=== PATIENT | female | born 1965 | race African-American/Black ===

== ENCOUNTER 2017-01-30 09:56 | Emergency (ER) | payer OTHER ==
[2017-01-30 10:12] VITALS: BP 148/93; PULSE 87; TEMP 97.9; BMI 35.2
[2017-01-30] MEDS ORDERED: DIPHTH,PERTUSS(ACELL),TET 0.5 ML DISP.SYRIN IM ONE (11:35)
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
== END 2017-01-30 12:42 | disposition home or self-care (01) ==
LOC: JERFT 09:56 → JER 09:56
PROC: 3E0234Z Introduction of Serum, Toxoid and Vaccine into Muscle, Percutaneous Approach (ICD-10-PCS; principal; 2017-01-30)
DX: S71.111A Laceration without foreign body, right thigh, initial encounter (principal); S09.8XXA Other specified injuries of head, initial encounter; S40.011A Contusion of right shoulder, initial encounter; S80.01XA Contusion of right knee, initial encounter; W05.2XXA Fall from non-moving motorized mobility scooter, initial encounter; Y93.89 Activity, other specified; Y92.89 Other specified places as the place of occurrence of the external cause; I25.10 Atherosclerotic heart disease of native coronary artery without angina pectoris; I10 Essential (primary) hypertension; Z95.5 Presence of coronary angioplasty implant and graft; E11.9 Type 2 diabetes mellitus without complications; Z79.4 Long term (current) use of insulin; E78.00 Pure hypercholesterolemia, unspecified; I69.851 Hemiplegia and hemiparesis following other cerebrovascular disease affecting right dominant side; Z79.01 Long term (current) use of anticoagulants
CPT/HCPCS: 70450-TC; 73030-TC-RT; 73560-TC-RT; 90471; 90715; 99282-25

== ENCOUNTER 2017-04-05 13:21 | Emergency (ER) | payer OTHER ==
[2017-04-05 13:49] VITALS: BMI 34.0
[2017-04-05] MEDS ORDERED: ONDANSETRON 4 MG/2 ML VIAL IVPUSH ONE (14:50)
--- NOTE | 2017-04-05 14:50 | PDOC ---
History of Present Illness - General Chief Complaint: Pain, Acute Stated Complaint: LOWER PELVIC PAIN (PANCREAS) Time Seen by Provider: 04/05/17 14:21 History Source: Patient Exam Limitations: No Limitations - History of Present Illness Initial Comments: CHIEF COMPLAINT: Back pain HISTORY OF PRESENT ILLNESS: This is a 50 year old female with history of CAD (s/ p stents x 5), HTN, HLD, IDDM, asthma., chronic pancreatitis, and sciatica. She presents to the ED complaining of back pain. She states that she was previously following with a pain management physician and was being prescribed Tramadol, Percocet, and Fentanyl, but that she is now out of them and the clinic no longer accepts her insurance. She also complains of epigastric pain and thinks that her pancreas may be "inflamed." Vital signs on arrival are unremarkable. REVIEW OF SYSTEMS: GENERAL/CONSTITUTIONAL: No fever or chills. No weakness. No weight change. HEAD, EYES, EARS, NOSE AND THROAT: No change in vision. No ear pain or discharge. No sore throat. CARDIOVASCULAR: No chest pain or palpitations. RESPIRATORY: No cough, wheezing, or shortness of breath. GASTROINTESTINAL: Epigastric pain. No nausea, vomiting, diarrhea, or constipation. GENITOURINARY: No dysuria, frequency, or change in urination. MUSCULOSKELETAL: Chronic low back pain. SKIN: No rash or easy bruising. NEUROLOGIC: No headache, vertigo, loss of consciousness, or loss of sensation. PSYCHIATRIC: No depression or anxiety. ENDOCRINE: No increased thirst. No abnormal weight change. HEMATOLOGIC/LYMPHATIC: No anemia, easy bleeding, or history of blood clots. ALLERGIC/IMMUNOLOGIC: No hives or skin allergy. No latex allergy. PHYSICAL EXAM: GENERAL: The patient is awake, alert, and fully oriented, in no acute distress. HEAD: Normal with no signs of trauma. ENT: Pupils equal, round and reactive to light, extraocular movements intact, sclera anicteric, conjunctiva clear. Neck supple. LUNGS: Clear to auscultation bilaterally. Normal excursion. No respiratory distress or use of accessory muscles. CV: RRR, S1/S2, no MRG. Cap refill < 2 sec. ABDOMEN: Soft, non-distended, tender to palpation in RUQ/epigastrium. EXTREMITIES: Normal range of motion, no edema. NEUROLOGICAL: Normal speech, normal gait. CN II-XII grossly intact. No saddle anesthesia. PSYCH: Normal mood, normal affect. SKIN: Warm, dry, normal turgor, no rashes or lesions noted. The Drug Utilization Report below displays all of the controlled substance prescriptions, if any, that your patient has filled in the last twelve months. The information displayed on this report is compiled from pharmacy submissions to the Department, and accurately reflects the information as submitted by the pharmacies. This report was requested by: Ashley Burgos | Reference #: [id number] 04/05/17 14:42 Rx Written Rx Dispensed Drug Quantity Days Supply Prescriber Name 03/15/2017 03/15/2017 zolpidem tartrate 10 mg tablet 30 30 OrtizSammy juarez MD 02/12/2017 03/12/2017 tramadol hcl 50 mg tablet 90 30 Elzholz, Stephan 02/12/2017 02/25/2017 fentanyl 100 mcg/hr patch 10 30 Elzholz, Stephan 02/12/2017 02/23/2017 oxycodone-acetaminophen 10-325 mg tab 120 30 Elzholz, Stephan 11/13/2016 02/11/2017 zolpidem tartrate 10 mg tablet 30 30 Ortiz Sammy MD 01/15/2017 02/11/2017 tramadol hcl 50 mg tablet 90 30 Elzholz, Stephan 01/15/2017 01/27/2017 fentanyl 100 mcg/hr patch 10 30 Elzholz, Stephan 01/15/2017 01/25/2017 oxycodone-acetaminophen 10-325 mg tab 120 30 Elzholz, Stephan 11/13/2016 01/08/2017 zolpidem tartrate 10 mg tablet 30 30 Ortiz Sammy MD 12/18/2016 01/08/2017 tramadol hcl 50 mg tablet 90 30 Elzholz, Stephan 12/18/2016 12/28/2016 fentanyl 100 mcg/hr patch 10 30 Elzholz, Stephan 12/18/2016 12/28/2016 oxycodone-acetaminophen 10-325 mg tab 120 30 Elzholz, Stephan 11/13/2016 12/10/2016 zolpidem tartrate 10 mg tablet 30 30 OrtizSammy juarez MD 11/27/2016 12/10/2016 fentanyl 100 mcg/hr patch 10 30 Elzholz, Stephan 11/27/2016 12/10/2016 tramadol hcl 50 mg tablet 90 30 Elzholz, Stephan 11/27/2016 11/27/2016 oxycodone-acetaminophen 10-325 mg tab 120 30 Elzholz, Stephan 11/13/2016 11/13/2016 zolpidem tartrate 10 mg tablet 30 30 Ortiz Sammy MD 10/30/2016 10/30/2016 fentanyl 100 mcg/hr patch 10 30 Elzholz, Stephan 10/30/2016 10/30/2016 oxycodone-acetaminophen 10-325 mg tab 120 30 Elzholz, Stephan 10/30/2016 10/30/2016 tramadol hcl 50 mg tablet 90 30 Elzholz, Stephan 07/10/2016 10/14/2016 zolpidem tartrate 10 mg tablet 30 30 Ortiz Sammy MD 09/24/2016 09/24/2016 oxycodone-acetaminophen 10-325 mg tab 120 30 Elzholz, Stephan 09/24/2016 09/24/2016 fentanyl 100 mcg/hr patch 10 30 Elzholz, Stephan 09/24/2016 09/24/2016 tramadol hcl 50 mg tablet 90 30 Elzholz, Stephan 07/10/2016 09/09/2016 zolpidem tartrate 10 mg tablet 30 30 Ortiz Sammy MD 08/21/2016 08/21/2016 tramadol hcl 50 mg tablet 90 30 Elzholz, Stephan 08/21/2016 08/21/2016 oxycodone-acetaminophen 10-325 mg tab 120 30 Elzholz, Stephan 07/10/2016 08/10/2016 zolpidem tartrate 10 mg tablet 30 30 Ortiz Sammy MD 07/17/2016 07/17/2016 oxycodone-acetaminophen 10-325 mg tab 120 30 Elzholz, Stephan 07/17/2016 07/17/2016 fentanyl 100 mcg/hr patch 10 30 Elzholz, Stephan 06/19/2016 07/10/2016 fentanyl 50 mcg/hr patch 20 30 Elzholz, Stephan 07/10/2016 07/10/2016 zolpidem tartrate 10 mg tablet 30 30 Ortiz Sammy MD 06/19/2016 06/19/2016 oxycodone-acetaminophen 10-325 mg tab 120 30 Elzholz, Stephan 02/14/2016 06/12/2016 zolpidem tartrate 10 mg tablet 30 30 Ortiz , Sammy VERDUZCO 05/21/2016 05/21/2016 oxycodone-acetaminophen 10-325 mg tab 120 30 Elzholz, Stephan 05/21/2016 05/21/2016 fentanyl 50 mcg/hr patch 20 30 Elzholz, Stephan 02/14/2016 05/12/2016 zolpidem tartrate 10 mg tablet 30 30 Ortiz , Sammy VERDUZCO 04/24/2016 04/24/2016 fentanyl 50 mcg/hr patch 20 30 Elzholz, Stephan 04/24/2016 04/24/2016 oxycodone-acetaminophen 10-325 mg tab 120 30 Elzholz, Stephan 02/14/2016 04/13/2016 zolpidem tartrate 10 mg tablet 30 30 Ortiz , Sammy VERDUZCO Past History - Past Medical History Allergies/Adverse Reactions: Allergies Allergy/AdvReac Type Severity Reaction Status Date / Time morphine Allergy Difficulty Verified 04/05/17 14:50 Breathing STRAWBERRIES Allergy Difficulty Uncoded 04/05/17 14:50 Breathing Home Medications: Ambulatory Orders Albuterol 0.083% Nebulizer Gertrude [Ventolin 0.083% Nebulizer Soln -] 1 neb NEB Q6H PRN 05/24/13 Albuterol Sulfate [Proair Hfa -] 1 - 2 inh PO TID 05/24/13 Insulin Glargine,Hum.rec.anlog [Lantus Solostar PEN -] 50 units SQ BID 05/24/13 Loratadine [Claritin -] 10 mg PO DAILY 05/24/13 Zolpidem Tartrate [Ambien] 10 mg PO HS 05/24/13 Budesonide/Formeterol Fumarate [SYMBICORT 160/4.5mcg -] 2 inh IN Q12H 12/13/14 Insulin Aspart [Novolog] 25 units SQ AC 12/13/14 Naproxen/Esomeprazole Mag [Vimovo Dr 500-20 mg Tablet] 1 tab PO BID 12/13/14 Ranolazine [Ranexa] 500 mg PO BID 12/13/14 Tiotropium [place] [Spiriva] 1 inh IN DAILY 12/13/14 Lisinopril [Prinivil] 20 mg PO DAILY #30 tablet 12/16/14 Nicotine Patch [Nicoderm Patch -] 21 mg TD DAILY #30 patch 12/16/14 Lidocaine 5% Patch [Lidoderm -] 1 patch TP DAILY #7 patch 04/22/15 Oxycodone HCl/Acetaminophen [Percocet 5-325 mg Tablet] 1 - 2 tab PO Q4H #32 tablet 04/22/15 Aspirin [ASA -] 81 mg PO DAILY #30 tab.chew 05/22/15 Atorvastatin Ca [Lipitor] 80 mg PO HS #30 tablet 05/22/15 Clopidogrel Bisulfate [Plavix -] 75 mg PO DAILY #30 tablet 05/22/15 Polyethylene Glycol 3350 [Miralax 119 gm Btl -] 17 gm PO ONCE PRN #1 bottle 04/27 Oxycodone HCl/Acetaminophen [Percocet 5-325 mg Tablet] 1 tab PO Q6H PRN #12 tablet MDD 4 tabs 04/05/17 Ranitidine HCl [Zantac] 150 mg PO DAILY #30 tablet 04/05/17 Asthma: Yes Cardiac Disorders: Yes ([place]) CVA: Yes (LT SIDE RESIDUAL WEAKNESS) Diabetes: Yes GI Disorders: Yes HTN: Yes Hypercholesterolemia: Yes Suicide Attempt (Hx): No - Surgical History Abdominal Surgery: Yes (Ruptured vessel) Cardiac Surgery: Yes (STENTS X2) - Immunization History Immunization Up to Date: Yes - Psycho/Social/Smoking Cessation Hx Anxiety: No Suicidal Ideation: No Smoking Status: Yes Smoking History: Current every day smoker Have you smoked in the past 12 months: Yes Number of Cigarettes Smoked Daily: 4 Cigars Per Day: 0 Information on smoking cessation initiated: No 'Breaking Loose' booklet given: 05/21/15 Hx Alcohol Use: No Drug/Substance Use Hx: No Substance Use Type: None Hx Substance Use Treatment: No *Physical Exam - Vital Signs Last Vital Signs Temp Pulse Resp BP Pulse Ox 97.6 F 68 19 150/74 97 04/05/17 13:46 04/05/17 13:46 04/05/17 13:46 04/05/17 13:46 04/05/17 13:46 Heart Score/ECG Review - ECG Intrepretation Comment:: 07/24/17 18:53 Sinus bradycardia at 57bpm, Q waves in anterior and septal leads previously cited ED Treatment Course - LABORATORY CBC & Chemistry Diagram: 04/05/17 14:55 04/05/17 16:43 Medical Decision Making - Medical Decision Making 04/05/17 17:25 A/P: 52 year old female with chronic back pain, also with epigastric pain mimicking prior episodes of acute pancreatitis. 1. EKG 2. Labs including CBC, comp, lipase, cardiac profile 3. Patient reports recent imaging of low back (outpatient CT scan in January) 4. Percocet x 2 po for pain 5. PO trial/re-evaluate 04/05/17 17:34 Lipase within normal limits at 188. Tolerating PO. Will discharge- patient has appointment with new pain management physician and has also been in touch with her PCP regarding need for pain management. *DC/Admit/Observation/Transfer Diagnosis at time of Disposition: Epigastric abdominal pain Chronic low back pain Qualifiers: Back pain laterality: bilateral Sciatica presence: with sciatica Sciatica laterality: bilateral sciatica Qualified Code(s): M54.42 - Lumbago with sciatica , left side - Discharge Dispostion Disposition: HOME Admit: No - Prescriptions Prescriptions: Oxycodone HCl/Acetaminophen [Percocet 5-325 mg Tablet] 1 tab PO Q6H PRN #12 tablet MDD 4 tabs PRN Reason: Pain Ranitidine HCl [Zantac] 150 mg PO DAILY #30 tablet - Referrals Referrals: Sammy Ortiz [Primary Care Provider] - Call tomorrow - Patient Instructions Printed Discharge Instructions: DI for Low Back Pain, [place] Diet Additional Instructions: -Take ranitidine as prescribed for stomach pain -Follow a bland diet (instructions enclosed) until you are feeling better -You are being given a 3 day supply of Perocet for your low back pain, but you must follow up with pain management for Fentanyl patches and for any longer term prescriptions -Return here for leg weakness or numbness or incontinence of urine or stool as these could be signs of a serious condition
[2017-04-05] MEDS ORDERED: OXYCODONE/APAP 5/325MG COMBO TABLET PO ONE (14:52)
[2017-04-05] MEDS ORDERED: OXYCODONE/APAP 5/325MG COMBO TABLET ONE (15:15)
[2017-04-05] MEDS ORDERED: ONDANSETRON 4 MG/2 ML VIAL ONE (15:16)
[2017-04-05 15:26] LABS: BASOPHIL 1.3 % (0-2.0); EOSINOPHIL 2.4 % (0-4.5); MCH 25.8 pg (25.7-33.7); MCHC 32.8 g/dl (32.0-36.0); MEAN CELL VOLUME 78.7 fl (80-96); MEAN PLT VOLUME 9.4 fl (7.5-11.1); NEUTROPHILS 43.4 % (42.8-82.8); PLATELET COUNT 203 K/MM3 (134-434); RDW 15.6 % (11.6-15.6); WHITE BLOOD COUNT 7.7 K/mm3 (4.0-10.0)
[2017-04-05 17:19] LABS: ANION GAP 7 (8-16); BILIRUBIN,TOTAL 0.4 mg/dL (0.2-1.0); CALCIUM 8.8 mg/dL (8.5-10.1); CO2 27 mmol/L (21-32); CREATININE 0.9 mg/dL (0.55-1.02); GLUCOSE,RANDOM 159 mg/dL (74-106); SGOT/AST 14 U/L (15-37); SGPT/ALT 18 U/L (12-78); TOT PROT 6.6 g/dl (6.4-8.2)
[2017-04-05 17:22] LABS: ALK PHOS 102 U/L (45-117); TROPONIN I < 0.02 ng/ml (0.00-0.05)
[2017-04-05] MEDS ORDERED: RANITIDINE HCL 150 MG TABLET (FP) PO ONE (17:36)
[2017-04-05 17:52] VITALS: BP 128/81; PULSE 81; TEMP 97.9
--- NOTE | 2017-04-06 20:47 | EKG ---
Test Reason : Blood Pressure : / mmHG Vent. Rate : 057 BPM Atrial Rate : 057 BPM P-R Int : 142 ms QRS Dur : 072 ms QT Int : 468 ms P-R-T Axes : 073 -37 -45 degrees QTc Int : 455 ms SINUS BRADYCARDIA LEFT AXIS DEVIATION ATRIAL ABNORMALITY ANTEROSEPTAL INFARCT (CITED ON OR BEFORE 02-DEC-2004) ABNORMAL ECG WHEN COMPARED WITH ECG OF 22-MAY-2015 09:41, NONSPECIFIC T WAVE ABNORMALITY HAS REPLACED INVERTED T WAVES IN INFERIOR LEADS REPEAT EKG IF CLINICALLY INDICATED Confirmed by CLINT GONZALES MD ([id number]) on 04/06/2017 8:47:30 PM Referred By: Confirmed By:CLINT GONZALES MD
== END 2017-04-05 17:52 | disposition home or self-care (01) ==
LOC: JER 13:21
PROC: 3E033GC Introduction of Other Therapeutic Substance into Peripheral Vein, Percutaneous Approach (ICD-10-PCS; principal; 2017-04-05)
DX: R10.13 Epigastric pain (principal); M54.42 Lumbago with sciatica, left side; I25.10 Atherosclerotic heart disease of native coronary artery without angina pectoris; I10 Essential (primary) hypertension; Z95.5 Presence of coronary angioplasty implant and graft; E11.9 Type 2 diabetes mellitus without complications; Z79.4 Long term (current) use of insulin; J45.909 Unspecified asthma, uncomplicated; K86.1 Other chronic pancreatitis
CPT/HCPCS: 36415; 80053; 82550; 83690; 84484; 85025; 93005; 93010; 96374; 99284-25

== ENCOUNTER 2017-10-31 14:33 | Inpatient (IN) | payer OTHER ==
[2017-10-31 15:02] VITALS: BMI 33.2
--- NOTE | 2017-10-31 15:21 | PDOC ---
History of Present Illness - General History Source: Patient Exam Limitations: No Limitations - History of Present Illness Initial Comments: 10/31/17 16:10 The patient is a year old female, with a significant past medical history of CAD (s/p 6 stents), HTN, HLD, IDDM, asthma., chronic pancreatitis, and sciatica , who presents to the emergency department with, two weeks of intermittent worsening epigastric pain. She reports taking Percocet she usually takes for her sciatica, without relief. As per patient, the Percocet occasionally works for her epigastric pain. She reports to have had similar symptoms associated with her prior episodes of pancreatitis. Secondary to her symptoms she reports nausea without emesis. She reports her last bowel movement to have been two weeks ago, which is normal for her. The patient reports chest pain radiating to her left arm, which has since resolved. She denies any diaphoresis. She denies recent fevers, chills, headache or dizziness. She denies recent vomit, diarrhea or constipation. She denies recent dysuria, frequency, urgency or hematuria. She denies recent shortness of breath. Allergies: NKA Past surgical history: None reported. Social history: Nonsmoker. Denies EtOH use and recreational drug use. Primary Care Physician: Morphine, Strawberries <Slick Marx - Last Filed: 10/31/17 17:25> <Sherley Robertson - Last Filed: 10/31/17 17:56> - General Chief Complaint: Pain Stated Complaint: chest pain Time Seen by Provider: 10/31/17 14:49 Past History <Slick Marx - Last Filed: 10/31/17 17:25> - Past Medical History Asthma: Yes Cardiac Disorders: Yes (NM) CVA: Yes (LT SIDE RESIDUAL WEAKNESS) COPD: No Diabetes: Yes GI Disorders: Yes HTN: Yes Hypercholesterolemia: Yes - Surgical History Abdominal Surgery: Yes (Ruptured vessel) Cardiac Surgery: Yes (STENTS X2) - Immunization History Immunization Up to Date: Yes - Suicide/Smoking/Psychosocial Hx Smoking Status: Yes Smoking History: Current every day smoker Have you smoked in the past 12 months: Yes Number of Cigarettes Smoked Daily: 4 Cigars Per Day: 0 Information on smoking cessation initiated: No 'Breaking Loose' booklet given: 05/21/15 Hx Alcohol Use: No Drug/Substance Use Hx: No Substance Use Type: None Hx Substance Use Treatment: No <Sherley Robertson - Last Filed: 10/31/17 17:56> - Past Medical History Allergies/Adverse Reactions: Allergies Allergy/AdvReac Type Severity Reaction Status Date / Time morphine Allergy Difficulty Verified 10/31/17 14:51 Breathing STRAWBERRIES Allergy Difficulty Uncoded 10/31/17 14:51 Breathing Home Medications: Ambulatory Orders Albuterol 0.083% Nebulizer Gertrude [Ventolin 0.083% Nebulizer Soln -] 1 neb NEB Q6H PRN 05/24/13 Albuterol Sulfate [Proair Hfa -] 1 - 2 inh PO TID 05/24/13 Insulin Glargine,Hum.rec.anlog [Lantus Solostar PEN -] 50 units SQ BID 05/24/13 Loratadine [Claritin -] 10 mg PO DAILY 05/24/13 Zolpidem Tartrate [Ambien] 10 mg PO HS 05/24/13 Budesonide/Formeterol Fumarate [SYMBICORT 160/4.5mcg -] 2 inh IN Q12H 12/13/14 Insulin Aspart [Novolog] 25 units SQ AC 12/13/14 Naproxen/Esomeprazole Mag [Vimovo Dr 500-20 mg Tablet] 1 tab PO BID 12/13/14 Ranolazine [Ranexa] 500 mg PO BID 12/13/14 Tiotropium [place] [Spiriva] 1 inh IN DAILY 12/13/14 Lisinopril [Prinivil] 20 mg PO DAILY #30 tablet 12/16/14 Nicotine Patch [Nicoderm Patch -] 21 mg TD DAILY #30 patch 12/16/14 Lidocaine 5% Patch [Lidoderm -] 1 patch TP DAILY #7 patch 04/22/15 Oxycodone HCl/Acetaminophen [Percocet 5-325 mg Tablet] 1 - 2 tab PO Q4H #32 tablet 04/22/15 Aspirin [ASA -] 81 mg PO DAILY #30 tab.chew 05/22/15 Atorvastatin Ca [Lipitor] 80 mg PO HS #30 tablet 05/22/15 Clopidogrel Bisulfate [Plavix -] 75 mg PO DAILY #30 tablet 05/22/15 Polyethylene Glycol 3350 [Miralax 119 gm Btl -] 17 gm PO ONCE PRN #1 bottle 04/27 Oxycodone HCl/Acetaminophen [Percocet 5-325 mg Tablet] 1 tab PO Q6H PRN #12 tablet MDD 4 tabs 04/05/17 Ranitidine HCl [Zantac] 150 mg PO DAILY #30 tablet 04/05/17 Review of Systems - Review of Systems Able to Perform ROS?: Yes Comments:: 10/31/17 16:10 GENERAL/CONSTITUTIONAL: No fever or chills. No weakness. HEAD, EYES, EARS, NOSE AND THROAT: No change in vision. No ear pain or discharge. No sore throat. GASTROINTESTINAL: +Diffuse epigastric pain. +Nausea. No, vomiting, diarrhea or constipation. GENITOURINARY: No dysuria, frequency, or change in urination. CARDIOVASCULAR: No chest pain or shortness of breath. RESPIRATORY: No cough, wheezing, or hemoptysis. MUSCULOSKELETAL: No joint or muscle swelling or pain. No neck or back pain. SKIN: No rash NEUROLOGIC: No headache, vertigo, loss of consciousness, or change in strength/ sensation. ENDOCRINE: No increased thirst. No abnormal weight change. HEMATOLOGIC/LYMPHATIC: No anemia, easy bleeding, or history of blood clots. ALLERGIC/IMMUNOLOGIC: No hives or skin allergy. All Other Systems: Reviewed and Negative <Slick Marx - Last Filed: 10/31/17 17:25> *Physical Exam - Vital Signs Last Vital Signs Temp Pulse Resp BP Pulse Ox 98.4 F 71 22 150/100 100 10/31/17 14:46 10/31/17 15:00 10/31/17 15:00 10/31/17 15:00 10/31/17 15:00 - Physical Exam Comments: 10/31/17 16:10 Constitutional: Awake, alert, oriented. No acute distress. Head: Normocephalic. Atraumatic Eyes: PERRL. EOMI. Conjunctivae are not pale. ENT: Mucous membranes are moist and intact. Posterior pharynx without exudates or erythema. Uvula midline. Neck: Supple. Full ROM. No lymphadenopathy. Cardiovascular: Regular rate. Regular rhythm. S1, S2 regular. Distal pulses are 2+ and symmetric. Pulmonary/Chest: No evidence of respiratory distress. Clear to auscultation bilaterally No wheezing, rales or rhonchi. Abdominal: +Diffuse tenderness to the upper abdomen mildly worse in the left upper quadrant. Soft and non-distended. No rebound, guarding or rigidity. No organomegaly. No palpable masses. Good bowel sounds. Back: No CVA tenderness. Musculoskeletal: No edema. No cyanosis. No clubbing. Full range of motion in all extremities. Nocalf tenderness. Radial/pedal pulses are intact and 2+ bilaterally Skin: Skin is warm and dry. No petechiae. No purpura. Neurological: Alert and oriented to person, place, and time. Cranial nerves II -XII are grossly intact. Normal speech. Strength is grossly symmetric. No sensory deficits. Psychiatric: Good eye contact. Normal interaction, affect and behavior. <Slick Marx - Last Filed: 10/31/17 17:25> - Vital Signs Last Vital Signs Temp Pulse Resp BP Pulse Ox 98.4 F 71 22 150/100 100 10/31/17 14:46 10/31/17 15:00 10/31/17 15:00 10/31/17 15:00 10/31/17 15:00 <Sherley Robertson - Last Filed: 10/31/17 17:56> Heart Score/ECG Review - ECG Intrepretation Comment:: 10/31/17 16:07 sinus at 71, Nl axis, nl interval, t wave inversions lateral and inferior that are unchanged from prior ekg, q waves anteriorly that are unchanged from prior <Sherley Robertson - Last Filed: 10/31/17 17:56> ED Treatment Course - LABORATORY CBC & Chemistry Diagram: 10/31/17 15:40 10/31/17 15:40 - ADDITIONAL ORDERS Additional order review: 10/31/17 15:40 RBC 5.77 H MCV 80.4 MCHC 32.8 RDW 15.2 MPV 10.0 Neutrophils % 43.3 Lymphocytes % 43.8 H Monocytes % 9.6 Eosinophils % 2.6 Basophils % 0.7 - Medications Given in the ED: ED Medications Discontinued Medications Generic Name Dose Route Start Last Admin Trade Name Freq PRN Reason Stop Dose Admin Al Hydroxide/Mg Hydroxide 30 ml 10/31/17 15:24 10/31/17 16:09 Mylanta Oral Suspension - PO 10/31/17 15:25 30 ml ONCE ONE Administration Hydromorphone HCl 0.5 mg 10/31/17 15:25 10/31/17 16:09 Dilaudid Injection - IVPB 10/31/17 15:26 0.5 mg ONCE ONE Administration Ondansetron HCl 4 mg 10/31/17 15:22 10/31/17 16:09 Zofran Injection IVPUSH 10/31/17 15:23 4 mg ONCE ONE Administration Sodium Chloride 1,000 ml 10/31/17 15:22 10/31/17 16:09 Normal Saline - IV 10/31/17 15:23 1,000 ml ONCE ONE Administration <Slick Marx - Last Filed: 10/31/17 17:25> - LABORATORY CBC & Chemistry Diagram: 10/31/17 15:40 10/31/17 15:40 <hSerley Robertson - Last Filed: 10/31/17 17:56> Medical Decision Making - Medical Decision Making 5:17pm Microblog placed to hospitalist for inpatient admission for acute pancreatitis, awaiting response. <Slick Marx - Last Filed: 10/31/17 17:25> - Medical Decision Making 10/31/17 15:58 a/p: 52yo female with cp and abd pain -suspect acs vs pancreatitis vs constipation -will check labs, cxr, ct abd/pelvis, pain control, nausea control -pt nontoxic in appearance -cp resolved at this time -no sob -will give ivf hydration -poss L sided cp from pancreatitis -will monitor and reassess 10/31/17 16:42 lipase 833 - acute pancreatitis heading to CT now ivf hdyration running pain control with dilaudid benadryl for itching 10/31/17 17:15 pt with elevated lactate acute pancreatitis and lactic acidosis will need inpt admission admits to Dr. Benitez - who is covered at night by [employer] 10/31/17 17:44 case discussed with Kirsten Penny from [facility] - accepts pt to tele for [facility] family at the bedside updated will keep pt for pancreatitis management, further eval of chest pain 10/31/17 17:55 pt updated on labs, willing to stay for further eval <Sherley Robertson - Last Filed: 10/31/17 17:56> *DC/Admit/Observation/Transfer - Attestations Scribe Attestion: 10/31/17 16:11 Documentation prepared by Slick Marx, acting as faculty i on call medical assistant for Sherley Robertson DO. <Slick Marx - Last Filed: 10/31/17 17:25> - Discharge Dispostion Admit: Yes - Attestations Physician Attestion: 10/31/17 17:16 I, Dr. Sherley Robertson DO, attest that this document has been prepared under my direction and personally reviewed by me in its entirety. I further attest, that it accurately reflects all work, treatment, procedures and medical decision -making performed by me. <Sherley Robertson - Last Filed: 10/31/17 17:56> Diagnosis at time of Disposition: Chest pain, Pancreatitis, Lactic acidosis - Discharge Dispostion Condition at time of disposition: Fair - Referrals Referrals: Sammy Ortiz [Primary Care Provider] -
[2017-10-31] MEDS ORDERED: FAMOTIDINE 20 MG/50 ML IVPB 20 MG/50 ML MG IVPB ONE (15:22)
[2017-10-31] MEDS ORDERED: ONDANSETRON 4 MG/2 ML VIAL IVPUSH ONE (15:22)
[2017-10-31] MEDS ORDERED: SODIUM CHLORIDE 0.9% 1000 ML INFUS.BAG IV ONE ×2 (15:22→16:42)
[2017-10-31] MEDS ORDERED: MAG HYDROX/AL HYDROX/SIMETH 30 ML UNIT-DOSE CUP PO ONE (15:24)
[2017-10-31] MEDS ORDERED: HYDROmorphone HCL CARPU-JECT 1 MG/1 ML DISP.SYRIN IVPB ONE (15:25)
[2017-10-31 15:49] LABS: BASO % 0.7 % (0-2.0); EOS % 2.6 % (0-4.5); HEMATOCRIT 46.4 % (32.4-45.2); HEMOGLOBIN 15.2 GM/dL (10.7-15.3); LYMPH % 43.8 % (8-40); MCH 26.3 pg (25.7-33.7); MCHC 32.8 g/dl (32.0-36.0); MEAN CELL VOLUME 80.4 fl (80-96); MONO % 9.6 % (3.8-10.2); NEUT % 43.3 % (42.8-82.8); PLATELET COUNT 200 K/MM3 (134-434); RBC 5.77 M/mm3 (3.60-5.2); RDW 15.2 % (11.6-15.6); WHITE BLOOD COUNT 7.5 K/mm3 (4.0-10.0)
[2017-10-31] MEDS ORDERED: ONDANSETRON 4 MG/2 ML VIAL ONE (15:50)
[2017-10-31] MEDS ORDERED: HYDROmorphone HCl/Pf 2 MG/ML VIAL - FOR OR PYXIS USE ONE (15:50)
[2017-10-31] MEDS ORDERED: MAG HYDROX/AL HYDROX/SIMETH 30 ML UNIT-DOSE CUP ONE (15:50)
[2017-10-31 16:18] LABS: ANION GAP 10 (8-16); BILIRUBIN,TOTAL 0.4 mg/dL (0.2-1.0); BLOOD UREA NITROGEN 13 mg/dL (7-18); CHLORIDE 102 mmol/L (98-107); CO2 26 mmol/L (21-32); CREATININE 1.2 mg/dL (0.55-1.02); GLUCOSE,RANDOM 248 mg/dL (74-106); MAGNESIUM 2.2 mg/dL (1.8-2.4); SGOT/AST 14 U/L (15-37); SGPT/ALT 21 U/L (12-78); SODIUM 138 mmol/L (136-145); TOT PROT 6.6 g/dl (6.4-8.2)
[2017-10-31 16:21] LABS: ALK PHOS 162 U/L (45-117)
[2017-10-31 16:24] LABS: LIPASE 833 U/L (73-393)
[2017-10-31 16:35] LABS: INR 0.96 (0.82-1.09); PROTHROMBIN TIME (PATIENT) 10.9 SEC (9.98-11.88)
[2017-10-31] MEDS ORDERED: diphenhydrAMINE HCL 25 MG CAPSULE (FP) PO ONE ×2 (16:42)
--- NOTE | 2017-10-31 19:24 | PN ---
Teaching Attending Note Name of Resident: Deshawn Morales ATTENDING PHYSICIAN STATEMENT I saw and evaluated the patient. I reviewed the resident's note and discussed the case with the resident. I agree with the resident's findings and plan as documented. SUBJECTIVE: 52 F with pmhx. of CAD (S/p 6 Stents), HTN, HLD, IDDM, chronic Pancreatitis , Sciatica who presents with 2 weeks of worsening epigastric pain, States Percocet has stopped working. Also with associated nausea. Notes pain is diffuse in nature. No vomiting or diarrhea. No fevers or chills. No chest pain or pressure. OBJECTIVE: Physical: VS: Vital Signs Period Temp Pulse Resp BP Sys/Li Pulse Ox Last 24 Hr 98.4 F 71-72 18-22 150-160/100-110 100-100 GEN:NAD, Resting in bed, AA0X3 HEENT: NCAT,PERRL, Throat without erythema or exudates CARD: RRR S1, S2 RESP: CTAB ABD: BSx4, NTD to palpation EXT: - C/C/E CBCD WBC 7.5 K/mm3 (4.0-10.0) 10/31/17 15:40 RBC 5.77 M/mm3 (3.60-5.2) H 10/31/17 15:40 Hgb 15.2 GM/dL (10.7-15.3) 10/31/17 15:40 Hct 46.4 % (32.4-45.2) H 10/31/17 15:40 MCV 80.4 fl (80-96) 10/31/17 15:40 MCHC 32.8 g/dl (32.0-36.0) 10/31/17 15:40 RDW 15.2 % (11.6-15.6) 10/31/17 15:40 Plt Count 200 K/MM3 (134-434) 10/31/17 15:40 MPV 10.0 fl (7.5-11.1) 10/31/17 15:40 CMP Sodium 138 mmol/L (136-145) 10/31/17 15:40 Potassium 4.0 mmol/L (3.5-5.1) 10/31/17 15:40 Chloride 102 mmol/L (98-107) 10/31/17 15:40 Carbon Dioxide 26 mmol/L (21-32) 10/31/17 15:40 Anion Gap 10 (8-16) 10/31/17 15:40 BUN 13 mg/dL (7-18) 10/31/17 15:40 Creatinine 1.2 mg/dL (0.55-1.02) H 10/31/17 15:40 Creat Clearance w eGFR 46.99 (>60) 10/31/17 15:40 Random Glucose 248 mg/dL (74-106) H 10/31/17 15:40 Calcium 9.0 mg/dL (8.5-10.1) 10/31/17 15:40 Total Bilirubin 0.4 mg/dL (0.2-1.0) 10/31/17 15:40 AST 14 U/L (15-37) L 10/31/17 15:40 ALT 21 U/L (12-78) 10/31/17 15:40 Alkaline Phosphatase 162 U/L (45-117) H 10/31/17 15:40 Total Protein 6.6 g/dl (6.4-8.2) 10/31/17 15:40 Albumin 3.0 g/dl (3.4-5.0) L 10/31/17 15:40 CARDIAC ENZYMES Creatine Kinase 113 IU/L (26-192) 10/31/17 15:40 Troponin I 0.02 ng/ml (0.00-0.05) 10/31/17 15:40 Ambulatory Orders Albuterol 0.083% Nebulizer Gertrude [Ventolin 0.083% Nebulizer Soln -] 1 neb NEB Q6H PRN 05/24/13 Albuterol Sulfate [Proair Hfa -] 1 - 2 inh PO TID 05/24/13 Insulin Glargine,Hum.rec.anlog [Lantus Solostar PEN -] 50 units SQ BID 05/24/13 Loratadine [Claritin -] 10 mg PO DAILY 05/24/13 Zolpidem Tartrate [Ambien] 10 mg PO HS 05/24/13 Budesonide/Formeterol Fumarate [SYMBICORT 160/4.5mcg -] 2 inh IN Q12H 12/13/14 Insulin Aspart [Novolog] 25 units SQ AC 12/13/14 Naproxen/Esomeprazole Mag [Vimovo Dr 500-20 mg Tablet] 1 tab PO BID 12/13/14 Ranolazine [Ranexa] 500 mg PO BID 12/13/14 Tiotropium [place] [Spiriva] 1 inh IN DAILY 12/13/14 Lisinopril [Prinivil] 20 mg PO DAILY #30 tablet 12/16/14 Nicotine Patch [Nicoderm Patch -] 21 mg TD DAILY #30 patch 12/16/14 Lidocaine 5% Patch [Lidoderm -] 1 patch TP DAILY #7 patch 04/22/15 Oxycodone HCl/Acetaminophen [Percocet 5-325 mg Tablet] 1 - 2 tab PO Q4H #32 tablet 04/22/15 Aspirin [ASA -] 81 mg PO DAILY #30 tab.chew 05/22/15 Atorvastatin Ca [Lipitor] 80 mg PO HS #30 tablet 05/22/15 Clopidogrel Bisulfate [Plavix -] 75 mg PO DAILY #30 tablet 05/22/15 Polyethylene Glycol 3350 [Miralax 119 gm Btl -] 17 gm PO ONCE PRN #1 bottle 04/27 Oxycodone HCl/Acetaminophen [Percocet 5-325 mg Tablet] 1 tab PO Q6H PRN #12 tablet MDD 4 tabs 04/05/17 Ranitidine HCl [Zantac] 150 mg PO DAILY #30 tablet 04/05/17 ASSESSMENT AND PLAN: 52 F with pmhx. of CAD (S/p 6 Stents), HTN, HLD, IDDM, Asthma, chronic Pancreatitis , Sciatica who presents with 2 weeks of worsening epigastric rubio, found to have pancreatitis 1.) Acute Pancreatitis - NPO - IVF - Pain Control - Lipid Panel 2.) CAD s/p Stents - C/W ASA, STatin, Terry-I - Plavix - Confirm meds in AM - Unsure why pt. is not on BB 3.) HTN - C/E Terry-I 4.) DM - FS - RAISS 5.) Sciatica - Pain Control 6.) Asthma - C/W nebs prn and home meds 7.) Tobacco Abuse - Advise smoking Cessation 8.) Dvt Ppx - Heparin [address] in Med-Sx
[2017-10-31] MEDS ORDERED: LACTATED RINGERS SOLUTION 1,000 ML IV SCH (20:15)
[2017-10-31] MEDS: ACETAMINOPHEN 1000 MG/100 ML VIAL (NON FORMULARY) IVPB PRN (20:30)
[2017-10-31] MEDS ORDERED: ACETAMINOPHEN INJECTION 100 ML IVPB ONE (20:34)
[2017-10-31] MEDS ORDERED: POLYETHYLENE GLYCOL 3350 119 GM BTL PO PRN (20:35)
[2017-10-31] MEDS ORDERED: ALBUTEROL SO4 0.083% IH SOL 2.5 MG/3 ML VIAL.NEB. NEB PRN (20:35)
[2017-10-31] MEDS ORDERED: BUDESONIDE/FORMETEROL FUMARATE 160/4.5 mcg INHALER IH SCH (20:45)
--- NOTE | 2017-10-31 20:46 | HP ---
CHIEF COMPLAINT: abdominal pain PCP: HISTORY OF PRESENT ILLNESS: The patient is a 52 yo f w/ PMH chronic pancreatitis, IDDM, HTN, CAD s/p 6 stents who comes into the ED c/o epigastric pain for the past 2 weeks. Patient states that the pain began intermittently, but has been getting progressively worse and is now associated with nausea. Patient states she took a double dose of her home percocet which did not help. Patient also complained of chest tightness as well as tingling and numbness in both hands which she she states is new. The chest tightness has since resolved. Patient states her last bowel movement was 2 days ago, which is normal for her. Patient denies fevers, chills , SOB, palpitations headache or dizziness. ER course was notable for: (1) 2L NS bolus, dilaudid x1 (2) CT abdomen and pelvis showing retained stool and "unremarkable upper abdominal organs" by imaging motion picture scene builder read (3) CXR WNL (4) Lipase of 833, Lactic acid 2.9, creatinine 1.2 (slightly above baseline) Recent Travel: none PAST MEDICAL HISTORY: CAD w/ AMIx2 s/p stenting x6 HTN IDDM Siatica Asthma HLD Stroke w/ residual left sided weakness PAST SURGICAL HISTORY: Abdominal surgery for "ruptured vessel" Stenting x6 Social History: Smokin cigs per day Alcohol: denies Drugs: denies Family History: non-contributory Allergies morphine Allergy (Verified 10/31/17 14:51) Difficulty Breathing STRAWBERRIES Allergy (Uncoded 10/31/17 14:51) Difficulty Breathing HOME MEDICATIONS: Home Medications Medication Instructions Recorded Albuterol 0.083% Nebulizer Gertrude 1 neb NEB Q6H PRN 05/24/13 [Ventolin 0.083% Nebulizer Soln -] Albuterol Sulfate [Proair Hfa -] 1 - 2 inh PO TID 05/24/13 Insulin Glargine,Hum.rec.anlog 50 units SQ BID 05/24/13 [Lantus Solostar PEN -] Loratadine [Claritin -] 10 mg PO DAILY 05/24/13 Zolpidem Tartrate [Ambien] 10 mg PO HS 05/24/13 Budesonide/Formeterol Fumarate 2 inh IN Q12H 12/13/14 [SYMBICORT 160/4.5mcg -] Insulin Aspart [Novolog] 25 units SQ AC 12/13/14 Naproxen/Esomeprazole Mag [Vimovo 1 tab PO BID 12/13/14 Dr 500-20 mg Tablet] Ranolazine [Ranexa] 500 mg PO BID 12/13/14 Tiotropium [place] [Spiriva] 1 inh IN DAILY 12/13/14 Lisinopril [Prinivil] 20 mg PO DAILY #30 tablet 12/16/14 Nicotine Patch [Nicoderm Patch -] 21 mg TD DAILY #30 patch 12/16/14 Lidocaine 5% Patch [Lidoderm -] 1 patch TP DAILY #7 patch 04/22/15 Oxycodone HCl/Acetaminophen 1 - 2 tab PO Q4H #32 tablet 04/22/15 [Percocet 5-325 mg Tablet] Aspirin [ASA -] 81 mg PO DAILY #30 tab.chew 05/22/15 Atorvastatin Ca [Lipitor] 80 mg PO HS #30 tablet 05/22/15 Clopidogrel Bisulfate [Plavix -] 75 mg PO DAILY #30 tablet 05/22/15 Polyethylene Glycol 3350 [Miralax 17 gm PO ONCE PRN #1 bottle 08/20/15 119 gm Btl -] Oxycodone HCl/Acetaminophen 1 tab PO Q6H PRN #12 tablet MDD 4 04/05/17 [Percocet 5-325 mg Tablet] tabs Ranitidine HCl [Zantac] 150 mg PO DAILY #30 tablet 04/05/17 REVIEW OF SYSTEMS Negative except for HPI CONSTITUTIONAL: Absent: fever, chills, diaphoresis, generalized weakness, malaise, loss of appetite, weight change HEENT: Absent: rhinorrhea, nasal congestion, throat pain, throat swelling, difficulty swallowing, mouth swelling, ear pain, eye pain, visual changes CARDIOVASCULAR: Absent: syncope, palpitations, irregular heart rate, lightheadedness, peripheral edema RESPIRATORY: Absent: cough, shortness of breath, dyspnea with exertion, orthopnea, wheezing, stridor, hemoptysis GASTROINTESTINAL: Absent: abdominal distension, vomiting, diarrhea, melena, hematochezia GENITOURINARY: Absent: dysuria, frequency, urgency, hesitancy, hematuria, flank pain, genital pain MUSCULOSKELETAL: Absent: myalgia, arthralgia, joint swelling, back pain, neck pain SKIN: Absent: rash, itching, pallor HEMATOLOGIC/IMMUNOLOGIC: Absent: easy bleeding, easy bruising, lymphadenopathy, frequent infections ENDOCRINE: Absent: unexplained weight gain, unexplained weight loss, heat intolerance, cold intolerance NEUROLOGIC: Absent: headache, focal weakness or paresthesias, dizziness, unsteady gait, seizure, mental status changes, bladder or bowel incontinence PSYCHIATRIC: Absent: anxiety, depression, suicidal or homicidal ideation, hallucinations. PHYSICAL EXAMINATION Vital Signs - 24 hr 10/31/17 10/31/17 14:46 15:00 Temperature 98.4 F Pulse Rate 72 Pulse Rate [ 71 Apical] Respiratory 18 22 Rate Blood Pressure 160/110 Blood Pressure 150/100 [Left Arm] O2 Sat by Pulse 100 100 Oximetry (%) GENERAL: Awake, alert, and fully oriented, in moderate distress 2/2 pain. Patient found in position in bed HEAD: Normal with no signs of trauma. NECK: Normal range of motion, supple without lymphadenopathy, JVD, or masses. LUNGS: Breath sounds equal, clear to auscultation bilaterally. No wheezes, and no crackles. No accessory muscle use. HEART: Regular rate and rhythm, normal S1 and S2 without murmur, rub or gallop. ABDOMEN: Soft, exquisitely tender to palpation, mildly distended, hypoactive bowel sounds, no guarding, no rebound, no masses. LOWER EXTREMITIES: 2+ pulses, warm, well-perfused. No calf tenderness. No peripheral edema. NEUROLOGICAL: Cranial nerves II-X intact. Normal speech. SKIN: Warm, dry, normal turgor, no rashes or lesions noted, normal capillary refill. Laboratory Results - last 24 hr 10/31/17 10/31/17 10/31/17 15:40 15:40 15:40 WBC RBC Hgb Hct MCV MCH MCHC RDW Plt Count MPV Neutrophils % Lymphocytes % Monocytes % Eosinophils % Basophils % PT with INR INR PTT (Actin FS) 28.7 Sodium 138 Potassium 4.0 Chloride 102 Carbon Dioxide 26 Anion Gap 10 BUN 13 Creatinine 1.2 H Creat Clearance w eGFR 46.99 Random Glucose 248 H Lactic Acid 2.9 H* Calcium 9.0 Magnesium 2.2 Total Bilirubin 0.4 AST 14 L ALT 21 Alkaline Phosphatase 162 H Creatine Kinase 113 Troponin I 0.02 B-Natriuretic Peptide 97.10 Total Protein 6.6 Albumin 3.0 L Lipase 833 H 10/31/17 10/31/17 15:40 15:40 WBC 7.5 RBC 5.77 H Hgb 15.2 Hct 46.4 H MCV 80.4 MCH 26.3 MCHC 32.8 RDW 15.2 Plt Count 200 MPV 10.0 Neutrophils % 43.3 Lymphocytes % 43.8 H Monocytes % 9.6 Eosinophils % 2.6 Basophils % 0.7 PT with INR 10.90 INR 0.96 PTT (Actin FS) Sodium Potassium Chloride Carbon Dioxide Anion Gap BUN Creatinine Creat Clearance w eGFR Random Glucose Lactic Acid Calcium Magnesium Total Bilirubin AST ALT Alkaline Phosphatase Creatine Kinase Troponin I B-Natriuretic Peptide Total Protein Albumin Lipase ASSESSMENT/PLAN: The patient is a 52 yo f w/ PMH CAD, HTN, IDDM and chronic pancreatitis who is being admitted for acute on chronic pancreatitis. #Abdominal pain 2/2 acute on chronic pancreatitis -s/p 2L NS bolus in ED -patient received .5mg dilaudid in ED, states she experienced itching -IVF w/ LR @125 -pain control with IV tylenol -NPO except meds until nausea and pain improved -repeat lactic acid WNL -lipid panel #Chest tightness likely 2/2 anxiety r/o ACS -EKG on arrival unchanged, shows no acite events -troponin negative x1 -trend tropes #HTN -hypertensive to 150/100 -likely secondary to pain -will ctrl pain and restart home antihypertensives #YUE -creatinine slightly above baseline at 1.2 -IVF as above -trend #Constipation -last BM 2 days ago -CT showing fecal retention -will resume home laxatives and monitor #Diabetes -hold home levemir while NPO -hold home standing novolog while NPO -BGM Q8H -ISS #FEN -LR @ 125 -lytes WNL, will monitor -NPO except meds #Prophylaxsis -Hep SQ TID #Dispo -admit to med surg Visit type - Emergency Visit Emergency Visit: Yes ED Registration Date: 10/31/17 Care time: The patient presented to the Emergency Department on the above date and was hospitalized for further evaluation of their emergent condition. - New Patient This patient is new to me today: Yes Date on this admission: 11/01/17 - Critical Care Critical Care patient: No
[2017-10-31] MEDS ORDERED: INSULIN DETEMIR 100 UNITS/ML MDV SQ SCH ×2 (22:00)
[2017-10-31] MEDS ORDERED: ZOLPIDEM TARTRATE 5 MG TABLET PO PRN (22:00)
[2017-10-31] MEDS ORDERED: ALBUTEROL SO4 18 GM HFA INHALER IH PRN (22:00)
[2017-10-31] MEDS: INSULIN SLIDING SCALE (NOVOLOG) 1 VIAL SQ SCH (22:21)
[2017-10-31] MEDS: BUDESONIDE/FORMETEROL FUMARATE 160/4.5 mcg INHALER IH SCH (22:27)
[2017-10-31] MEDS: ATORVASTATIN CA 80 MG TABLET (FP) PO SCH (23:51)
[2017-11-01] MEDS ORDERED: KETOROLAC TROMETHAMINE 30 MG/1 ML VIAL IVPUSH ONE (00:21)
[2017-11-01] MEDS: INSULIN SLIDING SCALE (NOVOLOG) 1 VIAL SQ SCH ×3 (05:44→21:37)
[2017-11-01] MEDS ORDERED: HEPARIN NA (PORCINE) 5,000 UNITS/ML 1ML VIAL ONE (05:46)
[2017-11-01] MEDS: HEPARIN NA (PORCINE) 5,000 UNITS/ML 1ML VIAL SQ SCH ×3 (05:53→21:37)
[2017-11-01] MEDS ORDERED: INSULIN (NOVOLOG) ASPART 100 UNITS/ML 10ML VIAL SQ SCH (07:00)
[2017-11-01] MEDS ORDERED: INSULIN SLIDING SCALE (NOVOLOG) 1 VIAL SQ SCH ×2 (07:00)
[2017-11-01 08:03] LABS: BASO % 0.5 % (0-2.0); EOS % 2.5 % (0-4.5); HEMATOCRIT 44.1 % (32.4-45.2); HEMOGLOBIN 14.3 GM/dL (10.7-15.3); LYMPH % 45.4 % (8-40); MCH 26.1 pg (25.7-33.7); MCHC 32.4 g/dl (32.0-36.0); MEAN CELL VOLUME 80.5 fl (80-96); MEAN PLT VOLUME 9.7 fl (7.5-11.1); MONO % 9.4 % (3.8-10.2); NEUT % 42.2 % (42.8-82.8); PLATELET COUNT 192 K/MM3 (134-434); RBC 5.49 M/mm3 (3.60-5.2); RDW 15.3 % (11.6-15.6); WHITE BLOOD COUNT 7.2 K/mm3 (4.0-10.0)
[2017-11-01 08:30] LABS: URINE APPEARANCE CLEAR; URINE BILIRUBIN NEGATIVE (NEGATIVE); URINE BLOOD NEGATIVE (NEGATIVE); URINE COLOR LTYELLOW; URINE GLUCOSE (UA) NEGATIVE (NEGATIVE); URINE KETONE NEGATIVE (NEGATIVE); URINE LEUK ESTERASE NEGATIVE (NEGATIVE); URINE NITRITE NEGATIVE (NEGATIVE); URINE PROTEIN NEGATIVE (NEGATIVE); URINE UROBILINOGEN NEGATIVE mg/dL (0.2-1.0)
[2017-11-01 08:35] LABS: ALBUMIN 2.6 g/dl (3.4-5.0); ANION GAP 8 (8-16); BLOOD UREA NITROGEN 7 mg/dL (7-18); CALCIUM 8.1 mg/dL (8.5-10.1); CHLORIDE 106 mmol/L (98-107); CO2 29 mmol/L (21-32); CREATININE 0.8 mg/dL (0.55-1.02); MAGNESIUM 1.9 mg/dL (1.8-2.4); PHOSPHOROUS 3.6 mg/dL (2.5-4.9); POTASSIUM 3.5 mmol/L (3.5-5.1); SGOT/AST 12 U/L (15-37); SGPT/ALT 17 U/L (12-78); SODIUM 143 mmol/L (136-145)
[2017-11-01 08:38] LABS: ALK PHOS 101 U/L (45-117); BILIRUBIN,TOTAL 0.5 mg/dL (0.2-1.0); TOT PROT 5.6 g/dl (6.4-8.2)
[2017-11-01 08:43] LABS: GLUCOSE,RANDOM 47 mg/dL (74-106)
[2017-11-01] MEDS ORDERED: DEXTROSE 50%-WATER - 25 GM/50 ML VIAL IVPUSH ONE (08:55)
[2017-11-01] MEDS ORDERED: DEXTROSE 50%-WATER 25 GM/50 ML DISP.SYRIN ONE (08:57)
[2017-11-01 09:04] LABS: CHOLESTEROL 167 mg/dL (50-200); TRIGLYCERIDES 103 mg/dL (35-160)
[2017-11-01 09:10] LABS: HDL CHOLESTEROL 47 mg/dL (40-60); LDL CHOLESTEROL (ONLY SJRH) 106 mg/dL (5-100)
[2017-11-01] MEDS: DEXTROSE 5%-LACTATED RINGERS 1,000 ML IV SCH (09:21)
[2017-11-01] MEDS: BUDESONIDE/FORMETEROL FUMARATE 160/4.5 mcg INHALER IH SCH ×4 (10:00→21:38)
[2017-11-01] MEDS: RANOLAZINE E.R. 500 MG TABLET (FP) PO SCH ×3 (10:01→21:37)
[2017-11-01] MEDS: LISINOPRIL 20 MG TABLET (FP) PO SCH (10:01)
[2017-11-01] MEDS: CLOPIDOGREL BISULFATE 75 MG TABLET (FP) PO SCH (10:01)
[2017-11-01] MEDS: ASPIRIN 81 MG CHEWABLE TABLETS PO SCH (10:01)
[2017-11-01] MEDS: TIOTROPIUM BROMIDE 18 MCG/INH (DEVICE W/ 5 CAPSULES) IH SCH ×3 (10:02→10:58)
[2017-11-01] MEDS ORDERED: ALBUTEROL SO4 0.083% IH SOL 2.5 MG/3 ML VIAL.NEB. NEB ONE (10:03)
[2017-11-01] MEDS ORDERED: ACETAMINOPHEN INJECTION 100 ML IVPB ONE (11:02)
[2017-11-01] MEDS ORDERED: ONDANSETRON 4 MG/2 ML VIAL IVPB PRN (11:23)
--- NOTE | 2017-11-01 11:25 | PN ---
Progress Note, Physician Chief Complaint: patient seen and examined abdominal pain slightly better still nauseous is hungry wants to eat no complain of chest pain - Current Medication List Current Medications: Active Medications Acetaminophen (Ofirmev Injection -) 1,000 mg IVPB Q6H PRN PRN Reason: PAIN LEVEL 6-10 Last Admin: 10/31/17 20:30 Dose: 1,000 mg Albuterol Sulfate (Ventolin 0.083% Nebulizer Soln -) 1 amp NEB Q6H PRN PRN Reason: SHORTNESS OF BREATH Last Admin: 11/01/17 10:00 Dose: 1 amp Albuterol Sulfate (Ventolin Hfa Inhaler -) 2 puff IH Q4H PRN PRN Reason: SHORTNESS OF BREATH Aspirin (Asa -) 81 mg PO DAILY [facility] Last Admin: 11/01/17 10:01 Dose: 81 mg Atorvastatin Calcium (Lipitor -) 80 mg PO HS [facility] Last Admin: 10/31/17 23:51 Dose: 80 mg Budesonide/Formoterol Fumarate (Symbicort 160/4.5mcg -) 2 puff IH BID [facility] Last Admin: 11/01/17 11:00 Dose: 2 puff Clopidogrel Bisulfate (Plavix -) 75 mg PO DAILY [facility] Last Admin: 11/01/17 10:01 Dose: 75 mg Heparin Sodium (Porcine) (Heparin -) 5,000 unit SQ TID [facility] Last Admin: 11/01/17 05:53 Dose: 5,000 unit Dextrose/Lactated Ringer's (D5-Lr -) 1,000 mls @ 125 mls/hr IV ASDIR [facility] Last Admin: 11/01/17 09:21 Dose: 125 mls/hr Insulin Aspart (Novolog Vial Sliding Scale -) 1 vial SQ TID [facility] PRN Reason: Protocol Lisinopril (Prinivil) 20 mg PO DAILY [facility] Last Admin: 11/01/17 10:01 Dose: 20 mg Polyethylene Glycol (Miralax (For Daily Use) -) 17 gm PO DAILY PRN PRN Reason: CONSTIPATION Ranolazine (Ranexa -) 500 mg PO BID [facility] Last Admin: 11/01/17 10:01 Dose: 500 mg Tiotropium [place] (Spiriva -) 1 puff IH DAILY [facility] Last Admin: 11/01/17 10:58 Dose: 1 puff Zolpidem Tartrate (Ambien -) 10 mg PO HS PRN PRN Reason: INSOMNIA - Objective Vital Signs: Vital Signs Temperature 98.5 F 11/01/17 10:10 Pulse Rate 74 11/01/17 10:10 Respiratory Rate 16 11/01/17 10:10 Blood Pressure 160/93 11/01/17 10:10 O2 Sat by Pulse Oximetry (%) 98 11/01/17 10:10 Constitutional: Yes: Calm Cardiovascular: Yes: Regular Rate and Rhythm, S1, S2 Respiratory: Yes: CTA Bilaterally Gastrointestinal: Yes: Normal Bowel Sounds, Soft Edema: No Neurological: Yes: Alert, Oriented Labs: CBC, BMP 11/01/17 06:00 11/01/17 06:00 INR, PTT INR 0.96 (0.82-1.09) 10/31/17 15:40 Problem List - Problems (1) Pancreatitis Assessment/Plan: ivf GI eval trend lipase-ordered for today famotidine zofran lactic acid now normal creatinine is improving with iv hydration dvt ppx possible trial of clear liquid diet if ok with GI Code(s): K85.9 - ACUTE PANCREATITIS, UNSPECIFIED * DO NOT USE * (2) Chest pain Assessment/Plan: tele will get cardiology to see patient on asprin ,plavix,lisinopril most likely this pain is secondary to pancreatitis Code(s): R07.9 - CHEST PAIN, UNSPECIFIED
[2017-11-01] MEDS: ACETAMINOPHEN 1000 MG/100 ML VIAL (NON FORMULARY) IVPB PRN (11:28)
--- NOTE | 2017-11-01 17:08 | CON.GI ---
Consult Consult Specialty:: GI: Dr. Rowe covering for Dr. Barnett Referred by:: Dr. Benitez Reason for Consultation:: Abdominal pain - History of Present Illness Chief Complaint: "I have been having pain like my pancreatitis before" History of Present Illness: 52F admitted through [facility] for evaluation of abdominal pain. She describes the pain as sharp, constant, upper abdominal in location, reminiscent of previous episodes of pancreatitis and worsening over the last month. She was seen once in office in 2015 after being discharged from [facility] when I was with the [facility]. I had given her a referral to have blood work for work-up for chronic liver disease however it does not appear as though she followed through with that. I also advised her that she follow-up with her template reproduction technician regarding left sided chest pain at that time as well as complete alcohol abstinence. She does not recall following up with anyone regarding her liver or history of pancreatitis with anyone of late. She does smoke cigarettes and drinks alcohol. She describes her alcohol consumption as social and that her last drink was during the superbowl. She says that they tylenol they are giving her for pain is not helping. - Past Medical History Cardio/Vascular: Yes: CAD (cardiac stenting x 6), HTN, Hyperlipdemia Pulmonary: Yes: Asthma, Other (?emphysema) Gastrointestinal: Yes: Pancreatitis ...: No Psych: Yes: Depression Musculoskeletal: Yes: Chronic low back pain, Other Endocrine: Yes: Diabetes Mellitus Additional Medical History: ingrown toennails - Past Surgical History Past Surgical History: Yes: - Alcohol/Substance Use Hx Alcohol Use: Yes (occaisional) History of Substance Use: reports: Marijuana - Smoking History Smoking history: Current every day smoker Have you smoked in the past 12 months: Yes Aproximately how many cigarettes per day: 4 - Social History Usual Living Arrangement: Alone (Single) ADL: Independent Occupation: Diabled: not working Place of : [place] History of Recent Travel: No Home Medications - Allergies Allergies/Adverse Reactions: Allergies Allergy/AdvReac Type Severity Reaction Status Date / Time morphine Allergy Difficulty Verified 10/31/17 14:51 Breathing STRAWBERRIES Allergy Difficulty Uncoded 10/31/17 14:51 Breathing - Home Medications Home Medications: Ambulatory Orders Albuterol 0.083% Nebulizer Gertrude [Ventolin 0.083% Nebulizer Soln -] 1 neb NEB Q6H PRN 05/24/13 Albuterol Sulfate [Proair Hfa -] 1 - 2 inh PO TID 05/24/13 Insulin Glargine,Hum.rec.anlog [Lantus Solostar PEN -] 50 units SQ BID 05/24/13 Loratadine [Claritin -] 10 mg PO DAILY 05/24/13 Zolpidem Tartrate [Ambien] 10 mg PO HS 05/24/13 Budesonide/Formeterol Fumarate [SYMBICORT 160/4.5mcg -] 2 inh IN Q12H 12/13/14 Insulin Aspart [Novolog] 25 units SQ AC 12/13/14 Naproxen/Esomeprazole Mag [Vimovo Dr 500-20 mg Tablet] 1 tab PO BID 12/13/14 Ranolazine [Ranexa] 500 mg PO BID 12/13/14 Tiotropium [place] [Spiriva] 1 inh IN DAILY 12/13/14 Lisinopril [Prinivil] 20 mg PO DAILY #30 tablet 12/16/14 Nicotine Patch [Nicoderm Patch -] 21 mg TD DAILY #30 patch 12/16/14 Lidocaine 5% Patch [Lidoderm -] 1 patch TP DAILY #7 patch 04/22/15 Oxycodone HCl/Acetaminophen [Percocet 5-325 mg Tablet] 1 - 2 tab PO Q4H #32 tablet 04/22/15 Aspirin [ASA -] 81 mg PO DAILY #30 tab.chew 05/22/15 Atorvastatin Ca [Lipitor] 80 mg PO HS #30 tablet 05/22/15 Clopidogrel Bisulfate [Plavix -] 75 mg PO DAILY #30 tablet 05/22/15 Polyethylene Glycol 3350 [Miralax 119 gm Btl -] 17 gm PO ONCE PRN #1 bottle 04/27 Oxycodone HCl/Acetaminophen [Percocet 5-325 mg Tablet] 1 tab PO Q6H PRN #12 tablet MDD 4 tabs 04/05/17 Ranitidine HCl [Zantac] 150 mg PO DAILY #30 tablet 04/05/17 Family Disease History - Family Disease History Family Disease History: Diabetes: Father (: 70's of cancer (unclear type)), Mother (Alive: 73: CAD), CA: Sister (: 39 metastatic breast ca), Other: Father, Mother, Brother (alive: CKD), Daughter (2, healthy) Review of Systems - Review of Systems Constitutional: denies: Fever, Loss of Appetite Cardiovascular: denies: Chest Pain, Shortness of Breath Respiratory: reports: SOB (intermittent, chronic) Gastrointestinal: reports: Abdominal Pain, Constipation. denies: Bloating, Diarrhea, Melena, Rectal Bleeding, Vomiting Musculoskeletal: reports: Joint Pain (history of arthritis) Physical Exam-GI Vital Signs: Vital Signs Temperature 98.5 F 11/01/17 10:10 Pulse Rate 74 11/01/17 10:10 Respiratory Rate 16 11/01/17 10:10 Blood Pressure 160/93 11/01/17 10:10 O2 Sat by Pulse Oximetry (%) 98 11/01/17 10:10 Constitutional: Yes: Calm Eyes: Yes: Sclera Icterus Cardiovascular: Yes: Regular Rate and Rhythm, Murmur Respiratory: Yes: CTA Bilaterally Gastrointestinal Inspection: Yes: Scars (Pelvic surgical scar). No: Distention ...Auscultate: Yes: Normoactive Bowel Sounds ...Palpate: Yes: Tenderness (TTP RUQ and epigastrium). No: Hepatomegaly, Splenomegaly ...Percussion: No: Tympanitic ...Rectal Exam: Yes: Other (refused by patient) Edema: No (No LE edema) Neurological: Yes: Alert, Oriented Labs: CBC, BMP 11/01/17 06:00 11/01/17 06:00 INR, PTT INR 0.96 (0.82-1.09) 10/31/17 15:40 Hepatic Panel Total Bilirubin 0.5 mg/dL (0.2-1.0) D 11/01/17 06:00 AST 12 U/L (15-37) L 11/01/17 06:00 ALT 17 U/L (12-78) 11/01/17 06:00 Alkaline Phosphatase 101 U/L (45-117) 11/01/17 06:00 Albumin 2.6 g/dl (3.4-5.0) L 11/01/17 06:00 Imaging - Results Cat Scan: Report Reviewed, Image Reviewed Problem List - Problems (1) Abdominal pain Assessment/Plan: Upper abdominal pain with mild elevation in lipase unclear if true pancreatitis Advised: Clear liquids Ordered MRI of abdomen with and without contrast/mrcp Advised complete alcohol cessation as this can trigger pancreatitis and given her ? history of cirrhosis Advised tobacco cessation as this can trigger pancreatitis Code(s): R10.9 - UNSPECIFIED ABDOMINAL PAIN
[2017-11-01] MEDS: PANTOPRAZOLE 40 MG TABLET (FP) PO SCH (18:08)
[2017-11-01] MEDS ORDERED: PANTOPRAZOLE 40 MG TABLET (FP) ONE (18:18)
[2017-11-01] MEDS ORDERED: KETOROLAC TROMETHAMINE 30 MG/1 ML VIAL IVPUSH PRN (21:19)
[2017-11-01] MEDS ORDERED: INSULIN (NOVOLOG) ASPART 100 UNITS/ML 10ML VIAL ONE (21:32)
[2017-11-01] MEDS: ATORVASTATIN CA 80 MG TABLET (FP) PO SCH (21:37)
--- NOTE | 2017-11-01 23:24 | EKG ---
Test Reason : Blood Pressure : / mmHG Vent. Rate : 071 BPM Atrial Rate : 071 BPM P-R Int : 142 ms QRS Dur : 072 ms QT Int : 394 ms P-R-T Axes : 059 -22 173 degrees QTc Int : 428 ms NORMAL SINUS RHYTHM POSSIBLE LEFT ATRIAL ENLARGEMENT ANTEROSEPTAL INFARCT (CITED ON OR BEFORE 02-DEC-2004) T WAVE ABNORMALITY, CONSIDER INFEROLATERAL ISCHEMIA ABNORMAL ECG WHEN COMPARED WITH ECG OF 05-APR-2017 15:37, T WAVE VARIATION Confirmed by ADELSO CURIEL MD ([id number]) on 11/01/2017 11:24:12 PM Referred By: Confirmed By:ADELSO CURIEL MD
[2017-11-02] MEDS: INSULIN SLIDING SCALE (NOVOLOG) 1 VIAL SQ SCH ×3 (05:59→22:30)
[2017-11-02] MEDS: HEPARIN NA (PORCINE) 5,000 UNITS/ML 1ML VIAL SQ SCH ×3 (05:59→21:08)
[2017-11-02 06:20] LABS: BASO % 0.7 % (0-2.0); EOS % 3.2 % (0-4.5); HEMATOCRIT 42.1 % (32.4-45.2); HEMOGLOBIN 13.9 GM/dL (10.7-15.3); LYMPH % 47.2 % (8-40); MCH 26.5 pg (25.7-33.7); MCHC 32.9 g/dl (32.0-36.0); MEAN CELL VOLUME 80.3 fl (80-96); MEAN PLT VOLUME 9.8 fl (7.5-11.1); NEUT % 38.9 % (42.8-82.8); PLATELET COUNT 199 K/MM3 (134-434); RBC 5.24 M/mm3 (3.60-5.2); RDW 14.9 % (11.6-15.6); WHITE BLOOD COUNT 7.2 K/mm3 (4.0-10.0)
[2017-11-02 06:55] LABS: ALBUMIN 2.5 g/dl (3.4-5.0); ANION GAP 8 (8-16); BLOOD UREA NITROGEN 8 mg/dL (7-18); CALCIUM 8.6 mg/dL (8.5-10.1); CHLORIDE 101 mmol/L (98-107); CO2 29 mmol/L (21-32); GLUCOSE,RANDOM 233 mg/dL (74-106); POTASSIUM 3.7 mmol/L (3.5-5.1); SGOT/AST 14 U/L (15-37); SGPT/ALT 14 U/L (12-78); SODIUM 138 mmol/L (136-145)
[2017-11-02 06:57] LABS: ALK PHOS 104 U/L (45-117); BILIRUBIN,TOTAL 0.4 mg/dL (0.2-1.0); CREATININE 0.8 mg/dL (0.55-1.02); TOT PROT 5.5 g/dl (6.4-8.2)
--- NOTE | 2017-11-02 09:16 | PN ---
Progress Note, Physician - Current Medication List Current Medications: Active Medications Albuterol Sulfate (Ventolin 0.083% Nebulizer Soln -) 1 amp NEB Q6H PRN PRN Reason: SHORTNESS OF BREATH Last Admin: 11/01/17 10:00 Dose: 1 amp Albuterol Sulfate (Ventolin Hfa Inhaler -) 2 puff IH Q4H PRN PRN Reason: SHORTNESS OF BREATH Aspirin (Asa -) 81 mg PO DAILY [facility] Last Admin: 11/01/17 10:01 Dose: 81 mg Atorvastatin Calcium (Lipitor -) 80 mg PO HS [facility] Last Admin: 11/01/17 21:37 Dose: 80 mg Budesonide/Formoterol Fumarate (Symbicort 160/4.5mcg -) 2 puff IH BID [facility] Last Admin: 11/01/17 21:38 Dose: Not Given Clopidogrel Bisulfate (Plavix -) 75 mg PO DAILY [facility] Last Admin: 11/01/17 10:01 Dose: 75 mg Heparin Sodium (Porcine) (Heparin -) 5,000 unit SQ TID [facility] Last Admin: 11/02/17 05:59 Dose: 5,000 unit Dextrose/Lactated Ringer's (D5-Lr -) 1,000 mls @ 125 mls/hr IV ASDIR [facility] Last Admin: 11/01/17 09:21 Dose: 125 mls/hr Insulin Aspart (Novolog Vial Sliding Scale -) 1 vial SQ TID [facility] PRN Reason: Protocol Last Admin: 11/02/17 05:59 Dose: 4 units Ketorolac Tromethamine (Toradol Injection -) 30 mg IVPUSH Q6H PRN PRN Reason: PAIN LEVEL 7 - 10 Stop: 11/06/17 21:18 Last Admin: 11/01/17 21:36 Dose: 30 mg Lisinopril (Prinivil) 20 mg PO DAILY [facility] Last Admin: 11/01/17 10:01 Dose: 20 mg Ondansetron HCl (Zofran Injection) 4 mg IVPB Q6H PRN PRN Reason: NAUSEA Pantoprazole Sodium (Protonix -) 40 mg PO DAILY [facility] Last Admin: 11/01/17 18:08 Dose: 40 mg Polyethylene Glycol (Miralax (For Daily Use) -) 17 gm PO DAILY PRN PRN Reason: CONSTIPATION Ranolazine (Ranexa -) 500 mg PO BID [facility] Last Admin: 11/01/17 21:37 Dose: 500 mg Tiotropium [place] (Spiriva -) 1 puff IH DAILY [facility] Last Admin: 11/01/17 10:31 Dose: Not Given Zolpidem Tartrate (Ambien -) 10 mg PO HS PRN PRN Reason: INSOMNIA Last Admin: 11/02/17 00:00 Dose: 10 mg - Objective Vital Signs: Vital Signs Temperature 98.4 F 11/02/17 08:43 Pulse Rate 67 11/02/17 08:43 Respiratory Rate 18 11/02/17 08:43 Blood Pressure 144/88 11/02/17 08:43 O2 Sat by Pulse Oximetry (%) 98 11/02/17 08:43 Cardiovascular: Yes: Regular Rate and Rhythm Respiratory: Yes: Regular, CTA Bilaterally Gastrointestinal: Yes: Normal Bowel Sounds, Soft, Tenderness, Epigastrium Labs: CBC, BMP 11/02/17 06:05 11/02/17 06:05 INR, PTT INR 0.96 (0.82-1.09) 10/31/17 15:40 Problem List - Problems (1) Chest pain Assessment/Plan: s/p stenting follow ekg ce negative cardio Code(s): R07.9 - CHEST PAIN, UNSPECIFIED (2) Abdominal pain Assessment/Plan: ivf GI eval trend lipase-ordered for today famotidine zofran lactic acid now normal creatinine is improving with iv hydration dvt ppx possible trial of clear liquid diet if ok with GI mri per gi Code(s): R10.9 - UNSPECIFIED ABDOMINAL PAIN (3) Pancreatitis Assessment/Plan: as above Code(s): K85.9 - ACUTE PANCREATITIS, UNSPECIFIED * DO NOT USE * (4) Diabetes Assessment/Plan: bgm and ss Code(s): E11.9 - TYPE 2 DIABETES MELLITUS WITHOUT COMPLICATIONS Qualifiers: Diabetes mellitus type: type 1 Diabetes mellitus complication status: with hyperglycemia Qualified Code(s): E10.65 - Type 1 diabetes mellitus with hyperglycemia (5) Chronic back pain Assessment/Plan: -on oxycodone Code(s): M54.9 - DORSALGIA, UNSPECIFIED; G89.29 - OTHER CHRONIC PAIN
[2017-11-02] MEDS: DEXTROSE 5%-LACTATED RINGERS 1,000 ML IV SCH (09:22)
[2017-11-02] MEDS: PANTOPRAZOLE 40 MG TABLET (FP) PO SCH (09:23)
[2017-11-02] MEDS: ASPIRIN 81 MG CHEWABLE TABLETS PO SCH (09:23)
[2017-11-02] MEDS: CLOPIDOGREL BISULFATE 75 MG TABLET (FP) PO SCH (09:23)
[2017-11-02] MEDS: RANOLAZINE E.R. 500 MG TABLET (FP) PO SCH ×2 (09:23→21:16)
[2017-11-02] MEDS: LISINOPRIL 20 MG TABLET (FP) PO SCH (09:23)
[2017-11-02] MEDS: BUDESONIDE/FORMETEROL FUMARATE 160/4.5 mcg INHALER IH SCH ×2 (09:24→21:16)
[2017-11-02] MEDS: TIOTROPIUM BROMIDE 18 MCG/INH (DEVICE W/ 5 CAPSULES) IH SCH (09:25)
[2017-11-02 09:38] LABS: AMYLASE 39 U/L (25-115)
[2017-11-02 09:46] LABS: LIPASE 323 U/L (73-393)
--- NOTE | 2017-11-02 11:43 | CON.CARD ---
Consult Consult Specialty:: Cardiology Referred by:: Dr Whittington Reason for Consultation:: CAD, cp - History of Present Illness Chief Complaint: abd pain History of Present Illness: She is a 52 year old woman with a history of CAD (s/p 6 stents), HTN, HLD, IDDM , asthma., chronic pancreatitis, and sciatica, who was admitted with two weeks of intermittent worsening epigastric pain, elevated lipase and recurrent pancreatitis. Also chest pain. ECG and troponin have been without change. - History Source History Provided By: Patient, Medical Record - Past Medical History Cardio/Vascular: Yes: CAD (cardiac stenting x 6), HTN, Hyperlipdemia Pulmonary: Yes: Asthma, Other (?emphysema) Gastrointestinal: Yes: Pancreatitis ...: No Psych: Yes: Depression Musculoskeletal: Yes: Chronic low back pain, Other Endocrine: Yes: Diabetes Mellitus Additional Medical History: ingrown toennails - Past Surgical History Past Surgical History: Yes: - Alcohol/Substance Use Hx Alcohol Use: Yes (occaisional) History of Substance Use: reports: Marijuana - Smoking History Smoking history: Current every day smoker Have you smoked in the past 12 months: Yes Aproximately how many cigarettes per day: 4 - Social History Usual Living Arrangement: Alone (Single) ADL: Independent Occupation: Diabled: not working History of Recent Travel: No Home Medications - Allergies Allergies/Adverse Reactions: Allergies Allergy/AdvReac Type Severity Reaction Status Date / Time morphine Allergy Difficulty Verified 10/31/17 14:51 Breathing STRAWBERRIES Allergy Difficulty Uncoded 10/31/17 14:51 Breathing - Home Medications Home Medications: Ambulatory Orders Albuterol 0.083% Nebulizer Gertrude [Ventolin 0.083% Nebulizer Soln -] 1 neb NEB Q6H PRN 05/24/13 Albuterol Sulfate [Proair Hfa -] 1 - 2 inh PO TID 05/24/13 Insulin Glargine,Hum.rec.anlog [Lantus Solostar PEN -] 50 units SQ BID 05/24/13 Loratadine [Claritin -] 10 mg PO DAILY 05/24/13 Zolpidem Tartrate [Ambien] 10 mg PO HS 05/24/13 Budesonide/Formeterol Fumarate [SYMBICORT 160/4.5mcg -] 2 inh IN Q12H 12/13/14 Insulin Aspart [Novolog] 25 units SQ AC 12/13/14 Naproxen/Esomeprazole Mag [Vimovo Dr 500-20 mg Tablet] 1 tab PO BID 12/13/14 Ranolazine [Ranexa] 500 mg PO BID 12/13/14 Tiotropium [place] [Spiriva] 1 inh IN DAILY 12/13/14 Lisinopril [Prinivil] 20 mg PO DAILY #30 tablet 12/16/14 Nicotine Patch [Nicoderm Patch -] 21 mg TD DAILY #30 patch 12/16/14 Lidocaine 5% Patch [Lidoderm -] 1 patch TP DAILY #7 patch 04/22/15 Oxycodone HCl/Acetaminophen [Percocet 5-325 mg Tablet] 1 - 2 tab PO Q4H #32 tablet 04/22/15 Aspirin [ASA -] 81 mg PO DAILY #30 tab.chew 05/22/15 Atorvastatin Ca [Lipitor] 80 mg PO HS #30 tablet 05/22/15 Clopidogrel Bisulfate [Plavix -] 75 mg PO DAILY #30 tablet 05/22/15 Polyethylene Glycol 3350 [Miralax 119 gm Btl -] 17 gm PO ONCE PRN #1 bottle 04/27 Oxycodone HCl/Acetaminophen [Percocet 5-325 mg Tablet] 1 tab PO Q6H PRN #12 tablet MDD 4 tabs 04/05/17 Ranitidine HCl [Zantac] 150 mg PO DAILY #30 tablet 04/05/17 Family Disease History - Family Disease History Family Disease History: Diabetes: Father (: 70's of cancer (unclear type)), Mother (Alive: 73: CAD), CA: Sister (: 39 metastatic breast ca), Other: Father, Mother, Brother (alive: CKD), Daughter (2, healthy) Review of Systems - Review of Systems Constitutional: reports: Loss of Appetite Eyes: reports: No Symptoms HENT: reports: No Symptoms Neck: reports: No Symptoms Cardiovascular: reports: Chest Pain Respiratory: reports: No Symptoms Vital Signs: Vital Signs Temperature 98.4 F 11/02/17 08:43 Pulse Rate 67 11/02/17 08:43 Respiratory Rate 18 11/02/17 08:43 Blood Pressure 144/88 11/02/17 08:43 O2 Sat by Pulse Oximetry (%) 98 11/02/17 08:43 Constitutional: Yes: No Distress, Calm Eyes: Yes: Conjunctiva Clear, EOM Intact HENT: Yes: Atraumatic, Normocephalic Neck: Yes: Trachea Midline Respiratory: Yes: CTA Bilaterally Gastrointestinal: Yes: Normal Bowel Sounds Cardiovascular: Yes: Regular Rate and Rhythm JVD: No Carotid Bruit: No PMI: Non-Displaced Heart Sounds: Yes: S1, S2 Edema: No Peripheral Pulses WNL: Yes - Other Data Labs, Other Data: CBC, BMP 11/02/17 06:05 11/02/17 06:05 INR, PTT INR 0.96 (0.82-1.09) 10/31/17 15:40 Troponin, BNP 11/02/17 11/02/17 06:05 09:55 Troponin I < 0.02 Cancelled Troponin, BNP 11/02/17 11/02/17 06:05 09:55 Troponin I < 0.02 Cancelled Imaging - Results EKG: Report Reviewed (nsr, old asmi nssttw changes) Problem List - Problems (1) Chest pain Assessment/Plan: The patient has known CAD but her symptoms are more c/w acute on chronic pancreatitis and she is not a candidate for inpatient ischemia workup. No cardiac contraindications to GI workup at present. I do not believe that her symptoms are CAD related at this point. Continue current cardiac medications. Out patient ischemia workup when stable. 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 Code(s): R07.9 - CHEST PAIN, UNSPECIFIED Qualifiers: Chest pain type: precordial pain Qualified Code(s): R07.2 - Precordial pain
--- NOTE | 2017-11-02 12:56 | EKG ---
Test Reason : Blood Pressure : / mmHG Vent. Rate : 066 BPM Atrial Rate : 066 BPM P-R Int : 150 ms QRS Dur : 078 ms QT Int : 460 ms P-R-T Axes : 064 -31 082 degrees QTc Int : 482 ms NORMAL SINUS RHYTHM LEFT AXIS DEVIATION ANTEROSEPTAL INFARCT (CITED ON OR BEFORE 02-DEC-2004) ABNORMAL ECG Confirmed by Yan Conley MD ([id number]) on 11/02/2017 12:56:16 PM Referred By: LUIZ MINA DR Confirmed By:Yan Conley MD
--- NOTE | 2017-11-02 20:52 | PN ---
GI Progress Note Subjective: No acute events States that she is extremely hungry and wants to try eating MRI not done as she has cardiac stents - Objective Vital Signs: Vital Signs Temperature 98.0 F 11/02/17 18:00 Pulse Rate 76 11/02/17 18:00 Respiratory Rate 19 11/02/17 20:25 Blood Pressure 136/100 11/02/17 18:00 O2 Sat by Pulse Oximetry (%) 96 11/02/17 20:25 Constitutional: Calm Eyes: No: Sclera Icterus Cardiovascular: Yes: Regular Rate and Rhythm Respiratory: Yes: CTA Bilaterally Gastrointestinal Inspection: No: Distention ...Auscultate: Yes: Normoactive Bowel Sounds ...Palpate: No: Hepatomegaly, Splenomegaly, Tenderness ...Percussion: No: Tympanitic Neurological: Yes: Alert, Oriented Labs: CBC, BMP 11/02/17 06:05 11/02/17 06:05 INR, PTT INR 0.96 (0.82-1.09) 10/31/17 15:40 Hepatic Panel Total Bilirubin 0.4 mg/dL (0.2-1.0) 11/02/17 06:05 AST 14 U/L (15-37) L 11/02/17 06:05 ALT 14 U/L (12-78) 11/02/17 06:05 Alkaline Phosphatase 104 U/L (45-117) 11/02/17 06:05 Albumin 2.5 g/dl (3.4-5.0) L 11/02/17 06:05 Problem List - Problems (1) Abdominal pain Assessment/Plan: Clinically improved Advised patient to obtain information re: paper box cutter so that info re: cardiac stent info can be obtianed for MRI Advance to low fat / low Na / diabetic diet Code(s): R10.9 - UNSPECIFIED ABDOMINAL PAIN
[2017-11-02] MEDS: oxyCODONE HCL 5 MG TABLET PO PRN ×2 (21:06→21:08)
[2017-11-02] MEDS: ATORVASTATIN CA 80 MG TABLET (FP) PO SCH (21:16)
[2017-11-03] MEDS: INSULIN SLIDING SCALE (NOVOLOG) 1 VIAL SQ SCH ×3 (06:38→21:48)
[2017-11-03] MEDS: HEPARIN NA (PORCINE) 5,000 UNITS/ML 1ML VIAL SQ SCH ×3 (06:38→21:31)
[2017-11-03 07:57] LABS: AMYLASE 38 U/L (25-115)
[2017-11-03 08:05] LABS: LIPASE 336 U/L (73-393)
--- NOTE | 2017-11-03 08:14 | PN ---
Progress Note, Physician - Current Medication List Current Medications: Active Medications Albuterol Sulfate (Ventolin 0.083% Nebulizer Soln -) 1 amp NEB Q6H PRN PRN Reason: SHORTNESS OF BREATH Last Admin: 11/01/17 10:00 Dose: 1 amp Albuterol Sulfate (Ventolin Hfa Inhaler -) 2 puff IH Q4H PRN PRN Reason: SHORTNESS OF BREATH Aspirin (Asa -) 81 mg PO DAILY [facility] Last Admin: 11/02/17 09:23 Dose: 81 mg Atorvastatin Calcium (Lipitor -) 80 mg PO HS [facility] Last Admin: 11/02/17 21:16 Dose: 80 mg Budesonide/Formoterol Fumarate (Symbicort 160/4.5mcg -) 2 puff IH BID [facility] Last Admin: 11/02/17 21:16 Dose: Not Given Clopidogrel Bisulfate (Plavix -) 75 mg PO DAILY [facility] Last Admin: 11/02/17 09:23 Dose: 75 mg Heparin Sodium (Porcine) (Heparin -) 5,000 unit SQ TID [facility] Last Admin: 11/03/17 06:38 Dose: 5,000 unit Insulin Aspart (Novolog Vial Sliding Scale -) 1 vial SQ TID [facility] PRN Reason: Protocol Last Admin: 11/03/17 06:38 Dose: 6 units Insulin Detemir (Levemir Vial) 25 units SQ BID [facility] Ketorolac Tromethamine (Toradol Injection -) 30 mg IVPUSH Q6H PRN PRN Reason: PAIN LEVEL 1-5 Stop: 11/06/17 21:18 Last Admin: 11/01/17 21:36 Dose: 30 mg Lisinopril (Prinivil) 20 mg PO DAILY [facility] Last Admin: 11/02/17 09:23 Dose: 20 mg Ondansetron HCl (Zofran Injection) 4 mg IVPB Q6H PRN PRN Reason: NAUSEA Oxycodone HCl (Roxicodone -) 5 mg PO Q6H PRN PRN Reason: PAIN LEVEL 6-10 Last Admin: 11/02/17 21:08 Dose: 5 mg Pantoprazole Sodium (Protonix -) 40 mg PO DAILY [facility] Last Admin: 11/02/17 09:23 Dose: 40 mg Polyethylene Glycol (Miralax (For Daily Use) -) 17 gm PO DAILY PRN PRN Reason: CONSTIPATION Ranolazine (Ranexa -) 500 mg PO BID [facility] Last Admin: 11/02/17 21:16 Dose: 500 mg Tiotropium [place] (Spiriva -) 1 puff IH DAILY [facility] Last Admin: 11/02/17 09:25 Dose: Not Given Zolpidem Tartrate (Ambien -) 10 mg PO HS PRN PRN Reason: INSOMNIA Last Admin: 11/02/17 00:00 Dose: 10 mg - Objective Vital Signs: Vital Signs Temperature 98 F 11/03/17 05:41 Pulse Rate 66 11/03/17 05:41 Respiratory Rate 20 11/03/17 05:41 Blood Pressure 143/78 11/03/17 05:41 O2 Sat by Pulse Oximetry (%) 96 11/02/17 20:25 Cardiovascular: Yes: Regular Rate and Rhythm Respiratory: Yes: Regular, CTA Bilaterally Gastrointestinal: Yes: Normal Bowel Sounds, Soft. No: Tenderness Labs: CBC, BMP 11/02/17 06:05 11/02/17 06:05 INR, PTT INR 0.96 (0.82-1.09) 10/31/17 15:40 Problem List - Problems (1) Chest pain Assessment/Plan: resolved--atypical s/p stenting follow ekg ce negative cardio noted Code(s): R07.9 - CHEST PAIN, UNSPECIFIED Qualifiers: Chest pain type: precordial pain Qualified Code(s): R07.2 - Precordial pain (2) Abdominal pain Assessment/Plan: resolved dc ivf GI eval trend lipase-ordered --normal famotidine zofran lactic acid now normal creatinine is improving with iv hydration dvt ppx advance diet mri per gi as outpatient once stent issue clarified Code(s): R10.9 - UNSPECIFIED ABDOMINAL PAIN (3) Pancreatitis Assessment/Plan: as above Code(s): K85.9 - ACUTE PANCREATITIS, UNSPECIFIED * DO NOT USE * (4) Diabetes Assessment/Plan: bgm and ss Code(s): E11.9 - TYPE 2 DIABETES MELLITUS WITHOUT COMPLICATIONS Qualifiers: Diabetes mellitus type: type 1 Diabetes mellitus complication status: with hyperglycemia Qualified Code(s): E10.65 - Type 1 diabetes mellitus with hyperglycemia (5) Chronic back pain Assessment/Plan: -on oxycodone Code(s): M54.9 - DORSALGIA, UNSPECIFIED; G89.29 - OTHER CHRONIC PAIN (6) Compression fracture Assessment/Plan: needs mri this was discussed with pt she will f/u with dr dickerson Code(s): [id number] -
[2017-11-03] MEDS: ASPIRIN 81 MG CHEWABLE TABLETS PO SCH (09:51)
[2017-11-03] MEDS: LISINOPRIL 20 MG TABLET (FP) PO SCH (09:51)
[2017-11-03] MEDS: PANTOPRAZOLE 40 MG TABLET (FP) PO SCH (09:51)
[2017-11-03] MEDS: RANOLAZINE E.R. 500 MG TABLET (FP) PO SCH ×2 (09:51→21:30)
[2017-11-03] MEDS: CLOPIDOGREL BISULFATE 75 MG TABLET (FP) PO SCH (09:51)
[2017-11-03] MEDS: BUDESONIDE/FORMETEROL FUMARATE 160/4.5 mcg INHALER IH SCH ×2 (09:52→21:37)
[2017-11-03] MEDS: TIOTROPIUM BROMIDE 18 MCG/INH (DEVICE W/ 5 CAPSULES) IH SCH (09:52)
[2017-11-03] MEDS: INSULIN DETEMIR 100 UNITS/ML MDV SQ SCH ×2 (09:52→21:48)
[2017-11-03] MEDS: oxyCODONE HCL 5 MG TABLET PO PRN ×2 (10:00→18:52)
[2017-11-03] MEDS ORDERED: PT OWN MED DRAWER 7, Y5N ONE (21:11)
[2017-11-03] MEDS: ATORVASTATIN CA 80 MG TABLET (FP) PO SCH (21:31)
[2017-11-04] MEDS: INSULIN SLIDING SCALE (NOVOLOG) 1 VIAL SQ SCH ×2 (06:13→15:49)
[2017-11-04] MEDS: INSULIN DETEMIR 100 UNITS/ML MDV SQ SCH (06:13)
[2017-11-04] MEDS: HEPARIN NA (PORCINE) 5,000 UNITS/ML 1ML VIAL SQ SCH ×2 (06:13→15:44)
[2017-11-04] MEDS: oxyCODONE HCL 5 MG TABLET PO PRN (06:14)
[2017-11-04] MEDS ORDERED: PT OWN MED DRAWER 7, Y5N ONE (09:48)
[2017-11-04] MEDS: ASPIRIN 81 MG CHEWABLE TABLETS PO SCH (09:49)
[2017-11-04] MEDS: LISINOPRIL 20 MG TABLET (FP) PO SCH (09:49)
[2017-11-04] MEDS: CLOPIDOGREL BISULFATE 75 MG TABLET (FP) PO SCH (09:49)
[2017-11-04] MEDS: PANTOPRAZOLE 40 MG TABLET (FP) PO SCH (09:49)
[2017-11-04] MEDS: BUDESONIDE/FORMETEROL FUMARATE 160/4.5 mcg INHALER IH SCH (09:50)
[2017-11-04] MEDS: RANOLAZINE E.R. 500 MG TABLET (FP) PO SCH (09:50)
[2017-11-04] MEDS: TIOTROPIUM BROMIDE 18 MCG/INH (DEVICE W/ 5 CAPSULES) IH SCH (09:50)
--- NOTE | 2017-11-04 10:08 | PN ---
Progress Note, Physician Chief Complaint: Abdominal pain Chronic pancreatitis History of Present Illness: NAD in bed seen by GI mild tenderness on palpation epigastric region - Current Medication List Current Medications: Active Medications Albuterol Sulfate (Ventolin 0.083% Nebulizer Soln -) 1 amp NEB Q6H PRN PRN Reason: SHORTNESS OF BREATH Last Admin: 11/01/17 10:00 Dose: 1 amp Albuterol Sulfate (Ventolin Hfa Inhaler -) 2 puff IH Q4H PRN PRN Reason: SHORTNESS OF BREATH Aspirin (Asa -) 81 mg PO DAILY [facility] Last Admin: 11/04/17 09:49 Dose: 81 mg Atorvastatin Calcium (Lipitor -) 80 mg PO HS [facility] Last Admin: 11/03/17 21:31 Dose: 80 mg Budesonide/Formoterol Fumarate (Symbicort 160/4.5mcg -) 2 puff IH BID [facility] Last Admin: 11/04/17 09:50 Dose: Not Given Clopidogrel Bisulfate (Plavix -) 75 mg PO DAILY [facility] Last Admin: 11/04/17 09:49 Dose: 75 mg Heparin Sodium (Porcine) (Heparin -) 5,000 unit SQ TID [facility] Last Admin: 11/04/17 06:13 Dose: 5,000 unit Insulin Aspart (Novolog Vial Sliding Scale -) 1 vial SQ TID [facility] PRN Reason: Protocol Last Admin: 11/04/17 06:13 Dose: Not Given Insulin Detemir (Levemir Vial) 25 units SQ BID@0700,2200 [facility] Last Admin: 11/04/17 06:13 Dose: 25 units Ketorolac Tromethamine (Toradol Injection -) 30 mg IVPUSH Q6H PRN PRN Reason: PAIN LEVEL 1-5 Stop: 11/06/17 21:18 Last Admin: 11/01/17 21:36 Dose: 30 mg Lisinopril (Prinivil) 20 mg PO DAILY [facility] Last Admin: 11/04/17 09:49 Dose: 20 mg Ondansetron HCl (Zofran Injection) 4 mg IVPB Q6H PRN PRN Reason: NAUSEA Oxycodone HCl (Roxicodone -) 5 mg PO Q6H PRN PRN Reason: PAIN LEVEL 6-10 Last Admin: 11/04/17 06:14 Dose: 5 mg Pantoprazole Sodium (Protonix -) 40 mg PO DAILY [facility] Last Admin: 11/04/17 09:49 Dose: 40 mg Polyethylene Glycol (Miralax (For Daily Use) -) 17 gm PO DAILY PRN PRN Reason: CONSTIPATION Ranolazine (Ranexa -) 500 mg PO BID [facility] Last Admin: 11/04/17 09:50 Dose: 500 mg Tiotropium [place] (Spiriva -) 1 puff IH DAILY [facility] Last Admin: 11/04/17 09:50 Dose: Not Given - Objective Vital Signs: Vital Signs Temperature 98.2 F 11/04/17 06:00 Pulse Rate 62 11/04/17 06:00 Respiratory Rate 20 11/04/17 06:00 Blood Pressure 140/80 11/03/17 22:00 O2 Sat by Pulse Oximetry (%) 98 11/03/17 21:00 Constitutional: Yes: Well Nourished, No Distress, Calm Cardiovascular: Yes: Regular Rate and Rhythm Respiratory: Yes: Regular Gastrointestinal: Yes: Normal Bowel Sounds, Soft, Tenderness, Epigastrium Musculoskeletal: Yes: WNL Extremities: Yes: WNL Edema: No Peripheral Pulses WNL: Yes Neurological: Yes: Alert, Oriented Psychiatric: Yes: Alert, Oriented Labs: CBC, BMP 11/02/17 06:05 11/02/17 06:05 INR, PTT INR 0.96 (0.82-1.09) 10/31/17 15:40 Problem List - Problems (1) Pancreatitis Assessment/Plan: -tolerating diet -seen by GI -normal pancreatic enzymes -IVF Code(s): K85.9 - ACUTE PANCREATITIS, UNSPECIFIED * DO NOT USE * (2) Abdominal pain Assessment/Plan: -improved -awaiting MRI, has MRI safe cardiac stents. 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 -referred to Dr Duque outpatient -on insulin Code(s): E11.9 - TYPE 2 DIABETES MELLITUS WITHOUT COMPLICATIONS Qualifiers: Diabetes mellitus type: type 2 Diabetes mellitus complication status: with unspecified complications Diabetes mellitus director of curriculum insulin use: with correction use Qualified Code(s): E11.8 - Type 2 diabetes mellitus with unspecified complications; Z79.4 - [facility] (current) use of insulin; Z79.4 - [employer] ( current) use of insulin; Z79.4 - [employer] (current) use of insulin; Z79.4 - [facility] (current) use of insulin Assessment/Plan see problem list
--- NOTE | 2017-11-04 11:12 | PN ---
GI Progress Note Subjective: No abdominal pain Toleraitng PO No MRI as of yet - Objective Vital Signs: Vital Signs Temperature 98.2 F 11/04/17 06:00 Pulse Rate 62 11/04/17 06:00 Respiratory Rate 20 11/04/17 06:00 Blood Pressure 140/80 11/03/17 22:00 O2 Sat by Pulse Oximetry (%) 98 11/03/17 21:00 Constitutional: Calm Eyes: No: Sclera Icterus Cardiovascular: Yes: Regular Rate and Rhythm Respiratory: Yes: CTA Bilaterally Gastrointestinal Inspection: No: Distention ...Auscultate: Yes: Normoactive Bowel Sounds ...Palpate: No: Tenderness Edema: No (No LE edema) Neurological: Yes: Alert, Oriented Labs: CBC, BMP 11/02/17 06:05 11/02/17 06:05 INR, PTT INR 0.96 (0.82-1.09) 10/31/17 15:40 Problem List - Problems (1) Abdominal pain Assessment/Plan: Resolved: ? mild pancreatitis Advised complete alcohol cessation Discussed potential diagnosis of cirrhosis again and the need for follow-up and avoidance of alcohol Awaiting MRI, possibly for today if cardiac stent information can be clarified Code(s): R10.9 - UNSPECIFIED ABDOMINAL PAIN
[2017-11-04 17:02] VITALS: BP 135/89; PULSE 79; TEMP 98
--- NOTE | 2017-11-10 18:20 | PN ---
Progress Note (short form) - Note Progress Note: Called by Dr. Naidu this evening 11/10 re: MRI findings. He describes abnormal MRI finding involving tail of pancreas and ? compression fracture of L2 (seen on CT scan during admission) that was new from previous imaging. Unclear if PMD has followed up re: vertebral finding as of yet. I called her to arrange follow-up for pancreas finding and explained that a cancer will need to be excluded with further testing. She made appointment for 11/18. Problem List - Problems (1) Abdominal pain Code(s): R10.9 - UNSPECIFIED ABDOMINAL PAIN
== END 2017-11-04 19:10 | disposition home or self-care (01) | DRG 282 ==
LOC: JER 14:33 → JERBED 17:45 → J4W 11-01 20:09 → J8W 11-03 16:55
PROVIDERS: ADMIT Family Medicine; ATTEND Family Medicine
DX: K86.1 Other chronic pancreatitis (principal); I25.10 Atherosclerotic heart disease of native coronary artery without angina pectoris; I10 Essential (primary) hypertension; E78.5 Hyperlipidemia, unspecified; J45.909 Unspecified asthma, uncomplicated; F32.9 Major depressive disorder, single episode, unspecified; M54.5 Low back pain; E11.9 Type 2 diabetes mellitus without complications; L60.0 Ingrowing nail; F17.200 Nicotine dependence, unspecified, uncomplicated; F12.10 Cannabis abuse, uncomplicated; E87.2 Acidosis; M54.30 Sciatica, unspecified side; I69.354 Hemiplegia and hemiparesis following cerebral infarction affecting left non-dominant side; F41.8 Other specified anxiety disorders; N17.9 Acute kidney failure, unspecified; K59.09 Other constipation; R07.2 Precordial pain; M48.56XD Collapsed vertebra, not elsewhere classified, lumbar region, subsequent encounter for fracture with routine healing; Z95.5 Presence of coronary angioplasty implant and graft; Z79.4 Long term (current) use of insulin
CPT/HCPCS: 36415; 71045-TC-FY; 74177-TC; 74183-TC; 80053; 80061; 81003; 82150; 82550; 82962; 83036; 83605; 83690; 83721; 83735; 83880; 84100; 84484; 84703; 85025; 85610; 85730; 93005; 93010; 99284-25; J1644

== ENCOUNTER 2018-05-13 07:28 | Day surgery (SDC) | payer OTHER ==
[2018-05-12 08:49] VITALS: BMI 33.0
[2018-05-13] MEDS ORDERED: TETRACAINE/BENZOCAINE/BUTAMBEN 20 GM SPR TP ONE ×2 (09:31→09:50)
[2018-05-13] MEDS ORDERED: LIDOCAINE VISCOUS 2% ORAL/TOP 20 ML UNIT-DOSE CUP ONE (09:31)
[2018-05-13 10:51] VITALS: TEMP 97.7
[2018-05-13 11:53] VITALS: BP 135/90; PULSE 60
--- NOTE | 2018-05-17 15:35 | PATH ---
Surgical Pathology Report Patient Name: IVON DIXON [facility]. Rec. #: [id number] /Age/Gender: 1965 (Age: 53) / F Account: [id number] Location: ASU-ENDOSCOPY Taken: 05/13/2018 Received: 05/13/2018 Reported: 05/17/2018 Physicians: Kwaku Rowe D.O. Specimen(s) Received A: BX DUODENUM B: BX DUODENAL BULB EROSION C: BX BODY D: BX RECTO SIGMOID POLYP E: RECTAL POLYP F: DISTAL RECTAL POLYP Clinical History Abdominal pain, colon screening Postoperative diagnosis: Duodenitis, gastritis, polyps Final Diagnosis A. DUODENUM, NODULE, BIOPSY: POLYPOID DUODENAL MUCOSA WITH MODERATE CHRONIC DUODENITIS. B. DUODENAL BULB, EROSION, BIOPSY: DUODENAL MUCOSA WITH MILD CHRONIC DUODENITIS AND MILD NIRU'S GLAND HYPERPLASIA C. STOMACH, BODY, BIOPSY: POLYPOID GASTRIC BODY MUCOSA WITH MODERATE CHRONIC GASTRITIS AND DILATED GLANDS SUGGESTIVE OF FUNDIC GLAND POLYP. IMMUNOHISTOCHEMICAL STAIN FOR H. PYLORI IS NEGATIVE. D. RECTOSIGMOID COLON, POLYP, BIOPSY: POLYPOID COLONIC MUCOSA WITH FOCAL SUPERFICIAL HYPERPLASTIC FEATURES. E. RECTUM, POLYP, BIOPSY: HYPERPLASTIC POLYP. F. DISTAL RECTUM, POLYP, BIOPSY: HYPERPLASTIC POLYP. Comment: Part C, [place] red stain for amyloid is pending. Findings will be reported as an addendum. Electronically Signed Neena Romero M.D. Addendum Reported: 05/23/2018 Addendum Diagnosis [place] red stain for Amyloid performed and interpreted at [place], [place] ([id number]) is negative (part C). Neena Romero M.D. Gross Description A. Received in formalin, labeled "duodenal nodule" are 2 thorne, irregular portions of soft tissue measuring 0.2 and 0.3 cm. in greatest dimension. The specimens are submitted in toto in one cassette. B. Received in formalin, labeled "duodenal bulb erosion" are 2 thorne, irregular portions of soft tissue measuring 0.2 and 0.3 cm. in greatest dimension. The specimens are submitted in toto in one cassette. C. Received in formalin, labeled "body of stomach" are 5 thorne, irregular portions of soft tissue ranging from 0.1-0.5 cm. in greatest dimension. The specimens are submitted in toto in one cassette. D. Received in formalin, labeled "polyp rectosigmoid" is a thorne, irregular portion of soft tissue measuring 0.2 cm. in greatest dimension. The specimen is submitted in toto in one cassette. E. Received in formalin, labeled "polyp rectum" is a thorne, irregular portion of soft tissue measuring 0.5 cm. in greatest dimension. The specimen is submitted in toto in one cassette. F. Received in formalin, labeled "distal rectal polyp" are 3 thorne, irregular portions of soft tissue ranging from 0.2-0.5 cm. in greatest dimension. The specimens are submitted in toto in one cassette. 05/13/2018 [facility]05/13/2018
== END 2018-05-13 11:54 | disposition home or self-care (01) ==
LOC: JASU-ENDO 07:28
PROVIDERS: ATTEND Internal Medicine Gastroenterology
PROC: 0DBN8ZX Excision of Sigmoid Colon, Via Natural or Artificial Opening Endoscopic, Diagnostic (ICD-10-PCS; 2018-05-13)
PROC: 0DB98ZX Excision of Duodenum, Via Natural or Artificial Opening Endoscopic, Diagnostic (ICD-10-PCS; 2018-05-13)
PROC: 0DB78ZX Excision of Stomach, Pylorus, Via Natural or Artificial Opening Endoscopic, Diagnostic (ICD-10-PCS; 2018-05-13)
PROC: 0DBP8ZX Excision of Rectum, Via Natural or Artificial Opening Endoscopic, Diagnostic (ICD-10-PCS; principal; 2018-05-13 09:00)
DX: Z12.11 Encounter for screening for malignant neoplasm of colon (principal); K62.1 Rectal polyp; K29.80 Duodenitis without bleeding; K31.89 Other diseases of stomach and duodenum; K29.50 Unspecified chronic gastritis without bleeding; K31.7 Polyp of stomach and duodenum; I10 Essential (primary) hypertension; E78.5 Hyperlipidemia, unspecified; M54.5 Low back pain; G89.29 Other chronic pain; E11.9 Type 2 diabetes mellitus without complications; I25.10 Atherosclerotic heart disease of native coronary artery without angina pectoris; Z95.5 Presence of coronary angioplasty implant and graft; F32.9 Major depressive disorder, single episode, unspecified
CPT/HCPCS: 82962; 88305-TC; 88342-TC

== ENCOUNTER 2018-05-16 20:25 | Emergency (ER) | payer OTHER ==
[2018-05-16 20:43] VITALS: TEMP 99.3; BMI 33.0
--- NOTE | 2018-05-16 22:39 | PDOC ---
Attending Attestation - Medical Decision Making 05/17/18 12:00am Call placed to Dr. Bryson, parts consultant for Dr. Monique Rowe, awaiting call back. 12:08am Call returned from Dr. Bryson, case discussed with resident. <Slick Marx - Last Filed: 05/17/18 00:08> - Resident Resident Name: Jung Banks - ED Attending Attestation I have performed the following: I have examined & evaluated the patient, The case was reviewed & discussed with the resident, I agree w/resident's findings & plan, Exceptions are as noted - HPI HPI: 05/16/18 22:31 53 yo female who had endoscopy and colonoscopy on Wednesday and reports 3 days of epigastric pain since her procedure, No fever,no vomiting 05/17/18 02:14 - Physicial Exam PE: 05/17/18 02:10 wnwd 53 yo female has c/o abdominal pain for 3 days ever since her endoscopy and colonoscopy head ncat neck supple lungs cta b/l cvs [id number] abd no rebond or guarding neuro axox3 - Medical Decision Making 05/17/18 02:14 labs no leukocytosis, no anemia liver function tests Normal lipase normal radiograph no free air under diaphragm on xray case discussed w Dr Bryson and the plan is fo r the pt to see [facility] Wednesday <Bonnie Wells - Last Filed: 05/17/18 02:16> Attestations - Attestations 05/17/18 00:09 Documentation prepared by Slick Marx, acting as medical clinic manager for Bonnie Wells MD. <Slick Marx - Last Filed: 05/17/18 00:08>
--- NOTE | 2018-05-16 22:51 | PDOC ---
History of Present Illness - General Chief Complaint: Pain Stated Complaint: ABDOMINAL PAIN Time Seen by Provider: 05/16/18 22:00 - History of Present Illness Initial Comments: 05/16/18 22:51 Pt is a 53 y/o lady with a significant past medical history of chronic pancreatitis, IDDM, HTN, CAD s/p 6 who presents this evening to [facility] c/o severe epigastric pain that is radiating down to her pubic symphysis. Pain is a 10,10 in severity, began this past Wednesday, sharp in nature, and is partially relieved w/ Advil and Alleve. Pt underwent an Endoscopy/Colonoscopy on Wednesday and endorses that her pain began shortly after. Denies cp, sob, bryan, fever, chills, or vomiting. Allergies: Morphine, Strawberrys SocHx-Smokes 5-6 Cig/day (20 years), Social Drinker FH- Father (DM, Gastric Cancer), Mother(HTN, HLD) Past History - Past Medical History Allergies/Adverse Reactions: Allergies Allergy/AdvReac Type Severity Reaction Status Date / Time morphine Allergy Difficulty Verified 05/16/18 20:43 Breathing STRAWBERRIES Allergy Difficulty Uncoded 05/16/18 20:43 Breathing Home Medications: Ambulatory Orders Albuterol 0.083% Nebulizer Gertrude [Ventolin 0.083% Nebulizer Soln -] 1 neb NEB Q6H PRN 05/24/13 Albuterol Sulfate [Proair Hfa -] 1 - 2 inh PO TID 05/24/13 Loratadine [Claritin -] 10 mg PO PRN PRN 05/24/13 Zolpidem Tartrate [Ambien] 10 mg PO HS 05/24/13 Budesonide/Formeterol Fumarate [SYMBICORT 160/4.5mcg -] 2 inh IN Q12H 12/13/14 Insulin Aspart [Novolog] 50 units SQ AC 12/13/14 Naproxen/Esomeprazole Mag [Vimovo Dr 500-20 mg Tablet] 1 tab PO BID PRN Ranolazine [Ranexa] 500 mg PO BID 12/13/14 Tiotropium [place] [Spiriva] 1 inh IN DAILY 12/13/14 Lisinopril [Prinivil] 20 mg PO DAILY #30 tablet 12/16/14 Aspirin [ASA -] 81 mg PO DAILY #30 tab.chew 05/22/15 Atorvastatin Ca [Lipitor] 80 mg PO HS #30 tablet 05/22/15 Clopidogrel Bisulfate [Plavix -] 75 mg PO DAILY #30 tablet 05/22/15 Insulin Glargine,Hum.rec.anlog [Justus Aguila] 100 unit SQ HS 03/11/18 Pantoprazole Sodium [Protonix -] 20 mg PO DAILY #30 tablet.ec 05/13/18 Anemia: No Asthma: Yes Cancer: No Cardiac Disorders: Yes ([place], CAD, stents x6) CVA: Yes (LT SIDE RESIDUAL WEAKNESS) COPD: No CHF: No Dementia: No Diabetes: Yes (IDDM) GI Disorders: Yes (chronic pancreatitis) Disorders: No HTN: Yes Hypercholesterolemia: Yes Liver Disease: No Seizures: No Thyroid Disease: No - Surgical History Abdominal Surgery: Yes (Ruptured vessel) Cardiac Surgery: Yes (STENTS X 6) - Immunization History Immunization Up to Date: Yes - Suicide/Smoking/Psychosocial Hx Smoking Status: Yes Smoking History: Current every day smoker Have you smoked in the past 12 months: Yes Number of Cigarettes Smoked Daily: 6 Cigars Per Day: 0 Information on smoking cessation initiated: No 'Breaking Loose' booklet given: 05/12/18 Hx Alcohol Use: No Drug/Substance Use Hx: No Substance Use Type: None Hx Substance Use Treatment: No *Physical Exam - Vital Signs Last Vital Signs Temp Pulse Resp BP Pulse Ox 99.3 F 95 H 18 150/106 100 05/16/18 20:40 05/16/18 20:40 05/16/18 20:40 05/16/18 20:40 05/16/18 20:40 - Physical Exam Comments: 05/16/18 23:01 GEN- AD, AAOx3 Neuro- No Neuro Deficits appreciated RS- Dec BS at bases CV- RRR S1 S2 ABD- Tender all quadrants, non-distended, no HSM EXT- Onychomycosis, no CCE ED Treatment Course - LABORATORY CBC & Chemistry Diagram: 05/16/18 23:00 05/16/18 23:00 - RADIOLOGY Radiology Studies Ordered: Category Date Time Status CHEST X-RAY PORTABLE* [RAD] Stat Radiology 05/16/18 22:31 Ordered Medical Decision Making - Medical Decision Making 05/17/18 00:46 Chest X-RAY --> No perforation Lipase, WBC WNL Afebrile Spoke w/ Dr Bryson, covering for Dr Rowe, does not believe admission is necessary. Advised to see Dr Rowe tomorrow morning. *DC/Admit/Observation/Transfer Diagnosis at time of Disposition: Abdominal pain Qualifiers: Abdominal location: epigastric Qualified Code(s): R10.13 - Epigastric pain - Discharge Dispostion Disposition: HOME Condition at time of disposition: Fair Decision to Admit order: No - Referrals Referrals: Miles Rowe DO [Staff Physician] - Call tomorrow (Please call Dr Rowe Tomorrow for Appointment. ) Sammy Ortiz [Primary Care Provider] - - Patient Instructions Printed Discharge Instructions: DI for Abdominal Pain-Adult - Post Discharge Activity
[2018-05-16 23:19] LABS: BASO % 0.8 % (0-2.0); EOS % 1.9 % (0-4.5); HEMATOCRIT 46.7 % (32.4-45.2); HEMOGLOBIN 15.8 GM/dL (10.7-15.3); LYMPH % 27.4 % (8-40); MCH 26.4 pg (25.7-33.7); MCHC 33.8 g/dl (32.0-36.0); MEAN CELL VOLUME 78.1 fl (80-96); MEAN PLT VOLUME 9.6 fl (7.5-11.1); MONO % 13.5 % (3.8-10.2); NEUT % 56.4 % (42.8-82.8); PLATELET COUNT 203 K/MM3 (134-434); RBC 5.98 M/mm3 (3.60-5.2); RDW 15.1 % (11.6-15.6); WHITE BLOOD COUNT 7.9 K/mm3 (4.0-10.0)
[2018-05-16 23:35] LABS: ALBUMIN 2.7 g/dl (3.4-5.0); ANION GAP 8 MMOL/L (8-16); BILIRUBIN,TOTAL 0.4 mg/dL (0.2-1.0); BLOOD UREA NITROGEN 11 mg/dL (7-18); CALCIUM 8.6 mg/dL (8.5-10.1); CHLORIDE 99 mmol/L (98-107); CO2 33 mmol/L (21-32); GLUCOSE,RANDOM 230 mg/dL (74-106); POTASSIUM 3.7 mmol/L (3.5-5.1); SGOT/AST 19 U/L (15-37); SGPT/ALT 18 U/L (12-78); SODIUM 140 mmol/L (136-145); TOT PROT 6.4 g/dl (6.4-8.2)
[2018-05-16 23:36] LABS: ALK PHOS 132 U/L (45-117); LIPASE 362 U/L (73-393)
[2018-05-17 00:48] VITALS: BP 152/88; PULSE 88
--- NOTE | 2018-05-17 16:27 | EKG ---
Test Reason : Blood Pressure : / mmHG Vent. Rate : 092 BPM Atrial Rate : 092 BPM P-R Int : 152 ms QRS Dur : 078 ms QT Int : 398 ms P-R-T Axes : 064 -40 084 degrees QTc Int : 492 ms NORMAL SINUS RHYTHM POSSIBLE LEFT ATRIAL ENLARGEMENT LEFT AXIS DEVIATION SEPTAL INFARCT (CITED ON OR BEFORE 02-DEC-2004) ABNORMAL ECG WHEN COMPARED WITH ECG OF 02-NOV-2017 11:20, NO SIGNIFICANT CHANGE WAS FOUND Confirmed by Adam Haskins ([id number]) on 05/17/2018 4:27:35 PM Referred By: Confirmed By:Adam Haskins
== END 2018-05-17 00:54 | disposition home or self-care (01) ==
LOC: JER 20:25
DX: R10.13 Epigastric pain (principal); I25.10 Atherosclerotic heart disease of native coronary artery without angina pectoris; Z95.5 Presence of coronary angioplasty implant and graft; I10 Essential (primary) hypertension; I25.2 Old myocardial infarction; E11.9 Type 2 diabetes mellitus without complications; Z79.4 Long term (current) use of insulin; E78.00 Pure hypercholesterolemia, unspecified; I69.854 Hemiplegia and hemiparesis following other cerebrovascular disease affecting left non-dominant side; F17.210 Nicotine dependence, cigarettes, uncomplicated; Z88.8 Allergy status to other drugs, medicaments and biological substances
CPT/HCPCS: 36415; 71045-TC-FY; 80053; 83605; 83690; 85025; 93005; 93010; 99283-25

== ENCOUNTER 2019-04-24 22:52 | Emergency (ER) | payer OTHER ==
[2019-04-24] MEDS ORDERED: SODIUM CHLORIDE 1,000 ML IV STA (23:54)
[2019-04-25 00:32] VITALS: TEMP 99.6; BMI 29.2
--- NOTE | 2019-04-25 00:34 | PDOC ---
Documentation entered by Karla Henry SCRIBE, acting as scribe for Joseph Bills MD. Joseph Bills MD: This documentation has been prepared by the cherylibe, Karla Henry SCRIBE, under my direction and personally reviewed by me in its entirety. I confirm that the documentation accurately reflects all work, treatment, procedures, and medical decision making performed by me. Attending Attestation - Resident Resident Name: MirellaMaryann - ED Attending Attestation I have performed the following: I have examined & evaluated the patient, The case was reviewed & discussed with the resident, I agree w/resident's findings & plan, Exceptions are as noted - HPI HPI: 04/25/19 00:20 54 F with h/o Chronic Pancreatitis, HTN, HLD, DM, CAD, AL, s/p 6 stents, CVA, CABG c/b post-op abscess, presenting to ED with AMS. Per family, pt was " feeling sick" the past few days. Today, pt was found obtunded, unresponsive, and breathing rapidly. EMS was activated and found pt to have critically high fingerstick. Pt is insulin dependent diabetic, but family is unsure whether she has been taking it or not. In ED, pt had 2 episodes of bloody emesis. - Physicial Exam PE: 04/25/19 00:22 GENERAL: + obtunded, in moderate respiratory distress HEAD: No signs of trauma EYES: PERRLA, EOMI, sclera anicteric, conjunctiva clear ENT: Auricles normal inspection, hearing grossly normal, nares patent, oropharynx clear without exudates. Moist mucosa NECK: Nontender, no stepoffs, Normal ROM, supple, no lymphadenopathy, JVD, or masses LUNGS: Breath sounds equal, clear to auscultation bilaterally. No wheezes, and no crackles HEART: + diffusely tender ABDOMEN: Soft, nontender, normoactive bowel sounds. No guarding, no rebound. No masses EXTREMITIES: Normal range of motion, no edema. No clubbing or cyanosis. No cords, erythema, or tenderness NEUROLOGICAL: unresponsive, moving all extremities SKIN: Warm, Dry, normal turgor, no rashes or lesions noted. - Critical Care Time Total Critical Care Time: 120 Critical Care Statement: The care of this patient involved high complexity decision making to prevent further life threatening deterioration of the patient 's condition and/or to evaluate & treat vital organ system(s) failure or risk of failure. - Medical Decision Making 04/25/19 00:33 54 F with AMS, critically high fingerstick. DKA vs HHS. Pt also vomited blood x 2 in ED. Will evaluate for sepsis as pt was recently admitted for post-op infection after CABG. - Labs, cultures, ketones - CXR, UA - IVF - Empirically cover with vanc/zosyn - Protonix for UGIB - Admit ICU 04/25/19 02:06 Glucose >1000 K 5.5 Acetone 3+ Will initiate insulin bolus + gtt 04/25/19 02:10 Sign out given to admitting hospitalist Dr. Perez, as well as overnight ED attending Dr. Scruggs. Plan at time of discharge to admit to ICU pending CT head/chest/abd/pelvis
[2019-04-25 01:16] LABS: VENOUS PC02 27.9 mmHg (41-51); VENOUS PO2 37.8 mmHg (30-40)
[2019-04-25] MEDS ORDERED: SODIUM CHLORIDE 1,000 ML IV STA ×2 (01:16→02:06)
[2019-04-25] MEDS ORDERED: VANCOMYCIN 1 GM in D5W (PRE-DOCKED) 1,000 MG/250 ML IVPB ONE (01:17)
[2019-04-25] MEDS ORDERED: PIPERACILLIN/TAZOB 3.375 GM 3.375 GM in DEXTROSE 5%-WATER - 50 ML IVPB ONE (01:17)
[2019-04-25 01:24] LABS: VENOUS PH 7.17 (7.31-7.41)
--- NOTE | 2019-04-25 01:25 | PDOC ---
History of Present Illness - General Chief Complaint: Blood Sugar Problem Stated Complaint: High Blood Sugar Time Seen by Provider: 04/24/19 23:53 History Source: Family (daughters) Exam Limitations: Clinical Condition - History of Present Illness Initial Comments: 04/25/19 01:13 54yo F with PMH of CAD s/p CABGx4 (December 2018) complicated by infection (family is unsure of what kind) which required extended hospital stay, IDDM, HTN, HLD, CVA, Chronic Pancreatitis BIBA for AMS and elevated blood sugars. Pt lives alone at home and per daughters has seemed more tired than usual. Daughter states that today patient was not responding to questions. Patient is fully alert and oriented at baseline. Patient had quadruple bypass at [facility] December of this year. Per daughters patient was acting similarly to today due to an infection but daughters cannot specify what kind of infection it was. She was in rehab and went back home in February. Per EMS, glucose was elevated and they started IV fluids. Upon arrival pt coughed up blood 2x. Full code PMD: Emmanuel/Ramón/Angel/Nelsy PMH: see hpi PSH: see hpi Meds: see med rec Allergies: morphine Past History - Past Medical History Allergies/Adverse Reactions: Allergies Allergy/AdvReac Type Severity Reaction Status Date / Time morphine Allergy Difficulty Verified 05/17/18 11:12 Breathing STRAWBERRIES Allergy Difficulty Uncoded 05/17/18 11:12 Breathing Home Medications: Ambulatory Orders Albuterol 0.083% Nebulizer Gertrude [Ventolin 0.083% Nebulizer Soln -] 1 neb NEB Q6H PRN 05/24/13 Albuterol Sulfate [Proair Hfa -] 1 - 2 inh PO TID 05/24/13 Loratadine [Claritin -] 10 mg PO PRN PRN 05/24/13 Zolpidem Tartrate [Ambien] 10 mg PO HS 05/24/13 Budesonide/Formeterol Fumarate [SYMBICORT 160/4.5mcg -] 2 inh IN Q12H 12/13/14 Naproxen/Esomeprazole Mag [Vimovo Dr 500-20 mg Tablet] 1 tab PO BID PRN Ranolazine [Ranexa] 500 mg PO BID 12/13/14 Tiotropium Serafina [Spiriva] 1 inh IN DAILY 12/13/14 Aspirin [ASA -] 81 mg PO DAILY #30 tab.chew 05/22/15 Atorvastatin Ca [Lipitor] 80 mg PO HS #30 tablet 05/22/15 Clopidogrel Bisulfate [Plavix -] 75 mg PO DAILY #30 tablet 05/22/15 Pantoprazole Sodium [Protonix -] 20 mg PO DAILY #30 tablet.ec 05/13/18 Insulin Glargine,Hum.rec.anlog [Toujeo Solostar] 25 unit SQ AM #1 ea 05/23/18 Insulin Sliding Scale [Novolog Vial Sliding Scale -] 1 vial SQ TIDAC units 06/30 Lisinopril [Prinivil] 40 mg PO DAILY #30 tablet 05/23/18 Polyethylene Glycol 3350 [Miralax 119 gm Btl -] 17 gm PO TID #1 bottle 05/23/18 Potassium Chloride [K-Dur -] 40 meq PO DAILY #30 tablet.er 05/23/18 Ranitidine [Zantac -] 150 mg PO DAILY #30 tablet 05/23/18 Anemia: No Asthma: Yes Cancer: No Cardiac Disorders: Yes (UT, CAD, stents x6) CVA: Yes (LT SIDE RESIDUAL WEAKNESS) COPD: No CHF: No DVT: No Dementia: No Diabetes: Yes (IDDM) GI Disorders: Yes (chronic pancreatitis) Disorders: No HTN: Yes Hypercholesterolemia: Yes Liver Disease: No Seizures: No Thyroid Disease: No - Surgical History Abdominal Surgery: Yes (Ruptured vessel) Cardiac Surgery: Yes (STENTS X 6) - Immunization History Immunization Up to Date: Yes - Suicide/Smoking/Psychosocial Hx Smoking Status: Yes Smoking History: Unknown if ever smoked Have you smoked in the past 12 months: Yes Number of Cigarettes Smoked Daily: 6 Cigars Per Day: 0 'Breaking Loose' booklet given: 05/18/18 Hx Alcohol Use: No Drug/Substance Use Hx: No Substance Use Type: None Hx Substance Use Treatment: No Review of Systems - Review of Systems Able to Perform ROS?: No *Physical Exam - Vital Signs Last Vital Signs Temp Pulse Resp BP Pulse Ox 99.6 F 118 H 22 H 97/78 99 04/25/19 00:10 04/25/19 00:10 04/25/19 00:10 04/25/19 00:10 04/25/19 00:10 - Physical Exam General Appearance: Yes: Moderate Distress, Thin, Other (writhing in stretcher) HEENT: positive: BRENDA (pupils dilated and sluggish to react), Other (dried blood in mouth and on tongue. No lacerations noted) Neck: positive: Trachea midline, Supple. negative: Lymphadenopathy (R), Lymphadenopathy (L) Respiratory/Chest: positive: Lungs Clear, Normal Breath Sounds. negative: Crackles, Rales, Rhonchi, Stridor, Wheezing Cardiovascular: positive: S1, S2, Tachycardia. negative: Edema, JVD, Murmur Vascular Pulses: Dorsalis-Pedis (R): 1+, Doralis-Pedis (L): 1+ Gastrointestinal/Abdominal: positive: Soft, Decreased BS, Tenderness (diffuse tenderness). negative: Distended, Guarding, Rebound Musculoskeletal: negative: CVA Tenderness Extremity: negative: Pedal Edema, Swelling, Calf Tenderness Integumentary: positive: Normal Color, Dry, Warm Neurologic: positive: Alert, Motor Strength 5/5, Respond to painful stimul, Other (AOx0). negative: goggles assembler II-XII NML intact, Fully Oriented, Normal Mood/ Affect ED Treatment Course - LABORATORY CBC & Chemistry Diagram: 04/25/19 00:00 04/25/19 00:00 - ADDITIONAL ORDERS Additional order review: Laboratory Results 04/25/19 00:04 POC Glucometer > 600 04/25/19 00:04 POC Glucometer > 600 - RADIOLOGY Radiology Studies Ordered: Category Date Time Status HEAD CT WITHOUT CONTRAST [CT] Stat CT Scan 04/25/19 00:02 Ordered CHEST X-RAY PORTABLE* [RAD] Stat Radiology 04/25/19 00:02 Taken - Medications Given in the ED: ED Medications Discontinued Medications Generic Name Dose Route Start Last Admin Trade Name Freq PRN Reason Stop Dose Admin Sodium Chloride 1,000 mls @ 1,000 mls/hr 04/24/19 23:54 04/25/19 00:00 Normal Saline - IV 04/25/19 00:53 1,000 mls/hr ASDIR STA Administration Medical Decision Making - Medical Decision Making 04/25/19 01:34 54yo F with PMH of CAD s/p CABGx4 (December 2018) complicated by infection (family is unsure of what kind) which required extended hospital stay, IDDM, HTN, HLD, CVA, Chronic Pancreatitis BIBA for AMS and elevated blood sugars. Pt lives alone at home and per daughters has seemed more tired than usual. Daughter states that today patient was not responding to questions. Patient is fully alert and oriented at baseline. Patient had quadruple bypass at [facility] December of this year. Per daughters patient was acting similarly to today due to an infection but daughters cannot specify what kind of infection it was. She was in rehab and went back home in February. Per EMS, glucose was elevated and they started IV fluids. Upon arrival pt coughed up blood 2x. Vitals: hypotensive, tachycardic, tachypneic, rectal 99.6 PE: kassmaul breathing, AOx0, getting out of bed, dilated pupils slowly reactive to light, diffuse abdominal ddx includes but not limited to dka, hhs, infection causing dka, surgical site infection, endocarditis, myocarditis, pna, uti, gi bleed rectal temp 99.6.Diffuse abdominal tenderness could be 2/2 dka and pt has h/o pancreatitis. AMS likely 2/2 dka. BGM HIGH sepsis w/u with acetone, guaiac, type and screen. pt got 1L fluids by EMS, will continue to order fluids. Will wati for chemistry to return before starting insulin. CT head, chest and ap labs signficiant for ph 7.17 with low CO2. likely metabolic. K 5.5, gluc 1000, bicarb 10. Will start insulin drip and bolus. guiaiac positive. Acetone positive. Will start protonix drip. Cr 3.0 likely in setting of DKA. WBC 20; started Vanc and Zosyn trop 0.09 likely 2/2 demand Franklin needs to be placed, pending UA Pt received a total of 3L fluids, ordering a 4th. Q1H BGM, Q4H BMP Pt endorsed to ICU. Pending imaging to r/o infection at surgical sites which would require transfer to [facility] where she got the surgery. CT head no pathology EKG: sinus tachycardia at 108. pr 126, qtc 485. CT chest/AP: soft tissue edema at sternum/manubrium. cannot r/o abscess because imaging done without contrast. hospitalist and icu recommend transfer to [facility] where patient's CT surgeons are. signed out to night team. *DC/Admit/Observation/Transfer Diagnosis at time of Disposition: Soft tissue infection DKA (diabetic ketoacidoses) Qualifiers: Diabetes mellitus type: type 2 Diabetes mellitus complication detail: without coma Qualified Code(s): E11.10 - Type 2 diabetes mellitus with ketoacidosis without coma GI bleed Qualifiers: GI bleed type/associated pathology: unspecified gastrointestinal hemorrhage type Qualified Code(s): K92.2 - Gastrointestinal hemorrhage, unspecified - Discharge Dispostion Disposition: TRANSFER ACUTE CARE/OTHER HOSP - Referrals - Patient Instructions - Post Discharge Activity
[2019-04-25 01:50] LABS: INR 1.16 (0.83-1.09); PROTHROMBIN TIME (PATIENT) 13.7 SEC (9.7-13.0)
[2019-04-25] MEDS ORDERED: PANTOPRAZOLE SODIUM 40 MG in SODIUM CHLORIDE 100 ML IVPB ONE (01:56)
[2019-04-25 02:01] LABS: BASO % 0.6 % (0-2.0); HEMATOCRIT 44.8 % (32.4-45.2); HEMOGLOBIN 13.4 GM/dL (10.7-15.3); LYMPH % 8.2 % (8-40); MCH 23.3 pg (25.7-33.7); MCHC 29.8 g/dl (32.0-36.0); MEAN CELL VOLUME 78.2 fl (80-96); MEAN PLT VOLUME 10.5 fl (7.5-11.1); MONO % 6.2 % (3.8-10.2); PLATELET COUNT 359 K/MM3 (134-434); RBC 5.73 M/mm3 (3.60-5.2); RDW 19.7 % (11.6-15.6); WHITE BLOOD COUNT 20.6 K/mm3 (4.0-10.0)
[2019-04-25 02:06] LABS: ALBUMIN 2.4 g/dl (3.4-5.0); BILIRUBIN,TOTAL 0.6 mg/dL (0.2-1); CALCIUM 8.8 mg/dL (8.5-10.1); POTASSIUM 5.5 mmol/L (3.5-5.1); TOT PROT 7.7 g/dl (6.4-8.2)
[2019-04-25] MEDS ORDERED: INSULIN REGULAR HUMAN 100 UNITS/ML *VIAL IVPUSH ONE (02:06)
[2019-04-25] MEDS ORDERED: INSULIN REGULAR 100 UNITS in SODIUM CHLORIDE 99 ML IVPB SCH (02:15)
[2019-04-25] MEDS ORDERED: PANTOPRAZOLE SODIUM 80 MG in SODIUM CHLORIDE 100 ML IVPB SCH (02:15)
--- NOTE | 2019-04-25 02:30 | PDOC ---
*Physical Exam - Vital Signs Last Vital Signs Temp Pulse Resp BP Pulse Ox 99.6 F 118 H 22 H 97/78 99 04/25/19 00:10 04/25/19 00:10 04/25/19 00:10 04/25/19 00:10 04/25/19 00:10 - Physical Exam Comments: MDM: *Reviewed vital signs, nursing notes, and prior visit documentation (if available). Received sign out from resident Dr. Vu. In short, pt is a 54 y/o female presenting with AMS. Found to be in DKA with BG of >1000 with pH of 7.17 and Bicarb of 10. CT scan of chest concerning for possible sternal abscess and UGIB. SFOB positive. In process of receiving 4th NS IVFB, Protonix drip, normal insulin drip, Vancomycin, and Zosyn. [facility] admitting and ICU services would like pt to be transferred to [facility] where pt underwent CABG in December of 2018. CT scans transmitted to [facility] PACS. 03:[address] Brennan of CT Surgery service. Verbally appraised of the pts HPI, ED course, and current plan of management. Would like to be to be admitted to medicine team with CT as a consult. 03:45 Telephone discussion with MICU attending Dr. Truong. Verbally appraised of the pts HPI, ED course, and current plan of management. Would like the pt to be transferred ED to ED to better dispo the pt internally. 03:59 Telephone discussion with adult ED attending Dr. Foley. Verbally appraised of the pts HPI, ED course, and current plan of management. Will accept the pt as a transfer. Confirmed receipt of CT scans in PACS system. ALS ground ambulance transfer to be arranged by [facility] transfer center. Satish Nguyen M.D., PGY2 Emergency Medicine Resident Vital Signs - Vital Signs #1 Blood Pressure: 115/76 (@03:00) MAP: 89 Pulse Rate: 111 Respiratory Rate: 39 O2 Sat by Pulse Oximetry (%): 93 Oxygen Delivery Method: Room Air ED Treatment Course - LABORATORY CBC & Chemistry Diagram: 04/25/19 00:00 04/25/19 00:00 - ADDITIONAL ORDERS Additional order review: Laboratory Results 04/25/19 04/25/19 04/25/19 00:04 00:01 00:00 PT with INR INR PTT (Actin FS) VBG pH 7.17 L* POC VBG pCO2 27.9 L POC VBG pO2 37.8 VBG HCO3 9.8 L VBG O2 Sat (Dora) 49.7 L VBG Base Excess -17.7 L Sodium Potassium Chloride Carbon Dioxide Anion Gap BUN Creatinine Est GFR (CKD-EPI)AfAm Est GFR (CKD-EPI)NonAf POC Glucometer > 600 Random Glucose Calcium Total Bilirubin AST ALT Alkaline Phosphatase Troponin I Total Protein Albumin Lipase Stool Occult Blood Positive Acetone, Qual 04/25/19 04/25/19 04/25/19 00:00 00:00 00:00 PT with INR 13.70 H INR 1.16 H PTT (Actin FS) VBG pH POC VBG pCO2 POC VBG pO2 VBG HCO3 VBG O2 Sat (Dora) VBG Base Excess Sodium Potassium Chloride Carbon Dioxide Anion Gap BUN Creatinine Est GFR (CKD-EPI)AfAm Est GFR (CKD-EPI)NonAf POC Glucometer Random Glucose Calcium Total Bilirubin AST ALT Alkaline Phosphatase Troponin I Total Protein Albumin Lipase 355 Stool Occult Blood Acetone, Qual Positive large 3+ H 04/25/19 04/25/19 04/25/19 00:00 00:00 00:00 PT with INR INR PTT (Actin FS) 30.2 VBG pH POC VBG pCO2 POC VBG pO2 VBG HCO3 VBG O2 Sat (Dora) VBG Base Excess Sodium 124 L Potassium 5.5 H Chloride 77 L Carbon Dioxide 10 L Anion Gap 38 H BUN 61.0 H Creatinine 3.0 H Est GFR (CKD-EPI)AfAm 19.46 Est GFR (CKD-EPI)NonAf 16.79 POC Glucometer Random Glucose 1119 H* Calcium 8.8 Total Bilirubin 0.6 AST 16 ALT 10 L Alkaline Phosphatase 204 H Troponin I 0.11 H Total Protein 7.7 Albumin 2.4 L Lipase Stool Occult Blood Acetone, Qual 04/25/19 04/25/19 00:04 00:00 RBC 5.73 H MCV 78.2 L MCHC 29.8 L RDW 19.7 H MPV 10.5 D Neutrophils % 85.0 H D Lymphocytes % 8.2 D Monocytes % 6.2 Eosinophils % 0.0 D Basophils % 0.6 POC Glucometer > 600 - RADIOLOGY Radiograph Interpretation: Head CT: THIS IS A PRELIMINARY REPORT FROM IMAGING DATABASE ARCHITECT DATE OF SERVICE: 2019-04-25 02:05:46 IMAGES: [id number] EXAM: HEAD CT WITHOUT CONTRAST HISTORY: Mental status changes COMPARISON: None. FINDINGS: The ventricular system is midline and nondilated. The sulcal pattern is normal for the patient's age. There is no bleed, mass, extra-axial fluid collection or mass effect. No skull fracture or skull lesion is identified. The visualized paranasal sinuses and mastoid air cells are clear. IMPRESSION: Normal exam. One or more of the following dose reduction techniques were used: automated exposure control, adjustment of the mA and/or kV according to patient size, use of iterative reconstructive technique. THIS DOCUMENT HAS BEEN ELECTRONICALLY SIGNED Doron Sam MD 04/25/2019 02:[address] Abd and Pelvis: THIS IS A PRELIMINARY REPORT FROM [employer]AGING DAT[employer] ARCHITECT DATE OF SERVICE: 2019-04-25 02:09:29 IMAGES: [id number] EXAM: CT chest, abdomen and pelvis without contrast HISTORY: Sepsis COMPARISON: None. FINDINGS: CT chest:There is no aortic aneurysm. Retroesophageal right subclavian artery is noted. There is no significant mediastinal or hilar adenopathy. The heart size is normal. Status post prior sternotomy and CABG. Status post anterior fusion of the sternal defect. There is prominent soft tissue edema anterior to the manubrium and sternum with mild soft tissue edema posterior. Abscess is difficult to exclude without contrast. The sternal fracture is unfused and there is no definite CT finding for osteomyelitis. The trachea and bronchi are patent. There is no pleural or pericardial effusion. The lungs are clear. CT abdomen and pelvis: Normal unenhanced liver, gallbladder, pancreas, spleen, adrenal glands and kidneys. The stomach and abdominal small and large bowel are normal. There is no aortic aneurysm. There is no significant retroperitoneal lymphadenopathy. The pelvic small and large bowel are normal. The appendix is normal. The uterus and adnexal structures are notable for a 5.0 cm fundal fibroid.. Urinary bladder is unremarkable. There is no pelvic free fluid. No discrete pelvic lymphadenopathy is identified. There is sclerosis of L2 with mild loss of height although the superior endplate collapse is likely old. The vertebral sclerosis, however, could indicate an underlying lesion. IMPRESSION: Suspected soft tissue infection surrounding the manubrium and sternum status post internal fixation. Abscess not excluded, since intravenous contrast was not given. No definite CT findings for osteomyelitis but the sternal defect is unhealed. 5.0 cm fundal fibroid. Possible sclerotic lesion in L2 can be followed up with MRI. One or more of the following dose reduction techniques were used: automated exposure control, adjustment of the mA and/or kV according to patient size, use of iterative reconstructive technique. THIS DOCUMENT HAS BEEN ELECTRONICALLY SIGNED Doron Sam MD 04/25/2019 03:06 EST - Medications Given in the ED: ED Medications Discontinued Medications Generic Name Dose Route Start Last Admin Trade Name Freq PRN Reason Stop Dose Admin Sodium Chloride 1,000 mls @ 1,000 mls/hr 04/24/19 23:54 04/25/19 00:00 Normal Saline - IV 04/25/19 00:53 1,000 mls/hr ASDIR STA Administration *DC/Admit/Observation/Transfer Diagnosis at time of Disposition: Soft tissue infection DKA (diabetic ketoacidoses) Qualifiers: Diabetes mellitus type: type 2 Diabetes mellitus complication detail: without coma Qualified Code(s): E11.10 - Type 2 diabetes mellitus with ketoacidosis without coma GI bleed Qualifiers: GI bleed type/associated pathology: unspecified gastrointestinal hemorrhage type Qualified Code(s): K92.2 - Gastrointestinal hemorrhage, unspecified - Discharge Dispostion Disposition: TRANSFER ACUTE CARE/OTHER HOSP Condition at time of disposition: Stable Decision to Admit order: No - Referrals - Patient Instructions - Post Discharge Activity - Transfer to Acute Care Facility Receiving Facility: [facility]. Accepting Physician:: Dr. Foley
[2019-04-25] MEDS ORDERED: INSULIN REGULAR HUMAN 100 UNITS/ML *VIAL ONE (03:03)
[2019-04-25] MEDS ORDERED: PANTOPRAZOLE SODIUM 40 MG/100 ML BAG IVPB ONE (03:28)
[2019-04-25] MEDS ORDERED: VANCOMYCIN 1 GRAM (PRE-DOCKED) 1,000 MG/250 ML BAG IVPB ONE (03:28)
--- NOTE | 2019-04-25 04:59 | CONSULT ---
Consultation: REQUESTING PROVIDER: Dr. Vu CONSULT REQUEST: We have been asked to medically evaluate this patient for diabetic ketoacidosis HISTORY OF PRESENT ILLNESS: 54 year old female with a history of diabetes mellitus (insulin dependent), hypertension, hyperlipidemia, CVA, chronic pancreatitis, and coronary artery disease s/p quadruple bypass CABG in December of this year at [facility] complicated by postoperative infection of the chest wall came in by ambulance for altered mental status. Per daughter, patient was well 3 days ago and progressively began not acting like herself until today, which appeared acutely worse to them. In the ED, patient was noted to have 2 episodes of hematemesis. Patient's labs on admission showed a severe metabolic acidosis with an anion gap of 38 (corrected > 40), hyperglycemia to >1000, and 3+ acetone. Her potassium on admission was 5.5. She was diagnosed with diabetic ketoacidosis and started on IV fluid hydration (she received 3-4 liters prior to my examination), an insulin drip, and protonix ggt. A CT scan of her chest/ abdomen/pelvis was performed to search for a source of infection and revealed a large soft tissue-like infection overlying her surgical site over her sternum. She was started on vancomycin/zosyn and clindamycin. Due to the severity of her illness and recent hospitalization for postoperative infection at [facility], [facility] was called to arrange an ED to ED transfer in order to allow the CT surgeon who evaluated her a couple months before to assess her soft tissue infection for source control and further treatment of her diabetic ketoacidosis and GI bleed. A R sided femoral central venous catheter was placed emergently for venous access and labile BP. Patient was protecting her airway on my examination and did not require intubation at that time. Physical Exam GENERAL: Alert but not oriented, moderate distress noted EYES: PERRLA ENT: Dry mucus membranes, dried blood noted in oropharynx and around mouth CHEST: large central swelling noted overlying the sternum and surrounding pectoral muscles. At apex of sternum, crepitus was palpated. LUNGS: CTA, no wheezes, tachypneic (kussmaul respirations) HEART: tachycardic but regular, no murmurs noted ABDOMEN: Soft, nontender, BS present EXTREMITIES: 2+ pulses, no edema. NEUROLOGICAL: Unable to assess due to mental status CBC, BMP 04/25/19 00:00 04/25/19 00:00 Laboratory Tests 04/25/19 04/25/19 04/25/19 00:00 00:00 00:00 WBC 20.6 H Hgb 13.4 Hct 44.8 Plt Count 359 D VBG pH POC VBG pCO2 VBG HCO3 Sodium 124 L Potassium 5.5 H Chloride 77 L Carbon Dioxide 10 L Anion Gap 38 H Random Glucose 1119 H* Lactic Acid Stool Occult Blood Acetone, Qual Positive large 3+ H 04/25/19 04/25/19 04/25/19 00:00 00:01 00:01 WBC Hgb Hct Plt Count VBG pH 7.17 L* POC VBG pCO2 27.9 L VBG HCO3 9.8 L Sodium Potassium Chloride Carbon Dioxide Anion Gap Random Glucose Lactic Acid 3.8 H* Stool Occult Blood Positive Acetone, Qual ASSESSMENT/PLAN: 54 year old female with a history of diabetes mellitus (insulin dependent), hypertension, hyperlipidemia, CVA, chronic pancreatitis, and coronary artery disease s/p quadruple bypass CABG in December of this year at [facility] complicated by postoperative infection of the chest wall came in by ambulance for altered mental status and found to have diabetic ketoacidosis, acute gastrointestinal hemorrhage, and sepsis secondary to postoperative chest wall soft tissue infection. Decision was made with the emergency department to transfer the patient emergently to [facility] where the patient would receive care from the cardiothoracic surgeon who operated on the patient just a few months prior. Her DKA treatment was initiated with fluid resuscitation (3L NS), an insulin drip, NPO status. She was additionally given protonix IVPB prior to transfer to [facility]. She was started on vancomycin, zosyn, and clindamycin. Patient was accepted by [facility] and was transported out of the hospital around 4:30am. Please see CT and CT report on this presentation for soft tissue findings. Thank you for this consultative opportunity. Visit type - Emergency Visit Emergency Visit: Yes Care time: The patient presented to the Emergency Department on the above date and was hospitalized for further evaluation of their emergent condition. - New Patient This patient is new to me today: Yes Date on this admission: 04/25/19 - Critical Care Critical Care patient: Yes Total Critical Care Time (in minutes): 50 Critical Care Statement: The care of this patient involved high complexity decision making to prevent further life threatening deterioration of the patient 's condition and/or to evaluate & treat vital organ system(s) failure or risk of failure. ATTENDING PHYSICIAN STATEMENT I saw and evaluated the patient. I reviewed the resident's note and discussed the case with the resident. I agree with the resident's findings and plan as documented. SUBJECTIVE: OBJECTIVE: ASSESSMENT AND PLAN:
[2019-04-25 05:51] VITALS: BP 75/55; PULSE 108
--- NOTE | 2019-04-25 11:25 | EKG ---
Test Reason : Blood Pressure : / mmHG Vent. Rate : 108 BPM Atrial Rate : 108 BPM P-R Int : 126 ms QRS Dur : 100 ms QT Int : 362 ms P-R-T Axes : 068 046 246 degrees QTc Int : 485 ms SINUS TACHYCARDIA SEPTAL INFARCT (CITED ON OR BEFORE 02-DEC-2004) ABNORMAL ECG Confirmed by Yan Conley MD ([id number]) on 04/25/2019 11:24:50 AM Referred By: Confirmed By:Yan Conley MD
[2019-04-25 11:27] LABS: ANISOCYTOSIS 0; MACROCYTOSIS 0; PLATELET ESTIMATE NORMAL; TEAR DROP CELLS 1+; TOXIC GRANULATION 1+
--- NOTE | 2019-04-25 20:34 | PN ---
Teaching Attending Note Name of Resident: Dwayne Harry ATTENDING PHYSICIAN STATEMENT I saw and evaluated the patient. I reviewed the resident's note and discussed the case with the resident. I agree with the resident's findings and plan as documented. Seen and examined; please see resident note for further evaluation. Informed by ER of patient who may need admission; reviewed chart and saw that they were recently at [facility] for CABG complicated by post-operative wound infection. This CABG was complicated by wound infection and prolonged hospitalization; internal audit consultant tried calling over to check records but this proved futile. She was noted to have a large mass on her anterior chest with +crepitus and fluctuance; CT shows possible abscess with ununited fusion with fluid extension into the thoracic cavity. She was tachycardic and borderline hypotensive so emergency CVC placed with ICU resident. Upon reviewing her chart and discussing with Dr. Scruggs, [facility]es[facility] was called and patient transferred ER to ER. She was also in DKA with a GIB as well, actively vomiting CGE. # Septic Shock # Metabolic Acidosis 2/2 Sepsis, DKA # DKA # Upper GIB # Surgical wound infection, r/o mediastinitus # Altered mental status 2/2 toxic metabolic encephalopathy # CAD s/p CABG
== END 2019-04-25 05:06 | disposition short-term general hospital (02) ==
LOC: JER 22:52
PROC: 3E03329 Introduction of Other Anti-infective into Peripheral Vein, Percutaneous Approach (ICD-10-PCS; principal; 2019-04-24)
PROC: 3E033VG Introduction of Insulin into Peripheral Vein, Percutaneous Approach (ICD-10-PCS; 2019-04-24)
PROC: 3E0337Z Introduction of Electrolytic and Water Balance Substance into Peripheral Vein, Percutaneous Approach (ICD-10-PCS; 2019-04-24)
DX: E11.10 Type 2 diabetes mellitus with ketoacidosis without coma (principal); K92.2 Gastrointestinal hemorrhage, unspecified; M79.89 Other specified soft tissue disorders; I10 Essential (primary) hypertension; E78.5 Hyperlipidemia, unspecified; E11.9 Type 2 diabetes mellitus without complications; I25.10 Atherosclerotic heart disease of native coronary artery without angina pectoris; I25.2 Old myocardial infarction; I95.9 Hypotension, unspecified; K86.1 Other chronic pancreatitis; I69.354 Hemiplegia and hemiparesis following cerebral infarction affecting left non-dominant side; R00.0 Tachycardia, unspecified; Z79.4 Long term (current) use of insulin; Z95.1 Presence of aortocoronary bypass graft; Z95.5 Presence of coronary angioplasty implant and graft; Z79.82 Long term (current) use of aspirin
CPT/HCPCS: 36415; 70450-TC; 71045-TC-FY; 71250-TC; 74176-TC; 80053; 82009; 82272; 82803; 82962; 83605; 83690; 84484; 85025; 85610; 85730; 87040; 87186; 93005; 93010; 99285-25; J7030

== ENCOUNTER 2020-11-09 12:24 | Inpatient (IN) | payer OTHER ==
[2020-11-09] MEDS ORDERED: ETOMIDATE 40 MG/20 ML VIAL IVPUSH ONE (12:39)
[2020-11-09] MEDS ORDERED: ROCURONIUM BROMIDE 50 MG/5 ML VIAL IVPUSH ONE (12:39)
[2020-11-09] MEDS ORDERED: SODIUM CHLORIDE 0.9% 500 ML INFUS.BAG IV ONE (12:51)
[2020-11-09] MEDS: PROPOFOL 1,000,000 MCG/100 ML VIAL IVPB SCH (12:51)
[2020-11-09 13:12] LABS: BASO % 0.7 % (0-2.0); EOS % 0.3 % (0-4.5); HEMATOCRIT 46.3 % (32.4-45.2); HEMOGLOBIN 15.2 GM/dL (10.7-15.3); LYMPH % 21.9 % (8-40); MCH 25.9 pg (25.7-33.7); MCHC 32.9 g/dl (32.0-36.0); MEAN CELL VOLUME 78.7 fl (80-96); MEAN PLT VOLUME 9.4 fl (7.5-11.1); MONO % 7.9 % (3.8-10.2); NEUT % 69.2 % (42.8-82.8); PLATELET COUNT 241 K/MM3 (134-434); RBC 5.88 M/mm3 (3.60-5.2); RDW 15.7 % (11.6-15.6)
[2020-11-09 13:22] LABS: INR 0.97 (0.83-1.09); PROTHROMBIN TIME (PATIENT) 11.7 SEC (9.7-13.0)
[2020-11-09 13:24] LABS: ACTIVATED PTT 32.6 SECONDS (25.2-36.5)
[2020-11-09 13:38] LABS: EPI CELLS 15 /uL (0-25.1); HYALINE CASTS 2 /uL (0-3.1); URINE APPEARANCE CLEAR; URINE BACTERIA 61 /uL (0-1359); URINE BILIRUBIN NEGATIVE (NEGATIVE); URINE COLOR YELLOW; URINE GLUCOSE (UA) NEGATIVE (NEGATIVE); URINE KETONE NEGATIVE (NEGATIVE); URINE LEUK ESTERASE NEGATIVE (NEGATIVE); URINE NITRITE NEGATIVE (NEGATIVE); URINE PROTEIN 3+ (NEGATIVE); URINE RBC 12 /uL (0-23.9); URINE UROBILINOGEN 0.2 mg/dL (0.2-1.0); URINE WBC 2 /uL (0-25.8)
[2020-11-09 13:47] LABS: CHLORIDE 108 mmol/L (98-107); POTASSIUM 4.3 mmol/L (3.5-5.1); SODIUM 142 mmol/L (136-145)
[2020-11-09 13:49] LABS: ALBUMIN 2.6 g/dl (3.4-5.0); ANION GAP 8 MMOL/L (8-16); CALCIUM 8.8 mg/dL (8.5-10.1); CO2 26 mmol/L (21-32); GLUCOSE,RANDOM 71 mg/dL (74-106)
[2020-11-09 13:52] LABS: CREATININE 1.3 mg/dL (0.55-1.3); SGOT/AST 38 U/L (15-37); SGPT/ALT 49 U/L (13-61)
[2020-11-09 13:54] LABS: BILIRUBIN,TOTAL 0.4 mg/dL (0.2-1); TOT PROT 6.2 g/dl (6.4-8.2)
[2020-11-09 13:55] LABS: ALK PHOS 183 U/L (45-117)
[2020-11-09] MEDS ORDERED: LABETALOL HCL 5 MG/1 ML (100MG/20 ML VIAL) IVPUSH ONE ×2 (14:25→20:00)
[2020-11-09] MEDS ORDERED: LABETALOL HCL 5 MG/1 ML (200MG/40ML VIAL) IVPB ONE (14:38)
[2020-11-09] MEDS ORDERED: PROPOFOL 200 MG/20 ML VIAL IVPUSH ONE (15:26)
[2020-11-09 15:57] LABS: URINE AMPHETAMINES NEGATIVE ng/ml (CUTOFF=500); URINE BENZODIAZEPINES NEGATIVE ng/ml (CUTOFF=200)
[2020-11-09 15:58] LABS: METHADONE, UR NEGATIVE ng/ml (CUTOFF=300); OPIATES, URI NEGATIVE ng/ml (CUTOFF=300); PHENCYCLIDINE,URINE NEGATIVE ng/ml (CUTOFF=25)
[2020-11-09 15:59] LABS: URINE BARBITURATES NEGATIVE ng/ml (CUTOFF=200)
[2020-11-09 16:00] LABS: COCAINE, UR POSITIVE ng/ml (CUTOFF=300)
[2020-11-09] MEDS ORDERED: LACTATED RINGERS SOLUTION 1,000 ML/1,000 ML INFUS.BAG IV SCH (16:45)
[2020-11-09] MEDS ORDERED: DEXTROSE 50%-WATER 25 GM/50 ML DISP.SYRIN ONE (20:02)
[2020-11-09] MEDS ORDERED: DEXTROSE 50%-WATER - 25 GM/50 ML VIAL IVPUSH ONE (20:03)
[2020-11-09] MEDS: MUPIROCIN 2% TOPICAL OINTMENT FOR DECOLONIZATION NS SCH (21:34)
[2020-11-09] MEDS: CHLORHEXIDINE GLUCONATE 4% CLEANSER FOR DECOLONIZATION TP SCH (21:35)
[2020-11-10] MEDS ORDERED: DEXTROSE 50%-WATER 25 GM/50 ML DISP.SYRIN ONE ×2 (04:09→21:53)
[2020-11-10] MEDS ORDERED: DEXTROSE 50%-WATER - 25 GM/50 ML VIAL IVPUSH PRN (04:10)
[2020-11-10] MEDS ORDERED: DEXTROSE 50%-WATER - 25 GM/50 ML VIAL IVPUSH ONE (04:10)
[2020-11-10 07:38] LABS: BLOOD UREA NITROGEN 24.4 mg/dL (7-18); CALCIUM 8.2 mg/dL (8.5-10.1)
[2020-11-10 07:41] LABS: CREATININE 1.5 mg/dL (0.55-1.3); PHOSPHOROUS 4.8 mg/dL (2.5-4.9)
[2020-11-10 07:42] LABS: BILIRUBIN,TOTAL 0.8 mg/dL (0.2-1); TOT PROT 4.8 g/dl (6.4-8.2)
[2020-11-10] MEDS: DEXTROSE 5%-0.45% SALINE 1,000 ML IV SCH (07:49)
[2020-11-10] MEDS: MUPIROCIN 2% TOPICAL OINTMENT FOR DECOLONIZATION NS SCH ×2 (10:10→21:32)
[2020-11-10 12:18] LABS: BASO % 0.7 % (0-2.0); EOS % 0.2 % (0-4.5); HEMATOCRIT 39.8 % (32.4-45.2); HEMOGLOBIN 13.5 GM/dL (10.7-15.3); LYMPH % 14.6 % (8-40); MCH 26.9 pg (25.7-33.7); MEAN CELL VOLUME 79.2 fl (80-96); MEAN PLT VOLUME 9.7 fl (7.5-11.1); MONO % 9.9 % (3.8-10.2); NEUT % 74.6 % (42.8-82.8); PLATELET COUNT 186 K/MM3 (134-434); RBC 5.03 M/mm3 (3.60-5.2); RDW 15.7 % (11.6-15.6); WHITE BLOOD COUNT 17.9 K/mm3 (4.0-10.0)
[2020-11-10] MEDS: PROPOFOL 1,000,000 MCG/100 ML VIAL IVPB SCH (21:31)
[2020-11-10] MEDS: CHLORHEXIDINE GLUCONATE 4% CLEANSER FOR DECOLONIZATION TP SCH (21:32)
[2020-11-11] MEDS: PROPOFOL 1,000,000 MCG/100 ML VIAL IVPB SCH ×3 (03:36→08:00)
[2020-11-11] MEDS: DEXTROSE 5%-0.45% SALINE 1,000 ML IV SCH ×2 (03:36→19:15)
[2020-11-11] MEDS: MUPIROCIN 2% TOPICAL OINTMENT FOR DECOLONIZATION NS SCH ×2 (10:40→21:45)
[2020-11-11 11:01] LABS: BASO % 0.6 % (0-2.0); EOS % 1.1 % (0-4.5); HEMATOCRIT 40.5 % (32.4-45.2); HEMOGLOBIN 13.5 GM/dL (10.7-15.3); LYMPH % 15.5 % (8-40); MCHC 33.2 g/dl (32.0-36.0); MEAN CELL VOLUME 78.4 fl (80-96); MONO % 11.3 % (3.8-10.2); NEUT % 71.5 % (42.8-82.8); PLATELET COUNT 181 K/MM3 (134-434); RBC 5.17 M/mm3 (3.60-5.2); RDW 15.6 % (11.6-15.6); WHITE BLOOD COUNT 15.3 K/mm3 (4.0-10.0)
[2020-11-11 11:30] LABS: POTASSIUM 3.9 mmol/L (3.5-5.1)
[2020-11-11 11:38] LABS: CALCIUM 8.2 mg/dL (8.5-10.1)
[2020-11-11 11:42] LABS: BLOOD UREA NITROGEN 16.6 mg/dL (7-18)
[2020-11-11 11:43] LABS: MAGNESIUM 2.1 mg/dL (1.8-2.4)
[2020-11-11 11:44] LABS: CREATININE 1.1 mg/dL (0.55-1.3)
[2020-11-11 11:45] LABS: PHOSPHOROUS 3.6 mg/dL (2.5-4.9); TOT PROT 5.3 g/dl (6.4-8.2)
[2020-11-11 11:47] LABS: BILIRUBIN,TOTAL 0.7 mg/dL (0.2-1)
[2020-11-11] MEDS ORDERED: PT OWN MED DRAWER 7, Y5N ONE (12:39)
[2020-11-11] MEDS ORDERED: MIDAZOLAM HCL 2 MG/2 ML SINGLE DOSE VIAL IVPUSH ONE (12:55)
[2020-11-11] MEDS: DEXMEDETOMIDINE IN 0.9 % NACL 400 MCG/100 ML VIAL IVPB SCH (13:45)
[2020-11-11] MEDS ORDERED: BENZOIN/ALOE VERA/STORAX/TOLU 58 ML BOTTLE ONE (14:18)
[2020-11-11] MEDS: ENOXAPARIN NA (PORCINE) 80 MG/0.8 ML DISP.SYRIN SQ SCH (21:44)
[2020-11-11] MEDS: CHLORHEXIDINE GLUCONATE 4% CLEANSER FOR DECOLONIZATION TP SCH (21:45)
[2020-11-11] MEDS: LISINOPRIL 20 MG TABLET NGT SCH (21:45)
[2020-11-12 07:01] LABS: BASO % 0.6 % (0-2.0); EOS % 1.8 % (0-4.5); HEMATOCRIT 35.7 % (32.4-45.2); HEMOGLOBIN 11.9 GM/dL (10.7-15.3); LYMPH % 14.4 % (8-40); MCH 26.2 pg (25.7-33.7); MCHC 33.3 g/dl (32.0-36.0); MEAN CELL VOLUME 78.8 fl (80-96); MEAN PLT VOLUME 9.2 fl (7.5-11.1); MONO % 11.7 % (3.8-10.2); NEUT % 71.5 % (42.8-82.8); PLATELET COUNT 179 K/MM3 (134-434); RBC 4.53 M/mm3 (3.60-5.2); RDW 15.4 % (11.6-15.6); WHITE BLOOD COUNT 14.3 K/mm3 (4.0-10.0)
[2020-11-12 07:21] LABS: POTASSIUM 3.8 mmol/L (3.5-5.1)
[2020-11-12 07:23] LABS: CALCIUM 7.6 mg/dL (8.5-10.1)
[2020-11-12 07:24] LABS: ALBUMIN 1.8 g/dl (3.4-5.0); BLOOD UREA NITROGEN 13.2 mg/dL (7-18); MAGNESIUM 1.9 mg/dL (1.8-2.4)
[2020-11-12 07:27] LABS: PHOSPHOROUS 2.9 mg/dL (2.5-4.9)
[2020-11-12 07:28] LABS: BILIRUBIN,TOTAL 0.7 mg/dL (0.2-1)
[2020-11-12] MEDS: DEXTROSE 5%-0.45% SALINE 1,000 ML IV SCH (08:00)
[2020-11-12] MEDS: PANTOPRAZOLE SODIUM 40 MG VIAL IVPUSH SCH (09:47)
[2020-11-12] MEDS: LISINOPRIL 20 MG TABLET NGT SCH ×3 (09:47→21:07)
[2020-11-12] MEDS: ENOXAPARIN NA (PORCINE) 80 MG/0.8 ML DISP.SYRIN SQ SCH (09:47)
[2020-11-12] MEDS: MUPIROCIN 2% TOPICAL OINTMENT FOR DECOLONIZATION NS SCH ×2 (09:54→21:09)
[2020-11-12] MEDS ORDERED: DEXAMETHASONE SOD PHOSPHATE 10 MG/1 ML VIAL IVPUSH ONE (10:06)
[2020-11-12] MEDS ORDERED: RACEPINEPHRINE IH SOL 2.25% 11.25 MG/0.5 ML VIAL NEB PRN (11:41)
[2020-11-12] MEDS ORDERED: RACEPINEPHRINE IH SOL 2.25% 11.25 MG/0.5 ML VIAL NEB ONE (11:45)
[2020-11-12] MEDS: DEXAMETHASONE SOD PHOSPHATE 10 MG/1 ML VIAL IVPUSH SCH (17:01)
[2020-11-12] MEDS: CHLORHEXIDINE GLUCONATE 4% CLEANSER FOR DECOLONIZATION TP SCH (21:08)
[2020-11-12] MEDS: DEXMEDETOMIDINE IN 0.9 % NACL 400 MCG/100 ML VIAL IVPB SCH (21:08)
[2020-11-13] MEDS: DEXAMETHASONE SOD PHOSPHATE 10 MG/1 ML VIAL IVPUSH SCH ×2 (01:07→09:54)
[2020-11-13] MEDS ORDERED: hydrALAZINE HCL 20 MG/ML VIAL IVPUSH ONE (06:03)
[2020-11-13 07:27] LABS: HEMATOCRIT 42.5 % (32.4-45.2); HEMOGLOBIN 13.7 GM/dL (10.7-15.3); MCH 25.6 pg (25.7-33.7); MCHC 32.3 g/dl (32.0-36.0); MEAN CELL VOLUME 79.3 fl (80-96); MEAN PLT VOLUME 9.3 fl (7.5-11.1); PLATELET COUNT 206 K/MM3 (134-434); RBC 5.35 M/mm3 (3.60-5.2); WHITE BLOOD COUNT 11.7 K/mm3 (4.0-10.0)
[2020-11-13] MEDS: DEXTROSE 5%-0.45% SALINE 1,000 ML IV SCH (07:37)
[2020-11-13] MEDS: INSULIN SLIDING SCALE (NOVOLOG) 1 VIAL SQ SCH ×3 (08:00→16:30)
[2020-11-13 08:06] LABS: ALBUMIN 1.7 g/dl (3.4-5.0); CALCIUM 7.9 mg/dL (8.5-10.1)
[2020-11-13 08:07] LABS: BLOOD UREA NITROGEN 16.6 mg/dL (7-18); MAGNESIUM 1.9 mg/dL (1.8-2.4)
[2020-11-13 08:10] LABS: BILIRUBIN,TOTAL 0.6 mg/dL (0.2-1); CREATININE 0.9 mg/dL (0.55-1.3); PHOSPHOROUS 3.4 mg/dL (2.5-4.9); TOT PROT 5.2 g/dl (6.4-8.2)
[2020-11-13 08:31] LABS: POTASSIUM 4.3 mmol/L (3.5-5.1)
[2020-11-13] MEDS: DEXMEDETOMIDINE IN 0.9 % NACL 400 MCG/100 ML VIAL IVPB SCH (09:19)
[2020-11-13] MEDS: LISINOPRIL 20 MG TABLET PO SCH (09:54)
[2020-11-13] MEDS: PANTOPRAZOLE SODIUM 40 MG VIAL IVPUSH SCH (09:55)
[2020-11-13] MEDS: ENOXAPARIN NA (PORCINE) 40 MG/0.4 ML DISP.SYRIN SQ SCH (09:55)
[2020-11-13] MEDS: MUPIROCIN 2% TOPICAL OINTMENT FOR DECOLONIZATION NS SCH (21:47)
[2020-11-13] MEDS: CHLORHEXIDINE GLUCONATE 4% CLEANSER FOR DECOLONIZATION TP SCH (21:47)
[2020-11-14] MEDS: DEXAMETHASONE SOD PHOSPHATE 10 MG/1 ML VIAL IVPUSH SCH ×4 (02:20→12:38)
[2020-11-14] MEDS: INSULIN SLIDING SCALE (NOVOLOG) 1 VIAL SQ SCH ×3 (06:48→22:30)
[2020-11-14 07:24] LABS: HEMATOCRIT 38.9 % (32.4-45.2); HEMOGLOBIN 12.9 GM/dL (10.7-15.3); MCHC 33.2 g/dl (32.0-36.0); MEAN CELL VOLUME 78.1 fl (80-96); MEAN PLT VOLUME 9.2 fl (7.5-11.1); PLATELET COUNT 260 K/MM3 (134-434); RBC 4.99 M/mm3 (3.60-5.2); RDW 15.1 % (11.6-15.6); WHITE BLOOD COUNT 14.6 K/mm3 (4.0-10.0)
[2020-11-14 07:47] LABS: POTASSIUM 3.5 mmol/L (3.5-5.1)
[2020-11-14 07:51] LABS: CALCIUM 8.8 mg/dL (8.5-10.1)
[2020-11-14 07:52] LABS: BLOOD UREA NITROGEN 26.5 mg/dL (7-18); MAGNESIUM 2.1 mg/dL (1.8-2.4)
[2020-11-14 07:55] LABS: PHOSPHOROUS 1.9 mg/dL (2.5-4.9)
[2020-11-14 07:56] LABS: BILIRUBIN,TOTAL 0.5 mg/dL (0.2-1); TOT PROT 5.9 g/dl (6.4-8.2)
[2020-11-14 08:06] LABS: ALBUMIN 2.2 g/dl (3.4-5.0)
[2020-11-14] MEDS: ENOXAPARIN NA (PORCINE) 40 MG/0.4 ML DISP.SYRIN SQ SCH (09:46)
[2020-11-14] MEDS: PANTOPRAZOLE SODIUM 40 MG VIAL IVPUSH SCH (09:47)
[2020-11-14] MEDS: LISINOPRIL 20 MG TABLET PO SCH (09:47)
[2020-11-14] MEDS ORDERED: POTASSIUM PHOSPHATE 30 MM in DEXTROSE 5%-WATER - 250 ML IVPB ONE (11:00)
[2020-11-14] MEDS: MUPIROCIN 2% TOPICAL OINTMENT FOR DECOLONIZATION NS SCH (12:38)
[2020-11-14] MEDS ORDERED: amLODIPine BESYLATE 5 MG TABLET (FP) PO ONE (15:40)
[2020-11-14] MEDS ORDERED: THIAMINE HCL 200 MG/2 ML VIAL IVPB ONE (15:54)
[2020-11-14] MEDS: CHLORHEXIDINE GLUCONATE 4% CLEANSER FOR DECOLONIZATION TP SCH (22:12)
[2020-11-14] MEDS: DEXAMETHASONE 4 MG TABLET (FP) PO SCH (22:29)
[2020-11-15] MEDS ORDERED: ACETAMINOPHEN 1000 MG/100 ML VIAL (NON FORMULARY) IVPB ONE (01:27)
[2020-11-15] MEDS ORDERED: amLODIPine BESYLATE 5 MG TABLET (FP) PO ONE (02:52)
[2020-11-15] MEDS: INSULIN SLIDING SCALE (NOVOLOG) 1 VIAL SQ SCH ×6 (06:00→21:09)
[2020-11-15] MEDS ORDERED: INSULIN (NOVOLOG) ASPART 100 UNITS/ML 10ML VIAL ONE (06:27)
[2020-11-15] MEDS ORDERED: INSULIN (LEVEMIR) 100 UNITS/ML UNITS SQ SCH ×2 (07:00→17:46)
[2020-11-15] MEDS: DEXAMETHASONE SOD PHOSPHATE 10 MG/1 ML VIAL IVPUSH SCH ×3 (07:21→07:23)
[2020-11-15] MEDS: MUPIROCIN 2% TOPICAL OINTMENT FOR DECOLONIZATION NS SCH (07:23)
[2020-11-15] MEDS ORDERED: RACEPINEPHRINE IH SOL 2.25% 11.25 MG/0.5 ML VIAL NEB PRN (07:24)
[2020-11-15 09:36] LABS: HEMATOCRIT 37.8 % (32.4-45.2); HEMOGLOBIN 12.7 GM/dL (10.7-15.3); MCH 26.2 pg (25.7-33.7); MCHC 33.6 g/dl (32.0-36.0); MEAN PLT VOLUME 8.6 fl (7.5-11.1); PLATELET COUNT 264 K/MM3 (134-434); RBC 4.84 M/mm3 (3.60-5.2); RDW 14.9 % (11.6-15.6); WHITE BLOOD COUNT 14.1 K/mm3 (4.0-10.0)
[2020-11-15 10:04] LABS: POTASSIUM 3.5 mmol/L (3.5-5.1)
[2020-11-15 10:15] LABS: CALCIUM 8.4 mg/dL (8.5-10.1)
[2020-11-15 10:18] LABS: CREATININE 1.1 mg/dL (0.55-1.3)
[2020-11-15] MEDS: ENOXAPARIN NA (PORCINE) 40 MG/0.4 ML DISP.SYRIN SQ SCH (11:59)
[2020-11-15] MEDS: amLODIPine BESYLATE 5 MG TABLET (FP) PO SCH (12:00)
[2020-11-15] MEDS: DEXAMETHASONE 4 MG TABLET (FP) PO SCH ×2 (12:00→21:09)
[2020-11-15] MEDS: LISINOPRIL 20 MG TABLET PO SCH (12:00)
[2020-11-15] MEDS: PANTOPRAZOLE SODIUM 40 MG VIAL IVPUSH SCH (12:00)
[2020-11-15] MEDS: BUDESONIDE/FORMETEROL FUMARATE 160/4.5 mcg INHALER IH SCH (21:08)
[2020-11-15] MEDS ORDERED: CHLORHEXIDINE GLUCONATE 4% CLEANSER FOR DECOLONIZATION TP SCH (22:00)
[2020-11-16] MEDS: INSULIN SLIDING SCALE (NOVOLOG) 1 VIAL SQ SCH ×4 (06:14→22:12)
[2020-11-16 07:37] LABS: HEMATOCRIT 37.5 % (32.4-45.2); HEMOGLOBIN 12.3 GM/dL (10.7-15.3); MCH 25.8 pg (25.7-33.7); MCHC 32.9 g/dl (32.0-36.0); MEAN CELL VOLUME 78.3 fl (80-96); MEAN PLT VOLUME 8.5 fl (7.5-11.1); PLATELET COUNT 264 K/MM3 (134-434); RBC 4.78 M/mm3 (3.60-5.2)
[2020-11-16 07:58] LABS: POTASSIUM 3.7 mmol/L (3.5-5.1)
[2020-11-16 08:00] LABS: CALCIUM 8.3 mg/dL (8.5-10.1)
[2020-11-16 08:01] LABS: ALBUMIN 2.2 g/dl (3.4-5.0); BLOOD UREA NITROGEN 21.8 mg/dL (7-18)
[2020-11-16 08:04] LABS: CREATININE 1.1 mg/dL (0.55-1.3)
[2020-11-16 08:06] LABS: BILIRUBIN,TOTAL 0.5 mg/dL (0.2-1); TOT PROT 5.5 g/dl (6.4-8.2)
[2020-11-16] MEDS: ENOXAPARIN NA (PORCINE) 40 MG/0.4 ML DISP.SYRIN SQ SCH (10:12)
[2020-11-16] MEDS: amLODIPine BESYLATE 5 MG TABLET (FP) PO SCH (10:13)
[2020-11-16] MEDS: ASPIRIN 81 MG CHEWABLE TABLETS PO SCH (10:13)
[2020-11-16] MEDS: CLOPIDOGREL BISULFATE 75 MG TABLET (FP) PO SCH (10:13)
[2020-11-16] MEDS: LISINOPRIL 20 MG TABLET PO SCH (10:13)
[2020-11-16] MEDS: PANTOPRAZOLE SODIUM 40 MG VIAL IVPUSH SCH (10:13)
[2020-11-16] MEDS: BUDESONIDE/FORMETEROL FUMARATE 160/4.5 mcg INHALER IH SCH ×2 (10:14→22:14)
[2020-11-16] MEDS ORDERED: INSULIN (NOVOLOG) ASPART 100 UNITS/ML 10ML VIAL ONE (11:54)
[2020-11-16] MEDS: PARoxetine HCL 20 MG TABLET PO SCH (17:38)
[2020-11-16] MEDS: INSULIN (LEVEMIR) 100 UNITS/ML UNITS SQ SCH (22:13)
[2020-11-17] MEDS: INSULIN (LEVEMIR) 100 UNITS/ML UNITS SQ SCH ×2 (06:03→21:09)
[2020-11-17] MEDS: INSULIN SLIDING SCALE (NOVOLOG) 1 VIAL SQ SCH ×4 (06:03→21:11)
[2020-11-17] MEDS ORDERED: DEXTROSE 50%-WATER - 25 GM/50 ML VIAL IVPUSH ONE (06:40)
[2020-11-17] MEDS ORDERED: INSULIN (NOVOLOG) ASPART 100 UNITS/ML 10ML VIAL ONE ×3 (06:44→20:34)
[2020-11-17] MEDS ORDERED: DEXTROSE 50%-WATER - 25 GM/50 ML VIAL ONE (06:49)
[2020-11-17] MEDS: amLODIPine BESYLATE 5 MG TABLET (FP) PO SCH (09:37)
[2020-11-17] MEDS: ENOXAPARIN NA (PORCINE) 40 MG/0.4 ML DISP.SYRIN SQ SCH ×2 (09:37→09:46)
[2020-11-17] MEDS: PANTOPRAZOLE 40 MG TABLET PO SCH (09:38)
[2020-11-17] MEDS: CLOPIDOGREL BISULFATE 75 MG TABLET (FP) PO SCH (09:38)
[2020-11-17] MEDS: ASPIRIN 81 MG CHEWABLE TABLETS PO SCH (09:38)
[2020-11-17] MEDS: PARoxetine HCL 20 MG TABLET PO SCH (09:38)
[2020-11-17] MEDS: LISINOPRIL 20 MG TABLET PO SCH (09:38)
[2020-11-17] MEDS: BUDESONIDE/FORMETEROL FUMARATE 160/4.5 mcg INHALER IH SCH ×2 (09:39→21:14)
[2020-11-17] MEDS ORDERED: INSULIN (LEVEMIR) 100 UNITS/ML UNITS SQ ONE (20:34)
[2020-11-18] MEDS: INSULIN (LEVEMIR) 100 UNITS/ML UNITS SQ SCH ×2 (06:11→22:18)
[2020-11-18] MEDS: INSULIN SLIDING SCALE (NOVOLOG) 1 VIAL SQ SCH ×4 (06:12→22:18)
[2020-11-18] MEDS ORDERED: INSULIN (NOVOLOG) ASPART 100 UNITS/ML 10ML VIAL ONE ×2 (06:28→10:18)
[2020-11-18 08:28] LABS: HEMATOCRIT 40.3 % (32.4-45.2); HEMOGLOBIN 13.3 GM/dL (10.7-15.3); MCH 25.9 pg (25.7-33.7); MCHC 32.9 g/dl (32.0-36.0); MEAN CELL VOLUME 78.8 fl (80-96); MEAN PLT VOLUME 8.4 fl (7.5-11.1); PLATELET COUNT 291 K/MM3 (134-434); RBC 5.12 M/mm3 (3.60-5.2); RDW 15.2 % (11.6-15.6); WHITE BLOOD COUNT 14.9 K/mm3 (4.0-10.0)
[2020-11-18 08:37] LABS: POTASSIUM 4.2 mmol/L (3.5-5.1)
[2020-11-18 08:41] LABS: CALCIUM 8.1 mg/dL (8.5-10.1)
[2020-11-18 08:43] LABS: BLOOD UREA NITROGEN 23.1 mg/dL (7-18)
[2020-11-18 08:45] LABS: CREATININE 1.1 mg/dL (0.55-1.3)
[2020-11-18] MEDS: ENOXAPARIN NA (PORCINE) 40 MG/0.4 ML DISP.SYRIN SQ SCH (10:30)
[2020-11-18] MEDS: ASPIRIN 81 MG CHEWABLE TABLETS PO SCH (10:30)
[2020-11-18] MEDS: amLODIPine BESYLATE 5 MG TABLET (FP) PO SCH (10:31)
[2020-11-18] MEDS: LISINOPRIL 20 MG TABLET PO SCH (10:31)
[2020-11-18] MEDS: PARoxetine HCL 20 MG TABLET PO SCH (10:31)
[2020-11-18] MEDS: ALBUTEROL SO4 HFA INHALER IH PRN ×2 (10:31→22:19)
[2020-11-18] MEDS: PANTOPRAZOLE 40 MG TABLET PO SCH (10:31)
[2020-11-18] MEDS: CLOPIDOGREL BISULFATE 75 MG TABLET (FP) PO SCH (10:31)
[2020-11-18] MEDS: BUDESONIDE/FORMETEROL FUMARATE 160/4.5 mcg INHALER IH SCH ×2 (10:32→22:19)
[2020-11-18] MEDS ORDERED: amLODIPine BESYLATE 10 MG TABLET (FP) PO SCH (13:45)
[2020-11-18] MEDS: GABAPENTIN 300 MG CAPSULE PO SCH ×2 (13:50→22:17)
[2020-11-18] MEDS: ATORVASTATIN CA 40 MG TABLET (FP) PO SCH (22:17)
[2020-11-19] MEDS: GABAPENTIN 300 MG CAPSULE PO SCH ×3 (05:42→21:58)
[2020-11-19] MEDS: INSULIN (LEVEMIR) 100 UNITS/ML UNITS SQ SCH ×2 (06:04→21:58)
[2020-11-19] MEDS: INSULIN SLIDING SCALE (NOVOLOG) 1 VIAL SQ SCH ×4 (06:05→21:58)
[2020-11-19] MEDS ORDERED: INSULIN (NOVOLOG) ASPART 100 UNITS/ML 10ML VIAL ONE (06:43)
[2020-11-19 08:58] LABS: BASO % 0.4 % (0-2.0); EOS % 0.7 % (0-4.5); HEMATOCRIT 38.3 % (32.4-45.2); HEMOGLOBIN 12.5 GM/dL (10.7-15.3); LYMPH % 11.8 % (8-40); MCH 25.7 pg (25.7-33.7); MCHC 32.7 g/dl (32.0-36.0); MEAN CELL VOLUME 78.4 fl (80-96); MEAN PLT VOLUME 8.3 fl (7.5-11.1); MONO % 5.8 % (3.8-10.2); NEUT % 81.3 % (42.8-82.8); PLATELET COUNT 322 K/MM3 (134-434); RBC 4.89 M/mm3 (3.60-5.2); RDW 14.9 % (11.6-15.6); WHITE BLOOD COUNT 16.9 K/mm3 (4.0-10.0)
[2020-11-19 09:26] LABS: POTASSIUM 4.5 mmol/L (3.5-5.1)
[2020-11-19] MEDS ORDERED: PT OWN MED DRAWER 7, Y5N ONE (09:31)
[2020-11-19 09:33] LABS: BLOOD UREA NITROGEN 22.6 mg/dL (7-18); CALCIUM 8.4 mg/dL (8.5-10.1); MAGNESIUM 2.1 mg/dL (1.8-2.4)
[2020-11-19 09:37] LABS: PHOSPHOROUS 3.6 mg/dL (2.5-4.9)
[2020-11-19 09:38] LABS: BILIRUBIN,TOTAL 0.5 mg/dL (0.2-1); TOT PROT 5.4 g/dl (6.4-8.2)
[2020-11-19 10:21] LABS: ANISOCYTOSIS 1+; MACROCYTOSIS 0; PLATELET ESTIMATE NORMAL
[2020-11-19] MEDS: ASPIRIN 81 MG CHEWABLE TABLETS PO SCH (11:28)
[2020-11-19] MEDS: CLOPIDOGREL BISULFATE 75 MG TABLET (FP) PO SCH (11:28)
[2020-11-19] MEDS: PANTOPRAZOLE 40 MG TABLET PO SCH (11:28)
[2020-11-19] MEDS: PARoxetine HCL 20 MG TABLET PO SCH (11:29)
[2020-11-19] MEDS: BUDESONIDE/FORMETEROL FUMARATE 160/4.5 mcg INHALER IH SCH ×2 (11:29→22:19)
[2020-11-19] MEDS: ENOXAPARIN NA (PORCINE) 40 MG/0.4 ML DISP.SYRIN SQ SCH (11:29)
[2020-11-19] MEDS ORDERED: FUROSEMIDE 40 MG/4 ML INJECTABLE VIAL IVPUSH SCH (14:00)
[2020-11-19] MEDS: LISINOPRIL 20 MG TABLET PO SCH (17:54)
[2020-11-19] MEDS: ATORVASTATIN CA 40 MG TABLET (FP) PO SCH (21:58)
[2020-11-20] MEDS: GABAPENTIN 300 MG CAPSULE PO SCH (06:22)
[2020-11-20] MEDS: INSULIN SLIDING SCALE (NOVOLOG) 1 VIAL SQ SCH ×4 (06:23→21:39)
[2020-11-20] MEDS: INSULIN (LEVEMIR) 100 UNITS/ML UNITS SQ SCH ×2 (06:24→21:39)
[2020-11-20 07:23] LABS: BASO % 0.6 % (0-2.0); EOS % 0.8 % (0-4.5); HEMATOCRIT 36.1 % (32.4-45.2); HEMOGLOBIN 11.9 GM/dL (10.7-15.3); MCH 25.9 pg (25.7-33.7); MCHC 32.9 g/dl (32.0-36.0); MEAN CELL VOLUME 78.7 fl (80-96); MEAN PLT VOLUME 8.1 fl (7.5-11.1); MONO % 6.6 % (3.8-10.2); PLATELET COUNT 330 K/MM3 (134-434); RBC 4.59 M/mm3 (3.60-5.2); RDW 15.3 % (11.6-15.6); WHITE BLOOD COUNT 18.6 K/mm3 (4.0-10.0)
[2020-11-20 07:41] LABS: POTASSIUM 4.2 mmol/L (3.5-5.1)
[2020-11-20 07:45] LABS: ALBUMIN 1.9 g/dl (3.4-5.0); BLOOD UREA NITROGEN 26.9 mg/dL (7-18); CALCIUM 8.2 mg/dL (8.5-10.1); MAGNESIUM 2.2 mg/dL (1.8-2.4)
[2020-11-20 07:48] LABS: CREATININE 1.1 mg/dL (0.55-1.3); PHOSPHOROUS 3.2 mg/dL (2.5-4.9)
[2020-11-20 07:50] LABS: BILIRUBIN,TOTAL 0.6 mg/dL (0.2-1); TOT PROT 5.3 g/dl (6.4-8.2)
[2020-11-20] MEDS ORDERED: PT OWN MED DRAWER 7, Y5N ONE (09:28)
[2020-11-20] MEDS: PARoxetine HCL 20 MG TABLET PO SCH (09:48)
[2020-11-20] MEDS: ENOXAPARIN NA (PORCINE) 40 MG/0.4 ML DISP.SYRIN SQ SCH (09:48)
[2020-11-20] MEDS: amLODIPine BESYLATE 5 MG TABLET (FP) PO SCH (09:48)
[2020-11-20] MEDS: ASPIRIN 81 MG CHEWABLE TABLETS PO SCH (09:48)
[2020-11-20] MEDS: CLOPIDOGREL BISULFATE 75 MG TABLET (FP) PO SCH (09:48)
[2020-11-20] MEDS: PANTOPRAZOLE 40 MG TABLET PO SCH (09:48)
[2020-11-20] MEDS: LISINOPRIL 20 MG TABLET PO SCH (09:48)
[2020-11-20] MEDS: BUDESONIDE/FORMETEROL FUMARATE 160/4.5 mcg INHALER IH SCH ×2 (09:49→21:40)
[2020-11-20 15:10] VITALS: BMI 25.2
[2020-11-20] MEDS: ATORVASTATIN CA 40 MG TABLET (FP) PO SCH (21:39)
[2020-11-21 01:48] LABS: EPI CELLS 24 /uL (0-25.1); HYALINE CASTS 1 /uL (0-3.1); PH,URINE 6.5 (5.0-8.0); URINE APPEARANCE CLOUDY; URINE BACTERIA 5216 /uL (0-1359); URINE BILIRUBIN NEGATIVE (NEGATIVE); URINE COLOR YELLOW; URINE GLUCOSE (UA) 2+ (NEGATIVE); URINE KETONE NEGATIVE (NEGATIVE); URINE LEUK ESTERASE 2+ (NEGATIVE); URINE NITRITE NEGATIVE (NEGATIVE); URINE PROTEIN 2+ (NEGATIVE); URINE WBC 1829 /uL (0-25.8)
[2020-11-21 04:44] LABS: YEAST MODERATE (NEGATIVE)
[2020-11-21] MEDS: INSULIN SLIDING SCALE (NOVOLOG) 1 VIAL SQ SCH ×4 (06:14→21:26)
[2020-11-21] MEDS: INSULIN (LEVEMIR) 100 UNITS/ML UNITS SQ SCH ×2 (06:14→21:28)
[2020-11-21 07:12] LABS: BASO % 0.6 % (0-2.0); EOS % 1.1 % (0-4.5); HEMATOCRIT 34.8 % (32.4-45.2); HEMOGLOBIN 11.5 GM/dL (10.7-15.3); MCH 26.1 pg (25.7-33.7); MCHC 33.2 g/dl (32.0-36.0); MEAN CELL VOLUME 78.8 fl (80-96); MEAN PLT VOLUME 8.4 fl (7.5-11.1); MONO % 6.9 % (3.8-10.2); NEUT % 76.4 % (42.8-82.8); PLATELET COUNT 367 K/MM3 (134-434); RBC 4.42 M/mm3 (3.60-5.2); RDW 15.1 % (11.6-15.6); WHITE BLOOD COUNT 16.6 K/mm3 (4.0-10.0)
[2020-11-21 07:30] LABS: POTASSIUM 4.3 mmol/L (3.5-5.1)
[2020-11-21 07:36] LABS: BLOOD UREA NITROGEN 25.1 mg/dL (7-18); CALCIUM 8.7 mg/dL (8.5-10.1)
[2020-11-21 07:37] LABS: MAGNESIUM 2.1 mg/dL (1.8-2.4)
[2020-11-21 07:39] LABS: CREATININE 1.1 mg/dL (0.55-1.3); PHOSPHOROUS 2.7 mg/dL (2.5-4.9)
[2020-11-21 07:41] LABS: BILIRUBIN,TOTAL 0.4 mg/dL (0.2-1); TOT PROT 5.4 g/dl (6.4-8.2)
[2020-11-21] MEDS ORDERED: NAPH,MB-DB/K PH,MBDB POWDER PACKET PO ONE (09:45)
[2020-11-21] MEDS ORDERED: SODIUM CHLORIDE 0.45% 1,000 ML IV SCH (10:15)
[2020-11-21 10:40] LABS: ARTERIAL BLD GAS O2 SATURATION 92.5 mmHg (95-98); ARTERIAL BLOOD GAS BASE EXCESS 3.8 mmol/L (-2-2); ARTERIAL BLOOD GAS pH 7.455 (7.350-7.450)
[2020-11-21 10:41] LABS: ALLENS TEST POSITIVE
[2020-11-21] MEDS: PARoxetine HCL 20 MG TABLET PO SCH ×2 (12:10→12:25)
[2020-11-21] MEDS: ENOXAPARIN NA (PORCINE) 40 MG/0.4 ML DISP.SYRIN SQ SCH (12:11)
[2020-11-21] MEDS: LISINOPRIL 20 MG TABLET PO SCH (12:12)
[2020-11-21] MEDS: CLOPIDOGREL BISULFATE 75 MG TABLET (FP) PO SCH (12:13)
[2020-11-21] MEDS: PANTOPRAZOLE 40 MG TABLET PO SCH ×2 (12:13→12:24)
[2020-11-21] MEDS: ASPIRIN 81 MG CHEWABLE TABLETS PO SCH (12:13)
[2020-11-21] MEDS: BUDESONIDE/FORMETEROL FUMARATE 160/4.5 mcg INHALER IH SCH ×2 (12:14→21:26)
[2020-11-21] MEDS: amLODIPine BESYLATE 5 MG TABLET (FP) PO SCH (12:14)
[2020-11-21] MEDS ORDERED: DEXTROSE 5%-0.45% SALINE 1,000 ML IV SCH (13:45)
[2020-11-21] MEDS: MULTIVIT-MINERALS ORAL LIQUID PO SCH (14:48)
[2020-11-21] MEDS: ALBUTEROL SO4 HFA INHALER IH PRN (21:25)
[2020-11-21] MEDS: ATORVASTATIN CA 40 MG TABLET (FP) PO SCH (21:26)
[2020-11-22] MEDS ORDERED: ALBUTEROL SO4 2.5/IPRATROPIUM 0.5 INH SOL 3 ML VIAL.NEB. NEB ONE (04:45)
[2020-11-22] MEDS: INSULIN SLIDING SCALE (NOVOLOG) 1 VIAL SQ SCH ×4 (06:06→21:13)
[2020-11-22] MEDS: INSULIN (LEVEMIR) 100 UNITS/ML UNITS SQ SCH ×2 (06:06→21:13)
[2020-11-22 07:51] LABS: BASO % 0.8 % (0-2.0); HEMATOCRIT 35.6 % (32.4-45.2); HEMOGLOBIN 11.5 GM/dL (10.7-15.3); LYMPH % 19.1 % (8-40); MCH 25.5 pg (25.7-33.7); MCHC 32.2 g/dl (32.0-36.0); MEAN CELL VOLUME 79.1 fl (80-96); MEAN PLT VOLUME 8.5 fl (7.5-11.1); MONO % 10.5 % (3.8-10.2); NEUT % 68.6 % (42.8-82.8); PLATELET COUNT 363 K/MM3 (134-434); RDW 15.1 % (11.6-15.6); WHITE BLOOD COUNT 12.4 K/mm3 (4.0-10.0)
[2020-11-22 08:09] LABS: POTASSIUM 4.4 mmol/L (3.5-5.1)
[2020-11-22 08:11] LABS: ALBUMIN 1.9 g/dl (3.4-5.0); BLOOD UREA NITROGEN 21.2 mg/dL (7-18); CALCIUM 8.8 mg/dL (8.5-10.1); MAGNESIUM 2.1 mg/dL (1.8-2.4)
[2020-11-22 08:15] LABS: CREATININE 0.9 mg/dL (0.55-1.3); PHOSPHOROUS 3.1 mg/dL (2.5-4.9)
[2020-11-22 08:16] LABS: BILIRUBIN,TOTAL 0.6 mg/dL (0.2-1); TOT PROT 5.6 g/dl (6.4-8.2)
[2020-11-22] MEDS: ENOXAPARIN NA (PORCINE) 40 MG/0.4 ML DISP.SYRIN SQ SCH (09:54)
[2020-11-22] MEDS: MULTIVIT-MINERALS ORAL LIQUID PO SCH (09:54)
[2020-11-22] MEDS: BUDESONIDE/FORMETEROL FUMARATE 160/4.5 mcg INHALER IH SCH ×2 (09:54→21:14)
[2020-11-22] MEDS: ASPIRIN 81 MG CHEWABLE TABLETS PO SCH (09:54)
[2020-11-22] MEDS: CLOPIDOGREL BISULFATE 75 MG TABLET (FP) PO SCH (09:54)
[2020-11-22] MEDS: PARoxetine HCL 20 MG TABLET PO SCH (10:19)
[2020-11-22] MEDS: LISINOPRIL 20 MG TABLET PO SCH (10:19)
[2020-11-22] MEDS: amLODIPine BESYLATE 5 MG TABLET (FP) PO SCH (10:19)
[2020-11-22] MEDS: PANTOPRAZOLE 40 MG TABLET PO SCH (10:20)
[2020-11-22] MEDS: DEXTROSE 5%-0.45% SALINE 1,000 ML IV SCH (10:45)
[2020-11-22] MEDS: ATORVASTATIN CA 40 MG TABLET (FP) PO SCH (21:13)
[2020-11-22] MEDS ORDERED: DEXTROSE 50%-WATER - 25 GM/50 ML VIAL IVPUSH ONE ×2 (22:09→22:45)
[2020-11-22] MEDS ORDERED: DEXTROSE 50%-WATER - 25 GM/50 ML VIAL ONE (22:54)
[2020-11-23] MEDS: INSULIN (LEVEMIR) 100 UNITS/ML UNITS SQ SCH ×2 (06:01→21:48)
[2020-11-23] MEDS: INSULIN SLIDING SCALE (NOVOLOG) 1 VIAL SQ SCH ×4 (06:01→22:45)
[2020-11-23] MEDS: DEXTROSE 5%-0.45% SALINE 1,000 ML IV SCH ×2 (06:45→10:58)
[2020-11-23 08:19] LABS: BASO % 1.1 % (0-2.0); EOS % 1.4 % (0-4.5); HEMATOCRIT 36.2 % (32.4-45.2); HEMOGLOBIN 11.8 GM/dL (10.7-15.3); LYMPH % 18.8 % (8-40); MCH 25.8 pg (25.7-33.7); MCHC 32.6 g/dl (32.0-36.0); MEAN PLT VOLUME 8.2 fl (7.5-11.1); MONO % 13.1 % (3.8-10.2); NEUT % 65.6 % (42.8-82.8); PLATELET COUNT 431 K/MM3 (134-434); RBC 4.58 M/mm3 (3.60-5.2); RDW 14.6 % (11.6-15.6); WHITE BLOOD COUNT 11.3 K/mm3 (4.0-10.0)
[2020-11-23 08:41] LABS: POTASSIUM 4.3 mmol/L (3.5-5.1)
[2020-11-23 08:51] LABS: ALBUMIN 2.1 g/dl (3.4-5.0); BLOOD UREA NITROGEN 16.6 mg/dL (7-18); CALCIUM 8.7 mg/dL (8.5-10.1)
[2020-11-23 08:56] LABS: BILIRUBIN,TOTAL 0.7 mg/dL (0.2-1); TOT PROT 6.2 g/dl (6.4-8.2)
[2020-11-23] MEDS: MULTIVIT-MINERALS ORAL LIQUID PO SCH (10:58)
[2020-11-23] MEDS: ENOXAPARIN NA (PORCINE) 40 MG/0.4 ML DISP.SYRIN SQ SCH (10:58)
[2020-11-23] MEDS: PANTOPRAZOLE 40 MG TABLET PO SCH (10:59)
[2020-11-23] MEDS: BUDESONIDE/FORMETEROL FUMARATE 160/4.5 mcg INHALER IH SCH ×2 (10:59→21:49)
[2020-11-23] MEDS: amLODIPine BESYLATE 5 MG TABLET (FP) PO SCH (11:05)
[2020-11-23] MEDS: PARoxetine HCL 20 MG TABLET PO SCH (11:05)
[2020-11-23] MEDS: LISINOPRIL 20 MG TABLET PO SCH (11:05)
[2020-11-23] MEDS ORDERED: cefTRIAXone SODIUM 1 GM VIAL ONE (18:48)
[2020-11-23] MEDS ORDERED: DEXTROSE 5%-WATER - 50 ML IVPB ONE (18:49)
[2020-11-23] MEDS: CEFTRIAXONE 1 GM in DEXTROSE 5%-WATER - 50 ML IVPB SCH (18:52)
[2020-11-23] MEDS: ATORVASTATIN CA 40 MG TABLET (FP) PO SCH (21:49)
[2020-11-24] MEDS: INSULIN (LEVEMIR) 100 UNITS/ML UNITS SQ SCH (06:08)
[2020-11-24] MEDS: INSULIN SLIDING SCALE (NOVOLOG) 1 VIAL SQ SCH ×4 (06:08→22:04)
[2020-11-24] MEDS: DEXTROSE 5%-0.45% SALINE 1,000 ML IV SCH ×2 (08:54→18:37)
[2020-11-24] MEDS ORDERED: DEXTROSE 5%-WATER - 50 ML IVPB ONE (09:00)
[2020-11-24] MEDS ORDERED: cefTRIAXone SODIUM 1 GM VIAL ONE (09:00)
[2020-11-24 09:05] LABS: EOS % 1.3 % (0-4.5); HEMATOCRIT 34.8 % (32.4-45.2); HEMOGLOBIN 11.5 GM/dL (10.7-15.3); LYMPH % 14.4 % (8-40); MEAN CELL VOLUME 78.8 fl (80-96); MEAN PLT VOLUME 8.4 fl (7.5-11.1); MONO % 11.8 % (3.8-10.2); NEUT % 71.5 % (42.8-82.8); PLATELET COUNT 416 K/MM3 (134-434); RBC 4.41 M/mm3 (3.60-5.2); RDW 14.7 % (11.6-15.6); WHITE BLOOD COUNT 10.5 K/mm3 (4.0-10.0)
[2020-11-24] MEDS: CEFTRIAXONE 1 GM in DEXTROSE 5%-WATER - 50 ML IVPB SCH (09:06)
[2020-11-24] MEDS: ENOXAPARIN NA (PORCINE) 40 MG/0.4 ML DISP.SYRIN SQ SCH (09:07)
[2020-11-24] MEDS: LISINOPRIL 20 MG TABLET PO SCH (09:07)
[2020-11-24] MEDS: MULTIVIT-MINERALS ORAL LIQUID PO SCH (09:07)
[2020-11-24] MEDS: PARoxetine HCL 20 MG TABLET PO SCH (09:07)
[2020-11-24] MEDS: PANTOPRAZOLE 40 MG TABLET PO SCH (09:07)
[2020-11-24] MEDS: amLODIPine BESYLATE 5 MG TABLET (FP) PO SCH (09:07)
[2020-11-24 09:30] LABS: POTASSIUM 4.2 mmol/L (3.5-5.1)
[2020-11-24 09:43] LABS: BILIRUBIN,TOTAL 0.5 mg/dL (0.2-1); TOT PROT 5.9 g/dl (6.4-8.2)
[2020-11-24 09:47] LABS: CALCIUM 8.5 mg/dL (8.5-10.1)
[2020-11-24 09:48] LABS: BLOOD UREA NITROGEN 17.8 mg/dL (7-18)
[2020-11-24] MEDS ORDERED: PT OWN MED DRAWER 7, Y5N ONE (12:51)
[2020-11-24] MEDS: BUDESONIDE/FORMETEROL FUMARATE 160/4.5 mcg INHALER IH SCH ×2 (14:00→22:05)
[2020-11-24] MEDS ORDERED: ACETAMINOPHEN 1000 MG/100 ML VIAL (NON FORMULARY) IVPB PRN (16:44)
[2020-11-24] MEDS ORDERED: DEXTROSE 50%-WATER - 25 GM/50 ML VIAL IVPUSH ONE (18:37)
[2020-11-24] MEDS ORDERED: DEXTROSE 10%-WATER - 1,000 ML IV SCH (18:45)
[2020-11-24] MEDS ORDERED: DEXTROSE 50%-WATER 25 GM/50 ML DISP.SYRIN ONE (19:09)
[2020-11-24] MEDS: ATORVASTATIN CA 40 MG TABLET (FP) PO SCH (22:04)
[2020-11-25] MEDS: INSULIN SLIDING SCALE (NOVOLOG) 1 VIAL SQ SCH ×4 (06:16→21:20)
[2020-11-25 06:53] LABS: BASO % 1.2 % (0-2.0); EOS % 1.8 % (0-4.5); HEMATOCRIT 36.3 % (32.4-45.2); HEMOGLOBIN 11.9 GM/dL (10.7-15.3); LYMPH % 27.3 % (8-40); MCH 25.8 pg (25.7-33.7); MCHC 32.9 g/dl (32.0-36.0); MEAN CELL VOLUME 78.4 fl (80-96); MEAN PLT VOLUME 8.3 fl (7.5-11.1); MONO % 12.8 % (3.8-10.2); NEUT % 56.9 % (42.8-82.8); PLATELET COUNT 460 K/MM3 (134-434); RBC 4.63 M/mm3 (3.60-5.2); RDW 14.7 % (11.6-15.6)
[2020-11-25 07:16] LABS: POTASSIUM 4.2 mmol/L (3.5-5.1)
[2020-11-25 07:21] LABS: BLOOD UREA NITROGEN 16.9 mg/dL (7-18); CALCIUM 8.6 mg/dL (8.5-10.1)
[2020-11-25 07:24] LABS: CREATININE 0.9 mg/dL (0.55-1.3)
[2020-11-25 07:25] LABS: BILIRUBIN,TOTAL 0.5 mg/dL (0.2-1); TOT PROT 5.8 g/dl (6.4-8.2)
[2020-11-25] MEDS ORDERED: DEXTROSE 5%-WATER - 50 ML IVPB ONE (10:33)
[2020-11-25] MEDS ORDERED: cefTRIAXone SODIUM 1 GM VIAL ONE (10:33)
[2020-11-25] MEDS: CEFTRIAXONE 1 GM in DEXTROSE 5%-WATER - 50 ML IVPB SCH (10:36)
[2020-11-25] MEDS: ENOXAPARIN NA (PORCINE) 40 MG/0.4 ML DISP.SYRIN SQ SCH (10:37)
[2020-11-25] MEDS: MULTIVIT-MINERALS ORAL LIQUID PO SCH (10:38)
[2020-11-25] MEDS: amLODIPine BESYLATE 5 MG TABLET (FP) PO SCH (10:39)
[2020-11-25] MEDS: PARoxetine HCL 20 MG TABLET PO SCH (10:39)
[2020-11-25] MEDS: PANTOPRAZOLE 40 MG TABLET PO SCH (10:40)
[2020-11-25] MEDS: BUDESONIDE/FORMETEROL FUMARATE 160/4.5 mcg INHALER IH SCH ×2 (10:40→21:21)
[2020-11-25] MEDS: LISINOPRIL 20 MG TABLET PO SCH (10:40)
[2020-11-25] MEDS: AMINO ACIDS 4.25%/D5W 1,000 ML IV SCH (18:37)
[2020-11-25] MEDS: DEXTROSE 5%-0.45% SALINE 1,000 ML IV SCH (18:37)
[2020-11-25] MEDS: ATORVASTATIN CA 40 MG TABLET (FP) PO SCH (21:20)
[2020-11-26] MEDS: AMINO ACIDS 4.25%/D5W 1,000 ML IV SCH ×2 (04:48→17:35)
[2020-11-26] MEDS: INSULIN SLIDING SCALE (NOVOLOG) 1 VIAL SQ SCH ×4 (06:08→22:32)
[2020-11-26 06:37] LABS: BASO % 0.8 % (0-2.0); EOS % 1.6 % (0-4.5); HEMATOCRIT 39.2 % (32.4-45.2); HEMOGLOBIN 12.9 GM/dL (10.7-15.3); LYMPH % 22.8 % (8-40); MCH 25.8 pg (25.7-33.7); MCHC 32.9 g/dl (32.0-36.0); MEAN CELL VOLUME 78.5 fl (80-96); MEAN PLT VOLUME 8.2 fl (7.5-11.1); MONO % 10.1 % (3.8-10.2); NEUT % 64.7 % (42.8-82.8); PLATELET COUNT 479 K/MM3 (134-434); RBC 4.99 M/mm3 (3.60-5.2); RDW 14.4 % (11.6-15.6); WHITE BLOOD COUNT 9.4 K/mm3 (4.0-10.0)
[2020-11-26 06:59] LABS: POTASSIUM 4.2 mmol/L (3.5-5.1)
[2020-11-26 07:01] LABS: ALBUMIN 2.3 g/dl (3.4-5.0); BLOOD UREA NITROGEN 20.2 mg/dL (7-18); CALCIUM 8.9 mg/dL (8.5-10.1); MAGNESIUM 1.9 mg/dL (1.8-2.4)
[2020-11-26 07:06] LABS: BILIRUBIN,TOTAL 0.6 mg/dL (0.2-1); TOT PROT 6.7 g/dl (6.4-8.2)
[2020-11-26] MEDS: MULTIVIT-MINERALS ORAL LIQUID PO SCH (10:32)
[2020-11-26] MEDS: PARoxetine HCL 20 MG TABLET PO SCH (10:32)
[2020-11-26] MEDS: amLODIPine BESYLATE 5 MG TABLET (FP) PO SCH (10:32)
[2020-11-26] MEDS: BUDESONIDE/FORMETEROL FUMARATE 160/4.5 mcg INHALER IH SCH ×2 (10:33→23:02)
[2020-11-26] MEDS: LISINOPRIL 20 MG TABLET PO SCH (10:33)
[2020-11-26] MEDS: CEFTRIAXONE 1 GM in DEXTROSE 5%-WATER - 50 ML IVPB SCH (10:33)
[2020-11-26] MEDS: PANTOPRAZOLE 40 MG TABLET PO SCH (10:33)
[2020-11-26] MEDS: DEXTROSE 5%-0.45% SALINE 1,000 ML IV SCH (17:35)
[2020-11-26] MEDS ORDERED: QUEtiapine FUMARATE 25 MG TABLET PO ONE (20:00)
[2020-11-26] MEDS: ATORVASTATIN CA 40 MG TABLET (FP) PO SCH (23:02)
[2020-11-27] MEDS: AMINO ACIDS 4.25%/D5W 1,000 ML IV SCH ×2 (05:02→16:26)
[2020-11-27] MEDS: INSULIN SLIDING SCALE (NOVOLOG) 1 VIAL SQ SCH ×4 (06:00→21:31)
[2020-11-27 07:36] LABS: BASO % 1.1 % (0-2.0); EOS % 2.2 % (0-4.5); HEMATOCRIT 37.2 % (32.4-45.2); LYMPH % 25.9 % (8-40); MCH 25.6 pg (25.7-33.7); MCHC 32.3 g/dl (32.0-36.0); MEAN CELL VOLUME 79.3 fl (80-96); MEAN PLT VOLUME 8.3 fl (7.5-11.1); MONO % 10.7 % (3.8-10.2); NEUT % 60.1 % (42.8-82.8); PLATELET COUNT 483 K/MM3 (134-434); RBC 4.69 M/mm3 (3.60-5.2); RDW 14.8 % (11.6-15.6); WHITE BLOOD COUNT 7.2 K/mm3 (4.0-10.0)
[2020-11-27 07:51] LABS: POTASSIUM 4.1 mmol/L (3.5-5.1)
[2020-11-27 07:53] LABS: ALBUMIN 2.1 g/dl (3.4-5.0); CALCIUM 8.8 mg/dL (8.5-10.1)
[2020-11-27 07:54] LABS: BLOOD UREA NITROGEN 21.3 mg/dL (7-18)
[2020-11-27 07:57] LABS: CREATININE 0.9 mg/dL (0.55-1.3); PHOSPHOROUS 3.4 mg/dL (2.5-4.9)
[2020-11-27 07:58] LABS: BILIRUBIN,TOTAL 0.6 mg/dL (0.2-1); TOT PROT 6.2 g/dl (6.4-8.2)
[2020-11-27] MEDS: MULTIVIT-MINERALS ORAL LIQUID PO SCH (11:37)
[2020-11-27] MEDS: PARoxetine HCL 20 MG TABLET PO SCH (11:37)
[2020-11-27] MEDS: PANTOPRAZOLE 40 MG TABLET PO SCH (11:37)
[2020-11-27] MEDS: amLODIPine BESYLATE 5 MG TABLET (FP) PO SCH (11:37)
[2020-11-27] MEDS: LISINOPRIL 20 MG TABLET PO SCH (11:37)
[2020-11-27] MEDS: BUDESONIDE/FORMETEROL FUMARATE 160/4.5 mcg INHALER IH SCH ×2 (11:38→23:15)
[2020-11-27] MEDS ORDERED: DEXTROSE 5%-WATER - 50 ML IVPB ONE (12:04)
[2020-11-27] MEDS ORDERED: cefTRIAXone SODIUM 1 GM VIAL ONE (12:04)
[2020-11-27] MEDS: CEFTRIAXONE 1 GM in DEXTROSE 5%-WATER - 50 ML IVPB SCH (12:10)
[2020-11-27 20:09] LABS: PHENCYCLIDINE,URINE NEGATIVE ng/ml (CUTOFF=25); URINE BARBITURATES NEGATIVE ng/ml (CUTOFF=200)
[2020-11-27 20:10] LABS: COCAINE, UR NEGATIVE ng/ml (CUTOFF=300); METHADONE, UR NEGATIVE ng/ml (CUTOFF=300); URINE BENZODIAZEPINES NEGATIVE ng/ml (CUTOFF=200)
[2020-11-27 20:14] LABS: OPIATES, URI NEGATIVE ng/ml (CUTOFF=300); URINE AMPHETAMINES NEGATIVE ng/ml (CUTOFF=500)
[2020-11-27] MEDS ORDERED: PT OWN MED DRAWER 7, Y5N ONE (20:33)
[2020-11-27] MEDS: AMPICILLIN NA/SULBACTAM NA 3 GM in SODIUM CHLORIDE 100 ML IVPB SCH (20:40)
[2020-11-27] MEDS: ATORVASTATIN CA 40 MG TABLET (FP) PO SCH (21:27)
[2020-11-27] MEDS ORDERED: QUEtiapine FUMARATE 25 MG TABLET PO SCH (22:00)
[2020-11-28] MEDS ORDERED: PT OWN MED DRAWER 7, Y5N ONE ×3 (02:48→17:45)
[2020-11-28] MEDS: AMPICILLIN NA/SULBACTAM NA 3 GM in SODIUM CHLORIDE 100 ML IVPB SCH ×3 (02:56→17:48)
[2020-11-28] MEDS: AMINO ACIDS 4.25%/D5W 1,000 ML IV SCH ×3 (03:18→16:02)
[2020-11-28] MEDS: INSULIN SLIDING SCALE (NOVOLOG) 1 VIAL SQ SCH ×4 (06:20→22:37)
[2020-11-28 07:20] LABS: BASO % 0.9 % (0-2.0); EOS % 1.7 % (0-4.5); HEMOGLOBIN 11.7 GM/dL (10.7-15.3); LYMPH % 29.5 % (8-40); MCH 25.5 pg (25.7-33.7); MCHC 32.4 g/dl (32.0-36.0); MEAN CELL VOLUME 78.6 fl (80-96); MEAN PLT VOLUME 8.3 fl (7.5-11.1); MONO % 10.4 % (3.8-10.2); NEUT % 57.5 % (42.8-82.8); PLATELET COUNT 474 K/MM3 (134-434); RBC 4.58 M/mm3 (3.60-5.2); RDW 14.6 % (11.6-15.6); WHITE BLOOD COUNT 7.9 K/mm3 (4.0-10.0)
[2020-11-28 08:12] LABS: ALBUMIN 2.1 g/dl (3.4-5.0); BLOOD UREA NITROGEN 26.2 mg/dL (7-18); PHOSPHOROUS 2.9 mg/dL (2.5-4.9)
[2020-11-28 08:14] LABS: BILIRUBIN,TOTAL 0.5 mg/dL (0.2-1)
[2020-11-28 08:15] LABS: CREATININE 0.9 mg/dL (0.55-1.3)
[2020-11-28 08:16] LABS: MAGNESIUM 1.9 mg/dL (1.8-2.4)
[2020-11-28 08:18] LABS: CALCIUM 8.8 mg/dL (8.5-10.1)
[2020-11-28] MEDS: amLODIPine BESYLATE 5 MG TABLET (FP) PO SCH (10:46)
[2020-11-28] MEDS: LISINOPRIL 20 MG TABLET PO SCH (10:46)
[2020-11-28] MEDS: MULTIVIT-MINERALS ORAL LIQUID PO SCH (10:46)
[2020-11-28] MEDS: PANTOPRAZOLE 40 MG TABLET PO SCH (10:46)
[2020-11-28] MEDS: PARoxetine HCL 20 MG TABLET PO SCH (10:46)
[2020-11-28] MEDS: BUDESONIDE/FORMETEROL FUMARATE 160/4.5 mcg INHALER IH SCH ×2 (10:47→22:37)
[2020-11-28] MEDS ORDERED: QUEtiapine FUMARATE 25 MG TABLET PO SCH (11:30)
[2020-11-28] MEDS: ATORVASTATIN CA 40 MG TABLET (FP) PO SCH (22:37)
[2020-11-29] MEDS ORDERED: PT OWN MED DRAWER 7, Y5N ONE ×3 (02:25→17:04)
[2020-11-29] MEDS: AMPICILLIN NA/SULBACTAM NA 3 GM in SODIUM CHLORIDE 100 ML IVPB SCH ×3 (02:28→17:18)
[2020-11-29] MEDS: AMINO ACIDS 4.25%/D5W 1,000 ML IV SCH ×2 (03:01→16:56)
[2020-11-29] MEDS: INSULIN SLIDING SCALE (NOVOLOG) 1 VIAL SQ SCH ×4 (06:28→21:02)
[2020-11-29 07:43] LABS: HEMATOCRIT 33.3 % (32.4-45.2); HEMOGLOBIN 10.3 GM/dL (10.7-15.3); MCH 25.3 pg (25.7-33.7); MCHC 30.9 g/dl (32.0-36.0); MEAN CELL VOLUME 81.8 fl (80-96); MEAN PLT VOLUME 9.1 fl (7.5-11.1); PLATELET COUNT 382 K/MM3 (134-434); RBC 4.07 M/mm3 (3.60-5.2); RDW 14.8 % (11.6-15.6)
[2020-11-29 08:05] LABS: WHITE BLOOD COUNT 7.1 K/mm3 (4.0-10.0)
[2020-11-29 08:21] LABS: POTASSIUM 4.1 mmol/L (3.5-5.1)
[2020-11-29 08:28] LABS: ALBUMIN 2.1 g/dl (3.4-5.0); BLOOD UREA NITROGEN 25.3 mg/dL (7-18); CALCIUM 8.4 mg/dL (8.5-10.1)
[2020-11-29 08:29] LABS: MAGNESIUM 1.9 mg/dL (1.8-2.4)
[2020-11-29 08:30] LABS: BILIRUBIN,TOTAL 0.4 mg/dL (0.2-1); TOT PROT 6.1 g/dl (6.4-8.2)
[2020-11-29 08:31] LABS: CREATININE 0.8 mg/dL (0.55-1.3); PHOSPHOROUS 2.6 mg/dL (2.5-4.9)
[2020-11-29] MEDS: PANTOPRAZOLE 40 MG TABLET PO SCH (09:07)
[2020-11-29] MEDS: amLODIPine BESYLATE 5 MG TABLET (FP) PO SCH (09:07)
[2020-11-29] MEDS: LISINOPRIL 20 MG TABLET PO SCH (09:07)
[2020-11-29] MEDS: PARoxetine HCL 20 MG TABLET PO SCH (09:07)
[2020-11-29] MEDS: MULTIVIT-MINERALS ORAL LIQUID PO SCH (09:07)
[2020-11-29] MEDS: COLLAGENASE CLOSTRIDIUM HIST. 30 GRAMS TUBE TP SCH (09:29)
[2020-11-29] MEDS: BUDESONIDE/FORMETEROL FUMARATE 160/4.5 mcg INHALER IH SCH ×2 (09:29→21:02)
[2020-11-29 09:39] LABS: ANISOCYTOSIS 0; MACROCYTOSIS 0; PLATELET ESTIMATE NORMAL
[2020-11-29] MEDS ORDERED: INSULIN (NOVOLOG) ASPART 100 UNITS/ML 10ML VIAL ONE (11:32)
[2020-11-29] MEDS: ATORVASTATIN CA 40 MG TABLET (FP) PO SCH (22:53)
[2020-11-30] MEDS ORDERED: PT OWN MED DRAWER 7, Y5N ONE ×2 (01:18→17:38)
[2020-11-30] MEDS: AMPICILLIN NA/SULBACTAM NA 3 GM in SODIUM CHLORIDE 100 ML IVPB SCH ×3 (01:42→17:34)
[2020-11-30] MEDS: INSULIN SLIDING SCALE (NOVOLOG) 1 VIAL SQ SCH ×4 (06:51→21:04)
[2020-11-30 07:50] LABS: BASO % 0.6 % (0-2.0); EOS % 2.5 % (0-4.5); HEMATOCRIT 37.7 % (32.4-45.2); HEMOGLOBIN 12.2 GM/dL (10.7-15.3); LYMPH % 34.5 % (8-40); MCH 25.4 pg (25.7-33.7); MCHC 32.3 g/dl (32.0-36.0); MEAN CELL VOLUME 78.7 fl (80-96); MEAN PLT VOLUME 8.5 fl (7.5-11.1); NEUT % 52.4 % (42.8-82.8); PLATELET COUNT 445 K/MM3 (134-434); RBC 4.79 M/mm3 (3.60-5.2); RDW 14.8 % (11.6-15.6); WHITE BLOOD COUNT 6.4 K/mm3 (4.0-10.0)
[2020-11-30 08:28] LABS: POTASSIUM 3.9 mmol/L (3.5-5.1)
[2020-11-30 08:37] LABS: BILIRUBIN,TOTAL 0.6 mg/dL (0.2-1); TOT PROT 6.2 g/dl (6.4-8.2)
[2020-11-30 08:38] LABS: CALCIUM 8.6 mg/dL (8.5-10.1)
[2020-11-30 08:39] LABS: ALBUMIN 2.2 g/dl (3.4-5.0); BLOOD UREA NITROGEN 19.6 mg/dL (7-18); MAGNESIUM 1.8 mg/dL (1.8-2.4)
[2020-11-30 08:41] LABS: CREATININE 0.8 mg/dL (0.55-1.3); PHOSPHOROUS 3.4 mg/dL (2.5-4.9)
[2020-11-30] MEDS: MULTIVIT-MINERALS ORAL LIQUID PO SCH (10:50)
[2020-11-30] MEDS: ENOXAPARIN NA (PORCINE) 40 MG/0.4 ML DISP.SYRIN SQ SCH (10:54)
[2020-11-30] MEDS: BUDESONIDE/FORMETEROL FUMARATE 160/4.5 mcg INHALER IH SCH ×2 (10:54→21:05)
[2020-11-30] MEDS: COLLAGENASE CLOSTRIDIUM HIST. 30 GRAMS TUBE TP SCH (10:54)
[2020-11-30] MEDS: PARoxetine HCL 20 MG TABLET PO SCH (10:54)
[2020-11-30] MEDS: amLODIPine BESYLATE 5 MG TABLET (FP) PO SCH (10:59)
[2020-11-30] MEDS: LISINOPRIL 20 MG TABLET PO SCH (10:59)
[2020-11-30] MEDS ORDERED: ACETAMINOPHEN 1000 MG/100 ML VIAL (NON FORMULARY) IVPB ONE (12:14)
[2020-11-30] MEDS ORDERED: ACETAMINOPHEN INJECTION 100 ML IVPB ONE (20:44)
[2020-11-30] MEDS: ATORVASTATIN CA 40 MG TABLET (FP) PO SCH (21:04)
[2020-12-01] MEDS ORDERED: PT OWN MED DRAWER 7, Y5N ONE ×4 (01:16→18:06)
[2020-12-01] MEDS: AMPICILLIN NA/SULBACTAM NA 3 GM in SODIUM CHLORIDE 100 ML IVPB SCH ×3 (01:18→18:15)
[2020-12-01] MEDS: INSULIN SLIDING SCALE (NOVOLOG) 1 VIAL SQ SCH ×4 (06:17→21:04)
[2020-12-01] MEDS: PARoxetine HCL 20 MG TABLET PO SCH (10:31)
[2020-12-01] MEDS: COLLAGENASE CLOSTRIDIUM HIST. 30 GRAMS TUBE TP SCH (10:31)
[2020-12-01] MEDS: ENOXAPARIN NA (PORCINE) 40 MG/0.4 ML DISP.SYRIN SQ SCH (10:31)
[2020-12-01] MEDS: BUDESONIDE/FORMETEROL FUMARATE 160/4.5 mcg INHALER IH SCH ×2 (10:32→21:05)
[2020-12-01] MEDS: amLODIPine BESYLATE 5 MG TABLET (FP) PO SCH (10:45)
[2020-12-01] MEDS: LISINOPRIL 20 MG TABLET PO SCH (10:46)
[2020-12-01] MEDS: MULTIVIT-MINERALS ORAL LIQUID PO SCH (10:47)
[2020-12-01] MEDS: ACETAMINOPHEN 325 MG TABLET (FP) PO PRN ×2 (12:07→19:17)
[2020-12-01] MEDS: PATIENT'S OWN MEDICATION (NON-FORMULARY) (Cariprazine Hcl [Vraylar] 1.5 MG Capsule) PO SCH ×2 (20:45→20:46)
[2020-12-01] MEDS: ATORVASTATIN CA 40 MG TABLET (FP) PO SCH (21:04)
[2020-12-02] MEDS ORDERED: PT OWN MED DRAWER 7, Y5N ONE (01:02)
[2020-12-02] MEDS: AMPICILLIN NA/SULBACTAM NA 3 GM in SODIUM CHLORIDE 100 ML IVPB SCH ×3 (01:05→17:00)
[2020-12-02] MEDS: INSULIN SLIDING SCALE (NOVOLOG) 1 VIAL SQ SCH ×4 (06:00→21:21)
[2020-12-02] MEDS: ENOXAPARIN NA (PORCINE) 40 MG/0.4 ML DISP.SYRIN SQ SCH (10:45)
[2020-12-02] MEDS: amLODIPine BESYLATE 5 MG TABLET (FP) PO SCH (10:46)
[2020-12-02] MEDS: BUDESONIDE/FORMETEROL FUMARATE 160/4.5 mcg INHALER IH SCH ×2 (10:46→21:21)
[2020-12-02] MEDS: MULTIVIT-MINERALS ORAL LIQUID PO SCH (10:46)
[2020-12-02] MEDS: LISINOPRIL 20 MG TABLET PO SCH (10:46)
[2020-12-02] MEDS: PARoxetine HCL 20 MG TABLET PO SCH (10:46)
[2020-12-02] MEDS: ACETAMINOPHEN 325 MG TABLET (FP) PO PRN (13:02)
[2020-12-02] MEDS ORDERED: INSULIN (NOVOLOG) ASPART 100 UNITS/ML 10ML VIAL ONE (16:56)
[2020-12-02] MEDS: COLLAGENASE CLOSTRIDIUM HIST. 30 GRAMS TUBE TP SCH (16:59)
[2020-12-02] MEDS: AMINO ACIDS/PROTEIN HYDROLYS 30 ML LIQUID.PKT PO SCH (17:00)
[2020-12-02] MEDS: ATORVASTATIN CA 40 MG TABLET (FP) PO SCH (21:20)
[2020-12-03] MEDS ORDERED: PT OWN MED DRAWER 7, Y5N ONE (01:08)
[2020-12-03] MEDS: AMPICILLIN NA/SULBACTAM NA 3 GM in SODIUM CHLORIDE 100 ML IVPB SCH ×3 (01:10→17:21)
[2020-12-03] MEDS: INSULIN SLIDING SCALE (NOVOLOG) 1 VIAL SQ SCH ×4 (06:15→21:36)
[2020-12-03 07:28] LABS: BASO % 0.8 % (0-2.0); HEMATOCRIT 35.7 % (32.4-45.2); HEMOGLOBIN 11.7 GM/dL (10.7-15.3); LYMPH % 36.1 % (8-40); MCH 25.8 pg (25.7-33.7); MCHC 32.9 g/dl (32.0-36.0); MEAN CELL VOLUME 78.3 fl (80-96); MEAN PLT VOLUME 8.4 fl (7.5-11.1); MONO % 9.5 % (3.8-10.2); NEUT % 51.6 % (42.8-82.8); PLATELET COUNT 404 K/MM3 (134-434); RBC 4.55 M/mm3 (3.60-5.2); RDW 14.9 % (11.6-15.6); WHITE BLOOD COUNT 6.9 K/mm3 (4.0-10.0)
[2020-12-03 08:03] LABS: POTASSIUM 4.1 mmol/L (3.5-5.1)
[2020-12-03 08:06] LABS: CALCIUM 8.6 mg/dL (8.5-10.1)
[2020-12-03 08:08] LABS: ALBUMIN 2.3 g/dl (3.4-5.0); MAGNESIUM 1.9 mg/dL (1.8-2.4)
[2020-12-03 08:11] LABS: CREATININE 0.9 mg/dL (0.55-1.3)
[2020-12-03 08:12] LABS: BILIRUBIN,TOTAL 0.4 mg/dL (0.2-1)
[2020-12-03] MEDS: PARoxetine HCL 20 MG TABLET PO SCH (11:12)
[2020-12-03] MEDS: AMINO ACIDS/PROTEIN HYDROLYS 30 ML LIQUID.PKT PO SCH ×2 (11:12→17:20)
[2020-12-03] MEDS: LISINOPRIL 20 MG TABLET PO SCH (11:12)
[2020-12-03] MEDS: amLODIPine BESYLATE 5 MG TABLET (FP) PO SCH (11:12)
[2020-12-03] MEDS: ENOXAPARIN NA (PORCINE) 40 MG/0.4 ML DISP.SYRIN SQ SCH (11:12)
[2020-12-03] MEDS: BUDESONIDE/FORMETEROL FUMARATE 160/4.5 mcg INHALER IH SCH ×2 (11:13→21:37)
[2020-12-03] MEDS: COLLAGENASE CLOSTRIDIUM HIST. 30 GRAMS TUBE TP SCH (11:14)
[2020-12-03] MEDS: MULTIVIT-MINERALS ORAL LIQUID PO SCH (12:42)
[2020-12-03] MEDS: ATORVASTATIN CA 40 MG TABLET (FP) PO SCH (21:36)
[2020-12-04] MEDS: AMPICILLIN NA/SULBACTAM NA 3 GM in SODIUM CHLORIDE 100 ML IVPB SCH ×2 (01:45→11:20)
[2020-12-04] MEDS: INSULIN SLIDING SCALE (NOVOLOG) 1 VIAL SQ SCH ×3 (06:19→16:55)
[2020-12-04 08:43] LABS: BASO % 1.1 % (0-2.0); EOS % 1.8 % (0-4.5); HEMATOCRIT 35.8 % (32.4-45.2); LYMPH % 31.1 % (8-40); MCH 26.2 pg (25.7-33.7); MCHC 33.5 g/dl (32.0-36.0); MEAN CELL VOLUME 78.2 fl (80-96); MEAN PLT VOLUME 8.4 fl (7.5-11.1); MONO % 9.9 % (3.8-10.2); NEUT % 56.1 % (42.8-82.8); PLATELET COUNT 365 K/MM3 (134-434); RBC 4.58 M/mm3 (3.60-5.2); RDW 15.2 % (11.6-15.6); WHITE BLOOD COUNT 7.2 K/mm3 (4.0-10.0)
[2020-12-04 09:16] LABS: POTASSIUM 4.4 mmol/L (3.5-5.1)
[2020-12-04 09:33] LABS: ALBUMIN 2.2 g/dl (3.4-5.0); BLOOD UREA NITROGEN 18.7 mg/dL (7-18); CALCIUM 8.7 mg/dL (8.5-10.1)
[2020-12-04 09:34] LABS: MAGNESIUM 1.9 mg/dL (1.8-2.4)
[2020-12-04 09:36] LABS: CREATININE 0.9 mg/dL (0.55-1.3); PHOSPHOROUS 3.4 mg/dL (2.5-4.9)
[2020-12-04 09:37] LABS: BILIRUBIN,TOTAL 0.3 mg/dL (0.2-1); TOT PROT 5.9 g/dl (6.4-8.2)
[2020-12-04] MEDS: MULTIVIT-MINERALS ORAL LIQUID PO SCH (10:46)
[2020-12-04] MEDS: PARoxetine HCL 20 MG TABLET PO SCH (10:46)
[2020-12-04] MEDS: amLODIPine BESYLATE 5 MG TABLET (FP) PO SCH (10:46)
[2020-12-04] MEDS: LISINOPRIL 20 MG TABLET PO SCH (10:46)
[2020-12-04] MEDS: ENOXAPARIN NA (PORCINE) 40 MG/0.4 ML DISP.SYRIN SQ SCH (10:46)
[2020-12-04] MEDS: AMINO ACIDS/PROTEIN HYDROLYS 30 ML LIQUID.PKT PO SCH ×2 (10:47→16:56)
[2020-12-04] MEDS: BUDESONIDE/FORMETEROL FUMARATE 160/4.5 mcg INHALER IH SCH (10:54)
[2020-12-04] MEDS: COLLAGENASE CLOSTRIDIUM HIST. 30 GRAMS TUBE TP SCH (14:43)
[2020-12-04 14:56] VITALS: BP 119/77; PULSE 91; TEMP 98.9
[2020-12-04] MEDS ORDERED: INSULIN (NOVOLOG) ASPART 100 UNITS/ML 10ML VIAL ONE (17:51)
== END 2020-12-04 19:30 | DRG 774 ==
LOC: JER 12:24 → JERBED 12:51 → MERGE 12:51 → JICU 20:05 → J7W 11-14 20:47
PROVIDERS: ADMIT Internal Medicine Pulmonary Disease; ATTEND Internal Medicine
PROC: 5A1945Z Respiratory Ventilation, 24-96 Consecutive Hours (ICD-10-PCS; principal; 2020-11-09)
PROC: 0BH17EZ Insertion of Endotracheal Airway into Trachea, Via Natural or Artificial Opening (ICD-10-PCS; 2020-11-09)
DX: F14.129 Cocaine abuse with intoxication, unspecified (principal); U07.1 COVID-19; J96.01 Acute respiratory failure with hypoxia; N39.0 Urinary tract infection, site not specified; E11.65 Type 2 diabetes mellitus with hyperglycemia; L89.152 Pressure ulcer of sacral region, stage 2; I16.0 Hypertensive urgency; E78.5 Hyperlipidemia, unspecified; I25.10 Atherosclerotic heart disease of native coronary artery without angina pectoris; Z95.5 Presence of coronary angioplasty implant and graft; R13.10 Dysphagia, unspecified; G92 Toxic encephalopathy; E87.0 Hyperosmolality and hypernatremia; D72.829 Elevated white blood cell count, unspecified
CPT/HCPCS: 36415; 36600; 70450-TC; 70496-TC; 70498-TC; 71045-TC-FY; 71250-TC; 72125-TC; 74230-TC-FY; 80048; 80053; 80307; 81003; 82140; 82803; 82962; 83036; 83605; 83735; 84100; 84484; 85025; 85027; 85610; 85730; 86769; 87040; 87086; 87186; 92611-GN; 93005; 93010; 93971; 94002; 94640; 97116-GP; 97162-GP; 99291; C9803; J0131; J1100; U0003

== ENCOUNTER 2021-02-07 10:57 | Emergency (ER) | payer OTHER ==
[2021-02-07 11:11] VITALS: BMI 27.5
[2021-02-07] MEDS ORDERED: SODIUM CHLORIDE 1,000 ML IV STA (11:27)
[2021-02-07] MEDS ORDERED: ASPIRIN 325 MG TABLET PO ONE (11:27)
[2021-02-07] MEDS ORDERED: HEPARIN NA (PORCINE) 5,000 UNITS/ML 1ML VIAL IVPUSH PRN ×2 (11:37→12:14)
[2021-02-07] MEDS ORDERED: HEPARIN - 25,000 UNIT in SODIUM CHLORIDE 495 ML IV SCH (11:45)
[2021-02-07] MEDS ORDERED: ASPIRIN 325 MG ENTERIC COATED TABLET (FP) ONE (11:47)
[2021-02-07] MEDS ORDERED: HEPARIN INFUSION - 25,000 UNITS/500 ML INFUS.BAG IVPB ONE (11:48)
[2021-02-07] MEDS ORDERED: HEPARIN NA (PORCINE) 5,000 UNITS/ML 1ML VIAL ONE (11:48)
[2021-02-07 11:53] LABS: VENOUS BASE EXCESS -4.5 mmol/L (-2-2); VENOUS O2 SATURATION 44.2 % (70-80); VENOUS PCO2 45.3 mmHg (38-52); VENOUS PH 7.303 (7.310-7.410)
[2021-02-07 12:04] LABS: CHLORIDE 93 mmol/L (98-107); SODIUM 127 mmol/L (136-145)
[2021-02-07 12:07] LABS: ALBUMIN 3.1 g/dl (3.4-5.0); ANION GAP 13 MMOL/L (8-16); BLOOD UREA NITROGEN 22.1 mg/dL (7-18); CALCIUM 9.2 mg/dL (8.5-10.1); CO2 21 mmol/L (21-32)
[2021-02-07 12:08] LABS: LIPASE 92 U/L (73-393); MAGNESIUM 2.1 mg/dL (1.8-2.4)
[2021-02-07 12:10] LABS: CREATININE 1.7 mg/dL (0.55-1.3); PHOSPHOROUS 3.6 mg/dL (2.5-4.9); SGOT/AST 30 U/L (15-37); SGPT/ALT 11 U/L (13-61)
[2021-02-07 12:11] LABS: BILIRUBIN,TOTAL 0.7 mg/dL (0.2-1); TOT PROT 7.5 g/dl (6.4-8.2)
[2021-02-07 12:12] LABS: ALK PHOS 265 U/L (45-117)
[2021-02-07 12:13] LABS: N-TERMINAL BNP 1622.6 pg/ml (5-125)
[2021-02-07 12:32] LABS: GLUCOSE,RANDOM 795 mg/dL (74-106)
[2021-02-07 12:47] VITALS: BP 123/81; PULSE 85; TEMP 99.2
[2021-02-07 13:31] LABS: EPI CELLS 14 /uL (0-25.1); HYALINE CASTS 0 /uL (0-3.1); PH,URINE 5.5 (5.0-8.0); URINE APPEARANCE CLEAR; URINE BACTERIA 385 /uL (0-1359); URINE BILIRUBIN NEGATIVE (NEGATIVE); URINE COLOR YELLOW; URINE GLUCOSE (UA) 3+ (NEGATIVE); URINE KETONE NEGATIVE (NEGATIVE); URINE LEUK ESTERASE NEGATIVE (NEGATIVE); URINE NITRITE NEGATIVE (NEGATIVE); URINE PROTEIN 2+ (NEGATIVE); URINE RBC 15 /uL (0-23.9); URINE UROBILINOGEN 0.2 mg/dL (0.2-1.0); URINE WBC 11 /uL (0-25.8)
[2021-02-07 15:12] LABS: YEAST NONE SEEN (NEGATIVE)
== END 2021-02-07 12:40 | disposition short-term general hospital (02) ==
LOC: JER 10:57
PROC: 3E033NZ Introduction of Analgesics, Hypnotics, Sedatives into Peripheral Vein, Percutaneous Approach (ICD-10-PCS; principal; 2021-02-07)
PROC: 3E0337Z Introduction of Electrolytic and Water Balance Substance into Peripheral Vein, Percutaneous Approach (ICD-10-PCS; 2021-02-07)
PROC: 3E033GC Introduction of Other Therapeutic Substance into Peripheral Vein, Percutaneous Approach (ICD-10-PCS; 2021-02-07)
DX: R07.89 Other chest pain (principal); I21.09 ST elevation (STEMI) myocardial infarction involving other coronary artery of anterior wall
CPT/HCPCS: 36415; 71045-TC-FY; 80053; 81003; 82010; 82550; 82553; 82803; 82962; 83690; 83735; 83880; 84100; 84484; 87040; 87086; 93005; 93010; 99291; J1644

== ENCOUNTER 2021-06-05 19:08 | Emergency (ER) | payer OTHER ==
[2021-06-05 19:36] VITALS: BP 134/80; PULSE 57; TEMP 98.1; BMI 27.5
== END 2021-06-05 21:37 | disposition home or self-care (01) ==
LOC: JERFT 19:08
DX: M13.80 Other specified arthritis, unspecified site (principal)
CPT/HCPCS: 73523-TC-FY; 73552-TC-LT-FY; 73562-TC-LT-FY; 99284-25

== ENCOUNTER 2021-11-21 11:08 | Observation (INO) | payer OTHER ==
[2021-11-21 14:12] LABS: BASO % 0.7 % (0-2.0); EOS % 0.7 % (0-4.5); HEMATOCRIT 40.3 % (32.4-45.2); HEMOGLOBIN 13.1 GM/dL (10.7-15.3); LYMPH % 20.1 % (8-40); MCH 25.3 pg (25.7-33.7); MCHC 32.7 g/dl (32.0-36.0); MEAN CELL VOLUME 77.6 fl (80-96); MEAN PLT VOLUME 8.8 fl (7.5-11.1); MONO % 6.1 % (3.8-10.2); NEUT % 72.4 % (42.8-82.8); PLATELET COUNT 244 10^3/uL (134-434); RBC 5.19 M/mm3 (3.60-5.2); RDW 16.4 % (11.6-15.6); WHITE BLOOD COUNT 11.4 K/mm3 (4.0-10.0)
[2021-11-21 14:22] LABS: CHLORIDE 112 mmol/L (98-107); SODIUM 138 mmol/L (136-145)
[2021-11-21 14:24] LABS: CALCIUM 8.5 mg/dL (8.5-10.1)
[2021-11-21 14:25] LABS: ALBUMIN 2.2 g/dl (3.4-5.0); BLOOD UREA NITROGEN 34.3 mg/dL (7-18); CO2 20 mmol/L (21-32); GLUCOSE,RANDOM 83 mg/dL (74-106)
[2021-11-21 14:28] LABS: CREATININE 1.6 mg/dL (0.55-1.3); SGOT/AST 65 U/L (15-37)
[2021-11-21 14:30] LABS: BILIRUBIN,TOTAL 0.4 mg/dL (0.2-1); TOT PROT 6.4 g/dl (6.4-8.2)
[2021-11-21 14:31] LABS: ALK PHOS 156 U/L (45-117); ANION GAP 6 MMOL/L (8-16); SGPT/ALT 32 U/L (13-61)
[2021-11-21 15:15] LABS: CALCIUM 8.6 mg/dL (8.5-10.1)
[2021-11-21 15:18] LABS: CREATININE 1.4 mg/dL (0.55-1.3)
[2021-11-21] MEDS ORDERED: PARoxetine HCL 20 MG TABLET PO ONE (19:08)
[2021-11-21] MEDS ORDERED: PARoxetine HCL 10 MG TABLET ONE (19:31)
[2021-11-22] MEDS ORDERED: traMADol HCL 50 MG TABLET PO ONE (00:06)
[2021-11-22] MEDS ORDERED: ALBUTEROL SO4 0.083% IH SOL 2.5 MG/3 ML VIAL.NEB. NEB PRN (04:45)
[2021-11-22] MEDS: INSULIN SLIDING SCALE (NOVOLOG) 1 VIAL SQ SCH ×3 (06:42→16:27)
[2021-11-22 07:36] LABS: CALCIUM 8.1 mg/dL (8.5-10.1)
[2021-11-22 07:37] LABS: ALBUMIN 2.3 g/dl (3.4-5.0); BLOOD UREA NITROGEN 45.2 mg/dL (7-18); MAGNESIUM 2.2 mg/dL (1.8-2.4)
[2021-11-22 07:40] LABS: CREATININE 1.9 mg/dL (0.55-1.3)
[2021-11-22 07:41] LABS: TOT PROT 5.2 g/dl (6.4-8.2)
[2021-11-22 07:42] LABS: BASO % 0.5 % (0-2.0); BILIRUBIN,TOTAL 0.3 mg/dL (0.2-1); EOS % 2.4 % (0-4.5); HEMATOCRIT 32.9 % (32.4-45.2); HEMOGLOBIN 10.9 GM/dL (10.7-15.3); LYMPH % 30.3 % (8-40); MCH 24.9 pg (25.7-33.7); MCHC 33.1 g/dl (32.0-36.0); MEAN CELL VOLUME 75.2 fl (80-96); MEAN PLT VOLUME 8.6 fl (7.5-11.1); MONO % 9.2 % (3.8-10.2); NEUT % 57.6 % (42.8-82.8); PLATELET COUNT 224 10^3/uL (134-434); RBC 4.38 M/mm3 (3.60-5.2); WHITE BLOOD COUNT 9.4 K/mm3 (4.0-10.0)
[2021-11-22] MEDS ORDERED: SODIUM CHLORIDE 1,000 ML IV SCH (08:45)
[2021-11-22] MEDS: NICOTINE 21 MG/24 HOURS TOPICAL PATCH TD SCH (09:28)
[2021-11-22] MEDS: FUROSEMIDE 20 MG TABLET (FP) PO SCH (09:28)
[2021-11-22] MEDS: CLOPIDOGREL BISULFATE 75 MG TABLET (FP) PO SCH (09:28)
[2021-11-22] MEDS: PARoxetine HCL 20 MG TABLET PO SCH (09:28)
[2021-11-22] MEDS: ASPIRIN 81 MG CHEWABLE TABLETS PO SCH (09:29)
[2021-11-22] MEDS: amLODIPine BESYLATE 5 MG TABLET (FP) PO SCH (09:29)
[2021-11-22] MEDS ORDERED: PNEUMOC 13-VAL CONJ-DIP CRM/PF 0.5 ML DISP.SYRIN IM ONE (10:00)
[2021-11-22] MEDS ORDERED: BUDESONIDE/FORMETEROL FUMARATE 160/4.5 mcg INHALER IH SCH (10:00)
[2021-11-22] MEDS ORDERED: PNEUMOCOCCAL 23 VACCINE 0.5 ML VIAL IM ONE (10:00)
[2021-11-22] MEDS: methylPREDNISolone NA SUCC 40 MG/1 ML VIAL IVPUSH SCH ×2 (11:13→17:07)
[2021-11-22] MEDS: ALBUTEROL SO4 0.083% IH SOL 2.5 MG/3 ML VIAL.NEB. NEB SCH ×3 (11:57→20:05)
[2021-11-22] MEDS: FLUTICASONE/UMECLIDIN/VILANTER(100-62.5-25 TRELEGY ELLIPTA) INAHLER IH SCH (13:24)
[2021-11-22] MEDS: ACETAMINOPHEN 325 MG TABLET (FP) PO PRN (15:44)
[2021-11-22] MEDS: ATORVASTATIN CA 40 MG TABLET (FP) PO SCH (21:12)
[2021-11-22] MEDS: traMADol HCL 50 MG TABLET PO PRN (21:14)
[2021-11-22] MEDS ORDERED: INSULIN (NOVOLOG) ASPART 100 UNITS/ML 10ML VIAL SQ STA (21:14)
[2021-11-22] MEDS ORDERED: amLODIPine BESYLATE 5 MG TABLET (FP) PO ONE (22:03)
[2021-11-23] MEDS: methylPREDNISolone NA SUCC 40 MG/1 ML VIAL IVPUSH SCH ×3 (03:13→17:24)
[2021-11-23] MEDS ORDERED: INSULIN (LEVEMIR) 100 UNITS/ML UNITS SQ SCH ×3 (07:00→22:00)
[2021-11-23] MEDS: INSULIN SLIDING SCALE (NOVOLOG) 1 VIAL SQ SCH ×4 (07:46→22:38)
[2021-11-23 09:25] LABS: BLOOD UREA NITROGEN 40.7 mg/dL (7-18); CALCIUM 8.7 mg/dL (8.5-10.1)
[2021-11-23 09:29] LABS: CREATININE 1.6 mg/dL (0.55-1.3)
[2021-11-23] MEDS: ALBUTEROL SO4 0.083% IH SOL 2.5 MG/3 ML VIAL.NEB. NEB SCH ×3 (09:43→20:37)
[2021-11-23 10:09] LABS: SARS-CoV-2 NAA Not Detected (Not Detected)
[2021-11-23] MEDS: traMADol HCL 50 MG TABLET PO PRN (10:56)
[2021-11-23] MEDS: PARoxetine HCL 20 MG TABLET PO SCH (10:57)
[2021-11-23] MEDS: CLOPIDOGREL BISULFATE 75 MG TABLET (FP) PO SCH (10:57)
[2021-11-23] MEDS: FUROSEMIDE 20 MG TABLET (FP) PO SCH (10:57)
[2021-11-23] MEDS: NICOTINE 21 MG/24 HOURS TOPICAL PATCH TD SCH (10:57)
[2021-11-23] MEDS: FLUTICASONE/UMECLIDIN/VILANTER(100-62.5-25 TRELEGY ELLIPTA) INAHLER IH SCH (10:57)
[2021-11-23] MEDS: amLODIPine BESYLATE 5 MG TABLET (FP) PO SCH (10:57)
[2021-11-23] MEDS: ASPIRIN 81 MG CHEWABLE TABLETS PO SCH (10:57)
[2021-11-23] MEDS ORDERED: INSULIN (NOVOLOG) ASPART 100 UNITS/ML 10ML VIAL ONE ×2 (11:57→21:57)
[2021-11-23 12:14] VITALS: BMI 32.5
[2021-11-23] MEDS: SODIUM CHLORIDE 0.45% 1,000 ML IV SCH (17:23)
[2021-11-23] MEDS ORDERED: INSULIN (NOVOLOG) ASPART 100 UNITS/ML 10ML VIAL SQ ONE ×2 (18:45→22:11)
[2021-11-23] MEDS: ATORVASTATIN CA 40 MG TABLET (FP) PO SCH (21:51)
[2021-11-23] MEDS: ACETAMINOPHEN 325 MG TABLET (FP) PO PRN (23:20)
[2021-11-23] MEDS ORDERED: traMADol HCL 50 MG TABLET PO ONE (23:33)
[2021-11-24] MEDS: methylPREDNISolone NA SUCC 40 MG/1 ML VIAL IVPUSH SCH (02:20)
[2021-11-24] MEDS: SODIUM CHLORIDE 0.45% 1,000 ML IV SCH (06:58)
[2021-11-24] MEDS: ALBUTEROL SO4 0.083% IH SOL 2.5 MG/3 ML VIAL.NEB. NEB SCH ×3 (07:23→15:34)
[2021-11-24 08:17] LABS: CHLORIDE 104 mmol/L (98-107); SODIUM 133 mmol/L (136-145)
[2021-11-24 08:21] LABS: ANION GAP 8 MMOL/L (8-16); BLOOD UREA NITROGEN 43.2 mg/dL (7-18); CO2 21 mmol/L (21-32)
[2021-11-24 08:24] LABS: CREATININE 1.7 mg/dL (0.55-1.3)
[2021-11-24 08:27] LABS: GLUCOSE,RANDOM 516 mg/dL (74-106)
[2021-11-24] MEDS: INSULIN SLIDING SCALE (NOVOLOG) 1 VIAL SQ SCH ×3 (08:46→16:50)
[2021-11-24] MEDS: ASPIRIN 81 MG CHEWABLE TABLETS PO SCH (10:19)
[2021-11-24] MEDS: NICOTINE 21 MG/24 HOURS TOPICAL PATCH TD SCH (10:19)
[2021-11-24] MEDS: PARoxetine HCL 20 MG TABLET PO SCH (10:20)
[2021-11-24] MEDS: CLOPIDOGREL BISULFATE 75 MG TABLET (FP) PO SCH (10:20)
[2021-11-24] MEDS: FLUTICASONE/UMECLIDIN/VILANTER(100-62.5-25 TRELEGY ELLIPTA) INAHLER IH SCH (10:20)
[2021-11-24] MEDS: amLODIPine BESYLATE 5 MG TABLET (FP) PO SCH (10:20)
[2021-11-24] MEDS ORDERED: traMADol HCL 50 MG TABLET PO ONE (12:23)
[2021-11-24 13:33] VITALS: BP 157/97; PULSE 99; TEMP 98.2
[2021-11-24 13:37] LABS: EPI CELLS 8 /uL (0-25.1); HYALINE CASTS 0 /uL (0-3.1); PH,URINE 5.5 (5.0-8.0); URINE APPEARANCE CLEAR; URINE BACTERIA 668 /uL (0-1359); URINE BILIRUBIN NEGATIVE (NEGATIVE); URINE COLOR YELLOW; URINE GLUCOSE (UA) 3+ (NEGATIVE); URINE KETONE NEGATIVE (NEGATIVE); URINE LEUK ESTERASE NEGATIVE (NEGATIVE); URINE NITRITE NEGATIVE (NEGATIVE); URINE PROTEIN 3+ (NEGATIVE); URINE RBC 7 /uL (0-23.9); URINE UROBILINOGEN 0.2 mg/dL (0.2-1.0); URINE WBC 9 /uL (0-25.8)
== END 2021-11-24 18:02 | disposition home or self-care (01) ==
LOC: JER 11:08 → JERBED 19:06 → J7W 23:21
PROVIDERS: ADMIT Internal Medicine; ATTEND Family Medicine
PROC: 3E013VG Introduction of Insulin into Subcutaneous Tissue, Percutaneous Approach (ICD-10-PCS; principal; 2021-11-21)
PROC: 3E0337Z Introduction of Electrolytic and Water Balance Substance into Peripheral Vein, Percutaneous Approach (ICD-10-PCS; 2021-11-21)
DX: E11.65 Type 2 diabetes mellitus with hyperglycemia (principal); I11.9 Hypertensive heart disease without heart failure; I25.10 Atherosclerotic heart disease of native coronary artery without angina pectoris; I25.2 Old myocardial infarction; F31.9 Bipolar disorder, unspecified; Z95.1 Presence of aortocoronary bypass graft; E66.8 Other obesity; Z68.32 Body mass index [BMI] 32.0-32.9, adult; J45.909 Unspecified asthma, uncomplicated; F17.210 Nicotine dependence, cigarettes, uncomplicated; Z88.6 Allergy status to analgesic agent; Z91.018 Allergy to other foods; E11.649 Type 2 diabetes mellitus with hypoglycemia without coma; N17.9 Acute kidney failure, unspecified
CPT/HCPCS: 36415; 70450-TC; 71045-TC-FY; 76775-TC; 80048; 80053; 81003; 82962; 83036; 83735; 84133; 84156; 85025; 86160; 93005; 93010; 94640; 96360; 96372; 99285-25; C9803; G0378; U0003; U0005

== ENCOUNTER 2021-11-27 11:10 | Inpatient (IN) | payer OTHER ==
[2021-11-27] MEDS ORDERED: ACETAMINOPHEN 1000 MG/100 ML BAG IVPB ONE (12:24)
[2021-11-27] MEDS ORDERED: ACETAMINOPHEN INJECTION 100 ML IVPB ONE ×2 (12:33→14:40)
[2021-11-27 14:43] LABS: HEMATOCRIT 43.8 % (32.4-45.2); HEMOGLOBIN 13.9 GM/dL (10.7-15.3); MCH 24.5 pg (25.7-33.7); MCHC 31.7 g/dl (32.0-36.0); MEAN CELL VOLUME 77.4 fl (80-96); MEAN PLT VOLUME 9.1 fl (7.5-11.1); PLATELET COUNT 345 10^3/uL (134-434); RBC 5.66 M/mm3 (3.60-5.2); RDW 16.6 % (11.6-15.6); WHITE BLOOD COUNT 22.1 K/mm3 (4.0-10.0)
[2021-11-27 14:52] LABS: ACTIVATED PTT 32.2 SECONDS (25.2-36.5); INR 1.03 (0.83-1.09); PROTHROMBIN TIME (PATIENT) 11.8 SEC (9.7-13.0)
[2021-11-27 15:07] LABS: BLOOD UREA NITROGEN 60.8 mg/dL (7-18)
[2021-11-27 15:10] LABS: CREATININE 1.8 mg/dL (0.55-1.3)
[2021-11-27 15:12] LABS: BILIRUBIN,TOTAL 0.4 mg/dL (0.2-1); TOT PROT 6.5 g/dl (6.4-8.2)
[2021-11-27 15:18] LABS: ALBUMIN 2.8 g/dl (3.4-5.0)
[2021-11-27 15:25] LABS: ANISOCYTOSIS 2+; MACROCYTOSIS 0
[2021-11-27] MEDS ORDERED: SODIUM CHLORIDE 0.9% 500 ML INFUS.BAG IV ONE (15:55)
[2021-11-27] MEDS ORDERED: DEXTROSE 5%-0.45% SALINE 1,000 ML IV SCH (21:00)
[2021-11-28 03:24] VITALS: BMI 30.8
[2021-11-28 10:18] LABS: BASO % 0.5 % (0-2.0); EOS % 0.5 % (0-4.5); HEMATOCRIT 34.5 % (32.4-45.2); HEMOGLOBIN 11.2 GM/dL (10.7-15.3); LYMPH % 23.9 % (8-40); MCH 24.9 pg (25.7-33.7); MCHC 32.5 g/dl (32.0-36.0); MEAN CELL VOLUME 76.4 fl (80-96); MEAN PLT VOLUME 8.7 fl (7.5-11.1); MONO % 9.4 % (3.8-10.2); NEUT % 65.7 % (42.8-82.8); PLATELET COUNT 263 10^3/uL (134-434); RBC 4.52 M/mm3 (3.60-5.2); RDW 15.8 % (11.6-15.6); WHITE BLOOD COUNT 12.8 K/mm3 (4.0-10.0)
[2021-11-28 10:46] LABS: BLOOD UREA NITROGEN 68.1 mg/dL (7-18)
[2021-11-28 10:50] LABS: CREATININE 2.4 mg/dL (0.55-1.3)
[2021-11-28 10:52] LABS: BILIRUBIN,TOTAL 0.4 mg/dL (0.2-1); TOT PROT 5.2 g/dl (6.4-8.2)
[2021-11-28 11:08] LABS: ALBUMIN 2.1 g/dl (3.4-5.0); CALCIUM 7.3 mg/dL (8.5-10.1)
[2021-11-28] MEDS ORDERED: ACETAMINOPHEN 325 MG TABLET (FP) PO PRN (18:15)
[2021-11-28] MEDS: SODIUM CHLORIDE 0.45% 1,000 ML IV SCH (18:22)
[2021-11-28] MEDS: ATORVASTATIN CA 40 MG TABLET (FP) PO SCH (19:19)
[2021-11-28] MEDS: PARoxetine HCL 20 MG TABLET PO SCH (19:19)
[2021-11-28] MEDS: INSULIN SLIDING SCALE (NOVOLOG) 1 VIAL SQ SCH (21:20)
[2021-11-28] MEDS ORDERED: metFORMIN HCL 500 MG TABLET (FP) PO SCH (22:00)
[2021-11-29] MEDS: INSULIN SLIDING SCALE (NOVOLOG) 1 VIAL SQ SCH ×4 (06:33→21:28)
[2021-11-29 07:53] LABS: BASO % 1.3 % (0-2.0); EOS % 1.9 % (0-4.5); HEMATOCRIT 33.8 % (32.4-45.2); HEMOGLOBIN 11.1 GM/dL (10.7-15.3); LYMPH % 26.6 % (8-40); MCH 25.1 pg (25.7-33.7); MCHC 32.8 g/dl (32.0-36.0); MEAN CELL VOLUME 76.3 fl (80-96); MEAN PLT VOLUME 8.5 fl (7.5-11.1); MONO % 12.4 % (3.8-10.2); NEUT % 57.8 % (42.8-82.8); PLATELET COUNT 264 10^3/uL (134-434); RBC 4.43 M/mm3 (3.60-5.2); RDW 16.7 % (11.6-15.6); WHITE BLOOD COUNT 10.1 K/mm3 (4.0-10.0)
[2021-11-29 08:17] LABS: CALCIUM 7.2 mg/dL (8.5-10.1)
[2021-11-29 08:18] LABS: ALBUMIN 2.2 g/dl (3.4-5.0); BLOOD UREA NITROGEN 45.9 mg/dL (7-18)
[2021-11-29 08:21] LABS: CREATININE 1.7 mg/dL (0.55-1.3)
[2021-11-29 08:22] LABS: BILIRUBIN,TOTAL 0.4 mg/dL (0.2-1); TOT PROT 5.1 g/dl (6.4-8.2)
[2021-11-29] MEDS: PARoxetine HCL 20 MG TABLET PO SCH (09:44)
[2021-11-29] MEDS: ATORVASTATIN CA 40 MG TABLET (FP) PO SCH (09:45)
[2021-11-29] MEDS: SODIUM CHLORIDE 0.45% 1,000 ML IV SCH ×3 (11:17→21:28)
[2021-11-29 18:25] LABS: EPI CELLS 8 /uL (0-25.1); HYALINE CASTS 0 /uL (0-3.1); PH,URINE 6.5 (5.0-8.0); URINE APPEARANCE CLEAR; URINE BACTERIA 158 /uL (0-1359); URINE BILIRUBIN NEGATIVE (NEGATIVE); URINE COLOR YELLOW; URINE GLUCOSE (UA) 2+ (NEGATIVE); URINE KETONE NEGATIVE (NEGATIVE); URINE LEUK ESTERASE TRACE (NEGATIVE); URINE NITRITE NEGATIVE (NEGATIVE); URINE PROTEIN 2+ (NEGATIVE); URINE RBC 7 /uL (0-23.9); URINE WBC 24 /uL (0-25.8)
[2021-11-29] MEDS: FUROSEMIDE 20 MG TABLET (FP) PO SCH (18:33)
[2021-11-29] MEDS: CLOPIDOGREL BISULFATE 75 MG TABLET (FP) PO SCH (18:33)
[2021-11-29] MEDS: ASPIRIN 81 MG CHEWABLE TABLETS PO SCH (18:33)
[2021-11-30] MEDS: INSULIN (LEVEMIR) 100 UNITS/ML UNITS SQ SCH (06:28)
[2021-11-30] MEDS: INSULIN SLIDING SCALE (NOVOLOG) 1 VIAL SQ SCH ×4 (06:29→21:52)
[2021-11-30] MEDS: SODIUM CHLORIDE 0.45% 1,000 ML IV SCH (06:37)
[2021-11-30] MEDS: PARoxetine HCL 20 MG TABLET PO SCH (09:08)
[2021-11-30] MEDS: ASPIRIN 81 MG CHEWABLE TABLETS PO SCH (09:09)
[2021-11-30] MEDS: FUROSEMIDE 20 MG TABLET (FP) PO SCH (09:09)
[2021-11-30] MEDS: ATORVASTATIN CA 40 MG TABLET (FP) PO SCH (09:09)
[2021-11-30] MEDS: CLOPIDOGREL BISULFATE 75 MG TABLET (FP) PO SCH (09:09)
[2021-11-30 09:17] LABS: EOS % 3.6 % (0-4.5); HEMATOCRIT 35.7 % (32.4-45.2); HEMOGLOBIN 11.6 GM/dL (10.7-15.3); MCHC 32.6 g/dl (32.0-36.0); MEAN CELL VOLUME 76.5 fl (80-96); MEAN PLT VOLUME 8.7 fl (7.5-11.1); MONO % 11.8 % (3.8-10.2); NEUT % 55.6 % (42.8-82.8); PLATELET COUNT 279 10^3/uL (134-434); RBC 4.66 M/mm3 (3.60-5.2); RDW 16.6 % (11.6-15.6); WHITE BLOOD COUNT 7.7 K/mm3 (4.0-10.0)
[2021-11-30 09:40] LABS: CALCIUM 7.7 mg/dL (8.5-10.1)
[2021-11-30 09:41] LABS: ALBUMIN 2.2 g/dl (3.4-5.0); CREATININE 1.2 mg/dL (0.55-1.3)
[2021-11-30 09:43] LABS: BILIRUBIN,TOTAL 0.6 mg/dL (0.2-1); TOT PROT 5.4 g/dl (6.4-8.2)
[2021-11-30 09:45] LABS: BLOOD UREA NITROGEN 20.5 mg/dL (7-18)
[2021-12-01] MEDS: INSULIN (LEVEMIR) 100 UNITS/ML UNITS SQ SCH (06:24)
[2021-12-01] MEDS: INSULIN SLIDING SCALE (NOVOLOG) 1 VIAL SQ SCH ×3 (06:27→16:45)
[2021-12-01] MEDS ORDERED: INSULIN (NOVOLOG) ASPART 100 UNITS/ML 10ML VIAL ONE (06:46)
[2021-12-01] MEDS: ASPIRIN 81 MG CHEWABLE TABLETS PO SCH (09:14)
[2021-12-01] MEDS: FUROSEMIDE 20 MG TABLET (FP) PO SCH (09:14)
[2021-12-01] MEDS: ATORVASTATIN CA 40 MG TABLET (FP) PO SCH (09:14)
[2021-12-01] MEDS: CLOPIDOGREL BISULFATE 75 MG TABLET (FP) PO SCH (09:14)
[2021-12-01] MEDS: PARoxetine HCL 20 MG TABLET PO SCH (09:14)
[2021-12-01 14:00] VITALS: BP 141/81; PULSE 73; TEMP 98.5
[2021-12-01] MEDS ORDERED: traMADol HCL 50 MG TABLET PO PRN (14:17)
== END 2021-12-01 17:34 | disposition home health service (06) | DRG 347 ==
LOC: JER 11:10 → JERBED 20:05 → J6S 11-28 03:11
PROVIDERS: ADMIT Internal Medicine; ATTEND Family Medicine
DX: S32.040A Wedge compression fracture of fourth lumbar vertebra, initial encounter for closed fracture (principal); E11.649 Type 2 diabetes mellitus with hypoglycemia without coma; I25.10 Atherosclerotic heart disease of native coronary artery without angina pectoris; E78.5 Hyperlipidemia, unspecified; K86.1 Other chronic pancreatitis; I25.2 Old myocardial infarction; E11.51 Type 2 diabetes mellitus with diabetic peripheral angiopathy without gangrene; N17.9 Acute kidney failure, unspecified; E11.40 Type 2 diabetes mellitus with diabetic neuropathy, unspecified; G89.29 Other chronic pain; I12.9 Hypertensive chronic kidney disease with stage 1 through stage 4 chronic kidney disease, or unspecified chronic kidney disease; E11.22 Type 2 diabetes mellitus with diabetic chronic kidney disease; N18.9 Chronic kidney disease, unspecified; F31.9 Bipolar disorder, unspecified; E87.6 Hypokalemia; E86.0 Dehydration; J44.9 Chronic obstructive pulmonary disease, unspecified; M48.061 Spinal stenosis, lumbar region without neurogenic claudication; F14.10 Cocaine abuse, uncomplicated; M54.50 Low back pain, unspecified; I69.331 Monoplegia of upper limb following cerebral infarction affecting right dominant side; F17.200 Nicotine dependence, unspecified, uncomplicated; W01.0XXA Fall on same level from slipping, tripping and stumbling without subsequent striking against object, initial encounter; Y92.098 Other place in other non-institutional residence as the place of occurrence of the external cause; Z95.5 Presence of coronary angioplasty implant and graft; Z95.1 Presence of aortocoronary bypass graft
CPT/HCPCS: 36415; 70450-TC; 71045-TC-FY; 72125-TC; 72128-TC; 72131-TC; 72148-TC; 80053; 80061; 81003; 82962; 83036; 84484; 85025; 85610; 85730; 86850; 86900; 86901; 87086; 93005; 93010; 97116-GP; 97162-GP; 99285-25; C9803-CS; U0003; U0005

== ENCOUNTER 2022-03-02 10:36 | Inpatient (IN) | payer OTHER ==
[2022-03-02] MEDS ORDERED: ACETAMINOPHEN 1000 MG/100 ML BAG IVPB ONE (11:07)
[2022-03-02] MEDS ORDERED: SODIUM CHLORIDE 0.9% 500 ML INFUS.BAG IV ONE (11:34)
[2022-03-02 11:53] LABS: BASO % 1.5 % (0-2.0); EOS % 4.7 % (0-4.5); HEMATOCRIT 34.4 % (32.4-45.2); HEMOGLOBIN 11.4 GM/dL (10.7-15.3); LYMPH % 18.9 % (8-40); MCH 25.7 pg (25.7-33.7); MCHC 33.1 g/dl (32.0-36.0); MEAN CELL VOLUME 77.7 fl (80-96); MEAN PLT VOLUME 8.4 fl (7.5-11.1); MONO % 8.7 % (3.8-10.2); NEUT % 66.2 % (42.8-82.8); PLATELET COUNT 289 10^3/uL (134-434); RBC 4.43 M/mm3 (3.60-5.2); RDW 15.1 % (11.6-15.6); WHITE BLOOD COUNT 7.7 K/mm3 (4.0-10.0)
[2022-03-02 12:00] LABS: INR 1.1 (0.83-1.09); PROTHROMBIN TIME (PATIENT) 12.7 SEC (9.7-13.0)
[2022-03-02 12:02] LABS: ACTIVATED PTT 36.1 SECONDS (25.2-36.5)
[2022-03-02 12:17] LABS: CHLORIDE 111 mmol/L (98-107); SODIUM 141 mmol/L (136-145)
[2022-03-02 12:19] LABS: ALBUMIN 2.7 g/dl (3.4-5.0); ANION GAP 12 MMOL/L (8-16); CO2 19 mmol/L (21-32); GLUCOSE,RANDOM 114 mg/dL (74-106); MAGNESIUM 2.5 mg/dL (1.8-2.4)
[2022-03-02 12:20] LABS: LIPASE 86 U/L (73-393)
[2022-03-02 12:22] LABS: SGOT/AST 15 U/L (15-37); SGPT/ALT 18 U/L (13-61)
[2022-03-02 12:24] LABS: BILIRUBIN,TOTAL 0.4 mg/dL (0.2-1); TOT PROT 6.3 g/dl (6.4-8.2)
[2022-03-02 12:25] LABS: ALK PHOS 91 U/L (45-117)
[2022-03-02 12:26] LABS: BLOOD UREA NITROGEN 119.4 mg/dL (7-18); CREATININE 12.1 mg/dL (0.55-1.3)
[2022-03-02] MEDS ORDERED: ACETAMINOPHEN INJECTION 100 ML IVPB ONE (13:15)
[2022-03-02 13:42] LABS: EPI CELLS 16 /uL (0-25.1); HYALINE CASTS 1 /uL (0-3.1); PH,URINE 5.5 (5.0-8.0); URINE APPEARANCE CLEAR; URINE BACTERIA 73 /uL (0-1359); URINE BILIRUBIN NEGATIVE (NEGATIVE); URINE COLOR YELLOW; URINE GLUCOSE (UA) TRACE (NEGATIVE); URINE KETONE NEGATIVE (NEGATIVE); URINE LEUK ESTERASE NEGATIVE (NEGATIVE); URINE NITRITE NEGATIVE (NEGATIVE); URINE PROTEIN 3+ (NEGATIVE); URINE RBC 10 /uL (0-23.9); URINE UROBILINOGEN 0.2 mg/dL (0.2-1.0); URINE WBC 50 /uL (0-25.8)
[2022-03-02] MEDS ORDERED: SODIUM CHLORIDE 0.45% 1,000 ML IV SCH (14:30)
[2022-03-02] MEDS: SODIUM CHLORIDE 0.9% 500 ML INFUS.BAG IV ONE ×2 (16:00→17:04)
[2022-03-02 17:05] LABS: CHLORIDE 113 mmol/L (98-107); SODIUM 144 mmol/L (136-145)
[2022-03-02 17:07] LABS: CALCIUM 7.5 mg/dL (8.5-10.1)
[2022-03-02 17:08] LABS: ANION GAP 15 MMOL/L (8-16); CO2 16 mmol/L (21-32); GLUCOSE,RANDOM 101 mg/dL (74-106)
[2022-03-02 17:11] LABS: BLOOD UREA NITROGEN 115.9 mg/dL (7-18); CREATININE 11.9 mg/dL (0.55-1.3); PHOSPHOROUS 7.8 mg/dL (2.5-4.9)
[2022-03-02] MEDS ORDERED: SODIUM ZIRCONIUM CYCLOSILICATE (LOKELMA) 5 GM PACKET PO ONE (19:03)
[2022-03-02] MEDS ORDERED: SODIUM ZIRCONIUM CYCLOSILICATE (LOKELMA) 5 GM PACKET ONE (19:43)
[2022-03-02] MEDS: INSULIN SLIDING SCALE (NOVOLOG) 1 VIAL SQ SCH (23:54)
[2022-03-02] MEDS ORDERED: ATORVASTATIN CA 40 MG TABLET (FP) ONE (23:57)
[2022-03-03] MEDS: ATORVASTATIN CA 40 MG TABLET (FP) PO SCH ×2 (00:02→22:26)
[2022-03-03] MEDS: INSULIN SLIDING SCALE (NOVOLOG) 1 VIAL SQ SCH ×4 (07:32→22:26)
[2022-03-03] MEDS ORDERED: CLOPIDOGREL BISULFATE 75 MG TABLET (FP) ONE (07:42)
[2022-03-03] MEDS ORDERED: PARoxetine HCL 10 MG TABLET ONE (07:43)
[2022-03-03] MEDS ORDERED: ASPIRIN 81 MG CHEWABLE TABLETS ONE (07:43)
[2022-03-03] MEDS ORDERED: SODIUM CHLORIDE 0.45% 1,000 ML with SODIUM BICARBONATE 8.4% - 50 MEQ IV SCH (09:00)
[2022-03-03] MEDS ORDERED: amLODIPine BESYLATE 5 MG TABLET (FP) PO SCH (10:00)
[2022-03-03] MEDS ORDERED: amLODIPine BESYLATE 10 MG TABLET (FP) ONE ×2 (10:37→17:33)
[2022-03-03 10:53] LABS: HEMATOCRIT 32.4 % (32.4-45.2); HEMOGLOBIN 10.5 GM/dL (10.7-15.3); MCH 25.2 pg (25.7-33.7); MCHC 32.4 g/dl (32.0-36.0); MEAN CELL VOLUME 77.7 fl (80-96); MEAN PLT VOLUME 8.9 fl (7.5-11.1); PLATELET COUNT 290 10^3/uL (134-434); RBC 4.16 M/mm3 (3.60-5.2); RDW 15.5 % (11.6-15.6); WHITE BLOOD COUNT 7.2 K/mm3 (4.0-10.0)
[2022-03-03] MEDS ORDERED: Methylnaltrexone Bromide 12 MG/0.6 ML KIT SQ ONE (11:07)
[2022-03-03 11:36] LABS: CHLORIDE 111 mmol/L (98-107); SODIUM 139 mmol/L (136-145)
[2022-03-03 11:39] LABS: CALCIUM 7.5 mg/dL (8.5-10.1)
[2022-03-03 11:40] LABS: ANION GAP 13 MMOL/L (8-16); CO2 15 mmol/L (21-32); GLUCOSE,RANDOM 163 mg/dL (74-106); MAGNESIUM 2.5 mg/dL (1.8-2.4)
[2022-03-03 11:44] LABS: CREATININE 11.3 mg/dL (0.55-1.3)
[2022-03-03] MEDS ORDERED: SODIUM BICARBONATE 8.4% 50 MEQ/50 ML DISP.SYRIN IVPUSH ONE (12:00)
[2022-03-03] MEDS: SODIUM BICARBONATE 8.4% - 50 MEQ in SODIUM CHLORIDE 0.45% 1,000 ML IV SCH ×2 (12:44→22:26)
[2022-03-03] MEDS: PARoxetine HCL 20 MG TABLET PO SCH (12:45)
[2022-03-03] MEDS: CLOPIDOGREL BISULFATE 75 MG TABLET (FP) PO SCH (12:45)
[2022-03-03] MEDS: ASPIRIN 81 MG CHEWABLE TABLETS PO SCH (12:45)
[2022-03-03] MEDS: CALCIUM ACETATE 667 MG CAPSULE (FP) PO SCH ×2 (12:46→18:13)
[2022-03-03] MEDS ORDERED: SODIUM BICARBONATE 8.4% - 50 ML ONE (12:50)
[2022-03-03] MEDS: amLODIPine BESYLATE 10 MG TABLET (FP) PO SCH (18:13)
[2022-03-03] MEDS ORDERED: ATORVASTATIN CA 40 MG TABLET (FP) ONE (22:10)
[2022-03-03] MEDS ORDERED: HEPARIN NA (PORCINE) 5,000 UNITS/ML 1ML VIAL ONE (22:10)
[2022-03-03] MEDS: SODIUM BICARBONATE 650 MG TABLET PO SCH (22:26)
[2022-03-03] MEDS: HEPARIN NA (PORCINE) 5,000 UNITS/ML 1ML VIAL SQ SCH (22:26)
[2022-03-04] MEDS: HEPARIN NA (PORCINE) 5,000 UNITS/ML 1ML VIAL SQ SCH ×3 (07:18→22:35)
[2022-03-04] MEDS: SODIUM BICARBONATE 8.4% - 50 MEQ in SODIUM CHLORIDE 0.45% 1,000 ML IV SCH ×2 (07:18→15:57)
[2022-03-04] MEDS: INSULIN SLIDING SCALE (NOVOLOG) 1 VIAL SQ SCH ×4 (07:26→22:38)
[2022-03-04] MEDS: CALCIUM ACETATE 667 MG CAPSULE (FP) PO SCH ×3 (08:00→17:25)
[2022-03-04 08:44] LABS: BASO % 1.3 % (0-2.0); EOS % 6.2 % (0-4.5); HEMOGLOBIN 10.6 GM/dL (10.7-15.3); MCH 25.7 pg (25.7-33.7); MCHC 33.1 g/dl (32.0-36.0); MEAN CELL VOLUME 77.6 fl (80-96); MEAN PLT VOLUME 8.2 fl (7.5-11.1); MONO % 11.1 % (3.8-10.2); NEUT % 53.4 % (42.8-82.8); PLATELET COUNT 260 10^3/uL (134-434); RBC 4.12 M/mm3 (3.60-5.2); RDW 15.2 % (11.6-15.6); WHITE BLOOD COUNT 6.4 K/mm3 (4.0-10.0)
[2022-03-04 09:11] LABS: CHLORIDE 111 mmol/L (98-107); SODIUM 141 mmol/L (136-145)
[2022-03-04 09:13] LABS: CALCIUM 7.2 mg/dL (8.5-10.1); GLUCOSE,RANDOM 90 mg/dL (74-106)
[2022-03-04 09:14] LABS: ALBUMIN 2.6 g/dl (3.4-5.0); ANION GAP 12 MMOL/L (8-16); CO2 18 mmol/L (21-32); MAGNESIUM 2.4 mg/dL (1.8-2.4)
[2022-03-04 09:16] LABS: SGOT/AST 14 U/L (15-37); SGPT/ALT 19 U/L (13-61)
[2022-03-04 09:17] LABS: PHOSPHOROUS 7.4 mg/dL (2.5-4.9)
[2022-03-04 09:18] LABS: BILIRUBIN,TOTAL 0.2 mg/dL (0.2-1); TOT PROT 5.7 g/dl (6.4-8.2)
[2022-03-04 09:19] LABS: ALK PHOS 91 U/L (45-117); BLOOD UREA NITROGEN 111.3 mg/dL (7-18); CREATININE 10.4 mg/dL (0.55-1.3)
[2022-03-04] MEDS: PARoxetine HCL 20 MG TABLET PO SCH (11:43)
[2022-03-04] MEDS: SODIUM BICARBONATE 650 MG TABLET PO SCH ×2 (11:43→22:35)
[2022-03-04] MEDS: ASPIRIN 81 MG CHEWABLE TABLETS PO SCH (11:43)
[2022-03-04] MEDS: amLODIPine BESYLATE 10 MG TABLET (FP) PO SCH (11:43)
[2022-03-04] MEDS: NICOTINE 21 MG/24 HOURS TOPICAL PATCH TD SCH ×2 (11:46→11:52)
[2022-03-04] MEDS: CLOPIDOGREL BISULFATE 75 MG TABLET (FP) PO SCH (11:53)
[2022-03-04 12:53] VITALS: BMI 33.5
[2022-03-04] MEDS: ATORVASTATIN CA 40 MG TABLET (FP) PO SCH (22:35)
[2022-03-05] MEDS: SODIUM BICARBONATE 8.4% - 50 MEQ in SODIUM CHLORIDE 0.45% 1,000 ML IV SCH ×2 (00:17→12:00)
[2022-03-05] MEDS: HEPARIN NA (PORCINE) 5,000 UNITS/ML 1ML VIAL SQ SCH ×3 (06:35→22:07)
[2022-03-05] MEDS: INSULIN SLIDING SCALE (NOVOLOG) 1 VIAL SQ SCH ×4 (06:42→22:11)
[2022-03-05 08:18] LABS: BASO % 1.2 % (0-2.0); EOS % 5.8 % (0-4.5); HEMATOCRIT 31.8 % (32.4-45.2); HEMOGLOBIN 10.6 GM/dL (10.7-15.3); LYMPH % 30.5 % (8-40); MCH 25.9 pg (25.7-33.7); MCHC 33.4 g/dl (32.0-36.0); MEAN CELL VOLUME 77.4 fl (80-96); MEAN PLT VOLUME 8.7 fl (7.5-11.1); MONO % 9.1 % (3.8-10.2); NEUT % 53.4 % (42.8-82.8); PLATELET COUNT 264 10^3/uL (134-434); RBC 4.11 M/mm3 (3.60-5.2); RDW 15.6 % (11.6-15.6); WHITE BLOOD COUNT 5.7 K/mm3 (4.0-10.0)
[2022-03-05 08:21] LABS: CHLORIDE 108 mmol/L (98-107); SODIUM 141 mmol/L (136-145)
[2022-03-05 08:23] LABS: ALBUMIN 2.6 g/dl (3.4-5.0); ANION GAP 11 MMOL/L (8-16); BLOOD UREA NITROGEN 103.9 mg/dL (7-18); CO2 22 mmol/L (21-32); GLUCOSE,RANDOM 113 mg/dL (74-106)
[2022-03-05 08:25] LABS: SGOT/AST 11 U/L (15-37); SGPT/ALT 16 U/L (13-61)
[2022-03-05 08:28] LABS: ALK PHOS 89 U/L (45-117); BILIRUBIN,TOTAL 0.3 mg/dL (0.2-1); TOT PROT 5.8 g/dl (6.4-8.2)
[2022-03-05 08:29] LABS: CALCIUM 6.9 mg/dL (8.5-10.1)
[2022-03-05] MEDS: CALCIUM ACETATE 667 MG CAPSULE (FP) PO SCH ×3 (08:55→18:19)
[2022-03-05] MEDS: amLODIPine BESYLATE 10 MG TABLET (FP) PO SCH (09:28)
[2022-03-05] MEDS: PARoxetine HCL 20 MG TABLET PO SCH (09:28)
[2022-03-05] MEDS: CLOPIDOGREL BISULFATE 75 MG TABLET (FP) PO SCH (09:28)
[2022-03-05] MEDS: ASPIRIN 81 MG CHEWABLE TABLETS PO SCH (09:28)
[2022-03-05] MEDS: SODIUM BICARBONATE 650 MG TABLET PO SCH ×2 (09:28→22:07)
[2022-03-05] MEDS: NICOTINE 21 MG/24 HOURS TOPICAL PATCH TD SCH (09:28)
[2022-03-05] MEDS: CALCIUM CARBONATE 650 MG TABLET PO SCH ×4 (16:45→22:07)
[2022-03-05] MEDS: SODIUM CHLORIDE 0.45% 1,000 ML IV SCH (17:47)
[2022-03-05] MEDS ORDERED: PROCHLORPERAZINE INJECTION 10 MG/2 ML VIAL IVPB ONE (20:10)
[2022-03-05] MEDS: ATORVASTATIN CA 40 MG TABLET (FP) PO SCH (22:07)
[2022-03-06] MEDS: SODIUM CHLORIDE 0.45% 1,000 ML IV SCH (01:32)
[2022-03-06] MEDS: INSULIN SLIDING SCALE (NOVOLOG) 1 VIAL SQ SCH ×4 (06:08→23:26)
[2022-03-06] MEDS: HEPARIN NA (PORCINE) 5,000 UNITS/ML 1ML VIAL SQ SCH ×3 (06:08→22:00)
[2022-03-06] MEDS ORDERED: NALOXONE HCL 0.4 MG/ML VIAL IVPUSH PRN (07:39)
[2022-03-06 09:24] LABS: METHADONE, UR NEGATIVE (NEGATIVE); OPIATES, URI NEGATIVE (NEGATIVE); PHENCYCLIDINE,URINE NEGATIVE (NEGATIVE); URINE AMPHETAMINES NEGATIVE (NEGATIVE); URINE BARBITURATES NEGATIVE (NEGATIVE); URINE BENZODIAZEPINES NEGATIVE (NEGATIVE)
[2022-03-06 09:39] LABS: COCAINE, UR POSITIVE (NEGATIVE)
[2022-03-06 09:58] LABS: CHLORIDE 106 mmol/L (98-107); SODIUM 140 mmol/L (136-145)
[2022-03-06 10:13] LABS: ALBUMIN 2.6 g/dl (3.4-5.0); CALCIUM 7.3 mg/dL (8.5-10.1)
[2022-03-06 10:15] LABS: ANION GAP 14 MMOL/L (8-16); BLOOD UREA NITROGEN 98.8 mg/dL (7-18); CO2 20 mmol/L (21-32); GLUCOSE,RANDOM 97 mg/dL (74-106); MAGNESIUM 2.2 mg/dL (1.8-2.4)
[2022-03-06 10:18] LABS: PHOSPHOROUS 5.8 mg/dL (2.5-4.9); SGOT/AST 12 U/L (15-37); SGPT/ALT 16 U/L (13-61); TOT PROT 5.9 g/dl (6.4-8.2)
[2022-03-06 10:24] LABS: ALK PHOS 93 U/L (45-117); BILIRUBIN,TOTAL 0.5 mg/dL (0.2-1); CREATININE 9.6 mg/dL (0.55-1.3)
[2022-03-06] MEDS: NICOTINE 21 MG/24 HOURS TOPICAL PATCH TD SCH (10:49)
[2022-03-06] MEDS: amLODIPine BESYLATE 10 MG TABLET (FP) PO SCH (10:50)
[2022-03-06] MEDS: ASPIRIN 81 MG CHEWABLE TABLETS PO SCH (10:50)
[2022-03-06] MEDS: CALCIUM CARBONATE 650 MG TABLET PO SCH ×2 (10:50→23:26)
[2022-03-06] MEDS: CALCIUM ACETATE 667 MG CAPSULE (FP) PO SCH ×3 (10:50→16:50)
[2022-03-06] MEDS: SODIUM BICARBONATE 650 MG TABLET PO SCH ×2 (10:50→22:00)
[2022-03-06] MEDS: CLOPIDOGREL BISULFATE 75 MG TABLET (FP) PO SCH (10:50)
[2022-03-06] MEDS: PARoxetine HCL 20 MG TABLET PO SCH (10:50)
[2022-03-06] MEDS: SODIUM CHLORIDE 0.45% 500 ML IV SCH ×3 (14:48→22:00)
[2022-03-06] MEDS: ATORVASTATIN CA 40 MG TABLET (FP) PO SCH (22:00)
[2022-03-06] MEDS ORDERED: cloNIDine-TTS 0.1 MG/24 HRS PATCH.TDWK TD ONE (23:25)
[2022-03-06] MEDS ORDERED: cloNIDine HCL 0.1 MG TABLET PO ONE (23:33)
[2022-03-07] MEDS: SODIUM CHLORIDE 0.45% 500 ML IV SCH ×4 (04:21→21:57)
[2022-03-07] MEDS: HEPARIN NA (PORCINE) 5,000 UNITS/ML 1ML VIAL SQ SCH ×3 (05:52→21:58)
[2022-03-07] MEDS ORDERED: LOSARTAN POTASSIUM 25 MG TABLET PO ONE (06:44)
[2022-03-07] MEDS: INSULIN SLIDING SCALE (NOVOLOG) 1 VIAL SQ SCH ×4 (08:01→21:58)
[2022-03-07] MEDS: amLODIPine BESYLATE 10 MG TABLET (FP) PO SCH (11:20)
[2022-03-07] MEDS: PARoxetine HCL 20 MG TABLET PO SCH (11:21)
[2022-03-07] MEDS: CLOPIDOGREL BISULFATE 75 MG TABLET (FP) PO SCH (11:21)
[2022-03-07] MEDS: ASPIRIN 81 MG CHEWABLE TABLETS PO SCH (11:22)
[2022-03-07] MEDS: NICOTINE 21 MG/24 HOURS TOPICAL PATCH TD SCH (11:22)
[2022-03-07] MEDS: CALCIUM ACETATE 667 MG CAPSULE (FP) PO SCH ×3 (11:22→19:33)
[2022-03-07] MEDS: CALCIUM CARBONATE 650 MG TABLET PO SCH ×2 (15:12→21:58)
[2022-03-07] MEDS: SODIUM BICARBONATE 650 MG TABLET PO SCH ×2 (15:12→21:58)
[2022-03-07] MEDS ORDERED: INSULIN (NOVOLOG) ASPART 100 UNITS/ML 10ML VIAL ONE (21:52)
[2022-03-07] MEDS: ATORVASTATIN CA 40 MG TABLET (FP) PO SCH (21:58)
[2022-03-08] MEDS: SODIUM CHLORIDE 0.45% 500 ML IV SCH ×2 (03:00→11:15)
[2022-03-08] MEDS: HEPARIN NA (PORCINE) 5,000 UNITS/ML 1ML VIAL SQ SCH ×3 (06:12→21:40)
[2022-03-08] MEDS: INSULIN SLIDING SCALE (NOVOLOG) 1 VIAL SQ SCH ×4 (06:13→21:40)
[2022-03-08 09:23] LABS: CHLORIDE 107 mmol/L (98-107); SODIUM 140 mmol/L (136-145)
[2022-03-08 09:30] LABS: ALBUMIN 2.2 g/dl (3.4-5.0); BLOOD UREA NITROGEN 101.4 mg/dL (7-18); CALCIUM 7.4 mg/dL (8.5-10.1); GLUCOSE,RANDOM 133 mg/dL (74-106)
[2022-03-08 09:32] LABS: ANION GAP 12 MMOL/L (8-16); CO2 22 mmol/L (21-32)
[2022-03-08 09:33] LABS: SGPT/ALT 24 U/L (13-61)
[2022-03-08 09:34] LABS: SGOT/AST 27 U/L (15-37)
[2022-03-08 09:36] LABS: ALK PHOS 99 U/L (45-117); BILIRUBIN,TOTAL 0.5 mg/dL (0.2-1); TOT PROT 5.5 g/dl (6.4-8.2)
[2022-03-08 09:39] LABS: CREATININE 10.1 mg/dL (0.55-1.3)
[2022-03-08] MEDS: CALCIUM CARBONATE 650 MG TABLET PO SCH ×2 (11:00→21:40)
[2022-03-08] MEDS: CALCIUM ACETATE 667 MG CAPSULE (FP) PO SCH ×3 (11:00→16:35)
[2022-03-08] MEDS: ASPIRIN 81 MG CHEWABLE TABLETS PO SCH (11:00)
[2022-03-08] MEDS: NICOTINE 21 MG/24 HOURS TOPICAL PATCH TD SCH (11:04)
[2022-03-08] MEDS: CLOPIDOGREL BISULFATE 75 MG TABLET (FP) PO SCH ×2 (11:05→11:16)
[2022-03-08] MEDS: PARoxetine HCL 20 MG TABLET PO SCH ×2 (11:05→11:16)
[2022-03-08] MEDS: amLODIPine BESYLATE 10 MG TABLET (FP) PO SCH ×2 (11:05→11:16)
[2022-03-08] MEDS: SODIUM BICARBONATE 650 MG TABLET PO SCH ×3 (11:05→21:40)
[2022-03-08] MEDS ORDERED: SODIUM CHLORIDE 1,000 ML IV STA (12:19)
[2022-03-08] MEDS: ACETAMINOPHEN 1000 MG/100 ML BAG IVPB PRN (18:25)
[2022-03-08] MEDS: SODIUM CHLORIDE 1,000 ML IV SCH (21:39)
[2022-03-08] MEDS: ATORVASTATIN CA 40 MG TABLET (FP) PO SCH (21:40)
[2022-03-08 21:52] LABS: EPI CELLS 3 /uL (0-25.1); HYALINE CASTS 1 /uL (0-3.1); URINE APPEARANCE CLOUDY; URINE BACTERIA 5139 /uL (0-1359); URINE BILIRUBIN NEGATIVE (NEGATIVE); URINE COLOR YELLOW; URINE GLUCOSE (UA) 1+ (NEGATIVE); URINE KETONE TRACE (NEGATIVE); URINE LEUK ESTERASE 2+ (NEGATIVE); URINE NITRITE POSITIVE (NEGATIVE); URINE PROTEIN 3+ (NEGATIVE); URINE RBC 66 /uL (0-23.9); URINE UROBILINOGEN 0.2 mg/dL (0.2-1.0); URINE WBC 2459 /uL (0-25.8)
[2022-03-09] MEDS: ACETAMINOPHEN 1000 MG/100 ML BAG IVPB PRN ×2 (00:03→06:09)
[2022-03-09] MEDS ORDERED: cefTRIAXone SODIUM 1 GM VIAL ONE ×2 (00:36→09:12)
[2022-03-09] MEDS ORDERED: DEXTROSE 5%-WATER - 50 ML IVPB ONE ×2 (00:37→09:12)
[2022-03-09] MEDS: CEFTRIAXONE 1 GM in DEXTROSE 5%-WATER - 50 ML IVPB SCH ×2 (00:39→09:18)
[2022-03-09] MEDS: SODIUM CHLORIDE 1,000 ML IV SCH ×3 (05:11→22:42)
[2022-03-09] MEDS: HEPARIN NA (PORCINE) 5,000 UNITS/ML 1ML VIAL SQ SCH ×3 (05:21→22:42)
[2022-03-09] MEDS: INSULIN SLIDING SCALE (NOVOLOG) 1 VIAL SQ SCH ×4 (06:12→22:42)
[2022-03-09] MEDS: PARoxetine HCL 20 MG TABLET PO SCH (09:10)
[2022-03-09] MEDS: CLOPIDOGREL BISULFATE 75 MG TABLET (FP) PO SCH (09:10)
[2022-03-09] MEDS: amLODIPine BESYLATE 10 MG TABLET (FP) PO SCH (09:10)
[2022-03-09] MEDS: ASPIRIN 81 MG CHEWABLE TABLETS PO SCH (09:10)
[2022-03-09] MEDS: SODIUM BICARBONATE 650 MG TABLET PO SCH ×2 (09:10→22:42)
[2022-03-09] MEDS: CALCIUM ACETATE 667 MG CAPSULE (FP) PO SCH ×3 (09:10→16:46)
[2022-03-09] MEDS: CALCIUM CARBONATE 650 MG TABLET PO SCH ×2 (09:10→22:42)
[2022-03-09] MEDS: NICOTINE 21 MG/24 HOURS TOPICAL PATCH TD SCH (09:18)
[2022-03-09] MEDS ORDERED: SODIUM CHLORIDE 1,000 ML IV STA ×2 (10:50→10:51)
[2022-03-09 11:07] LABS: ANTIGLOMERULAR BASEMENT MEN.AB 3 units (0-20)
[2022-03-09] MEDS ORDERED: VANCOMYCIN 1 GM/200 ML PREMIX BAG IVPB ONE (13:01)
[2022-03-09 15:26] LABS: HEMATOCRIT 27.5 % (32.4-45.2); HEMOGLOBIN 8.9 GM/dL (10.7-15.3); MCH 25.2 pg (25.7-33.7); MCHC 32.5 g/dl (32.0-36.0); MEAN CELL VOLUME 77.3 fl (80-96); MEAN PLT VOLUME 9.4 fl (7.5-11.1); PLATELET COUNT 144 10^3/uL (134-434); RBC 3.56 M/mm3 (3.60-5.2); RDW 15.3 % (11.6-15.6); WHITE BLOOD COUNT 13.6 K/mm3 (4.0-10.0)
[2022-03-09 15:53] LABS: CHLORIDE 108 mmol/L (98-107); SODIUM 138 mmol/L (136-145)
[2022-03-09 15:55] LABS: ANION GAP 13 MMOL/L (8-16); BLOOD UREA NITROGEN 93.5 mg/dL (7-18); CO2 18 mmol/L (21-32); GLUCOSE,RANDOM 139 mg/dL (74-106)
[2022-03-09 15:58] LABS: SGOT/AST 51 U/L (15-37); SGPT/ALT 33 U/L (13-61)
[2022-03-09 16:00] LABS: BILIRUBIN,TOTAL 0.6 mg/dL (0.2-1); TOT PROT 5.2 g/dl (6.4-8.2)
[2022-03-09 16:01] LABS: ALK PHOS 112 U/L (45-117)
[2022-03-09 16:07] LABS: ATYPICAL pANCA <1:20 titer (Neg:<1:20); C-ANCA <1:20 titer (Neg:<1:20)
[2022-03-09 16:30] LABS: CALCIUM 6.8 mg/dL (8.5-10.1); CREATININE 8.7 mg/dL (0.55-1.3)
[2022-03-09 16:49] LABS: ANISOCYTOSIS 1+; MACROCYTOSIS 0
[2022-03-09 16:54] LABS: PLATELET ESTIMATE ADEQUATE
[2022-03-09] MEDS ORDERED: SODIUM CHLORIDE 0.9% 500 ML INFUS.BAG IV ONE (21:50)
[2022-03-09] MEDS ORDERED: ACETAMINOPHEN 325 MG TABLET (FP) PO PRN (22:15)
[2022-03-09] MEDS ORDERED: ACETAMINOPHEN 1000 MG/100 ML BAG IVPB PRN (22:32)
[2022-03-09] MEDS: ATORVASTATIN CA 40 MG TABLET (FP) PO SCH (22:42)
[2022-03-10] MEDS ORDERED: FUROSEMIDE 40 MG/4 ML INJECTABLE VIAL IVPUSH ONE (00:33)
[2022-03-10] MEDS: HEPARIN NA (PORCINE) 5,000 UNITS/ML 1ML VIAL SQ SCH ×2 (06:33→14:31)
[2022-03-10] MEDS: INSULIN SLIDING SCALE (NOVOLOG) 1 VIAL SQ SCH ×4 (06:35→22:26)
[2022-03-10] MEDS: CALCIUM ACETATE 667 MG CAPSULE (FP) PO SCH ×3 (08:01→17:13)
[2022-03-10] MEDS ORDERED: SODIUM CHLORIDE 1,000 ML IV STA (08:14)
[2022-03-10] MEDS ORDERED: cefTRIAXone SODIUM 1 GM VIAL ONE (10:02)
[2022-03-10] MEDS ORDERED: DEXTROSE 5%-WATER - 50 ML IVPB ONE (10:03)
[2022-03-10] MEDS: CEFTRIAXONE 1 GM in DEXTROSE 5%-WATER - 50 ML IVPB SCH (11:01)
[2022-03-10] MEDS: ASPIRIN 81 MG CHEWABLE TABLETS PO SCH (11:02)
[2022-03-10] MEDS: SODIUM BICARBONATE 650 MG TABLET PO SCH ×2 (11:02→22:23)
[2022-03-10] MEDS: amLODIPine BESYLATE 10 MG TABLET (FP) PO SCH (11:03)
[2022-03-10] MEDS: CLOPIDOGREL BISULFATE 75 MG TABLET (FP) PO SCH (11:03)
[2022-03-10] MEDS: NICOTINE 21 MG/24 HOURS TOPICAL PATCH TD SCH (11:03)
[2022-03-10] MEDS: PARoxetine HCL 20 MG TABLET PO SCH (11:03)
[2022-03-10] MEDS: CALCIUM CARBONATE 650 MG TABLET PO SCH ×2 (11:10→22:27)
[2022-03-10 12:31] LABS: HEMATOCRIT 27.2 % (32.4-45.2); MCH 25.2 pg (25.7-33.7); MEAN CELL VOLUME 76.4 fl (80-96); MEAN PLT VOLUME 9.3 fl (7.5-11.1); PLATELET COUNT 155 10^3/uL (134-434); RBC 3.56 M/mm3 (3.60-5.2); RDW 15.3 % (11.6-15.6); WHITE BLOOD COUNT 14.3 K/mm3 (4.0-10.0)
[2022-03-10 12:59] LABS: CHLORIDE 107 mmol/L (98-107); SODIUM 138 mmol/L (136-145)
[2022-03-10 13:01] LABS: CALCIUM 7.3 mg/dL (8.5-10.1)
[2022-03-10 13:02] LABS: ALBUMIN 2.1 g/dl (3.4-5.0); ANION GAP 16 MMOL/L (8-16); CO2 15 mmol/L (21-32); GLUCOSE,RANDOM 110 mg/dL (74-106)
[2022-03-10 13:05] LABS: SGOT/AST 55 U/L (15-37); SGPT/ALT 37 U/L (13-61)
[2022-03-10 13:06] LABS: BILIRUBIN,TOTAL 0.9 mg/dL (0.2-1); TOT PROT 5.6 g/dl (6.4-8.2); TOTAL IRON BINDING CAPACITY 146 ug/dL (250-450)
[2022-03-10 13:10] LABS: ALK PHOS 148 U/L (45-117)
[2022-03-10 13:16] LABS: ANISOCYTOSIS 2+; MACROCYTOSIS 0
[2022-03-10] MEDS: ATORVASTATIN CA 40 MG TABLET (FP) PO SCH (22:22)
[2022-03-11] MEDS: SODIUM BICARBONATE 650 MG TABLET PO SCH ×3 (06:21→22:16)
[2022-03-11] MEDS: INSULIN SLIDING SCALE (NOVOLOG) 1 VIAL SQ SCH ×4 (06:29→22:15)
[2022-03-11] MEDS ORDERED: DEXTROSE 5%-WATER - 50 ML IVPB ONE ×2 (10:30→14:09)
[2022-03-11] MEDS ORDERED: cefTRIAXone SODIUM 1 GM VIAL ONE (10:30)
[2022-03-11] MEDS: ASPIRIN 81 MG CHEWABLE TABLETS PO SCH (10:37)
[2022-03-11] MEDS: CALCIUM ACETATE 667 MG CAPSULE (FP) PO SCH ×3 (10:37→17:08)
[2022-03-11] MEDS: NICOTINE 21 MG/24 HOURS TOPICAL PATCH TD SCH (10:37)
[2022-03-11] MEDS: CEFTRIAXONE 1 GM in DEXTROSE 5%-WATER - 50 ML IVPB SCH (10:37)
[2022-03-11] MEDS: PARoxetine HCL 20 MG TABLET PO SCH (10:37)
[2022-03-11] MEDS: CLOPIDOGREL BISULFATE 75 MG TABLET (FP) PO SCH (10:37)
[2022-03-11] MEDS: amLODIPine BESYLATE 10 MG TABLET (FP) PO SCH (10:37)
[2022-03-11] MEDS: CALCIUM CARBONATE 650 MG TABLET PO SCH ×2 (10:52→22:14)
[2022-03-11] MEDS: ACETAMINOPHEN 325 MG TABLET (FP) PO PRN (12:15)
[2022-03-11] MEDS ORDERED: ceFAZolin SODIUM 1 GM VIAL ONE (14:09)
[2022-03-11] MEDS: CEFAZOLIN 1 GM in DEXTROSE 5%-WATER - 50 ML IVPB SCH (14:15)
[2022-03-11 14:45] LABS: CHLORIDE 104 mmol/L (98-107); SODIUM 135 mmol/L (136-145)
[2022-03-11 14:47] LABS: CALCIUM 7.5 mg/dL (8.5-10.1)
[2022-03-11 14:48] LABS: ALBUMIN 1.9 g/dl (3.4-5.0); ANION GAP 15 MMOL/L (8-16); BLOOD UREA NITROGEN 97.5 mg/dL (7-18); CO2 16 mmol/L (21-32); GLUCOSE,RANDOM 116 mg/dL (74-106)
[2022-03-11 14:51] LABS: SGOT/AST 42 U/L (15-37); SGPT/ALT 35 U/L (13-61)
[2022-03-11 14:52] LABS: BILIRUBIN,TOTAL 0.8 mg/dL (0.2-1); TOT PROT 5.5 g/dl (6.4-8.2)
[2022-03-11 14:54] LABS: ALK PHOS 242 U/L (45-117); CREATININE 8.4 mg/dL (0.55-1.3)
[2022-03-11] MEDS ORDERED: ALBUTEROL SO4 0.083% IH SOL 2.5 MG/3 ML VIAL.NEB. NEB PRN (18:30)
[2022-03-11] MEDS: ATORVASTATIN CA 40 MG TABLET (FP) PO SCH (22:15)
[2022-03-12] MEDS: SODIUM BICARBONATE 650 MG TABLET PO SCH ×3 (06:33→23:56)
[2022-03-12] MEDS: INSULIN SLIDING SCALE (NOVOLOG) 1 VIAL SQ SCH ×4 (06:33→23:56)
[2022-03-12 08:20] LABS: HEMATOCRIT 26.4 % (32.4-45.2); HEMOGLOBIN 8.8 GM/dL (10.7-15.3); MCH 24.9 pg (25.7-33.7); MCHC 33.4 g/dl (32.0-36.0); MEAN CELL VOLUME 74.7 fl (80-96); MEAN PLT VOLUME 9.4 fl (7.5-11.1); PLATELET COUNT 191 10^3/uL (134-434); RBC 3.53 M/mm3 (3.60-5.2); RDW 15.5 % (11.6-15.6); WHITE BLOOD COUNT 23.4 K/mm3 (4.0-10.0)
[2022-03-12 08:34] LABS: CHLORIDE 103 mmol/L (98-107); SODIUM 134 mmol/L (136-145)
[2022-03-12 08:37] LABS: CALCIUM 7.9 mg/dL (8.5-10.1)
[2022-03-12 08:38] LABS: ALBUMIN 1.8 g/dl (3.4-5.0); ANION GAP 15 MMOL/L (8-16); BLOOD UREA NITROGEN 103.4 mg/dL (7-18); CO2 17 mmol/L (21-32); GLUCOSE,RANDOM 115 mg/dL (74-106); MAGNESIUM 1.9 mg/dL (1.8-2.4)
[2022-03-12 08:41] LABS: PHOSPHOROUS 4.4 mg/dL (2.5-4.9); SGOT/AST 37 U/L (15-37); SGPT/ALT 28 U/L (13-61)
[2022-03-12 08:42] LABS: TOT PROT 5.6 g/dl (6.4-8.2)
[2022-03-12 08:43] LABS: BILIRUBIN,TOTAL 0.8 mg/dL (0.2-1)
[2022-03-12 08:52] LABS: ALK PHOS 326 U/L (45-117); CREATININE 8.8 mg/dL (0.55-1.3)
[2022-03-12] MEDS ORDERED: DEXTROSE 5%-WATER - 50 ML IVPB ONE (10:16)
[2022-03-12] MEDS ORDERED: ceFAZolin SODIUM 1 GM VIAL ONE (10:16)
[2022-03-12] MEDS: CEFAZOLIN 1 GM in DEXTROSE 5%-WATER - 50 ML IVPB SCH (10:18)
[2022-03-12] MEDS: amLODIPine BESYLATE 10 MG TABLET (FP) PO SCH (10:18)
[2022-03-12] MEDS: NICOTINE 21 MG/24 HOURS TOPICAL PATCH TD SCH ×2 (10:18→10:26)
[2022-03-12] MEDS: CLOPIDOGREL BISULFATE 75 MG TABLET (FP) PO SCH (10:18)
[2022-03-12] MEDS: CALCIUM ACETATE 667 MG CAPSULE (FP) PO SCH ×3 (10:18→18:18)
[2022-03-12] MEDS: ASPIRIN 81 MG CHEWABLE TABLETS PO SCH (10:19)
[2022-03-12] MEDS: PARoxetine HCL 20 MG TABLET PO SCH (10:19)
[2022-03-12] MEDS: CALCIUM CARBONATE 650 MG TABLET PO SCH (10:29)
[2022-03-12 12:08] LABS: ANISOCYTOSIS 1+; MACROCYTOSIS 0; OVALOCYTE 2+; TARGET CELLS 2+
[2022-03-12] MEDS ORDERED: FUROSEMIDE 40 MG/4 ML INJECTABLE VIAL IVPUSH ONE (13:10)
[2022-03-12] MEDS ORDERED: SODIUM CHLORIDE 250 ML IV PRN (16:02)
[2022-03-12] MEDS: ATORVASTATIN CA 40 MG TABLET (FP) PO SCH (23:56)
[2022-03-13] MEDS: CALCIUM CARBONATE 650 MG TABLET PO SCH ×4 (00:17→22:39)
[2022-03-13] MEDS: SODIUM BICARBONATE 650 MG TABLET PO SCH ×4 (06:44→22:41)
[2022-03-13] MEDS: INSULIN SLIDING SCALE (NOVOLOG) 1 VIAL SQ SCH ×4 (06:47→22:40)
[2022-03-13] MEDS ORDERED: ceFAZolin SODIUM 1 GM VIAL ONE (11:17)
[2022-03-13] MEDS ORDERED: DEXTROSE 5%-WATER - 50 ML IVPB ONE (11:17)
[2022-03-13] MEDS: LACTOBACILLUS ACIDOPHILUS 1 TABLET PO SCH (14:26)
[2022-03-13] MEDS: ASPIRIN 81 MG CHEWABLE TABLETS PO SCH (14:26)
[2022-03-13] MEDS: CALCIUM ACETATE 667 MG CAPSULE (FP) PO SCH ×2 (14:26→17:38)
[2022-03-13] MEDS: CLOPIDOGREL BISULFATE 75 MG TABLET (FP) PO SCH (14:27)
[2022-03-13] MEDS: PARoxetine HCL 20 MG TABLET PO SCH (14:27)
[2022-03-13] MEDS: NICOTINE 21 MG/24 HOURS TOPICAL PATCH TD SCH (14:27)
[2022-03-13] MEDS: amLODIPine BESYLATE 10 MG TABLET (FP) PO SCH (14:27)
[2022-03-13] MEDS: CEFAZOLIN 1 GM in DEXTROSE 5%-WATER - 50 ML IVPB SCH (14:45)
[2022-03-13] MEDS ORDERED: SODIUM CHLORIDE 250 ML IV PRN (18:49)
[2022-03-13] MEDS: ATORVASTATIN CA 40 MG TABLET (FP) PO SCH (22:39)
[2022-03-14] MEDS: SODIUM BICARBONATE 650 MG TABLET PO SCH ×3 (06:08→21:51)
[2022-03-14] MEDS: INSULIN SLIDING SCALE (NOVOLOG) 1 VIAL SQ SCH ×4 (06:08→21:57)
[2022-03-14] MEDS ORDERED: LORazepam 2 MG/ML SDV VIAL IVPUSH ONE (09:29)
[2022-03-14 10:12] LABS: HEMATOCRIT 21.5 % (32.4-45.2); HEMOGLOBIN 7.2 GM/dL (10.7-15.3); MCH 24.8 pg (25.7-33.7); MCHC 33.6 g/dl (32.0-36.0); MEAN CELL VOLUME 73.9 fl (80-96); MEAN PLT VOLUME 8.7 fl (7.5-11.1); PLATELET COUNT 235 10^3/uL (134-434); RBC 2.91 M/mm3 (3.60-5.2); RDW 15.2 % (11.6-15.6); WHITE BLOOD COUNT 29.7 K/mm3 (4.0-10.0)
[2022-03-14 10:24] LABS: CHLORIDE 104 mmol/L (98-107); SODIUM 138 mmol/L (136-145)
[2022-03-14 10:26] LABS: ALBUMIN 1.8 g/dl (3.4-5.0); CALCIUM 7.6 mg/dL (8.5-10.1)
[2022-03-14 10:27] LABS: ANION GAP 15 MMOL/L (8-16); BLOOD UREA NITROGEN 96.7 mg/dL (7-18); CO2 18 mmol/L (21-32); GLUCOSE,RANDOM 88 mg/dL (74-106)
[2022-03-14 10:29] LABS: SGPT/ALT 14 U/L (13-61)
[2022-03-14 10:30] LABS: SGOT/AST 30 U/L (15-37)
[2022-03-14 10:31] LABS: BILIRUBIN,TOTAL 0.4 mg/dL (0.2-1); TOT PROT 5.3 g/dl (6.4-8.2)
[2022-03-14 10:49] LABS: ALK PHOS 364 U/L (45-117); CREATININE 8.5 mg/dL (0.55-1.3)
[2022-03-14] MEDS: CALCIUM ACETATE 667 MG CAPSULE (FP) PO SCH ×3 (11:14→16:47)
[2022-03-14] MEDS ORDERED: ceFAZolin SODIUM 1 GM VIAL ONE (11:17)
[2022-03-14] MEDS ORDERED: DEXTROSE 5%-WATER - 50 ML IVPB ONE (11:18)
[2022-03-14] MEDS: CEFAZOLIN 1 GM in DEXTROSE 5%-WATER - 50 ML IVPB SCH (11:47)
[2022-03-14] MEDS: NICOTINE 21 MG/24 HOURS TOPICAL PATCH TD SCH (11:49)
[2022-03-14] MEDS: CALCIUM CARBONATE 650 MG TABLET PO SCH ×2 (11:52→21:52)
[2022-03-14] MEDS: LACTOBACILLUS ACIDOPHILUS 1 TABLET PO SCH (11:52)
[2022-03-14] MEDS: amLODIPine BESYLATE 10 MG TABLET (FP) PO SCH (11:52)
[2022-03-14] MEDS: ASPIRIN 81 MG CHEWABLE TABLETS PO SCH (11:52)
[2022-03-14] MEDS: CLOPIDOGREL BISULFATE 75 MG TABLET (FP) PO SCH (11:53)
[2022-03-14] MEDS: PARoxetine HCL 20 MG TABLET PO SCH (11:53)
[2022-03-14] MEDS ORDERED: VANCOMYCIN/WATER 1250 MG 1,250 MG/250 ML BAG IVPB ONE (18:30)
[2022-03-14] MEDS: ATORVASTATIN CA 40 MG TABLET (FP) PO SCH (21:51)
[2022-03-15] MEDS: SODIUM BICARBONATE 650 MG TABLET PO SCH ×3 (06:26→23:08)
[2022-03-15] MEDS: INSULIN SLIDING SCALE (NOVOLOG) 1 VIAL SQ SCH ×4 (06:26→23:08)
[2022-03-15] MEDS: CALCIUM ACETATE 667 MG CAPSULE (FP) PO SCH ×3 (09:39→16:39)
[2022-03-15] MEDS: CEFAZOLIN 1 GM in DEXTROSE 5%-WATER - 50 ML IVPB SCH (09:40)
[2022-03-15] MEDS: LACTOBACILLUS ACIDOPHILUS 1 TABLET PO SCH (09:40)
[2022-03-15] MEDS: amLODIPine BESYLATE 10 MG TABLET (FP) PO SCH (09:40)
[2022-03-15] MEDS: CALCIUM CARBONATE 650 MG TABLET PO SCH ×2 (09:40→23:08)
[2022-03-15] MEDS: PARoxetine HCL 20 MG TABLET PO SCH (09:40)
[2022-03-15] MEDS: CLOPIDOGREL BISULFATE 75 MG TABLET (FP) PO SCH (09:40)
[2022-03-15] MEDS: ASPIRIN 81 MG CHEWABLE TABLETS PO SCH (09:40)
[2022-03-15] MEDS: NICOTINE 21 MG/24 HOURS TOPICAL PATCH TD SCH (09:40)
[2022-03-15] MEDS ORDERED: PARoxetine HCL 20 MG TABLET PO ONE (16:24)
[2022-03-15] MEDS: ATORVASTATIN CA 40 MG TABLET (FP) PO SCH (23:08)
[2022-03-16] MEDS: SODIUM BICARBONATE 650 MG TABLET PO SCH ×3 (06:29→22:17)
[2022-03-16] MEDS: INSULIN SLIDING SCALE (NOVOLOG) 1 VIAL SQ SCH ×4 (06:29→22:17)
[2022-03-16] MEDS: CALCIUM ACETATE 667 MG CAPSULE (FP) PO SCH ×5 (09:23→17:29)
[2022-03-16] MEDS: CALCIUM CARBONATE 650 MG TABLET PO SCH ×3 (09:38→22:17)
[2022-03-16] MEDS: ASPIRIN 81 MG CHEWABLE TABLETS PO SCH ×2 (09:38→11:35)
[2022-03-16] MEDS: LACTOBACILLUS ACIDOPHILUS 1 TABLET PO SCH ×2 (09:38→11:35)
[2022-03-16] MEDS: CEFAZOLIN 1 GM in DEXTROSE 5%-WATER - 50 ML IVPB SCH ×2 (09:38→11:34)
[2022-03-16] MEDS: CLOPIDOGREL BISULFATE 75 MG TABLET (FP) PO SCH ×2 (09:39→11:35)
[2022-03-16] MEDS: amLODIPine BESYLATE 10 MG TABLET (FP) PO SCH (09:39)
[2022-03-16] MEDS: PARoxetine HCL 20 MG TABLET PO SCH ×2 (09:39→11:35)
[2022-03-16] MEDS: NICOTINE 21 MG/24 HOURS TOPICAL PATCH TD SCH (09:39)
[2022-03-16] MEDS ORDERED: ceFAZolin SODIUM 1 GM VIAL ONE (11:27)
[2022-03-16] MEDS ORDERED: DEXTROSE 5%-WATER - 50 ML IVPB ONE (11:27)
[2022-03-16] MEDS: ATORVASTATIN CA 40 MG TABLET (FP) PO SCH (22:17)
[2022-03-17] MEDS: INSULIN SLIDING SCALE (NOVOLOG) 1 VIAL SQ SCH ×4 (06:47→21:10)
[2022-03-17] MEDS: SODIUM BICARBONATE 650 MG TABLET PO SCH ×3 (06:47→21:08)
[2022-03-17] MEDS ORDERED: ceFAZolin SODIUM 1 GM VIAL ONE (09:49)
[2022-03-17] MEDS ORDERED: DEXTROSE 5%-WATER - 50 ML IVPB ONE (09:49)
[2022-03-17] MEDS: CALCIUM ACETATE 667 MG CAPSULE (FP) PO SCH ×4 (10:56→18:43)
[2022-03-17] MEDS: ASPIRIN 81 MG CHEWABLE TABLETS PO SCH (10:57)
[2022-03-17] MEDS: LACTOBACILLUS ACIDOPHILUS 1 TABLET PO SCH ×2 (10:57→11:09)
[2022-03-17] MEDS: PARoxetine HCL 20 MG TABLET PO SCH (10:58)
[2022-03-17] MEDS: amLODIPine BESYLATE 10 MG TABLET (FP) PO SCH (10:58)
[2022-03-17] MEDS: NICOTINE 21 MG/24 HOURS TOPICAL PATCH TD SCH (10:58)
[2022-03-17] MEDS: CLOPIDOGREL BISULFATE 75 MG TABLET (FP) PO SCH (10:58)
[2022-03-17] MEDS: CALCIUM CARBONATE 650 MG TABLET PO SCH ×3 (10:59→22:56)
[2022-03-17] MEDS: CEFAZOLIN 1 GM in DEXTROSE 5%-WATER - 50 ML IVPB SCH (16:41)
[2022-03-17 17:31] LABS: CHLORIDE 104 mmol/L (98-107); SODIUM 140 mmol/L (136-145)
[2022-03-17 17:33] LABS: BLOOD UREA NITROGEN 80.9 mg/dL (7-18); CALCIUM 7.9 mg/dL (8.5-10.1)
[2022-03-17 17:34] LABS: ANION GAP 14 MMOL/L (8-16); CO2 22 mmol/L (21-32); GLUCOSE,RANDOM 129 mg/dL (74-106)
[2022-03-17 17:36] LABS: SGOT/AST 29 U/L (15-37)
[2022-03-17 17:39] LABS: BILIRUBIN,TOTAL 0.4 mg/dL (0.2-1); TOT PROT 6.4 g/dl (6.4-8.2)
[2022-03-17 17:44] LABS: ALK PHOS 398 U/L (45-117); CREATININE 8.1 mg/dL (0.55-1.3); SGPT/ALT < 6 U/L (13-61)
[2022-03-17] MEDS: ACETAMINOPHEN 325 MG TABLET (FP) PO PRN ×2 (18:59→22:58)
[2022-03-17] MEDS: ATORVASTATIN CA 40 MG TABLET (FP) PO SCH (21:08)
[2022-03-18] MEDS: SODIUM BICARBONATE 650 MG TABLET PO SCH ×3 (05:32→23:49)
[2022-03-18] MEDS: ACETAMINOPHEN 325 MG TABLET (FP) PO PRN (05:32)
[2022-03-18] MEDS: INSULIN SLIDING SCALE (NOVOLOG) 1 VIAL SQ SCH ×4 (06:43→23:57)
[2022-03-18] MEDS ORDERED: ceFAZolin SODIUM 1 GM VIAL ONE (09:11)
[2022-03-18] MEDS ORDERED: DEXTROSE 5%-WATER - 50 ML IVPB ONE (09:12)
[2022-03-18] MEDS: CALCIUM ACETATE 667 MG CAPSULE (FP) PO SCH ×4 (09:12→17:55)
[2022-03-18] MEDS: CEFAZOLIN 1 GM in DEXTROSE 5%-WATER - 50 ML IVPB SCH (09:48)
[2022-03-18] MEDS: PARoxetine HCL 20 MG TABLET PO SCH (09:49)
[2022-03-18] MEDS: amLODIPine BESYLATE 10 MG TABLET (FP) PO SCH (09:49)
[2022-03-18] MEDS: CALCIUM CARBONATE 650 MG TABLET PO SCH ×2 (09:49→23:50)
[2022-03-18] MEDS: NICOTINE 21 MG/24 HOURS TOPICAL PATCH TD SCH (09:50)
[2022-03-18] MEDS: ASPIRIN 81 MG CHEWABLE TABLETS PO SCH (09:50)
[2022-03-18] MEDS: CLOPIDOGREL BISULFATE 75 MG TABLET (FP) PO SCH (09:50)
[2022-03-18] MEDS: LACTOBACILLUS ACIDOPHILUS 1 TABLET PO SCH (09:50)
[2022-03-18 11:44] LABS: HEMATOCRIT 20.7 % (32.4-45.2); MCH 24.6 pg (25.7-33.7); MCHC 33.4 g/dl (32.0-36.0); MEAN CELL VOLUME 73.7 fl (80-96); MEAN PLT VOLUME 8.3 fl (7.5-11.1); PLATELET COUNT 372 10^3/uL (134-434); RBC 2.81 M/mm3 (3.60-5.2); RDW 15.1 % (11.6-15.6); WHITE BLOOD COUNT 23.3 K/mm3 (4.0-10.0)
[2022-03-18 11:52] LABS: HEMOGLOBIN 6.9 GM/dL (10.7-15.3)
[2022-03-18 11:57] LABS: CHLORIDE 104 mmol/L (98-107); SODIUM 137 mmol/L (136-145)
[2022-03-18 12:06] LABS: ALBUMIN 2.1 g/dl (3.4-5.0); ANION GAP 12 MMOL/L (8-16); BLOOD UREA NITROGEN 84.9 mg/dL (7-18); CALCIUM 7.9 mg/dL (8.5-10.1); CO2 22 mmol/L (21-32); GLUCOSE,RANDOM 103 mg/dL (74-106); MAGNESIUM 2.2 mg/dL (1.8-2.4)
[2022-03-18 12:10] LABS: SGOT/AST 26 U/L (15-37); SGPT/ALT 8 U/L (13-61)
[2022-03-18 12:11] LABS: BILIRUBIN,TOTAL 0.4 mg/dL (0.2-1); TOT PROT 6.6 g/dl (6.4-8.2)
[2022-03-18 12:12] LABS: ALK PHOS 386 U/L (45-117)
[2022-03-18 12:16] LABS: CREATININE 8.3 mg/dL (0.55-1.3)
[2022-03-18 12:26] LABS: ANISOCYTOSIS 1+; MACROCYTOSIS 1+
[2022-03-18] MEDS ORDERED: METOPROLOL TARTRATE 5 MG/5 ML VIAL IVPUSH ONE (20:30)
[2022-03-18] MEDS ORDERED: hydrALAZINE HCL 20 MG/ML VIAL IVPUSH ONE (20:35)
[2022-03-18] MEDS ORDERED: hydrALAZINE HCL 10 MG TABLET PO ONE (20:49)
[2022-03-18] MEDS: HEPARIN NA (PORCINE) 5,000 UNITS/ML 1ML VIAL SQ SCH (23:49)
[2022-03-18] MEDS: ATORVASTATIN CA 40 MG TABLET (FP) PO SCH (23:50)
[2022-03-19] MEDS: SODIUM BICARBONATE 650 MG TABLET PO SCH ×3 (07:20→22:24)
[2022-03-19] MEDS: CALCIUM ACETATE 667 MG CAPSULE (FP) PO SCH ×3 (07:21→16:44)
[2022-03-19] MEDS: INSULIN SLIDING SCALE (NOVOLOG) 1 VIAL SQ SCH ×4 (07:22→22:51)
[2022-03-19 08:28] LABS: HEMATOCRIT 28.4 % (32.4-45.2); HEMOGLOBIN 9.6 GM/dL (10.7-15.3); MCH 25.8 pg (25.7-33.7); MCHC 33.9 g/dl (32.0-36.0); MEAN CELL VOLUME 76.1 fl (80-96); MEAN PLT VOLUME 8.3 fl (7.5-11.1); PLATELET COUNT 385 10^3/uL (134-434); RBC 3.73 M/mm3 (3.60-5.2); RDW 16.3 % (11.6-15.6); WHITE BLOOD COUNT 24.1 K/mm3 (4.0-10.0)
[2022-03-19 08:37] LABS: INR 1.33 (0.83-1.09); PROTHROMBIN TIME (PATIENT) 15.3 SEC (9.7-13.0)
[2022-03-19 08:49] LABS: CHLORIDE 102 mmol/L (98-107); SODIUM 137 mmol/L (136-145)
[2022-03-19 08:51] LABS: ALBUMIN 2.1 g/dl (3.4-5.0); ANION GAP 15 MMOL/L (8-16); BLOOD UREA NITROGEN 83.3 mg/dL (7-18); CO2 20 mmol/L (21-32); GLUCOSE,RANDOM 69 mg/dL (74-106)
[2022-03-19 08:54] LABS: SGOT/AST 25 U/L (15-37)
[2022-03-19 08:56] LABS: BILIRUBIN,TOTAL 0.5 mg/dL (0.2-1); TOT PROT 6.8 g/dl (6.4-8.2)
[2022-03-19 08:57] LABS: ALK PHOS 369 U/L (45-117)
[2022-03-19] MEDS ORDERED: ceFAZolin SODIUM 1 GM VIAL ONE ×2 (09:06→19:57)
[2022-03-19] MEDS ORDERED: DEXTROSE 5%-WATER - 50 ML IVPB ONE (09:06)
[2022-03-19 09:11] LABS: CREATININE 8.4 mg/dL (0.55-1.3); SGPT/ALT < 6 U/L (13-61)
[2022-03-19] MEDS: CEFAZOLIN 1 GM in DEXTROSE 5%-WATER - 50 ML IVPB SCH (09:53)
[2022-03-19] MEDS: NICOTINE 21 MG/24 HOURS TOPICAL PATCH TD SCH (09:54)
[2022-03-19 10:09] LABS: ANISOCYTOSIS 0; MACROCYTOSIS 0
[2022-03-19] MEDS: LACTOBACILLUS ACIDOPHILUS 1 TABLET PO SCH (12:51)
[2022-03-19] MEDS: ASPIRIN 81 MG CHEWABLE TABLETS PO SCH (12:51)
[2022-03-19] MEDS: CALCIUM CARBONATE 650 MG TABLET PO SCH ×2 (12:51→22:25)
[2022-03-19] MEDS: amLODIPine BESYLATE 10 MG TABLET (FP) PO SCH (12:52)
[2022-03-19] MEDS: HEPARIN NA (PORCINE) 5,000 UNITS/ML 1ML VIAL SQ SCH ×2 (12:52→22:25)
[2022-03-19] MEDS: PARoxetine HCL 20 MG TABLET PO SCH (13:01)
[2022-03-19] MEDS: CLOPIDOGREL BISULFATE 75 MG TABLET (FP) PO SCH (13:02)
[2022-03-19] MEDS ORDERED: SODIUM CHLORIDE 250 ML IV PRN ×2 (15:36→21:09)
[2022-03-19] MEDS ORDERED: LIDOCAINE HCL 1%, 10 MG/ML (20ML VIAL) ONE (18:48)
[2022-03-19] MEDS ORDERED: HEPARIN NA (PORCINE) 5,000 UNITS/ML 1ML VIAL ONE (18:48)
[2022-03-19] MEDS ORDERED: PROMETHAZINE HCL 25 MG/1 ML VIAL IVPUSH PRN ×2 (19:43→21:09)
[2022-03-19] MEDS ORDERED: ONDANSETRON 4 MG/2 ML VIAL IVPUSH PRN ×2 (19:43→21:09)
[2022-03-19] MEDS ORDERED: SODIUM CHLORIDE 1,000 ML IV SCH (19:45)
[2022-03-19] MEDS ORDERED: PROPOFOL 20 ML ONE (19:54)
[2022-03-19] MEDS ORDERED: MIDAZOLAM HCL 2 MG/2 ML SINGLE DOSE VIAL ONE (19:54)
[2022-03-19] MEDS ORDERED: SODIUM CHLORIDE 0.9% P/F 10 ML VIAL IJ ONE (19:57)
[2022-03-19] MEDS ORDERED: ceFAZolin SODIUM 1 GM VIAL IVPB ONE (20:18)
[2022-03-19] MEDS ORDERED: LIDOCAINE HCL 1%, 10 MG/ML (20ML VIAL) NR ONE (20:25)
[2022-03-19] MEDS ORDERED: HEPARIN NA (PORCINE) 5,000 UNITS/ML 1ML VIAL SQ ONE (20:28)
[2022-03-19] MEDS ORDERED: HEPARIN NA (PORCINE) 1,000 UNITS/ML 10ML M-D VIAL SQ ONE (20:29)
[2022-03-19] MEDS ORDERED: NALOXONE HCL 0.4 MG/ML VIAL IVPUSH PRN (21:09)
[2022-03-19] MEDS ORDERED: amLODIPine BESYLATE 5 MG TABLET (FP) PO ONE (21:30)
[2022-03-19] MEDS: ACETAMINOPHEN 325 MG TABLET (FP) PO PRN (22:23)
[2022-03-19] MEDS: ATORVASTATIN CA 40 MG TABLET (FP) PO SCH (22:24)
[2022-03-19] MEDS: SODIUM CHLORIDE 1,000 ML IV SCH (22:28)
[2022-03-20] MEDS: SODIUM BICARBONATE 650 MG TABLET PO SCH ×3 (06:26→22:07)
[2022-03-20] MEDS: INSULIN SLIDING SCALE (NOVOLOG) 1 VIAL SQ SCH ×4 (06:38→22:25)
[2022-03-20] MEDS ORDERED: DEXTROSE 5%-WATER - 50 ML IVPB ONE (09:03)
[2022-03-20] MEDS ORDERED: ceFAZolin SODIUM 1 GM VIAL ONE (09:03)
[2022-03-20] MEDS: CALCIUM ACETATE 667 MG CAPSULE (FP) PO SCH ×4 (09:15→16:37)
[2022-03-20] MEDS: CEFAZOLIN 1 GM in DEXTROSE 5%-WATER - 50 ML IVPB SCH (09:16)
[2022-03-20] MEDS: HEPARIN NA (PORCINE) 5,000 UNITS/ML 1ML VIAL SQ SCH ×3 (09:17→22:07)
[2022-03-20] MEDS: amLODIPine BESYLATE 10 MG TABLET (FP) PO SCH ×2 (09:17→12:30)
[2022-03-20] MEDS: ASPIRIN 81 MG CHEWABLE TABLETS PO SCH ×2 (09:17→12:28)
[2022-03-20] MEDS: CLOPIDOGREL BISULFATE 75 MG TABLET (FP) PO SCH ×2 (09:17→12:28)
[2022-03-20] MEDS: LACTOBACILLUS ACIDOPHILUS 1 TABLET PO SCH ×2 (09:17→12:28)
[2022-03-20] MEDS: CALCIUM CARBONATE 650 MG TABLET PO SCH ×3 (09:17→22:07)
[2022-03-20] MEDS: PARoxetine HCL 20 MG TABLET PO SCH ×2 (09:17→12:27)
[2022-03-20] MEDS: NICOTINE 21 MG/24 HOURS TOPICAL PATCH TD SCH ×2 (09:17→12:30)
[2022-03-20 11:21] LABS: CHLORIDE 106 mmol/L (98-107); SODIUM 138 mmol/L (136-145)
[2022-03-20 11:29] LABS: BASO % 0.7 % (0-2.0); EOS % 0.8 % (0-4.5); HEMATOCRIT 26.1 % (32.4-45.2); HEMOGLOBIN 8.7 GM/dL (10.7-15.3); LYMPH % 8.8 % (8-40); MCH 25.6 pg (25.7-33.7); MCHC 33.4 g/dl (32.0-36.0); MEAN CELL VOLUME 76.6 fl (80-96); MEAN PLT VOLUME 8.4 fl (7.5-11.1); NEUT % 83.7 % (42.8-82.8); PLATELET COUNT 382 10^3/uL (134-434); RBC 3.41 M/mm3 (3.60-5.2); RDW 16.1 % (11.6-15.6)
[2022-03-20 11:42] LABS: CALCIUM 7.7 mg/dL (8.5-10.1)
[2022-03-20 11:43] LABS: ALBUMIN 1.9 g/dl (3.4-5.0); ANION GAP 14 MMOL/L (8-16); BLOOD UREA NITROGEN 86.5 mg/dL (7-18); CO2 18 mmol/L (21-32); GLUCOSE,RANDOM 68 mg/dL (74-106); MAGNESIUM 2.3 mg/dL (1.8-2.4)
[2022-03-20 11:45] LABS: SGPT/ALT < 6 U/L (13-61)
[2022-03-20 11:46] LABS: SGOT/AST 27 U/L (15-37)
[2022-03-20 11:47] LABS: BILIRUBIN,TOTAL 0.6 mg/dL (0.2-1); TOT PROT 6.3 g/dl (6.4-8.2)
[2022-03-20 11:51] LABS: ALK PHOS 333 U/L (45-117); CREATININE 8.7 mg/dL (0.55-1.3)
[2022-03-20 12:59] LABS: ANISOCYTOSIS 0; MACROCYTOSIS 0
[2022-03-20] MEDS: ATORVASTATIN CA 40 MG TABLET (FP) PO SCH (22:07)
[2022-03-20] MEDS: SODIUM CHLORIDE 1,000 ML IV SCH (22:08)
[2022-03-21] MEDS: SODIUM BICARBONATE 650 MG TABLET PO SCH ×2 (06:13→13:45)
[2022-03-21] MEDS: INSULIN SLIDING SCALE (NOVOLOG) 1 VIAL SQ SCH ×4 (07:11→22:22)
[2022-03-21 08:44] LABS: BASO % 0.9 % (0-2.0); EOS % 0.7 % (0-4.5); HEMATOCRIT 25.5 % (32.4-45.2); HEMOGLOBIN 8.7 GM/dL (10.7-15.3); LYMPH % 10.9 % (8-40); MCHC 33.9 g/dl (32.0-36.0); MEAN CELL VOLUME 76.7 fl (80-96); MEAN PLT VOLUME 8.4 fl (7.5-11.1); MONO % 6.8 % (3.8-10.2); NEUT % 80.7 % (42.8-82.8); PLATELET COUNT 375 10^3/uL (134-434); RBC 3.33 M/mm3 (3.60-5.2); RDW 16.8 % (11.6-15.6); WHITE BLOOD COUNT 16.4 K/mm3 (4.0-10.0)
[2022-03-21] MEDS ORDERED: DEXTROSE 5%-WATER - 50 ML IVPB ONE (08:50)
[2022-03-21] MEDS ORDERED: ceFAZolin SODIUM 1 GM VIAL ONE (08:50)
[2022-03-21 08:52] LABS: CHLORIDE 107 mmol/L (98-107); SODIUM 141 mmol/L (136-145)
[2022-03-21] MEDS: ACETAMINOPHEN 325 MG TABLET (FP) PO PRN ×2 (08:53→19:57)
[2022-03-21] MEDS: CALCIUM ACETATE 667 MG CAPSULE (FP) PO SCH ×3 (08:54→17:08)
[2022-03-21 08:57] LABS: ANION GAP 9 MMOL/L (8-16); CALCIUM 7.4 mg/dL (8.5-10.1); CO2 26 mmol/L (21-32); GLUCOSE,RANDOM 106 mg/dL (74-106)
[2022-03-21 09:00] LABS: CREATININE 6.1 mg/dL (0.55-1.3); SGOT/AST 29 U/L (15-37); SGPT/ALT < 6 U/L (13-61)
[2022-03-21 09:02] LABS: BILIRUBIN,TOTAL 0.4 mg/dL (0.2-1); TOT PROT 6.5 g/dl (6.4-8.2)
[2022-03-21] MEDS: HEPARIN NA (PORCINE) 5,000 UNITS/ML 1ML VIAL SQ SCH ×2 (09:02→21:42)
[2022-03-21] MEDS: ASPIRIN 81 MG CHEWABLE TABLETS PO SCH ×2 (09:02→12:19)
[2022-03-21] MEDS: CEFAZOLIN 1 GM in DEXTROSE 5%-WATER - 50 ML IVPB SCH (09:02)
[2022-03-21] MEDS: NICOTINE 21 MG/24 HOURS TOPICAL PATCH TD SCH (09:02)
[2022-03-21] MEDS: CLOPIDOGREL BISULFATE 75 MG TABLET (FP) PO SCH ×2 (09:02→12:39)
[2022-03-21] MEDS: amLODIPine BESYLATE 10 MG TABLET (FP) PO SCH ×2 (09:02→12:39)
[2022-03-21] MEDS: LACTOBACILLUS ACIDOPHILUS 1 TABLET PO SCH ×2 (09:02→12:39)
[2022-03-21] MEDS: CALCIUM CARBONATE 650 MG TABLET PO SCH ×2 (09:03→22:45)
[2022-03-21] MEDS: PARoxetine HCL 20 MG TABLET PO SCH ×2 (09:03→12:39)
[2022-03-21 09:14] LABS: ALK PHOS 407 U/L (45-117); BLOOD UREA NITROGEN 55.1 mg/dL (7-18)
[2022-03-21 13:10] LABS: ARTERIAL BLD GAS O2 SATURATION 95.4 % (95-98); ARTERIAL BLOOD GAS BASE EXCESS 0 mmol/L (-2-2); ARTERIAL BLOOD GAS PO2 74.8 mmHg (80-100); ARTERIAL BLOOD GAS pH 7.428 (7.350-7.450)
[2022-03-21 13:11] LABS: ALLENS TEST POSITIVE
[2022-03-21] MEDS: ATORVASTATIN CA 40 MG TABLET (FP) PO SCH (21:53)
[2022-03-21] MEDS: SODIUM CHLORIDE 1,000 ML IV SCH (21:54)
[2022-03-22] MEDS: INSULIN SLIDING SCALE (NOVOLOG) 1 VIAL SQ SCH ×4 (06:03→22:14)
[2022-03-22] MEDS: CALCIUM ACETATE 667 MG CAPSULE (FP) PO SCH ×3 (08:00→17:08)
[2022-03-22 08:24] LABS: BASO % 1.3 % (0-2.0); EOS % 0.9 % (0-4.5); HEMATOCRIT 25.2 % (32.4-45.2); HEMOGLOBIN 8.6 GM/dL (10.7-15.3); LYMPH % 11.6 % (8-40); MCH 26.1 pg (25.7-33.7); MEAN CELL VOLUME 76.9 fl (80-96); MEAN PLT VOLUME 8.5 fl (7.5-11.1); MONO % 9.9 % (3.8-10.2); NEUT % 76.3 % (42.8-82.8); PLATELET COUNT 357 10^3/uL (134-434); RBC 3.28 M/mm3 (3.60-5.2); RDW 16.9 % (11.6-15.6); WHITE BLOOD COUNT 13.1 K/mm3 (4.0-10.0)
[2022-03-22 08:27] LABS: CALCIUM 7.6 mg/dL (8.5-10.1)
[2022-03-22 08:28] LABS: ALBUMIN 1.8 g/dl (3.4-5.0); BLOOD UREA NITROGEN 56.8 mg/dL (7-18); MAGNESIUM 2.1 mg/dL (1.8-2.4)
[2022-03-22 08:31] LABS: CREATININE 6.5 mg/dL (0.55-1.3)
[2022-03-22 08:32] LABS: TOT PROT 6.3 g/dl (6.4-8.2)
[2022-03-22 08:33] LABS: BILIRUBIN,TOTAL 0.4 mg/dL (0.2-1)
[2022-03-22] MEDS ORDERED: ceFAZolin SODIUM 1 GM VIAL ONE (09:52)
[2022-03-22] MEDS ORDERED: DEXTROSE 5%-WATER - 50 ML IVPB ONE (09:53)
[2022-03-22] MEDS: amLODIPine BESYLATE 10 MG TABLET (FP) PO SCH (10:25)
[2022-03-22] MEDS: PARoxetine HCL 20 MG TABLET PO SCH (10:26)
[2022-03-22] MEDS: HEPARIN NA (PORCINE) 5,000 UNITS/ML 1ML VIAL SQ SCH ×2 (10:26→22:13)
[2022-03-22] MEDS: CLOPIDOGREL BISULFATE 75 MG TABLET (FP) PO SCH (10:26)
[2022-03-22] MEDS: CALCIUM CARBONATE 650 MG TABLET PO SCH ×2 (10:27→22:13)
[2022-03-22] MEDS: LACTOBACILLUS ACIDOPHILUS 1 TABLET PO SCH (10:27)
[2022-03-22] MEDS: NICOTINE 21 MG/24 HOURS TOPICAL PATCH TD SCH (10:27)
[2022-03-22] MEDS: ASPIRIN 81 MG CHEWABLE TABLETS PO SCH (10:27)
[2022-03-22] MEDS: CEFAZOLIN 1 GM in DEXTROSE 5%-WATER - 50 ML IVPB SCH (10:28)
[2022-03-22] MEDS: ATORVASTATIN CA 40 MG TABLET (FP) PO SCH (22:14)
[2022-03-23] MEDS: INSULIN SLIDING SCALE (NOVOLOG) 1 VIAL SQ SCH ×4 (06:09→22:53)
[2022-03-23] MEDS ORDERED: EPOETIN ALFA-EPBX 4,000 UNIT/ML VIAL IVPUSH ONE (08:30)
[2022-03-23 09:21] LABS: BASO % 1.3 % (0-2.0); EOS % 0.8 % (0-4.5); HEMATOCRIT 24.7 % (32.4-45.2); HEMOGLOBIN 8.3 GM/dL (10.7-15.3); LYMPH % 10.1 % (8-40); MCHC 33.5 g/dl (32.0-36.0); MEAN CELL VOLUME 77.6 fl (80-96); MEAN PLT VOLUME 8.2 fl (7.5-11.1); MONO % 8.6 % (3.8-10.2); NEUT % 79.2 % (42.8-82.8); PLATELET COUNT 344 10^3/uL (134-434); RBC 3.19 M/mm3 (3.60-5.2); WHITE BLOOD COUNT 12.9 K/mm3 (4.0-10.0)
[2022-03-23 09:28] LABS: INR 1.42 (0.83-1.09); PROTHROMBIN TIME (PATIENT) 16.4 SEC (9.7-13.0)
[2022-03-23 10:18] LABS: ALBUMIN 1.8 g/dl (3.4-5.0); BLOOD UREA NITROGEN 56.2 mg/dL (7-18); CALCIUM 7.7 mg/dL (8.5-10.1)
[2022-03-23 10:20] LABS: CREATININE 6.6 mg/dL (0.55-1.3)
[2022-03-23 10:21] LABS: BILIRUBIN,TOTAL 0.3 mg/dL (0.2-1); TOT PROT 6.2 g/dl (6.4-8.2)
[2022-03-23] MEDS: CEFAZOLIN 1 GM in DEXTROSE 5%-WATER - 50 ML IVPB SCH (11:33)
[2022-03-23] MEDS: CALCIUM ACETATE 667 MG CAPSULE (FP) PO SCH ×3 (11:33→17:32)
[2022-03-23] MEDS: NICOTINE 21 MG/24 HOURS TOPICAL PATCH TD SCH (11:34)
[2022-03-23] MEDS: LACTOBACILLUS ACIDOPHILUS 1 TABLET PO SCH (11:34)
[2022-03-23] MEDS: CALCIUM CARBONATE 650 MG TABLET PO SCH ×2 (11:34→22:53)
[2022-03-23] MEDS: HEPARIN NA (PORCINE) 5,000 UNITS/ML 1ML VIAL SQ SCH ×2 (11:34→22:53)
[2022-03-23] MEDS: PARoxetine HCL 20 MG TABLET PO SCH (11:35)
[2022-03-23] MEDS: amLODIPine BESYLATE 10 MG TABLET (FP) PO SCH (11:35)
[2022-03-23] MEDS: SODIUM CHLORIDE 1,000 ML IV SCH (22:52)
[2022-03-23] MEDS: ATORVASTATIN CA 40 MG TABLET (FP) PO SCH (22:53)
[2022-03-24] MEDS: INSULIN SLIDING SCALE (NOVOLOG) 1 VIAL SQ SCH ×4 (06:00→23:42)
[2022-03-24] MEDS ORDERED: DEXTROSE 5%-WATER - 50 ML IVPB ONE (09:52)
[2022-03-24] MEDS ORDERED: ceFAZolin SODIUM 1 GM VIAL ONE (09:52)
[2022-03-24] MEDS: CALCIUM ACETATE 667 MG CAPSULE (FP) PO SCH ×3 (10:40→16:33)
[2022-03-24] MEDS: PARoxetine HCL 20 MG TABLET PO SCH (10:40)
[2022-03-24] MEDS: LACTOBACILLUS ACIDOPHILUS 1 TABLET PO SCH (10:40)
[2022-03-24] MEDS: CEFAZOLIN 1 GM in DEXTROSE 5%-WATER - 50 ML IVPB SCH (10:40)
[2022-03-24] MEDS: HEPARIN NA (PORCINE) 5,000 UNITS/ML 1ML VIAL SQ SCH ×2 (10:40→23:41)
[2022-03-24] MEDS: NICOTINE 21 MG/24 HOURS TOPICAL PATCH TD SCH (10:40)
[2022-03-24] MEDS: CALCIUM CARBONATE 650 MG TABLET PO SCH ×2 (10:40→23:41)
[2022-03-24] MEDS: amLODIPine BESYLATE 10 MG TABLET (FP) PO SCH (10:40)
[2022-03-24] MEDS: SODIUM CHLORIDE 1,000 ML IV SCH (23:41)
[2022-03-24] MEDS: ATORVASTATIN CA 40 MG TABLET (FP) PO SCH (23:41)
[2022-03-25] MEDS: INSULIN SLIDING SCALE (NOVOLOG) 1 VIAL SQ SCH ×4 (06:14→22:43)
[2022-03-25] MEDS ORDERED: LORazepam 2 MG/ML SDV VIAL IVPUSH ONE (09:35)
[2022-03-25] MEDS ORDERED: EPOETIN ALFA-EPBX 10,000 UNIT/ML VIAL SQ ONE (10:00)
[2022-03-25] MEDS ORDERED: SODIUM CHLORIDE 250 ML IV PRN (10:00)
[2022-03-25] MEDS: LACTOBACILLUS ACIDOPHILUS 1 TABLET PO SCH (13:16)
[2022-03-25] MEDS: NICOTINE 21 MG/24 HOURS TOPICAL PATCH TD SCH (13:16)
[2022-03-25] MEDS: PARoxetine HCL 20 MG TABLET PO SCH (13:16)
[2022-03-25] MEDS: CALCIUM CARBONATE 650 MG TABLET PO SCH ×2 (13:16→22:42)
[2022-03-25] MEDS: amLODIPine BESYLATE 10 MG TABLET (FP) PO SCH (13:16)
[2022-03-25] MEDS: HEPARIN NA (PORCINE) 5,000 UNITS/ML 1ML VIAL SQ SCH ×2 (13:36→22:43)
[2022-03-25] MEDS: CEFAZOLIN 1 GM in DEXTROSE 5%-WATER - 50 ML IVPB SCH (13:37)
[2022-03-25] MEDS: CALCIUM ACETATE 667 MG CAPSULE (FP) PO SCH ×2 (13:37→17:44)
[2022-03-25] MEDS: SODIUM CHLORIDE 1,000 ML IV SCH (22:42)
[2022-03-25] MEDS: ATORVASTATIN CA 40 MG TABLET (FP) PO SCH (22:43)
[2022-03-26] MEDS: INSULIN SLIDING SCALE (NOVOLOG) 1 VIAL SQ SCH ×4 (06:26→21:46)
[2022-03-26] MEDS ORDERED: ceFAZolin SODIUM 1 GM VIAL ONE (09:05)
[2022-03-26] MEDS ORDERED: DEXTROSE 5%-WATER - 50 ML IVPB ONE (09:05)
[2022-03-26] MEDS: CEFAZOLIN 1 GM in DEXTROSE 5%-WATER - 50 ML IVPB SCH (09:14)
[2022-03-26] MEDS: amLODIPine BESYLATE 10 MG TABLET (FP) PO SCH (09:14)
[2022-03-26] MEDS: HEPARIN NA (PORCINE) 5,000 UNITS/ML 1ML VIAL SQ SCH ×2 (09:14→21:46)
[2022-03-26] MEDS: CALCIUM ACETATE 667 MG CAPSULE (FP) PO SCH ×3 (09:14→17:38)
[2022-03-26] MEDS: NICOTINE 21 MG/24 HOURS TOPICAL PATCH TD SCH (09:14)
[2022-03-26] MEDS: PARoxetine HCL 20 MG TABLET PO SCH (09:14)
[2022-03-26] MEDS: VITAMIN B COMP W-C 1 EA TABLET (NEPHRO-VITE) PO SCH (09:14)
[2022-03-26] MEDS: LACTOBACILLUS ACIDOPHILUS 1 TABLET PO SCH (09:14)
[2022-03-26] MEDS: CALCIUM CARBONATE 650 MG TABLET PO SCH (09:14)
[2022-03-26] MEDS: GABAPENTIN 300 MG CAPSULE PO SCH ×2 (14:25→21:46)
[2022-03-26] MEDS: SODIUM CHLORIDE 1,000 ML IV SCH (21:46)
[2022-03-26] MEDS: ATORVASTATIN CA 40 MG TABLET (FP) PO SCH (21:46)
[2022-03-27] MEDS: INSULIN SLIDING SCALE (NOVOLOG) 1 VIAL SQ SCH ×4 (06:22→23:59)
[2022-03-27] MEDS: GABAPENTIN 300 MG CAPSULE PO SCH ×3 (06:22→21:54)
[2022-03-27] MEDS: LACTOBACILLUS ACIDOPHILUS 1 TABLET PO SCH ×2 (09:27→11:30)
[2022-03-27] MEDS: CALCIUM ACETATE 667 MG CAPSULE (FP) PO SCH ×4 (09:27→16:35)
[2022-03-27] MEDS: VITAMIN B COMP W-C 1 EA TABLET (NEPHRO-VITE) PO SCH ×2 (09:27→11:30)
[2022-03-27] MEDS: PARoxetine HCL 20 MG TABLET PO SCH ×2 (09:28→11:30)
[2022-03-27] MEDS: NICOTINE 21 MG/24 HOURS TOPICAL PATCH TD SCH (09:28)
[2022-03-27] MEDS: CEFAZOLIN 1 GM in DEXTROSE 5%-WATER - 50 ML IVPB SCH (11:26)
[2022-03-27] MEDS: HEPARIN NA (PORCINE) 5,000 UNITS/ML 1ML VIAL SQ SCH ×2 (11:27→21:54)
[2022-03-27] MEDS: amLODIPine BESYLATE 10 MG TABLET (FP) PO SCH (11:27)
[2022-03-27 13:36] LABS: HEMATOCRIT 22.6 % (32.4-45.2); HEMOGLOBIN 7.4 GM/dL (10.7-15.3); MCH 26.2 pg (25.7-33.7); MCHC 32.9 g/dl (32.0-36.0); MEAN CELL VOLUME 79.5 fl (80-96); MEAN PLT VOLUME 8.2 fl (7.5-11.1); PLATELET COUNT 285 10^3/uL (134-434); RBC 2.84 M/mm3 (3.60-5.2); WHITE BLOOD COUNT 10.2 K/mm3 (4.0-10.0)
[2022-03-27] MEDS ORDERED: EPOETIN ALFA-EPBX 10,000 UNIT/ML VIAL IVPUSH ONE (14:00)
[2022-03-27] MEDS ORDERED: SODIUM CHLORIDE 250 ML IV PRN (14:00)
[2022-03-27 14:05] LABS: CHLORIDE 107 mmol/L (98-107); SODIUM 143 mmol/L (136-145)
[2022-03-27 14:11] LABS: GLUCOSE,RANDOM 110 mg/dL (74-106)
[2022-03-27 14:12] LABS: ANION GAP 5 MMOL/L (8-16); CALCIUM 7.9 mg/dL (8.5-10.1); CO2 31 mmol/L (21-32)
[2022-03-27 14:13] LABS: ALBUMIN 1.9 g/dl (3.4-5.0)
[2022-03-27 14:15] LABS: CREATININE 4.1 mg/dL (0.55-1.3)
[2022-03-27 14:16] LABS: SGOT/AST 18 U/L (15-37)
[2022-03-27 14:17] LABS: BILIRUBIN,TOTAL 0.4 mg/dL (0.2-1); TOT PROT 6.2 g/dl (6.4-8.2)
[2022-03-27 14:20] LABS: ALK PHOS 249 U/L (45-117); BLOOD UREA NITROGEN 17.8 mg/dL (7-18); SGPT/ALT < 6 U/L (13-61)
[2022-03-27] MEDS: SODIUM CHLORIDE 1,000 ML IV SCH (21:53)
[2022-03-27] MEDS: ATORVASTATIN CA 40 MG TABLET (FP) PO SCH (21:54)
[2022-03-28] MEDS: GABAPENTIN 300 MG CAPSULE PO SCH ×3 (05:27→21:24)
[2022-03-28] MEDS: INSULIN SLIDING SCALE (NOVOLOG) 1 VIAL SQ SCH ×4 (06:22→21:52)
[2022-03-28] MEDS ORDERED: ceFAZolin SODIUM 1 GM VIAL ONE (10:19)
[2022-03-28] MEDS ORDERED: DEXTROSE 5%-WATER - 50 ML IVPB ONE (10:20)
[2022-03-28] MEDS: CALCIUM ACETATE 667 MG CAPSULE (FP) PO SCH ×3 (10:28→17:33)
[2022-03-28] MEDS: CEFAZOLIN 1 GM in DEXTROSE 5%-WATER - 50 ML IVPB SCH (10:28)
[2022-03-28] MEDS: VITAMIN B COMP W-C 1 EA TABLET (NEPHRO-VITE) PO SCH (10:29)
[2022-03-28] MEDS: LACTOBACILLUS ACIDOPHILUS 1 TABLET PO SCH (10:29)
[2022-03-28] MEDS: HEPARIN NA (PORCINE) 5,000 UNITS/ML 1ML VIAL SQ SCH ×2 (10:29→21:24)
[2022-03-28] MEDS: NICOTINE 21 MG/24 HOURS TOPICAL PATCH TD SCH (10:29)
[2022-03-28] MEDS: PARoxetine HCL 20 MG TABLET PO SCH (10:30)
[2022-03-28] MEDS: amLODIPine BESYLATE 10 MG TABLET (FP) PO SCH (10:30)
[2022-03-28] MEDS: SODIUM CHLORIDE 1,000 ML IV SCH (21:23)
[2022-03-28] MEDS: ATORVASTATIN CA 40 MG TABLET (FP) PO SCH (21:24)
[2022-03-29] MEDS: GABAPENTIN 300 MG CAPSULE PO SCH ×4 (06:27→22:35)
[2022-03-29] MEDS: INSULIN SLIDING SCALE (NOVOLOG) 1 VIAL SQ SCH ×4 (06:30→22:35)
[2022-03-29] MEDS: LACTOBACILLUS ACIDOPHILUS 1 TABLET PO SCH (10:42)
[2022-03-29] MEDS: VITAMIN B COMP W-C 1 EA TABLET (NEPHRO-VITE) PO SCH (10:42)
[2022-03-29] MEDS: PARoxetine HCL 20 MG TABLET PO SCH (10:42)
[2022-03-29] MEDS: amLODIPine BESYLATE 10 MG TABLET (FP) PO SCH (10:42)
[2022-03-29] MEDS: NICOTINE 21 MG/24 HOURS TOPICAL PATCH TD SCH (10:42)
[2022-03-29] MEDS: CALCIUM ACETATE 667 MG CAPSULE (FP) PO SCH ×4 (10:47→17:13)
[2022-03-29] MEDS: HEPARIN NA (PORCINE) 5,000 UNITS/ML 1ML VIAL SQ SCH ×2 (10:47→22:34)
[2022-03-29] MEDS: CEFAZOLIN 1 GM in DEXTROSE 5%-WATER - 50 ML IVPB SCH (11:18)
[2022-03-29 11:47] LABS: BASO % 1.1 % (0-2.0); EOS % 1.8 % (0-4.5); HEMOGLOBIN 7.6 GM/dL (10.7-15.3); LYMPH % 21.9 % (8-40); MEAN PLT VOLUME 8.3 fl (7.5-11.1); MONO % 13.8 % (3.8-10.2); NEUT % 61.4 % (42.8-82.8); PLATELET COUNT 281 10^3/uL (134-434); RBC 2.92 M/mm3 (3.60-5.2); RDW 18.9 % (11.6-15.6)
[2022-03-29 12:07] LABS: ALBUMIN 1.8 g/dl (3.4-5.0); BLOOD UREA NITROGEN 18.5 mg/dL (7-18); CALCIUM 7.7 mg/dL (8.5-10.1); MAGNESIUM 1.9 mg/dL (1.8-2.4)
[2022-03-29 12:10] LABS: CREATININE 3.9 mg/dL (0.55-1.3)
[2022-03-29 12:12] LABS: BILIRUBIN,TOTAL 0.4 mg/dL (0.2-1)
[2022-03-29] MEDS: SODIUM CHLORIDE 1,000 ML IV SCH (22:34)
[2022-03-29] MEDS: ATORVASTATIN CA 40 MG TABLET (FP) PO SCH (22:34)
[2022-03-30] MEDS: GABAPENTIN 300 MG CAPSULE PO SCH ×3 (06:24→21:05)
[2022-03-30] MEDS: INSULIN SLIDING SCALE (NOVOLOG) 1 VIAL SQ SCH ×4 (06:24→21:06)
[2022-03-30] MEDS ORDERED: REGADENOSON 0.4 MG/5 ML PRE-FILLED SYRINGE IVPUSH ONE ×2 (10:15→11:53)
[2022-03-30] MEDS: CALCIUM ACETATE 667 MG CAPSULE (FP) PO SCH ×3 (10:19→18:50)
[2022-03-30] MEDS: LACTOBACILLUS ACIDOPHILUS 1 TABLET PO SCH (11:14)
[2022-03-30] MEDS: HEPARIN NA (PORCINE) 5,000 UNITS/ML 1ML VIAL SQ SCH (11:14)
[2022-03-30] MEDS: CEFAZOLIN 1 GM in DEXTROSE 5%-WATER - 50 ML IVPB SCH (11:14)
[2022-03-30] MEDS: NICOTINE 21 MG/24 HOURS TOPICAL PATCH TD SCH (11:15)
[2022-03-30] MEDS: VITAMIN B COMP W-C 1 EA TABLET (NEPHRO-VITE) PO SCH (11:15)
[2022-03-30] MEDS: amLODIPine BESYLATE 10 MG TABLET (FP) PO SCH (11:16)
[2022-03-30] MEDS: PARoxetine HCL 20 MG TABLET PO SCH (11:16)
[2022-03-30] MEDS ORDERED: SODIUM CHLORIDE 250 ML IV PRN (15:01)
[2022-03-30] MEDS ORDERED: EPOETIN ALFA-EPBX 10,000 UNIT/ML VIAL SQ ONE (15:15)
[2022-03-30 15:33] LABS: HEMATOCRIT 24.1 % (32.4-45.2); HEMOGLOBIN 7.8 GM/dL (10.7-15.3); MCHC 32.5 g/dl (32.0-36.0); MEAN PLT VOLUME 8.3 fl (7.5-11.1); PLATELET COUNT 287 10^3/uL (134-434); RBC 3.02 M/mm3 (3.60-5.2); RDW 19.7 % (11.6-15.6); WHITE BLOOD COUNT 9.9 K/mm3 (4.0-10.0)
[2022-03-30 15:59] LABS: CALCIUM 7.9 mg/dL (8.5-10.1)
[2022-03-30 16:00] LABS: ALBUMIN 1.9 g/dl (3.4-5.0); BLOOD UREA NITROGEN 30.1 mg/dL (7-18)
[2022-03-30 16:03] LABS: CREATININE 3.9 mg/dL (0.55-1.3)
[2022-03-30 16:05] LABS: BILIRUBIN,TOTAL 0.3 mg/dL (0.2-1); TOT PROT 6.2 g/dl (6.4-8.2)
[2022-03-30] MEDS: SODIUM CHLORIDE 1,000 ML IV SCH (21:05)
[2022-03-30] MEDS: ATORVASTATIN CA 40 MG TABLET (FP) PO SCH (21:05)
[2022-03-31] MEDS: GABAPENTIN 300 MG CAPSULE PO SCH ×3 (05:15→21:30)
[2022-03-31] MEDS: INSULIN SLIDING SCALE (NOVOLOG) 1 VIAL SQ SCH ×4 (06:00→21:47)
[2022-03-31] MEDS: CALCIUM ACETATE 667 MG CAPSULE (FP) PO SCH ×3 (08:30→16:50)
[2022-03-31 08:59] LABS: INR 1.14 (0.83-1.09); PROTHROMBIN TIME (PATIENT) 13.1 SEC (9.7-13.0)
[2022-03-31 09:03] LABS: BASO % 1.1 % (0-2.0); EOS % 1.5 % (0-4.5); HEMATOCRIT 24.4 % (32.4-45.2); HEMOGLOBIN 8.1 GM/dL (10.7-15.3); LYMPH % 24.2 % (8-40); MCH 26.3 pg (25.7-33.7); MCHC 33.2 g/dl (32.0-36.0); MEAN CELL VOLUME 79.1 fl (80-96); MEAN PLT VOLUME 8.1 fl (7.5-11.1); MONO % 15.1 % (3.8-10.2); NEUT % 58.1 % (42.8-82.8); PLATELET COUNT 282 10^3/uL (134-434); RBC 3.09 M/mm3 (3.60-5.2); RDW 19.9 % (11.6-15.6); WHITE BLOOD COUNT 7.6 K/mm3 (4.0-10.0)
[2022-03-31] MEDS ORDERED: ceFAZolin SODIUM 1 GM VIAL ONE (09:45)
[2022-03-31] MEDS ORDERED: DEXTROSE 5%-WATER - 50 ML IVPB ONE (09:45)
[2022-03-31] MEDS: NICOTINE 21 MG/24 HOURS TOPICAL PATCH TD SCH (09:47)
[2022-03-31] MEDS: PARoxetine HCL 20 MG TABLET PO SCH (09:51)
[2022-03-31] MEDS: LACTOBACILLUS ACIDOPHILUS 1 TABLET PO SCH (09:51)
[2022-03-31] MEDS: VITAMIN B COMP W-C 1 EA TABLET (NEPHRO-VITE) PO SCH (09:51)
[2022-03-31] MEDS: amLODIPine BESYLATE 10 MG TABLET (FP) PO SCH (09:52)
[2022-03-31] MEDS: CEFAZOLIN 1 GM in DEXTROSE 5%-WATER - 50 ML IVPB SCH (09:52)
[2022-03-31] MEDS ORDERED: MIDAZOLAM HCL 2 MG/2 ML SINGLE DOSE VIAL ONE (10:25)
[2022-03-31 11:05] LABS: ALBUMIN 1.8 g/dl (3.4-5.0); CALCIUM 8.1 mg/dL (8.5-10.1)
[2022-03-31 11:06] LABS: MAGNESIUM 1.9 mg/dL (1.8-2.4)
[2022-03-31 11:09] LABS: CREATININE 3.2 mg/dL (0.55-1.3)
[2022-03-31 11:10] LABS: BILIRUBIN,TOTAL 0.4 mg/dL (0.2-1); TOT PROT 6.2 g/dl (6.4-8.2)
[2022-03-31] MEDS: ATORVASTATIN CA 40 MG TABLET (FP) PO SCH (21:30)
[2022-03-31] MEDS: ACETAMINOPHEN 325 MG TABLET (FP) PO PRN (21:34)
[2022-04-01] MEDS: INSULIN SLIDING SCALE (NOVOLOG) 1 VIAL SQ SCH ×4 (06:23→21:38)
[2022-04-01] MEDS: GABAPENTIN 300 MG CAPSULE PO SCH ×3 (06:23→21:35)
[2022-04-01] MEDS: CALCIUM ACETATE 667 MG CAPSULE (FP) PO SCH ×3 (07:42→16:33)
[2022-04-01] MEDS: SODIUM CHLORIDE 1,000 ML IV SCH ×3 (07:42→21:35)
[2022-04-01] MEDS ORDERED: DEXTROSE 5%-WATER - 50 ML IVPB ONE (09:13)
[2022-04-01] MEDS ORDERED: ceFAZolin SODIUM 1 GM VIAL ONE (09:13)
[2022-04-01] MEDS: LACTOBACILLUS ACIDOPHILUS 1 TABLET PO SCH (09:23)
[2022-04-01] MEDS: amLODIPine BESYLATE 10 MG TABLET (FP) PO SCH (09:23)
[2022-04-01] MEDS: NICOTINE 21 MG/24 HOURS TOPICAL PATCH TD SCH (09:23)
[2022-04-01] MEDS: CEFAZOLIN 1 GM in DEXTROSE 5%-WATER - 50 ML IVPB SCH (09:24)
[2022-04-01] MEDS: PARoxetine HCL 20 MG TABLET PO SCH (09:24)
[2022-04-01] MEDS: VITAMIN B COMP W-C 1 EA TABLET (NEPHRO-VITE) PO SCH (09:24)
[2022-04-01] MEDS: ACETAMINOPHEN 325 MG TABLET (FP) PO PRN ×2 (12:05→23:23)
[2022-04-01 13:41] LABS: BASO % 1.4 % (0-2.0); EOS % 2.3 % (0-4.5); HEMATOCRIT 25.2 % (32.4-45.2); HEMOGLOBIN 8.2 GM/dL (10.7-15.3); LYMPH % 21.5 % (8-40); MCH 26.3 pg (25.7-33.7); MCHC 32.7 g/dl (32.0-36.0); MEAN CELL VOLUME 80.3 fl (80-96); MEAN PLT VOLUME 8.2 fl (7.5-11.1); MONO % 16.6 % (3.8-10.2); NEUT % 58.2 % (42.8-82.8); PLATELET COUNT 306 10^3/uL (134-434); RBC 3.13 M/mm3 (3.60-5.2); RDW 19.8 % (11.6-15.6); WHITE BLOOD COUNT 8.7 K/mm3 (4.0-10.0)
[2022-04-01 14:00] LABS: ALBUMIN 2.1 g/dl (3.4-5.0); CALCIUM 8.1 mg/dL (8.5-10.1)
[2022-04-01 14:01] LABS: BLOOD UREA NITROGEN 25.8 mg/dL (7-18)
[2022-04-01 14:03] LABS: CREATININE 4.3 mg/dL (0.55-1.3)
[2022-04-01 14:05] LABS: BILIRUBIN,TOTAL 0.3 mg/dL (0.2-1); TOT PROT 6.6 g/dl (6.4-8.2)
[2022-04-01] MEDS ORDERED: INSULIN (NOVOLOG) ASPART 100 UNITS/ML 10ML VIAL ONE (21:07)
[2022-04-01] MEDS: ATORVASTATIN CA 40 MG TABLET (FP) PO SCH (21:35)
[2022-04-02] MEDS: SODIUM CHLORIDE 1,000 ML IV SCH (06:06)
[2022-04-02] MEDS: GABAPENTIN 300 MG CAPSULE PO SCH ×3 (06:06→22:19)
[2022-04-02] MEDS: INSULIN SLIDING SCALE (NOVOLOG) 1 VIAL SQ SCH ×4 (06:12→22:23)
[2022-04-02 08:48] LABS: INR 1.09 (0.83-1.09); PROTHROMBIN TIME (PATIENT) 12.6 SEC (9.7-13.0)
[2022-04-02 08:53] LABS: BASO % 1.1 % (0-2.0); EOS % 2.4 % (0-4.5); HEMOGLOBIN 7.9 GM/dL (10.7-15.3); LYMPH % 22.6 % (8-40); MCH 26.2 pg (25.7-33.7); MCHC 32.8 g/dl (32.0-36.0); MEAN CELL VOLUME 80.1 fl (80-96); MEAN PLT VOLUME 8.3 fl (7.5-11.1); MONO % 16.2 % (3.8-10.2); NEUT % 57.7 % (42.8-82.8); PLATELET COUNT 312 10^3/uL (134-434); WHITE BLOOD COUNT 8.6 K/mm3 (4.0-10.0)
[2022-04-02 09:05] LABS: ALBUMIN 1.9 g/dl (3.4-5.0); CALCIUM 7.8 mg/dL (8.5-10.1)
[2022-04-02 09:06] LABS: MAGNESIUM 1.9 mg/dL (1.8-2.4)
[2022-04-02 09:08] LABS: CREATININE 4.7 mg/dL (0.55-1.3)
[2022-04-02 09:10] LABS: BILIRUBIN,TOTAL 0.4 mg/dL (0.2-1); TOT PROT 6.2 g/dl (6.4-8.2)
[2022-04-02] MEDS: LACTOBACILLUS ACIDOPHILUS 1 TABLET PO SCH (10:35)
[2022-04-02] MEDS: PARoxetine HCL 20 MG TABLET PO SCH (10:35)
[2022-04-02] MEDS: CALCIUM ACETATE 667 MG CAPSULE (FP) PO SCH ×3 (10:35→18:39)
[2022-04-02] MEDS: amLODIPine BESYLATE 10 MG TABLET (FP) PO SCH (10:35)
[2022-04-02] MEDS: NICOTINE 21 MG/24 HOURS TOPICAL PATCH TD SCH (10:35)
[2022-04-02] MEDS: VITAMIN B COMP W-C 1 EA TABLET (NEPHRO-VITE) PO SCH (10:35)
[2022-04-02] MEDS ORDERED: SODIUM CHLORIDE 250 ML IV PRN (16:00)
[2022-04-02] MEDS ORDERED: EPOETIN ALFA-EPBX 10,000 UNIT/ML VIAL SQ ONE (16:30)
[2022-04-02] MEDS: ATORVASTATIN CA 40 MG TABLET (FP) PO SCH (22:19)
[2022-04-02] MEDS: HEPARIN NA (PORCINE) 5,000 UNITS/ML 1ML VIAL SQ SCH (22:19)
[2022-04-03] MEDS: GABAPENTIN 300 MG CAPSULE PO SCH ×3 (06:00→22:32)
[2022-04-03] MEDS: INSULIN SLIDING SCALE (NOVOLOG) 1 VIAL SQ SCH ×4 (06:04→22:44)
[2022-04-03] MEDS: SODIUM CHLORIDE 1,000 ML IV SCH (06:36)
[2022-04-03] MEDS: CALCIUM ACETATE 667 MG CAPSULE (FP) PO SCH ×3 (10:05→17:39)
[2022-04-03] MEDS: LACTOBACILLUS ACIDOPHILUS 1 TABLET PO SCH (10:05)
[2022-04-03] MEDS: HEPARIN NA (PORCINE) 5,000 UNITS/ML 1ML VIAL SQ SCH ×2 (10:06→22:32)
[2022-04-03] MEDS: VITAMIN B COMP W-C 1 EA TABLET (NEPHRO-VITE) PO SCH (10:06)
[2022-04-03] MEDS: NICOTINE 21 MG/24 HOURS TOPICAL PATCH TD SCH (10:06)
[2022-04-03] MEDS: PARoxetine HCL 20 MG TABLET PO SCH (10:07)
[2022-04-03] MEDS: amLODIPine BESYLATE 10 MG TABLET (FP) PO SCH (10:07)
[2022-04-03 11:46] LABS: BASO % 1.8 % (0-2.0); EOS % 2.2 % (0-4.5); HEMATOCRIT 23.1 % (32.4-45.2); HEMOGLOBIN 7.5 GM/dL (10.7-15.3); LYMPH % 26.2 % (8-40); MCHC 32.3 g/dl (32.0-36.0); MEAN CELL VOLUME 80.6 fl (80-96); MEAN PLT VOLUME 7.9 fl (7.5-11.1); MONO % 16.8 % (3.8-10.2); PLATELET COUNT 293 10^3/uL (134-434); RBC 2.87 M/mm3 (3.60-5.2); RDW 20.5 % (11.6-15.6); WHITE BLOOD COUNT 9.1 K/mm3 (4.0-10.0)
[2022-04-03 11:59] LABS: INR 1.13 (0.83-1.09)
[2022-04-03 12:06] LABS: BLOOD UREA NITROGEN 17.9 mg/dL (7-18); CALCIUM 8.3 mg/dL (8.5-10.1); MAGNESIUM 1.9 mg/dL (1.8-2.4)
[2022-04-03 12:09] LABS: CREATININE 3.1 mg/dL (0.55-1.3)
[2022-04-03 12:11] LABS: BILIRUBIN,TOTAL 0.4 mg/dL (0.2-1); TOT PROT 6.2 g/dl (6.4-8.2)
[2022-04-03 13:28] LABS: ANISOCYTOSIS 2+; MACROCYTOSIS 0; OVALOCYTE 1+; TARGET CELLS 1+; TEAR DROP CELLS 1+
[2022-04-03] MEDS: ATORVASTATIN CA 40 MG TABLET (FP) PO SCH (22:32)
[2022-04-04] MEDS: GABAPENTIN 300 MG CAPSULE PO SCH ×3 (05:50→21:56)
[2022-04-04] MEDS: INSULIN SLIDING SCALE (NOVOLOG) 1 VIAL SQ SCH ×4 (06:00→21:56)
[2022-04-04] MEDS: CALCIUM ACETATE 667 MG CAPSULE (FP) PO SCH ×3 (08:35→17:32)
[2022-04-04 08:53] LABS: INR 1.12 (0.83-1.09); PROTHROMBIN TIME (PATIENT) 12.9 SEC (9.7-13.0)
[2022-04-04 09:03] LABS: BASO % 1.2 % (0-2.0); EOS % 2.4 % (0-4.5); HEMATOCRIT 26.3 % (32.4-45.2); HEMOGLOBIN 8.5 GM/dL (10.7-15.3); LYMPH % 23.5 % (8-40); MCH 26.1 pg (25.7-33.7); MCHC 32.2 g/dl (32.0-36.0); MEAN CELL VOLUME 80.9 fl (80-96); MEAN PLT VOLUME 8.5 fl (7.5-11.1); MONO % 16.3 % (3.8-10.2); NEUT % 56.6 % (42.8-82.8); PLATELET COUNT 355 10^3/uL (134-434); RBC 3.26 M/mm3 (3.60-5.2); RDW 20.5 % (11.6-15.6); WHITE BLOOD COUNT 9.4 K/mm3 (4.0-10.0)
[2022-04-04 09:16] LABS: BLOOD UREA NITROGEN 25.9 mg/dL (7-18); CALCIUM 8.6 mg/dL (8.5-10.1); MAGNESIUM 1.8 mg/dL (1.8-2.4)
[2022-04-04 09:17] LABS: ALBUMIN 2.3 g/dl (3.4-5.0)
[2022-04-04 09:19] LABS: BILIRUBIN,DIRECT 0.2 mg/dL (0.0-0.2); CREATININE 3.9 mg/dL (0.55-1.3)
[2022-04-04 09:21] LABS: BILIRUBIN,TOTAL 0.5 mg/dL (0.2-1); TOT PROT 6.7 g/dl (6.4-8.2)
[2022-04-04] MEDS: amLODIPine BESYLATE 10 MG TABLET (FP) PO SCH (10:28)
[2022-04-04] MEDS: HEPARIN NA (PORCINE) 5,000 UNITS/ML 1ML VIAL SQ SCH ×2 (10:28→21:55)
[2022-04-04] MEDS: PARoxetine HCL 20 MG TABLET PO SCH (10:28)
[2022-04-04] MEDS: ASPIRIN COATED 81 MG TABLET.EC PO SCH (10:28)
[2022-04-04] MEDS: LACTOBACILLUS ACIDOPHILUS 1 TABLET PO SCH (10:28)
[2022-04-04] MEDS: VITAMIN B COMP W-C 1 EA TABLET (NEPHRO-VITE) PO SCH (10:28)
[2022-04-04] MEDS: NICOTINE 21 MG/24 HOURS TOPICAL PATCH TD SCH ×2 (10:29→10:48)
[2022-04-04] MEDS ORDERED: SODIUM CHLORIDE 250 ML IV PRN (19:47)
[2022-04-04] MEDS ORDERED: EPOETIN ALFA-EPBX 10,000 UNIT/ML VIAL SQ ONE (20:00)
[2022-04-04] MEDS: ATORVASTATIN CA 40 MG TABLET (FP) PO SCH (21:56)
[2022-04-04] MEDS: ACETAMINOPHEN 325 MG TABLET (FP) PO PRN (22:09)
[2022-04-05] MEDS: GABAPENTIN 300 MG CAPSULE PO SCH ×4 (06:28→22:03)
[2022-04-05] MEDS: INSULIN SLIDING SCALE (NOVOLOG) 1 VIAL SQ SCH ×4 (06:34→22:13)
[2022-04-05] MEDS: HEPARIN NA (PORCINE) 5,000 UNITS/ML 1ML VIAL SQ SCH ×3 (09:38→22:14)
[2022-04-05] MEDS: VITAMIN B COMP W-C 1 EA TABLET (NEPHRO-VITE) PO SCH (09:38)
[2022-04-05] MEDS: PARoxetine HCL 20 MG TABLET PO SCH (09:38)
[2022-04-05] MEDS: ASPIRIN COATED 81 MG TABLET.EC PO SCH (09:38)
[2022-04-05] MEDS: LACTOBACILLUS ACIDOPHILUS 1 TABLET PO SCH (09:38)
[2022-04-05] MEDS: CALCIUM ACETATE 667 MG CAPSULE (FP) PO SCH ×3 (09:38→17:00)
[2022-04-05] MEDS: amLODIPine BESYLATE 10 MG TABLET (FP) PO SCH (09:39)
[2022-04-05] MEDS: NICOTINE 21 MG/24 HOURS TOPICAL PATCH TD SCH (09:39)
[2022-04-05] MEDS ORDERED: SODIUM CHLORIDE 250 ML IV PRN (13:35)
[2022-04-05] MEDS: ATORVASTATIN CA 40 MG TABLET (FP) PO SCH ×2 (22:03→22:13)
[2022-04-06] MEDS: GABAPENTIN 300 MG CAPSULE PO SCH ×4 (05:47→22:17)
[2022-04-06] MEDS: CALCIUM ACETATE 667 MG CAPSULE (FP) PO SCH ×3 (08:29→17:20)
[2022-04-06] MEDS ORDERED: EPOETIN ALFA-EPBX 10,000 UNIT/ML VIAL IVPUSH ONE (09:00)
[2022-04-06 09:02] LABS: CALCIUM 8.9 mg/dL (8.5-10.1)
[2022-04-06 09:03] LABS: ALBUMIN 2.3 g/dl (3.4-5.0)
[2022-04-06 09:06] LABS: CREATININE 3.5 mg/dL (0.55-1.3)
[2022-04-06 09:08] LABS: BILIRUBIN,TOTAL 0.8 mg/dL (0.2-1)
[2022-04-06] MEDS: INSULIN SLIDING SCALE (NOVOLOG) 1 VIAL SQ SCH ×4 (10:10→22:16)
[2022-04-06] MEDS: ASPIRIN COATED 81 MG TABLET.EC PO SCH (10:11)
[2022-04-06] MEDS: NICOTINE 21 MG/24 HOURS TOPICAL PATCH TD SCH (10:11)
[2022-04-06] MEDS: PARoxetine HCL 20 MG TABLET PO SCH (10:11)
[2022-04-06] MEDS: LACTOBACILLUS ACIDOPHILUS 1 TABLET PO SCH (10:11)
[2022-04-06] MEDS: amLODIPine BESYLATE 10 MG TABLET (FP) PO SCH (10:11)
[2022-04-06] MEDS: VITAMIN B COMP W-C 1 EA TABLET (NEPHRO-VITE) PO SCH (10:11)
[2022-04-06] MEDS: HEPARIN NA (PORCINE) 5,000 UNITS/ML 1ML VIAL SQ SCH ×3 (10:11→22:17)
[2022-04-06 10:56] LABS: BASO % 1.2 % (0-2.0); EOS % 1.8 % (0-4.5); HEMATOCRIT 25.2 % (32.4-45.2); HEMOGLOBIN 8.1 GM/dL (10.7-15.3); LYMPH % 17.5 % (8-40); MCHC 32.3 g/dl (32.0-36.0); MEAN CELL VOLUME 80.4 fl (80-96); MEAN PLT VOLUME 8.1 fl (7.5-11.1); MONO % 12.6 % (3.8-10.2); NEUT % 66.9 % (42.8-82.8); PLATELET COUNT 348 10^3/uL (134-434); RBC 3.14 M/mm3 (3.60-5.2); RDW 20.5 % (11.6-15.6)
[2022-04-06 11:25] LABS: ALBUMIN 2.1 g/dl (3.4-5.0); BLOOD UREA NITROGEN 16.4 mg/dL (7-18); CALCIUM 8.3 mg/dL (8.5-10.1)
[2022-04-06 11:29] LABS: CREATININE 3.3 mg/dL (0.55-1.3)
[2022-04-06 11:30] LABS: BILIRUBIN,TOTAL 0.5 mg/dL (0.2-1)
[2022-04-06 11:31] LABS: TOT PROT 6.2 g/dl (6.4-8.2)
[2022-04-06] MEDS: ATORVASTATIN CA 40 MG TABLET (FP) PO SCH ×2 (22:06→22:17)
[2022-04-07] MEDS: GABAPENTIN 300 MG CAPSULE PO SCH ×4 (05:52→22:47)
[2022-04-07] MEDS: INSULIN SLIDING SCALE (NOVOLOG) 1 VIAL SQ SCH ×4 (06:25→22:56)
[2022-04-07] MEDS: CALCIUM ACETATE 667 MG CAPSULE (FP) PO SCH ×3 (08:26→16:42)
[2022-04-07] MEDS: NICOTINE 21 MG/24 HOURS TOPICAL PATCH TD SCH (09:14)
[2022-04-07] MEDS: LACTOBACILLUS ACIDOPHILUS 1 TABLET PO SCH (09:15)
[2022-04-07] MEDS: ASPIRIN COATED 81 MG TABLET.EC PO SCH (09:15)
[2022-04-07] MEDS: VITAMIN B COMP W-C 1 EA TABLET (NEPHRO-VITE) PO SCH (09:15)
[2022-04-07] MEDS: PARoxetine HCL 20 MG TABLET PO SCH (09:15)
[2022-04-07] MEDS: amLODIPine BESYLATE 10 MG TABLET (FP) PO SCH (09:15)
[2022-04-07] MEDS: HEPARIN NA (PORCINE) 5,000 UNITS/ML 1ML VIAL SQ SCH ×2 (09:15→22:47)
[2022-04-07 12:14] LABS: BASO % 1.4 % (0-2.0); EOS % 1.9 % (0-4.5); HEMATOCRIT 27.4 % (32.4-45.2); LYMPH % 22.4 % (8-40); MCHC 32.9 g/dl (32.0-36.0); MEAN PLT VOLUME 7.7 fl (7.5-11.1); MONO % 12.8 % (3.8-10.2); NEUT % 61.5 % (42.8-82.8); PLATELET COUNT 381 10^3/uL (134-434); RBC 3.47 M/mm3 (3.60-5.2); RDW 19.9 % (11.6-15.6); WHITE BLOOD COUNT 9.5 K/mm3 (4.0-10.0)
[2022-04-07 12:59] LABS: ALBUMIN 2.5 g/dl (3.4-5.0); BILIRUBIN,TOTAL 0.6 mg/dL (0.2-1); BLOOD UREA NITROGEN 8.8 mg/dL (7-18); CALCIUM 8.8 mg/dL (8.5-10.1); CREATININE 2.8 mg/dL (0.55-1.3); MAGNESIUM 1.9 mg/dL (1.8-2.4); TOT PROT 7.3 g/dl (6.4-8.2)
[2022-04-07] MEDS: ATORVASTATIN CA 40 MG TABLET (FP) PO SCH (22:47)
[2022-04-08] MEDS: GABAPENTIN 300 MG CAPSULE PO SCH ×4 (05:44→22:38)
[2022-04-08] MEDS: INSULIN SLIDING SCALE (NOVOLOG) 1 VIAL SQ SCH ×4 (06:01→22:38)
[2022-04-08] MEDS: CALCIUM ACETATE 667 MG CAPSULE (FP) PO SCH ×3 (09:00→18:40)
[2022-04-08 11:20] LABS: HEMOGLOBIN 7.8 GM/dL (10.7-15.3); MCH 25.9 pg (25.7-33.7); MCHC 32.5 g/dl (32.0-36.0); MEAN CELL VOLUME 79.9 fl (80-96); MEAN PLT VOLUME 7.8 fl (7.5-11.1); PLATELET COUNT 351 10^3/uL (134-434); RDW 20.3 % (11.6-15.6); WHITE BLOOD COUNT 8.1 K/mm3 (4.0-10.0)
[2022-04-08] MEDS ORDERED: SODIUM CHLORIDE 250 ML IV PRN (11:28)
[2022-04-08 11:38] LABS: CALCIUM 8.2 mg/dL (8.5-10.1)
[2022-04-08 11:39] LABS: ALBUMIN 2.1 g/dl (3.4-5.0)
[2022-04-08 11:42] LABS: CREATININE 3.5 mg/dL (0.55-1.3); PHOSPHOROUS 2.7 mg/dL (2.5-4.9)
[2022-04-08 11:43] LABS: BILIRUBIN,TOTAL 0.6 mg/dL (0.2-1); TOT PROT 6.3 g/dl (6.4-8.2)
[2022-04-08] MEDS ORDERED: EPOETIN ALFA-EPBX 4,000 UNIT/ML VIAL SQ ONE (12:00)
[2022-04-08] MEDS ORDERED: POTASSIUM CHLORIDE TABS 20 MEQ TABLET.ER (FP) PO ONE (12:15)
[2022-04-08] MEDS: amLODIPine BESYLATE 10 MG TABLET (FP) PO SCH (14:19)
[2022-04-08] MEDS: LACTOBACILLUS ACIDOPHILUS 1 TABLET PO SCH (14:19)
[2022-04-08] MEDS: NICOTINE 21 MG/24 HOURS TOPICAL PATCH TD SCH (14:20)
[2022-04-08] MEDS: VITAMIN B COMP W-C 1 EA TABLET (NEPHRO-VITE) PO SCH (14:20)
[2022-04-08] MEDS: PARoxetine HCL 20 MG TABLET PO SCH (14:20)
[2022-04-08] MEDS: ASPIRIN COATED 81 MG TABLET.EC PO SCH (14:20)
[2022-04-08] MEDS: HEPARIN NA (PORCINE) 5,000 UNITS/ML 1ML VIAL SQ SCH ×2 (14:20→22:38)
[2022-04-08] MEDS: ATORVASTATIN CA 40 MG TABLET (FP) PO SCH (22:38)
[2022-04-09] MEDS: GABAPENTIN 300 MG CAPSULE PO SCH (06:34)
[2022-04-09] MEDS: INSULIN SLIDING SCALE (NOVOLOG) 1 VIAL SQ SCH (06:35)
[2022-04-09] MEDS: CALCIUM ACETATE 667 MG CAPSULE (FP) PO SCH (09:19)
[2022-04-09] MEDS: VITAMIN B COMP W-C 1 EA TABLET (NEPHRO-VITE) PO SCH (09:20)
[2022-04-09] MEDS: amLODIPine BESYLATE 10 MG TABLET (FP) PO SCH (09:20)
[2022-04-09] MEDS: ASPIRIN COATED 81 MG TABLET.EC PO SCH (09:20)
[2022-04-09] MEDS: NICOTINE 21 MG/24 HOURS TOPICAL PATCH TD SCH (09:20)
[2022-04-09] MEDS: PARoxetine HCL 20 MG TABLET PO SCH (09:20)
[2022-04-09] MEDS: LACTOBACILLUS ACIDOPHILUS 1 TABLET PO SCH (09:20)
[2022-04-09] MEDS: HEPARIN NA (PORCINE) 5,000 UNITS/ML 1ML VIAL SQ SCH (09:20)
[2022-04-09 11:13] VITALS: RESP 20
[2022-04-09 13:27] VITALS: BP 154/74; PULSE 84; TEMP 98.4
== END 2022-04-09 12:10 | DRG 463 ==
LOC: JER 10:36 → JERBED 15:46 → J7W 03-04 01:59
PROVIDERS: ADMIT Internal Medicine; ATTEND Nurse Practitioner Acute Care
PROC: 06HM33Z Insertion of Infusion Device into Right Femoral Vein, Percutaneous Approach (ICD-10-PCS; principal; 2022-03-13)
PROC: B54BZZA Ultrasonography of Right Lower Extremity Veins, Guidance (ICD-10-PCS; 2022-03-13)
PROC: 30233N1 Transfusion of Nonautologous Red Blood Cells into Peripheral Vein, Percutaneous Approach (ICD-10-PCS; 2022-03-18)
PROC: 05HM33Z Insertion of Infusion Device into Right Internal Jugular Vein, Percutaneous Approach (ICD-10-PCS; 2022-03-19)
PROC: B543ZZA Ultrasonography of Right Jugular Veins, Guidance (ICD-10-PCS; 2022-03-19)
PROC: 5A1D70Z Performance of Urinary Filtration, Intermittent, Less than 6 Hours Per Day (ICD-10-PCS; 2022-03-20)
PROC: 5A1D70Z Performance of Urinary Filtration, Intermittent, Less than 6 Hours Per Day (ICD-10-PCS; 2022-03-27)
PROC: 5A1D70Z Performance of Urinary Filtration, Intermittent, Less than 6 Hours Per Day (ICD-10-PCS; 2022-03-30)
PROC: 5A1D70Z Performance of Urinary Filtration, Intermittent, Less than 6 Hours Per Day (ICD-10-PCS; 2022-04-02)
PROC: 5A1D70Z Performance of Urinary Filtration, Intermittent, Less than 6 Hours Per Day (ICD-10-PCS; 2022-04-04)
PROC: 5A1D70Z Performance of Urinary Filtration, Intermittent, Less than 6 Hours Per Day (ICD-10-PCS; 2022-04-06)
PROC: 5A1D70Z Performance of Urinary Filtration, Intermittent, Less than 6 Hours Per Day (ICD-10-PCS; 2022-04-08)
DX: N39.0 Urinary tract infection, site not specified (principal); G92.8 Other toxic encephalopathy; E78.5 Hyperlipidemia, unspecified; E11.9 Type 2 diabetes mellitus without complications; I25.10 Atherosclerotic heart disease of native coronary artery without angina pectoris; I25.2 Old myocardial infarction; J44.9 Chronic obstructive pulmonary disease, unspecified; J45.909 Unspecified asthma, uncomplicated; K59.00 Constipation, unspecified; R10.84 Generalized abdominal pain; F14.10 Cocaine abuse, uncomplicated; R19.7 Diarrhea, unspecified; Z68.30 Body mass index [BMI] 30.0-30.9, adult; I12.0 Hypertensive chronic kidney disease with stage 5 chronic kidney disease or end stage renal disease; E11.22 Type 2 diabetes mellitus with diabetic chronic kidney disease; N18.6 End stage renal disease; Z99.2 Dependence on renal dialysis; D50.9 Iron deficiency anemia, unspecified; F11.10 Opioid abuse, uncomplicated; M54.50 Low back pain, unspecified; F17.200 Nicotine dependence, unspecified, uncomplicated; B95.61 Methicillin susceptible Staphylococcus aureus infection as the cause of diseases classified elsewhere; F32.A Depression, unspecified; R78.81 Bacteremia; I24.8 Other forms of acute ischemic heart disease; K86.1 Other chronic pancreatitis; N17.0 Acute kidney failure with tubular necrosis; Z95.1 Presence of aortocoronary bypass graft; Z53.29 Procedure and treatment not carried out because of patient's decision for other reasons; Z71.89 Other specified counseling; Z86.16 Personal history of COVID-19
CPT/HCPCS: 0241U-QW; 36415; 36430; 36600; 71045-TC-FY; 72128-TC; 72131-TC; 74176-TC; 76000-TC-FY; 76775-TC; 78452-TC; 80048; 80053; 80076; 80307; 81003; 82272; 82436; 82570; 82607; 82728; 82746; 82803; 82962; 83036; 83516; 83520; 83540; 83550; 83605; 83690; 83735; 83935; 84100; 84155; 84165; 84300; 84484; 85025; 85027; 85610; 85730; 86038; 86140; 86160; 86225; 86256; 86705; 86707; 86708; 86803; 86850; 86900; 86901; 86922; 87040; 87086; 87186; 87324; 87340; 87449; 87517; 93005; 93010; 93017; 93306-TC; 94760; 97116-GP; 97161-GP; 99285-25; A9502; C9803-CS; G0480; J0735; J1644; J2785; P9058; Q5106; U0003; U0005

== ENCOUNTER 2022-11-16 19:19 | Inpatient (IN) | payer OTHER ==
[2022-11-16 19:50] VITALS: BMI 31.2
[2022-11-16] MEDS ORDERED: SODIUM CHLORIDE 0.9% 500 ML INFUS.BAG IV ONE (21:13)
[2022-11-16 23:17] LABS: BASO % 0.7 % (0-2.0); HEMATOCRIT 37.5 % (32.4-45.2); LYMPH % 17.4 % (8-40); MCH 25.4 pg (25.7-33.7); MEAN CELL VOLUME 79.4 fl (80-96); MEAN PLT VOLUME 8.2 fl (7.5-11.1); NEUT % 54.1 % (42.8-82.8); PLATELET COUNT 198 10^3/uL (134-434); RBC 4.72 M/mm3 (3.60-5.2); RDW 16.3 % (11.6-15.6); WHITE BLOOD COUNT 11.2 K/mm3 (4.0-10.0)
[2022-11-16 23:18] LABS: VENOUS BASE EXCESS 0.4 mmol/L (-2-2); VENOUS O2 SATURATION 44.3 % (70-80); VENOUS PCO2 54.3 mmHg (38-52); VENOUS PH 7.321 (7.310-7.410)
[2022-11-16 23:25] LABS: INR 1.07 (0.83-1.09); PROTHROMBIN TIME (PATIENT) 12.4 SEC (9.7-13.0)
[2022-11-16 23:28] LABS: ACTIVATED PTT 27.9 SECONDS (25.2-36.5)
[2022-11-16 23:41] LABS: CHLORIDE 102 mmol/L (98-107); SODIUM 138 mmol/L (136-145)
[2022-11-16 23:44] LABS: ALBUMIN 3.6 g/dl (3.4-5.0); ANION GAP 7 MMOL/L (8-16); BLOOD UREA NITROGEN 18.5 mg/dL (7-18); CALCIUM 9.1 mg/dL (8.5-10.1); CO2 29 mmol/L (21-32); GLUCOSE,RANDOM 148 mg/dL (74-106)
[2022-11-16] MEDS ORDERED: MIDAZOLAM HCL 2 MG/2 ML SINGLE DOSE VIAL IVPUSH ONE (23:45)
[2022-11-16] MEDS ORDERED: MIDAZOLAM HCL 2 MG/2 ML SINGLE DOSE VIAL ONE (23:46)
[2022-11-16 23:47] LABS: ANISOCYTOSIS 1+; CREATININE 4.5 mg/dL (0.55-1.3); MACROCYTOSIS 0; SGOT/AST 9 U/L (15-37); SGPT/ALT 12 U/L (13-61)
[2022-11-16 23:49] LABS: BILIRUBIN,TOTAL 0.4 mg/dL (0.2-1); TOT PROT 7.2 g/dl (6.4-8.2)
[2022-11-16 23:50] LABS: ALK PHOS 112 U/L (45-117)
[2022-11-17] MEDS ORDERED: HALOPERIDOL LACTATE 5 MG/ML IM PRN (04:49)
[2022-11-17] MEDS ORDERED: SEVELAMER CARBONATE 800 MG TAB (FP) PO SCH (05:15)
[2022-11-17 07:03] LABS: PHENCYCLIDINE,URINE NEGATIVE (NEGATIVE)
[2022-11-17 07:04] LABS: COCAINE, UR NEGATIVE (NEGATIVE); METHADONE, UR NEGATIVE (NEGATIVE); OPIATES, URI NEGATIVE (NEGATIVE)
[2022-11-17 07:10] LABS: HEMATOCRIT 34.3 % (32.4-45.2); MCH 25.9 pg (25.7-33.7); MEAN CELL VOLUME 80.7 fl (80-96); MEAN PLT VOLUME 8.8 fl (7.5-11.1); PLATELET COUNT 204 10^3/uL (134-434); RBC 4.25 M/mm3 (3.60-5.2); RDW 16.3 % (11.6-15.6)
[2022-11-17 07:11] LABS: URINE AMPHETAMINES NEGATIVE (NEGATIVE); URINE BARBITURATES NEGATIVE (NEGATIVE); URINE BENZODIAZEPINES POSITIVE (NEGATIVE)
[2022-11-17 07:29] LABS: CHOLESTEROL 124 mg/dL (50-200)
[2022-11-17] MEDS: INSULIN SLIDING SCALE (NOVOLOG) 1 VIAL SQ SCH ×3 (07:29→17:34)
[2022-11-17 07:30] LABS: TRIGLYCERIDES 88 mg/dL (0-150)
[2022-11-17 07:31] LABS: LDL CHOLESTEROL (ONLY SJRH) 48 mg/dL (5-100)
[2022-11-17 07:33] LABS: HDL CHOLESTEROL 61 mg/dL (40-60)
[2022-11-17] MEDS: SEVELAMER CARBONATE 800 MG TAB (FP) PO SCH ×3 (07:51→21:52)
[2022-11-17 08:10] LABS: CHLORIDE 105 mmol/L (98-107); SODIUM 140 mmol/L (136-145)
[2022-11-17 08:22] LABS: ALBUMIN 3.3 g/dl (3.4-5.0); ANION GAP 10 MMOL/L (8-16); BLOOD UREA NITROGEN 21.9 mg/dL (7-18); CO2 25 mmol/L (21-32); GLUCOSE,RANDOM 77 mg/dL (74-106); MAGNESIUM 2.3 mg/dL (1.8-2.4)
[2022-11-17 08:23] LABS: PHOSPHOROUS 4.4 mg/dL (2.5-4.9); SGPT/ALT 12 U/L (13-61)
[2022-11-17 08:24] LABS: CREATININE 4.8 mg/dL (0.55-1.3); SGOT/AST 8 U/L (15-37)
[2022-11-17 08:26] LABS: ALK PHOS 108 U/L (45-117); BILIRUBIN,TOTAL 0.4 mg/dL (0.2-1); TOT PROT 6.6 g/dl (6.4-8.2)
[2022-11-17] MEDS ORDERED: HEPARIN NA (PORCINE) 5,000 UNITS/ML 1ML VIAL SQ SCH (10:00)
[2022-11-17 10:09] LABS: ANISOCYTOSIS 0; HELMET CELLS 0; HOWELL-JOLLY BODIES 0; MACROCYTOSIS 0; OVALOCYTE 0; ROULEAU 0; SICKELED CELLS 0; TARGET CELLS 0; TEAR DROP CELLS 0; TOXIC GRANULATION 0
[2022-11-17] MEDS: LORazepam 2 MG/ML SDV VIAL IM SCH ×2 (10:44→22:28)
[2022-11-17] MEDS ORDERED: CLOPIDOGREL BISULFATE 75 MG TABLET (FP) ONE (10:50)
[2022-11-17] MEDS ORDERED: ASPIRIN 81 MG CHEWABLE TABLETS ONE (10:51)
[2022-11-17] MEDS ORDERED: PARoxetine HCL 10 MG TABLET ONE (10:51)
[2022-11-17] MEDS ORDERED: NICOTINE 21 MG/24 HOURS TOPICAL PATCH ONE (10:51)
[2022-11-17] MEDS ORDERED: HEPARIN NA (PORCINE) 5,000 UNITS/ML 1ML VIAL ONE (10:51)
[2022-11-17] MEDS: ASPIRIN COATED 81 MG TABLET.EC PO SCH (10:53)
[2022-11-17] MEDS: HEPARIN NA (PORCINE) 5,000 UNITS/ML 1ML VIAL SQ SCH ×3 (10:53→22:05)
[2022-11-17] MEDS: NICOTINE 21 MG/24 HOURS TOPICAL PATCH TD SCH (10:53)
[2022-11-17] MEDS: CLOPIDOGREL BISULFATE 75 MG TABLET (FP) PO SCH (10:54)
[2022-11-17] MEDS: PARoxetine HCL 20 MG TABLET PO SCH (10:54)
[2022-11-17 11:06] LABS: EPI CELLS >36 /uL (0-25.1); HYALINE CASTS 8 /uL (0-3.1); PH,URINE 5.5 (5.0-8.0); URINE APPEARANCE CLOUDY; URINE BACTERIA 12 /uL (0-1359); URINE BILIRUBIN NEGATIVE (NEGATIVE); URINE COLOR YELLOW; URINE GLUCOSE (UA) TRACE (NEGATIVE); URINE KETONE NEGATIVE (NEGATIVE); URINE LEUK ESTERASE NEGATIVE (NEGATIVE); URINE NITRITE NEGATIVE (NEGATIVE); URINE PROTEIN 4+ (NEGATIVE); URINE RBC 32 /uL (0-23.9); URINE UROBILINOGEN 0.2 mg/dL (0.2-1.0); URINE WBC 40 /uL (0-25.8)
[2022-11-17 14:56] LABS: EOS % 22.8 % (0-4.5)
[2022-11-17] MEDS ORDERED: SODIUM CHLORIDE 250 ML IV PRN (15:49)
[2022-11-17] MEDS ORDERED: amLODIPine BESYLATE 5 MG TABLET (FP) PO SCH (17:00)
[2022-11-17] MEDS: hydrALAZINE HCL 10 MG TABLET PO PRN ×2 (17:21→21:52)
[2022-11-17] MEDS ORDERED: ATORVASTATIN CA 20 MG TABLET (FP) ONE (21:33)
[2022-11-17] MEDS: ATORVASTATIN CA 40 MG TABLET (FP) PO SCH (21:55)
[2022-11-18] MEDS: SEVELAMER CARBONATE 800 MG TAB (FP) PO SCH ×3 (06:16→21:33)
[2022-11-18] MEDS: INSULIN SLIDING SCALE (NOVOLOG) 1 VIAL SQ SCH ×3 (06:16→17:22)
[2022-11-18] MEDS ORDERED: INSULIN (NOVOLOG) ASPART 100 UNITS/ML 10ML VIAL ONE (06:29)
[2022-11-18] MEDS: NICOTINE 21 MG/24 HOURS TOPICAL PATCH TD SCH (11:55)
[2022-11-18] MEDS: ASPIRIN COATED 81 MG TABLET.EC PO SCH (11:55)
[2022-11-18] MEDS: CLOPIDOGREL BISULFATE 75 MG TABLET (FP) PO SCH (11:56)
[2022-11-18] MEDS: LABETALOL HCL 200 MG TABLET (FP) PO SCH ×2 (11:56→21:33)
[2022-11-18] MEDS: ISOSORBIDE MONONITRATE 30 MG TAB.SR.24H (FP) PO SCH (11:56)
[2022-11-18] MEDS: amLODIPine BESYLATE 10 MG TABLET (FP) PO SCH (11:56)
[2022-11-18] MEDS: PARoxetine HCL 20 MG TABLET PO SCH (11:56)
[2022-11-18] MEDS: LORazepam 2 MG/ML SDV VIAL IM SCH ×2 (11:57→21:33)
[2022-11-18] MEDS: HEPARIN NA (PORCINE) 5,000 UNITS/ML 1ML VIAL SQ SCH ×2 (11:57→21:33)
[2022-11-18] MEDS: ATORVASTATIN CA 40 MG TABLET (FP) PO SCH (21:33)
[2022-11-19] MEDS: SEVELAMER CARBONATE 800 MG TAB (FP) PO SCH ×3 (06:35→21:09)
[2022-11-19] MEDS: INSULIN SLIDING SCALE (NOVOLOG) 1 VIAL SQ SCH ×3 (06:35→17:36)
[2022-11-19 06:39] LABS: HEMATOCRIT 32.6 % (32.4-45.2); HEMOGLOBIN 10.6 GM/dL (10.7-15.3); MCH 26.5 pg (25.7-33.7); MCHC 32.5 g/dl (32.0-36.0); MEAN CELL VOLUME 81.4 fl (80-96); PLATELET COUNT 191 10^3/uL (134-434); RDW 16.8 % (11.6-15.6); WHITE BLOOD COUNT 13.7 K/mm3 (4.0-10.0)
[2022-11-19 07:09] LABS: ALBUMIN 3.1 g/dl (3.4-5.0); BLOOD UREA NITROGEN 21.6 mg/dL (7-18); CALCIUM 9.2 mg/dL (8.5-10.1)
[2022-11-19 07:12] LABS: CREATININE 4.8 mg/dL (0.55-1.3)
[2022-11-19 07:13] LABS: BILIRUBIN,TOTAL 0.6 mg/dL (0.2-1); TOT PROT 6.2 g/dl (6.4-8.2)
[2022-11-19] MEDS: ASPIRIN COATED 81 MG TABLET.EC PO SCH (09:39)
[2022-11-19] MEDS: PARoxetine HCL 20 MG TABLET PO SCH (09:39)
[2022-11-19] MEDS: ISOSORBIDE MONONITRATE 30 MG TAB.SR.24H (FP) PO SCH (09:39)
[2022-11-19] MEDS: CLOPIDOGREL BISULFATE 75 MG TABLET (FP) PO SCH (09:39)
[2022-11-19] MEDS: HEPARIN NA (PORCINE) 5,000 UNITS/ML 1ML VIAL SQ SCH ×2 (09:39→21:09)
[2022-11-19] MEDS: amLODIPine BESYLATE 10 MG TABLET (FP) PO SCH (09:39)
[2022-11-19] MEDS: LABETALOL HCL 200 MG TABLET (FP) PO SCH ×2 (09:39→21:09)
[2022-11-19] MEDS: NICOTINE 21 MG/24 HOURS TOPICAL PATCH TD SCH (09:40)
[2022-11-19] MEDS: LORazepam 2 MG/ML SDV VIAL IM SCH ×2 (09:40→21:08)
[2022-11-19] MEDS ORDERED: IBUPROFEN 200 MG TABLET PO ONE (10:12)
[2022-11-19 14:41] LABS: LACTIC ACID 3.5 mmol/L (0.4-2.0)
[2022-11-19] MEDS ORDERED: LACTATED RINGERS SOLUTION 1,000 ML/1,000 ML INFUS.BAG IV SCH (15:00)
[2022-11-19] MEDS: ATORVASTATIN CA 40 MG TABLET (FP) PO SCH (21:09)
[2022-11-20] MEDS: INSULIN SLIDING SCALE (NOVOLOG) 1 VIAL SQ SCH ×3 (06:41→18:38)
[2022-11-20] MEDS: SEVELAMER CARBONATE 800 MG TAB (FP) PO SCH ×3 (06:41→21:23)
[2022-11-20 08:33] LABS: HEMATOCRIT 32.2 % (32.4-45.2); HEMOGLOBIN 10.5 GM/dL (10.7-15.3); MCHC 32.7 g/dl (32.0-36.0); MEAN CELL VOLUME 79.5 fl (80-96); MEAN PLT VOLUME 9.3 fl (7.5-11.1); PLATELET COUNT 168 10^3/uL (134-434); RBC 4.06 M/mm3 (3.60-5.2); RDW 16.1 % (11.6-15.6); WHITE BLOOD COUNT 14.4 K/mm3 (4.0-10.0)
[2022-11-20 08:47] LABS: ALBUMIN 3.3 g/dl (3.4-5.0); BLOOD UREA NITROGEN 30.2 mg/dL (7-18); CALCIUM 9.3 mg/dL (8.5-10.1)
[2022-11-20 08:50] LABS: CREATININE 6.5 mg/dL (0.55-1.3)
[2022-11-20 08:51] LABS: BILIRUBIN,TOTAL 0.4 mg/dL (0.2-1)
[2022-11-20 08:52] LABS: TOT PROT 6.5 g/dl (6.4-8.2)
[2022-11-20 09:23] LABS: ERYTHROCYTE SEDIMENTATION RATE 13 mm/hr (0-30)
[2022-11-20] MEDS: LORazepam 2 MG/ML SDV VIAL IM SCH ×2 (10:20→22:20)
[2022-11-20] MEDS: ISOSORBIDE MONONITRATE 30 MG TAB.SR.24H (FP) PO SCH (10:21)
[2022-11-20] MEDS: HEPARIN NA (PORCINE) 5,000 UNITS/ML 1ML VIAL SQ SCH ×2 (10:21→22:21)
[2022-11-20] MEDS: NICOTINE 21 MG/24 HOURS TOPICAL PATCH TD SCH (10:21)
[2022-11-20] MEDS: LABETALOL HCL 200 MG TABLET (FP) PO SCH ×2 (10:21→22:21)
[2022-11-20] MEDS: ASPIRIN COATED 81 MG TABLET.EC PO SCH (10:21)
[2022-11-20] MEDS: PARoxetine HCL 20 MG TABLET PO SCH (10:22)
[2022-11-20] MEDS: CLOPIDOGREL BISULFATE 75 MG TABLET (FP) PO SCH (10:22)
[2022-11-20] MEDS: amLODIPine BESYLATE 10 MG TABLET (FP) PO SCH (10:22)
[2022-11-20] MEDS ORDERED: SODIUM CHLORIDE 250 ML IV PRN (13:00)
[2022-11-20] MEDS ORDERED: HEPARIN NA (PORCINE) 5,000 UNITS/ML 1ML VIAL IVPUSH ONE (13:00)
[2022-11-20] MEDS ORDERED: EPOETIN ALFA-EPBX 4,000 UNIT/ML VIAL IVPUSH ONE (13:30)
[2022-11-20 14:43] VITALS: RESP 18
[2022-11-20] MEDS: ATORVASTATIN CA 40 MG TABLET (FP) PO SCH (22:21)
[2022-11-21] MEDS: INSULIN SLIDING SCALE (NOVOLOG) 1 VIAL SQ SCH ×2 (06:12→11:49)
[2022-11-21] MEDS: SEVELAMER CARBONATE 800 MG TAB (FP) PO SCH ×2 (08:47→12:37)
[2022-11-21] MEDS: amLODIPine BESYLATE 10 MG TABLET (FP) PO SCH (09:37)
[2022-11-21] MEDS: ISOSORBIDE MONONITRATE 30 MG TAB.SR.24H (FP) PO SCH (09:37)
[2022-11-21] MEDS: PARoxetine HCL 20 MG TABLET PO SCH (09:37)
[2022-11-21] MEDS: ASPIRIN COATED 81 MG TABLET.EC PO SCH (09:37)
[2022-11-21] MEDS: CLOPIDOGREL BISULFATE 75 MG TABLET (FP) PO SCH (09:37)
[2022-11-21] MEDS: HEPARIN NA (PORCINE) 5,000 UNITS/ML 1ML VIAL SQ SCH ×3 (09:38→11:15)
[2022-11-21] MEDS: NICOTINE 21 MG/24 HOURS TOPICAL PATCH TD SCH (09:38)
[2022-11-21] MEDS: LORazepam 2 MG/ML SDV VIAL IM SCH (09:38)
[2022-11-21] MEDS: LABETALOL HCL 200 MG TABLET (FP) PO SCH (09:38)
[2022-11-21] MEDS ORDERED: PATIENT'S OWN MEDICATION (NON-FORMULARY) (Cariprazine Hcl [Vraylar] 1.5 MG Capsule) PO SCH (10:00)
[2022-11-21 10:22] LABS: HEMATOCRIT 34.5 % (32.4-45.2); MCHC 31.7 g/dl (32.0-36.0); MEAN CELL VOLUME 82.1 fl (80-96); PLATELET COUNT 203 10^3/uL (134-434); RBC 4.21 M/mm3 (3.60-5.2); RDW 16.7 % (11.6-15.6); WHITE BLOOD COUNT 13.8 K/mm3 (4.0-10.0)
[2022-11-21 11:56] LABS: ANISOCYTOSIS 0; MACROCYTOSIS 0
[2022-11-21 14:27] VITALS: BP 137/77; PULSE 73; TEMP 98.7
== END 2022-11-21 16:31 | disposition home or self-care (01) | DRG 52 ==
LOC: JER 19:19 → JERBED 11-17 00:16 → OBSVTOIN 11-17 04:53 → J4W 11-17 14:08
PROVIDERS: ADMIT Internal Medicine; ATTEND Internal Medicine
DX: G93.49 Other encephalopathy (principal); I25.10 Atherosclerotic heart disease of native coronary artery without angina pectoris; E78.5 Hyperlipidemia, unspecified; I12.0 Hypertensive chronic kidney disease with stage 5 chronic kidney disease or end stage renal disease; E11.22 Type 2 diabetes mellitus with diabetic chronic kidney disease; N18.6 End stage renal disease; M54.50 Low back pain, unspecified; F11.10 Opioid abuse, uncomplicated; I25.2 Old myocardial infarction; R91.1 Solitary pulmonary nodule; F14.10 Cocaine abuse, uncomplicated; F31.9 Bipolar disorder, unspecified; K74.60 Unspecified cirrhosis of liver; F17.210 Nicotine dependence, cigarettes, uncomplicated; N20.0 Calculus of kidney; D72.10 Eosinophilia, unspecified; M48.061 Spinal stenosis, lumbar region without neurogenic claudication; D25.9 Leiomyoma of uterus, unspecified; I24.8 Other forms of acute ischemic heart disease; R94.31 Abnormal electrocardiogram [ECG] [EKG]; Z99.2 Dependence on renal dialysis; Z95.5 Presence of coronary angioplasty implant and graft; Z95.1 Presence of aortocoronary bypass graft
CPT/HCPCS: 0241U-QW; 36415; 70450-TC; 71045-TC-FY; 71250-TC; 74176-TC; 80053; 80061; 80307; 81003; 82550; 82553; 82803; 82962; 83036; 83605; 83735; 84100; 84439; 84443; 84484; 85025; 85027; 85610; 85651; 85730; 86140; 86682; 86707; 86850; 86900; 86901; 87040; 87086; 87324; 87340; 87449; 93005; 93010; 97116-GP; 97162-GP; 99285-25; G0378; J1644; Q5106

== ENCOUNTER 2024-03-24 22:48 | Inpatient (IN) | payer OTHER ==
[2024-03-24 23:07] VITALS: BMI 32.5
[2024-03-25 03:02] LABS: HEMATOCRIT 29.2 % (32.4-45.2); HEMOGLOBIN 9.3 GM/dL (10.7-15.3); MCH 25.9 pg (25.7-33.7); MCHC 31.9 g/dl (32.0-36.0); MEAN PLT VOLUME 7.9 fl (7.5-11.1); PLATELET COUNT 225 10^3/uL (134-434); RBC 3.61 M/mm3 (3.60-5.2); RDW 20.5 % (11.6-15.6); WHITE BLOOD COUNT 22.1 K/mm3 (4.0-10.0)
[2024-03-25 03:08] LABS: INR 0.94 (0.83-1.09); PROTHROMBIN TIME (PATIENT) 10.8 SEC (9.7-13.0)
[2024-03-25 03:11] LABS: ACTIVATED PTT 28.9 SECONDS (25.2-36.5)
[2024-03-25 03:19] LABS: POTASSIUM 4.3 mmol/L (3.5-5.1)
[2024-03-25 03:21] LABS: ALBUMIN 2.9 g/dl (3.4-5.0); CALCIUM 8.4 mg/dL (8.5-10.1)
[2024-03-25 03:22] LABS: MAGNESIUM 2.3 mg/dL (1.8-2.4)
[2024-03-25 03:26] LABS: TOT PROT 6.6 g/dl (6.4-8.2)
[2024-03-25 03:57] LABS: ANISOCYTOSIS 2+; MACROCYTOSIS 1+
[2024-03-25] MEDS ORDERED: VANCOMYCIN 1 GRAM (PRE-DOCKED) 1,000 MG/250 ML BAG IVPB ONE (05:49)
[2024-03-25] MEDS: VANCOMYCIN 1 GRAM (PRE-DOCKED) 1,000 MG/200 ML BAG IVPB ONE (06:12)
[2024-03-25] MEDS ORDERED: SODIUM CHLORIDE 250 ML IV PRN (11:36)
[2024-03-25] MEDS: EPOETIN ALFA-EPBX 3,000 UNIT/ML VIAL IVPUSH ONE (15:13)
[2024-03-25] MEDS: THIAMINE HCL 200 MG/2 ML VIAL IVPB SCH (16:08)
[2024-03-25] MEDS: CEFTRIAXONE 1 GM in DEXTROSE 5%-WATER - 50 ML IVPB SCH (16:08)
[2024-03-26 10:20] LABS: BASO % 0.9 % (0-2.0); EOS % 12.5 % (0-4.5); HEMATOCRIT 25.9 % (32.4-45.2); HEMOGLOBIN 8.3 GM/dL (10.7-15.3); LYMPH % 10.1 % (8-40); MCH 25.8 pg (25.7-33.7); MCHC 32.1 g/dl (32.0-36.0); MEAN CELL VOLUME 80.4 fl (80-96); MEAN PLT VOLUME 7.9 fl (7.5-11.1); MONO % 10.6 % (3.8-10.2); NEUT % 65.9 % (42.8-82.8); PLATELET COUNT 213 10^3/uL (134-434); RBC 3.22 M/mm3 (3.60-5.2); RDW 20.9 % (11.6-15.6); WHITE BLOOD COUNT 14.8 K/mm3 (4.0-10.0)
[2024-03-26 10:41] LABS: POTASSIUM 4.3 mmol/L (3.5-5.1)
[2024-03-26 10:44] LABS: CALCIUM 8.1 mg/dL (8.5-10.1)
[2024-03-26 10:45] LABS: ALBUMIN 2.5 g/dl (3.4-5.0); BLOOD UREA NITROGEN 21.6 mg/dL (7-18)
[2024-03-26 10:49] LABS: BILIRUBIN,TOTAL 0.9 mg/dL (0.2-1)
[2024-03-26 10:50] LABS: CREATININE 3.8 mg/dL (0.55-1.3); TOT PROT 5.6 g/dl (6.4-8.2)
[2024-03-26] MEDS: VANCOMYCIN/WATER FOR INJ (PEG) 1,000 MG/200 ML BAG IVPB ONE (15:39)
[2024-03-26] MEDS: INSULIN ASPART SLIDING SCALE (NOVOLOG) 1 VIAL SQ SCH (18:01)
[2024-03-27 11:57] LABS: BASO % 1.6 % (0-2.0); EOS % 12.8 % (0-4.5); HEMATOCRIT 25.5 % (32.4-45.2); HEMOGLOBIN 8.1 GM/dL (10.7-15.3); LYMPH % 10.1 % (8-40); MCH 25.7 pg (25.7-33.7); MCHC 31.7 g/dl (32.0-36.0); MEAN CELL VOLUME 80.9 fl (80-96); MEAN PLT VOLUME 7.6 fl (7.5-11.1); MONO % 10.3 % (3.8-10.2); NEUT % 65.2 % (42.8-82.8); PLATELET COUNT 226 10^3/uL (134-434); RBC 3.16 M/mm3 (3.60-5.2); RDW 21.2 % (11.6-15.6); WHITE BLOOD COUNT 13.7 K/mm3 (4.0-10.0)
[2024-03-28 09:46] LABS: EPI CELLS >36 /uL (0-25.1); HYALINE CASTS 1 /uL (0-3.1); URINE APPEARANCE CLOUDY; URINE BILIRUBIN NEGATIVE (NEGATIVE); URINE COLOR YELLOW; URINE GLUCOSE (UA) 1+ (NEGATIVE); URINE KETONE NEGATIVE (NEGATIVE); URINE LEUK ESTERASE TRACE (NEGATIVE); URINE NITRITE POSITIVE (NEGATIVE); URINE PROTEIN 3+ (NEGATIVE); URINE UROBILINOGEN 0.2 mg/dL (0.2-1.0); URINE WBC 28 /uL (0-25.8)
[2024-03-28 09:57] LABS: URINE BACTERIA 30 /uL (0-1359); URINE RBC 36 /uL (0-23.9); YEAST FEW (NEGATIVE)
[2024-03-28 10:06] LABS: HEMATOCRIT 26.2 % (32.4-45.2); HEMOGLOBIN 8.3 GM/dL (10.7-15.3); MCH 25.8 pg (25.7-33.7); MCHC 31.6 g/dl (32.0-36.0); MEAN CELL VOLUME 81.4 fl (80-96); MEAN PLT VOLUME 7.6 fl (7.5-11.1); PLATELET COUNT 262 10^3/uL (134-434); RBC 3.21 M/mm3 (3.60-5.2); RDW 21.1 % (11.6-15.6); WHITE BLOOD COUNT 14.5 K/mm3 (4.0-10.0)
[2024-03-28] MEDS ORDERED: SODIUM CHLORIDE 250 ML IV PRN (10:09)
[2024-03-28 10:31] LABS: POTASSIUM 4.6 mmol/L (3.5-5.1)
[2024-03-28 10:32] LABS: CALCIUM 7.9 mg/dL (8.5-10.1)
[2024-03-28 10:33] LABS: BLOOD UREA NITROGEN 39.4 mg/dL (7-18)
[2024-03-28 10:36] LABS: CREATININE 5.9 mg/dL (0.55-1.3)
[2024-03-28] MEDS: EPOETIN ALFA-EPBX 10,000 UNIT/ML VIAL SQ ONE (11:50)
[2024-03-28] MEDS: VANCOMYCIN/WATER FOR INJ (PEG) 1,000 MG/200 ML BAG IVPB ONE (14:35)
[2024-03-28] MEDS: VITAMIN B COMP W-C 1 EA TABLET (NEPHRO-VITE) PO SCH (21:33)
[2024-03-29] MEDS: amLODIPine BESYLATE 10 MG TABLET (FP) PO SCH (15:08)
[2024-03-30] MEDS: ASPIRIN COATED 81 MG TABLET.EC PO SCH (09:19)
[2024-03-30] MEDS: ISOSORBIDE MONONITRATE 30 MG TAB.SR.24H (FP) PO SCH (09:19)
[2024-03-30] MEDS: ATORVASTATIN CA 40 MG TABLET (FP) PO SCH (09:19)
[2024-03-30] MEDS: CLOPIDOGREL BISULFATE 75 MG TABLET (FP) PO SCH (09:19)
[2024-03-30 12:25] LABS: BASO % 0.5 % (0-2.0); EOS % 10.1 % (0-4.5); HEMATOCRIT 25.9 % (32.4-45.2); HEMOGLOBIN 8.2 GM/dL (10.7-15.3); LYMPH % 13.2 % (8-40); MCH 26.3 pg (25.7-33.7); MCHC 31.7 g/dl (32.0-36.0); MEAN CELL VOLUME 82.8 fl (80-96); MEAN PLT VOLUME 7.8 fl (7.5-11.1); NEUT % 67.2 % (42.8-82.8); PLATELET COUNT 285 10^3/uL (134-434); RBC 3.12 M/mm3 (3.60-5.2)
[2024-03-30 12:49] LABS: ANISOCYTOSIS 2+; MACROCYTOSIS 0; OVALOCYTE 1+
[2024-03-30] MEDS ORDERED: SODIUM CHLORIDE 250 ML IV PRN (15:58)
[2024-03-30 16:57] LABS: POTASSIUM 3.6 mmol/L (3.5-5.1)
[2024-03-30 17:02] LABS: ALBUMIN 2.7 g/dl (3.4-5.0); BLOOD UREA NITROGEN 22.4 mg/dL (7-18); CALCIUM 8.2 mg/dL (8.5-10.1)
[2024-03-30 17:05] LABS: CREATININE 4.6 mg/dL (0.55-1.3)
[2024-03-30 17:06] LABS: TOT PROT 5.9 g/dl (6.4-8.2)
[2024-03-30 17:07] LABS: BILIRUBIN,TOTAL 0.7 mg/dL (0.2-1)
[2024-03-30] MEDS: EPOETIN ALFA-EPBX 10,000 UNIT/ML VIAL SQ ONE (19:00)
[2024-03-30] MEDS ORDERED: VANCOMYCIN/WATER FOR INJ (PEG) 1,000 MG/200 ML BAG IVPB ONE (19:00)
[2024-03-30] MEDS: VANCOMYCIN/WATER FOR INJ (PEG) 1,000 MG/200 ML BAG IVPB ONE (21:39)
[2024-03-30] MEDS: CARIPRAZINE HCL 1.5 MG PO SCH (21:44)
[2024-03-31] MEDS ORDERED: SODIUM CHLORIDE 250 ML IV PRN (10:24)
[2024-03-31] MEDS: APIXABAN 5 MG TABLET PO SCH (21:53)
[2024-04-01 09:17] LABS: HEMATOCRIT 23.6 % (32.4-45.2); HEMOGLOBIN 7.6 GM/dL (10.7-15.3); MCH 26.2 pg (25.7-33.7); MCHC 32.1 g/dl (32.0-36.0); MEAN CELL VOLUME 81.9 fl (80-96); MEAN PLT VOLUME 7.3 fl (7.5-11.1); PLATELET COUNT 269 10^3/uL (134-434); RBC 2.89 M/mm3 (3.60-5.2); RDW 21.1 % (11.6-15.6); WHITE BLOOD COUNT 9.7 K/mm3 (4.0-10.0)
[2024-04-01 09:38] LABS: POTASSIUM 3.4 mmol/L (3.5-5.1)
[2024-04-01 09:41] LABS: ALBUMIN 2.8 g/dl (3.4-5.0); BLOOD UREA NITROGEN 21.6 mg/dL (7-18)
[2024-04-01 09:43] LABS: CREATININE 4.6 mg/dL (0.55-1.3)
[2024-04-01 09:45] LABS: BILIRUBIN,TOTAL 0.9 mg/dL (0.2-1)
[2024-04-01] MEDS: EPOETIN ALFA-EPBX 10,000 UNIT/ML VIAL SQ ONE (11:13)
[2024-04-03 14:33] VITALS: RESP 18
[2024-04-04] MEDS ORDERED: SODIUM CHLORIDE 250 ML IV PRN (08:00)
[2024-04-04] MEDS: ISOSORBIDE MONONITRATE 30 MG TAB.SR.24H (FP) PO SCH (09:04)
[2024-04-04 09:34] LABS: HEMATOCRIT 23.5 % (32.4-45.2); HEMOGLOBIN 7.3 GM/dL (10.7-15.3); MEAN CELL VOLUME 83.9 fl (80-96); MEAN PLT VOLUME 7.7 fl (7.5-11.1); PLATELET COUNT 241 10^3/uL (134-434); RBC 2.79 M/mm3 (3.60-5.2); RDW 21.3 % (11.6-15.6); WHITE BLOOD COUNT 13.6 K/mm3 (4.0-10.0)
[2024-04-04 09:45] LABS: POTASSIUM 3.8 mmol/L (3.5-5.1)
[2024-04-04 09:58] LABS: ALBUMIN 3.1 g/dl (3.4-5.0); BLOOD UREA NITROGEN 38.2 mg/dL (7-18); CALCIUM 8.7 mg/dL (8.5-10.1)
[2024-04-04 10:01] LABS: CREATININE 6.4 mg/dL (0.55-1.3)
[2024-04-04 10:03] LABS: BILIRUBIN,TOTAL 1.5 mg/dL (0.2-1); TOT PROT 6.5 g/dl (6.4-8.2)
[2024-04-04] MEDS: EPOETIN ALFA-EPBX 10,000 UNIT/ML VIAL SQ ONE (11:17)
[2024-04-04 12:20] VITALS: TEMP 98.2
[2024-04-04 14:56] VITALS: PULSE 85
[2024-04-04 17:53] VITALS: BP 154/74
== END 2024-04-04 18:30 | DRG 425 ==
LOC: JER 22:48 → INTOOBSV 03-25 04:20 → UNDOADMOB 03-25 04:20 → JERBED 03-25 04:20 → J6S 03-25 07:59 → JERBED 03-25 07:59 → J6S 03-26 11:29 → OBSVTOIN 03-30 14:21
PROVIDERS: ADMIT Family Medicine; ATTEND Family Medicine
PROC: 5A1D70Z Performance of Urinary Filtration, Intermittent, Less than 6 Hours Per Day (ICD-10-PCS; principal; 2024-03-30)
PROC: 5A1D70Z Performance of Urinary Filtration, Intermittent, Less than 6 Hours Per Day (ICD-10-PCS; 2024-04-01)
PROC: 5A1D70Z Performance of Urinary Filtration, Intermittent, Less than 6 Hours Per Day (ICD-10-PCS; 2024-04-04)
DX: E87.1 Hypo-osmolality and hyponatremia (principal); I25.10 Atherosclerotic heart disease of native coronary artery without angina pectoris; E78.5 Hyperlipidemia, unspecified; I12.0 Hypertensive chronic kidney disease with stage 5 chronic kidney disease or end stage renal disease; E11.22 Type 2 diabetes mellitus with diabetic chronic kidney disease; N18.6 End stage renal disease; F31.9 Bipolar disorder, unspecified; J44.9 Chronic obstructive pulmonary disease, unspecified; L60.0 Ingrowing nail; J45.909 Unspecified asthma, uncomplicated; F19.10 Other psychoactive substance abuse, uncomplicated; D72.829 Elevated white blood cell count, unspecified; F17.210 Nicotine dependence, cigarettes, uncomplicated; W18.30XA Fall on same level, unspecified, initial encounter; Y92.099 Unspecified place in other non-institutional residence as the place of occurrence of the external cause; Y99.9 Unspecified external cause status; Z99.2 Dependence on renal dialysis; Z95.5 Presence of coronary angioplasty implant and graft
CPT/HCPCS: 0241U-QW; 36415; 70450-TC; 71045-TC-FY; 74176-TC; 80048; 80053; 81003; 82140; 82607; 82728; 82962; 83540; 83550; 83735; 84466; 84484; 85025; 85027; 85610; 85730; 86704; 86803; 87040; 87340; 87517; 93005; 93010; 93306-TC; 97116-GP; 97162-GP; 99285-25; G0378; G0480; Q5106

== ENCOUNTER 2024-05-19 06:39 | Inpatient (IN) | payer OTHER ==
[2024-05-19 07:35] LABS: INR 1.42 (0.83-1.09); PROTHROMBIN TIME (PATIENT) 15.9 SEC (9.7-13.0)
[2024-05-19 07:49] LABS: POTASSIUM 4.6 mmol/L (3.5-5.1)
[2024-05-19 07:51] LABS: ALBUMIN 3.4 g/dl (3.4-5.0); BLOOD UREA NITROGEN 32.4 mg/dL (7-18); CALCIUM 8.9 mg/dL (8.5-10.1)
[2024-05-19 07:55] LABS: CREATININE 5.8 mg/dL (0.55-1.3)
[2024-05-19 07:56] LABS: BILIRUBIN,TOTAL 0.4 mg/dL (0.2-1); TOT PROT 6.8 g/dl (6.4-8.2)
[2024-05-19 08:04] LABS: HEMATOCRIT 34.5 % (32.4-45.2); HEMOGLOBIN 10.5 GM/dL (10.7-15.3); MCH 25.6 pg (25.7-33.7); MCHC 30.5 g/dl (32.0-36.0); PLATELET COUNT 209 10^3/uL (134-434); RBC 4.11 M/mm3 (3.60-5.2); RDW 20.5 % (11.6-15.6); WHITE BLOOD COUNT 26.9 K/mm3 (4.0-10.0)
[2024-05-19] MEDS ORDERED: VANCOMYCIN 1 GRAM (PRE-DOCKED) 1,000 MG/250 ML BAG IVPB ONE (08:34)
[2024-05-19 08:35] LABS: ANISOCYTOSIS 1+; MACROCYTOSIS 1+
[2024-05-19] MEDS ORDERED: PIPERACILLIN/TAZOB 4.5 GM 4.5 GM/100 ML BAG IVPB ONE (08:35)
[2024-05-19] MEDS: PIPERACILLIN/TAZOB 4.5 GM 4.5 GM in DEXTROSE 5%-WATER 100 ML IVPB ONE (08:41)
[2024-05-19] MEDS ORDERED: PROPOFOL 1,000,000 MCG/100 ML VIAL ONE (09:33)
[2024-05-19] MEDS: PROPOFOL 1,000,000 MCG/100 ML VIAL IVPB SCH (09:40)
[2024-05-19] MEDS ORDERED: RAPID SEQUENCE INTUBATION KIT NR ONE (10:45)
[2024-05-19] MEDS ORDERED: ROCURONIUM BROMIDE 50 MG/5 ML SYRINGE ONE (10:50)
[2024-05-19] MEDS: PROPOFOL 200 MG/20 ML VIAL IVPUSH ONE (10:59)
[2024-05-19] MEDS: ROCURONIUM BROMIDE 50 MG/5 ML VIAL IV ONE (10:59)
[2024-05-19] MEDS: VANCOMYCIN 1,000 MG in DEXTROSE 5%-WATER - 250 ML IVPB ONE (11:29)
[2024-05-19] MEDS ORDERED: SODIUM CHLORIDE 250 ML IV PRN (13:24)
[2024-05-19 17:02] LABS: ARTERIAL BLD GAS O2 SATURATION 66.8 % (95-98); ARTERIAL BLOOD GAS BASE EXCESS -3.4 mmol/L (-2-2); ARTERIAL BLOOD GAS pH 7.273 (7.350-7.450)
[2024-05-19 17:05] LABS: ALLENS TEST POSITIVE
[2024-05-19 17:06] LABS: VENT MODE A/C
[2024-05-19 17:07] LABS: VENT RATE 12
[2024-05-19 17:11] LABS: ARTERIAL BLOOD GAS PO2 39.6 mmHg (80-100)
[2024-05-19 22:32] LABS: ARTERIAL BLOOD GAS BASE EXCESS -2.9 mmol/L (-2-2); ARTERIAL BLOOD GAS PO2 155.1 mmHg (80-100); ARTERIAL BLOOD GAS pH 7.389 (7.350-7.450)
[2024-05-19 22:33] LABS: ALLENS TEST POSITIVE; VENT MODE A/C; VENT RATE 14
[2024-05-19] MEDS: PIPERACILLIN/TAZOB 3.375 GM 3.375 GM in DEXTROSE 5%-WATER - 50 ML IVPB SCH (22:48)
[2024-05-19] MEDS: CHLORHEXIDINE GLUCONATE 4% CLEANSER FOR DECOLONIZATION TP SCH (22:48)
[2024-05-19] MEDS: MUPIROCIN 2% TOPICAL OINTMENT FOR DECOLONIZATION NS SCH (22:48)
[2024-05-19] MEDS: HEPARIN NA (PORCINE) 5,000 UNITS/ML 1ML VIAL SQ SCH (22:48)
[2024-05-19] MEDS: DEXTROSE 5%-WATER - 1,000 ML IV SCH (23:30)
[2024-05-20 08:03] LABS: EPI CELLS >36 /uL (0-25.1); HYALINE CASTS 1 /uL (0-3.1); URINE APPEARANCE CLEAR; URINE BACTERIA 54 /uL (0-1359); URINE BILIRUBIN NEGATIVE (NEGATIVE); URINE COLOR YELLOW; URINE GLUCOSE (UA) TRACE (NEGATIVE); URINE KETONE NEGATIVE (NEGATIVE); URINE LEUK ESTERASE TRACE (NEGATIVE); URINE NITRITE NEGATIVE (NEGATIVE); URINE PROTEIN 4+ (NEGATIVE); URINE RBC 171 /uL (0-23.9); URINE UROBILINOGEN 0.2 mg/dL (0.2-1.0); URINE WBC 58 /uL (0-25.8)
[2024-05-20 08:14] LABS: POTASSIUM 4.5 mmol/L (3.5-5.1)
[2024-05-20 08:18] LABS: BLOOD UREA NITROGEN 45.1 mg/dL (7-18); MAGNESIUM 2.2 mg/dL (1.8-2.4)
[2024-05-20 08:21] LABS: CREATININE 6.4 mg/dL (0.55-1.3); PHOSPHOROUS 3.5 mg/dL (2.5-4.9)
[2024-05-20 08:22] LABS: BILIRUBIN,TOTAL 0.6 mg/dL (0.2-1); TOT PROT 5.5 g/dl (6.4-8.2)
[2024-05-20 08:24] LABS: ALBUMIN 2.6 g/dl (3.4-5.0)
[2024-05-20 08:29] LABS: BASO % 0.2 % (0-2.0); EOS % 13.4 % (0-4.5); HEMATOCRIT 32.4 % (32.4-45.2); HEMOGLOBIN 10.2 GM/dL (10.7-15.3); LYMPH % 6.4 % (8-40); MCH 25.8 pg (25.7-33.7); MCHC 31.5 g/dl (32.0-36.0); MEAN CELL VOLUME 81.9 fl (80-96); MEAN PLT VOLUME 8.3 fl (7.5-11.1); MONO % 4.2 % (3.8-10.2); NEUT % 75.8 % (42.8-82.8); PLATELET COUNT 183 10^3/uL (134-434); RBC 3.96 M/mm3 (3.60-5.2); RDW 20.7 % (11.6-15.6); WHITE BLOOD COUNT 19.4 K/mm3 (4.0-10.0)
[2024-05-20 09:04] LABS: HEMATOCRIT 28.5 % (32.4-45.2); MCH 25.4 pg (25.7-33.7); MCHC 31.5 g/dl (32.0-36.0); MEAN CELL VOLUME 80.6 fl (80-96); PLATELET COUNT 172 10^3/uL (134-434); RBC 3.54 M/mm3 (3.60-5.2); RDW 20.4 % (11.6-15.6); WHITE BLOOD COUNT 19.8 K/mm3 (4.0-10.0)
[2024-05-20 09:24] LABS: POTASSIUM 4.3 mmol/L (3.5-5.1)
[2024-05-20 09:25] LABS: CALCIUM 8.4 mg/dL (8.5-10.1)
[2024-05-20 09:26] LABS: BLOOD UREA NITROGEN 41.4 mg/dL (7-18)
[2024-05-20 09:29] LABS: CREATININE 5.9 mg/dL (0.55-1.3)
[2024-05-20] MEDS ORDERED: ENALAPRIL MALEATE 5 MG TABLET PO SCH (10:00)
[2024-05-20] MEDS: CARVEDILOL 12.5 MG TABLET (FP) PO SCH (10:38)
[2024-05-20] MEDS: ENALAPRIL MALEATE 5 MG TABLET PO SCH (10:39)
[2024-05-20] MEDS: amLODIPine BESYLATE 10 MG TABLET (FP) PO SCH (10:39)
[2024-05-20] MEDS: CHLORTHALIDONE 25 MG TABLET PO SCH (10:39)
[2024-05-21 08:40] LABS: POTASSIUM 3.7 mmol/L (3.5-5.1)
[2024-05-21 08:42] LABS: CALCIUM 8.6 mg/dL (8.5-10.1)
[2024-05-21 08:44] LABS: ALBUMIN 2.8 g/dl (3.4-5.0); BLOOD UREA NITROGEN 27.4 mg/dL (7-18)
[2024-05-21 08:46] LABS: CREATININE 4.6 mg/dL (0.55-1.3)
[2024-05-21 08:47] LABS: BILIRUBIN,TOTAL 0.8 mg/dL (0.2-1); PHOSPHOROUS 3.1 mg/dL (2.5-4.9)
[2024-05-21 09:06] LABS: HEMOGLOBIN 9.1 GM/dL (10.7-15.3); MCH 25.8 pg (25.7-33.7); MCHC 31.4 g/dl (32.0-36.0); MEAN CELL VOLUME 82.4 fl (80-96); MEAN PLT VOLUME 8.5 fl (7.5-11.1); PLATELET COUNT 138 10^3/uL (134-434); RBC 3.52 M/mm3 (3.60-5.2); RDW 20.1 % (11.6-15.6); WHITE BLOOD COUNT 25.1 K/mm3 (4.0-10.0)
[2024-05-21 09:47] LABS: PLATELET ESTIMATE ADEQUATE
[2024-05-21] MEDS ORDERED: SODIUM CHLORIDE 250 ML IV PRN (22:25)
[2024-05-21] MEDS: DEXTROSE 5%-WATER - 1,000 ML IV SCH (22:42)
[2024-05-22] MEDS: HEPARIN NA (PORCINE) 5,000 UNITS/ML 1ML VIAL SQ SCH (06:05)
[2024-05-22] MEDS ORDERED: ENALAPRIL MALEATE 5 MG TABLET PO SCH (10:00)
[2024-05-22] MEDS ORDERED: CARVEDILOL 12.5 MG TABLET (FP) PO SCH (10:00)
[2024-05-22] MEDS ORDERED: CHLORTHALIDONE 25 MG TABLET PO SCH (10:00)
[2024-05-22] MEDS ORDERED: amLODIPine BESYLATE 10 MG TABLET (FP) PO SCH (10:00)
[2024-05-22 10:42] LABS: HEMOGLOBIN 9.4 GM/dL (10.7-15.3); MCH 25.7 pg (25.7-33.7); MCHC 31.4 g/dl (32.0-36.0); MEAN CELL VOLUME 81.9 fl (80-96); MEAN PLT VOLUME 8.4 fl (7.5-11.1); PLATELET COUNT 212 10^3/uL (134-434); RBC 3.66 M/mm3 (3.60-5.2); RDW 20.4 % (11.6-15.6); WHITE BLOOD COUNT 24.6 K/mm3 (4.0-10.0)
[2024-05-22 10:56] LABS: POTASSIUM 4.4 mmol/L (3.5-5.1)
[2024-05-22 10:59] LABS: CALCIUM 8.9 mg/dL (8.5-10.1)
[2024-05-22 11:00] LABS: ALBUMIN 2.9 g/dl (3.4-5.0); BLOOD UREA NITROGEN 38.4 mg/dL (7-18)
[2024-05-22 11:03] LABS: CREATININE 5.9 mg/dL (0.55-1.3)
[2024-05-22 11:05] LABS: TOT PROT 6.5 g/dl (6.4-8.2)
[2024-05-22] MEDS: PIPERACILLIN/TAZOB 3.375 GM 3.375 GM in DEXTROSE 5%-WATER - 50 ML IVPB SCH (11:21)
[2024-05-22 11:22] LABS: ANISOCYTOSIS 1+; MACROCYTOSIS 1+; OVALOCYTE 1+; TARGET CELLS 2+
[2024-05-22] MEDS: EPOETIN ALFA-EPBX 4,000 UNIT/ML VIAL SQ ONE ×2 (12:21→19:50)
[2024-05-22] MEDS: VANCOMYCIN ORAL SOLUTION 125 MG/2.5 ML PO SCH (13:34)
[2024-05-22] MEDS ORDERED: VANCOMYCIN ORAL SOLUTION 125 MG/2.5 ML PO SCH (18:00)
[2024-05-23] MEDS ORDERED: SODIUM CHLORIDE 250 ML IV PRN (07:56)
[2024-05-23 09:25] LABS: POTASSIUM 4.4 mmol/L (3.5-5.1)
[2024-05-23 09:28] LABS: ALBUMIN 2.6 g/dl (3.4-5.0); CALCIUM 8.9 mg/dL (8.5-10.1)
[2024-05-23] MEDS: amLODIPine BESYLATE 5 MG TABLET (FP) PO SCH (09:30)
[2024-05-23] MEDS: CARVEDILOL 12.5 MG TABLET (FP) PO SCH (09:30)
[2024-05-23 09:32] LABS: CREATININE 6.9 mg/dL (0.55-1.3)
[2024-05-23 09:33] LABS: BILIRUBIN,TOTAL 0.8 mg/dL (0.2-1); TOT PROT 6.1 g/dl (6.4-8.2)
[2024-05-23 09:42] LABS: HEMATOCRIT 28.9 % (32.4-45.2); MCH 25.2 pg (25.7-33.7); MEAN CELL VOLUME 81.1 fl (80-96); MEAN PLT VOLUME 8.5 fl (7.5-11.1); PLATELET COUNT 208 10^3/uL (134-434); RBC 3.56 M/mm3 (3.60-5.2); RDW 19.9 % (11.6-15.6); WHITE BLOOD COUNT 16.4 K/mm3 (4.0-10.0)
[2024-05-23 12:21] LABS: PLATELET ESTIMATE ADEQUATE
[2024-05-23] MEDS: EPOETIN ALFA-EPBX 3,000 UNIT/ML VIAL SQ ONE (15:36)
[2024-05-23 15:37] VITALS: BMI 31.6
[2024-05-23] MEDS: amLODIPine BESYLATE 5 MG TABLET (FP) PO ONE (18:40)
[2024-05-24 08:11] LABS: HEMATOCRIT 28.6 % (32.4-45.2); MCH 25.4 pg (25.7-33.7); MCHC 31.5 g/dl (32.0-36.0); MEAN CELL VOLUME 80.7 fl (80-96); MEAN PLT VOLUME 8.4 fl (7.5-11.1); PLATELET COUNT 209 10^3/uL (134-434); RBC 3.55 M/mm3 (3.60-5.2); RDW 19.9 % (11.6-15.6); WHITE BLOOD COUNT 11.2 K/mm3 (4.0-10.0)
[2024-05-24 08:21] LABS: POTASSIUM 3.8 mmol/L (3.5-5.1)
[2024-05-24 08:26] LABS: CALCIUM 8.9 mg/dL (8.5-10.1); MAGNESIUM 2.1 mg/dL (1.8-2.4)
[2024-05-24 08:29] LABS: CREATININE 4.5 mg/dL (0.55-1.3)
[2024-05-24 08:31] LABS: BILIRUBIN,TOTAL 0.7 mg/dL (0.2-1); TOT PROT 6.2 g/dl (6.4-8.2)
[2024-05-24 08:37] LABS: BLOOD UREA NITROGEN 22.4 mg/dL (7-18)
[2024-05-24 09:14] LABS: ANISOCYTOSIS 1+; MACROCYTOSIS 0
[2024-05-24] MEDS: amLODIPine BESYLATE 10 MG TABLET (FP) PO SCH (10:09)
[2024-05-24] MEDS: hydrALAZINE HCL 10 MG TABLET PO SCH (10:10)
[2024-05-24] MEDS ORDERED: SODIUM CHLORIDE 250 ML IV PRN (12:25)
[2024-05-24 15:22] VITALS: RESP 19
[2024-05-24 23:13] VITALS: BP 137/73; PULSE 69; TEMP 99.9
[2024-05-25] MEDS ORDERED: HEPARIN NA (PORCINE) 5,000 UNITS/ML 1ML VIAL IVPUSH ONE (12:25)
[2024-05-25] MEDS ORDERED: EPOETIN ALFA-EPBX 10,000 UNIT/ML VIAL IVPUSH ONE (12:25)
== END 2024-05-25 01:45 | DRG 720 ==
LOC: JER 06:39 → JERBED 10:04 → JICU 14:05 → J8W 05-21 10:10
PROVIDERS: ADMIT Internal Medicine Pulmonary Disease; ATTEND Nurse Practitioner Family
PROC: 0BH17EZ Insertion of Endotracheal Airway into Trachea, Via Natural or Artificial Opening (ICD-10-PCS; principal; 2024-05-19)
PROC: 5A1945Z Respiratory Ventilation, 24-96 Consecutive Hours (ICD-10-PCS; 2024-05-19)
DX: A41.89 Other specified sepsis (principal); J69.0 Pneumonitis due to inhalation of food and vomit; R65.20 Severe sepsis without septic shock; J96.01 Acute respiratory failure with hypoxia; I25.10 Atherosclerotic heart disease of native coronary artery without angina pectoris; E78.5 Hyperlipidemia, unspecified; F19.20 Other psychoactive substance dependence, uncomplicated; A04.72 Enterocolitis due to Clostridium difficile, not specified as recurrent; F31.9 Bipolar disorder, unspecified; D64.9 Anemia, unspecified; I12.0 Hypertensive chronic kidney disease with stage 5 chronic kidney disease or end stage renal disease; E11.22 Type 2 diabetes mellitus with diabetic chronic kidney disease; N18.6 End stage renal disease; L60.0 Ingrowing nail; Z99.2 Dependence on renal dialysis; Z95.1 Presence of aortocoronary bypass graft
CPT/HCPCS: 0241U-QW; 36415; 36600; 70450-TC; 71045-TC-FY; 71250-TC; 76705-TC; 80048; 80053; 81003; 82803; 82962; 82977; 83036; 83605; 83735; 84100; 84443; 84484; 85025; 85027; 85610; 85730; 86704; 86705; 86803; 86850; 86900; 86901; 87040; 87070; 87081; 87086; 87205; 87324; 87340; 87449; 87493; 93005; 93010; 94002; 99291; G0480; J1644; Q5106

== ENCOUNTER 2024-06-05 16:05 | Inpatient (IN) | payer OTHER ==
[2024-06-05 18:21] LABS: VENOUS BASE EXCESS -7.4 mmol/L (-2-2); VENOUS O2 SATURATION 70.1 % (70-80); VENOUS PCO2 58.7 mmHg (38-52)
[2024-06-05 18:22] LABS: VENOUS PH 7.179 (7.310-7.410)
[2024-06-05 18:25] LABS: BASO % 1.9 % (0-2.0); EOS % 0.6 % (0-4.5); HEMATOCRIT 31.3 % (32.4-45.2); HEMOGLOBIN 9.8 GM/dL (10.7-15.3); LYMPH % 21.6 % (8-40); MCH 25.5 pg (25.7-33.7); MCHC 31.2 g/dl (32.0-36.0); MEAN CELL VOLUME 81.7 fl (80-96); MONO % 16.3 % (3.8-10.2); NEUT % 59.6 % (42.8-82.8); RBC 3.83 M/mm3 (3.60-5.2); WHITE BLOOD COUNT 5.9 K/mm3 (4.0-10.0)
[2024-06-05 18:43] LABS: MEAN PLT VOLUME 8.8 fl (7.5-11.1); PLATELET COUNT 233 10^3/uL (134-434)
[2024-06-05 18:43] LABS: CHLORIDE 98 mmol/L (98-107); POTASSIUM 5.9 mmol/L (3.5-5.1); SODIUM 135 mmol/L (136-145)
[2024-06-05 18:45] LABS: ALBUMIN 3.2 g/dl (3.4-5.0); ANION GAP 14 mmol/L (4-13); BLOOD UREA NITROGEN 40.5 mg/dL (7-18); CALCIUM 8.8 mg/dL (8.5-10.1); CO2 23 mmol/L (21-32); GLUCOSE,RANDOM 94 mg/dL (74-106)
[2024-06-05 18:48] LABS: SGPT/ALT 14 U/L (13-61)
[2024-06-05 18:50] LABS: BILIRUBIN,TOTAL 0.6 mg/dL (0.2-1); CREATININE 7.7 mg/dL (0.55-1.3); SGOT/AST 28 U/L (15-37); TOT PROT 7.2 g/dl (6.4-8.2)
[2024-06-05 18:54] LABS: ALK PHOS 109 U/L (45-117); N-TERMINAL BNP 12911.6 pg/ml (5-125)
[2024-06-05] MEDS ORDERED: KETAMINE HCL 200 MG/20 ML VIAL ONE (20:38)
[2024-06-05] MEDS ORDERED: ROCURONIUM BROMIDE 50 MG/5 ML SYRINGE ONE ×2 (20:39→20:47)
[2024-06-05] MEDS: ROCURONIUM BROMIDE 50 MG/5 ML VIAL IV ONE (20:50)
[2024-06-05] MEDS: KETAMINE HCL 200 MG/20 ML VIAL IVPUSH ONE (20:50)
[2024-06-05 21:21] LABS: MAGNESIUM 2.5 mg/dL (1.8-2.4)
[2024-06-05] MEDS ORDERED: VANCOMYCIN 1 GRAM (PRE-DOCKED) 1,000 MG/250 ML BAG IVPB ONE (21:52)
[2024-06-05] MEDS ORDERED: PIPERACILLIN/TAZOB 2.25 GM 2.25 GM/50 ML BAG IVPB ONE (21:52)
[2024-06-05] MEDS ORDERED: MIDAZOLAM IN 0.9 % SOD.CHLORID 1 MG/1 ML PLAST..BAG ONE (21:52)
[2024-06-05] MEDS: MIDAZOLAM IN 0.9 % SOD.CHLORID 100 MG/100 ML PLAST..BAG IVPB SCH (21:56)
[2024-06-05] MEDS: PIPERACILLIN/TAZOB 3.375 GM 2.25 GM in DEXTROSE 5%-WATER - 50 ML IVPB ONE (22:00)
[2024-06-05] MEDS: VANCOMYCIN 1,000 MG in DEXTROSE 5%-WATER - 250 ML IVPB ONE (22:23)
[2024-06-05] MEDS ORDERED: PROPOFOL 1,000,000 MCG/100 ML VIAL IVPB SCH (23:30)
[2024-06-05] MEDS ORDERED: ALBUTEROL SO4 2.5/IPRATROPIUM 0.5 INH SOL 3 ML VIAL.NEB. NEB PRN (23:46)
[2024-06-05] MEDS ORDERED: ACETAMINOPHEN 1000 MG/100 ML BAG IVPB PRN (23:50)
[2024-06-06] MEDS: FENTANYL NS IVPB 500 MCG/100 ML BAG IVPB SCH (00:52)
[2024-06-06] MEDS: CALCIUM GLUCONATE 10% - 1,000 MG/10 ML VIAL IVPB ONE (00:55)
[2024-06-06] MEDS: REMDESIVIR 200 MG in SODIUM CHLORIDE 250 ML IVPB ONE (00:57)
[2024-06-06] MEDS ORDERED: REMDESIVIR 200 MG in SODIUM CHLORIDE 250 ML IVPB ONE (01:00)
[2024-06-06] MEDS: DEXTROSE 50%-WATER 25 GM/50 ML DISP.SYRIN IVPUSH ONE (01:00)
[2024-06-06] MEDS: DEXAMETHASONE SOD PHOSPHATE 10 MG/1 ML VIAL IVPUSH SCH (01:03)
[2024-06-06] MEDS: INSULIN REGULAR HUMAN 100 UNITS/ML *VIAL IVPUSH ONE (01:03)
[2024-06-06] MEDS: PROPOFOL 1,000,000 MCG/100 ML VIAL IVPB SCH (01:08)
[2024-06-06] MEDS: HEPARIN NA (PORCINE) 5,000 UNITS/ML 1ML VIAL SQ SCH (06:00)
[2024-06-06 06:22] LABS: ARTERIAL BLD GAS O2 SATURATION 81.5 % (95-98); ARTERIAL BLOOD GAS BASE EXCESS -6.6 mmol/L (-2-2); ARTERIAL BLOOD GAS PO2 49.5 mmHg (80-100); ARTERIAL BLOOD GAS pH 7.304 (7.350-7.450)
[2024-06-06 06:33] LABS: ALLENS TEST POSITIVE; VENT MODE A/C
[2024-06-06 06:34] LABS: VENT RATE 18
[2024-06-06 06:54] LABS: BASO % 1.4 % (0-2.0); EOS % 0.2 % (0-4.5); HEMATOCRIT 31.5 % (32.4-45.2); HEMOGLOBIN 9.8 GM/dL (10.7-15.3); LYMPH % 6.8 % (8-40); MCH 25.4 pg (25.7-33.7); MEAN CELL VOLUME 81.8 fl (80-96); MEAN PLT VOLUME 8.1 fl (7.5-11.1); MONO % 3.7 % (3.8-10.2); NEUT % 87.9 % (42.8-82.8); PLATELET COUNT 173 10^3/uL (134-434); RBC 3.85 M/mm3 (3.60-5.2); RDW 19.4 % (11.6-15.6); WHITE BLOOD COUNT 5.1 K/mm3 (4.0-10.0)
[2024-06-06 07:08] LABS: CHLORIDE 100 mmol/L (98-107); POTASSIUM 5.4 mmol/L (3.5-5.1); SODIUM 133 mmol/L (136-145)
[2024-06-06 07:16] LABS: GLUCOSE,RANDOM 126 mg/dL (74-106)
[2024-06-06 07:17] LABS: ANION GAP 14 mmol/L (4-13); BLOOD UREA NITROGEN 43.3 mg/dL (7-18); CALCIUM 8.9 mg/dL (8.5-10.1); CO2 19 mmol/L (21-32)
[2024-06-06 07:18] LABS: MAGNESIUM 2.5 mg/dL (1.8-2.4); PHOSPHOROUS 4.9 mg/dL (2.5-4.9); SGPT/ALT 13 U/L (13-61); TOT PROT 6.9 g/dl (6.4-8.2)
[2024-06-06 07:19] LABS: ALK PHOS 106 U/L (45-117); SGOT/AST 10 U/L (15-37)
[2024-06-06 07:24] LABS: BILIRUBIN,TOTAL 0.5 mg/dL (0.2-1)
[2024-06-06 07:27] LABS: CREATININE 7.9 mg/dL (0.55-1.3); LACTIC ACID 4.6 mmol/L (0.4-2.0)
[2024-06-06] MEDS ORDERED: SODIUM CHLORIDE 250 ML IV PRN (08:24)
[2024-06-06] MEDS: PIPERACILLIN/TAZOB 2.25 GM 3.375 GM in DEXTROSE 5%-WATER - 50 ML IVPB SCH (09:39)
[2024-06-06] MEDS: PANTOPRAZOLE SODIUM 40 MG VIAL IVPUSH SCH (09:40)
[2024-06-06] MEDS: SODIUM ZIRCONIUM CYCLOSILICATE (LOKELMA) 5 GM PACKET GT SCH (09:47)
[2024-06-06] MEDS ORDERED: PIPERACILLIN/TAZOB 3.375 GM 3.375 GM in DEXTROSE 5%-WATER - 50 ML IVPB SCH (10:00)
[2024-06-06] MEDS: MUPIROCIN 2% TOPICAL OINTMENT FOR DECOLONIZATION NS SCH (10:08)
[2024-06-06] MEDS: DEXMEDETOMIDINE PREMIX 400 MCG/100 ML BAG IVPB SCH (12:28)
[2024-06-06 13:38] LABS: LACTIC ACID 4.4 mmol/L (0.4-2.0)
[2024-06-06] MEDS: EPOETIN ALFA-EPBX 4,000 UNIT/ML VIAL IVPUSH ONE (15:00)
[2024-06-06 15:29] LABS: LACTIC ACID 2.7 mmol/L (0.4-2.0)
[2024-06-06] MEDS: hydrALAZINE HCL 20 MG/ML VIAL IVPUSH PRN (16:25)
[2024-06-06] MEDS: hydrALAZINE HCL 20 MG/ML VIAL IVPUSH ONE ×2 (18:33→20:24)
[2024-06-06] MEDS: CHLORHEXIDINE GLUCONATE 4% CLEANSER FOR DECOLONIZATION TP SCH (21:39)
[2024-06-06] MEDS: NICARDIPINE 25 MG in DEXTROSE 5%-WATER - 240 ML IVPB SCH (23:52)
[2024-06-07 06:52] LABS: POTASSIUM 3.8 mmol/L (3.5-5.1)
[2024-06-07 06:55] LABS: CALCIUM 8.3 mg/dL (8.5-10.1)
[2024-06-07 06:56] LABS: ALBUMIN 2.9 g/dl (3.4-5.0); BLOOD UREA NITROGEN 31.7 mg/dL (7-18)
[2024-06-07 06:59] LABS: CREATININE 4.7 mg/dL (0.55-1.3); PHOSPHOROUS 4.4 mg/dL (2.5-4.9)
[2024-06-07 07:03] LABS: TOT PROT 6.8 g/dl (6.4-8.2)
[2024-06-07 07:06] LABS: BILIRUBIN,TOTAL 0.5 mg/dL (0.2-1)
[2024-06-07 07:16] LABS: HEMATOCRIT 36.4 % (32.4-45.2); HEMOGLOBIN 11.6 GM/dL (10.7-15.3); MCH 25.5 pg (25.7-33.7); MCHC 31.8 g/dl (32.0-36.0); MEAN CELL VOLUME 80.1 fl (80-96); MEAN PLT VOLUME 8.9 fl (7.5-11.1); PLATELET COUNT 213 10^3/uL (134-434); RBC 4.54 M/mm3 (3.60-5.2); RDW 19.9 % (11.6-15.6); WHITE BLOOD COUNT 5.1 K/mm3 (4.0-10.0)
[2024-06-07] MEDS ORDERED: REMDESIVIR 100 MG in SODIUM CHLORIDE 250 ML IVPB SCH (10:00)
[2024-06-07] MEDS: REMDESIVIR 100 MG in SODIUM CHLORIDE 250 ML IVPB SCH (10:03)
[2024-06-07] MEDS ORDERED: SODIUM CHLORIDE 250 ML IV PRN (13:01)
[2024-06-07] MEDS: PIPERACILLIN/TAZOB 2.25 GM 3.375 GM in DEXTROSE 5%-WATER - 50 ML IVPB SCH (13:47)
[2024-06-07] MEDS: PIPERACILLIN/TAZOB 2.25 GM 2.25 GM in DEXTROSE 5%-WATER - 50 ML IVPB SCH (18:19)
[2024-06-07] MEDS: NICARDIPINE 25 MG in DEXTROSE 5%-WATER - 240 ML IVPB SCH (19:30)
[2024-06-08] MEDS ORDERED: REMDESIVIR 100 MG in SODIUM CHLORIDE 270 ML IVPB ONE (01:00)
[2024-06-08 07:16] LABS: POTASSIUM 3.6 mmol/L (3.5-5.1)
[2024-06-08 07:31] LABS: CALCIUM 7.8 mg/dL (8.5-10.1)
[2024-06-08 07:32] LABS: ALBUMIN 2.8 g/dl (3.4-5.0); BLOOD UREA NITROGEN 50.9 mg/dL (7-18); MAGNESIUM 2.1 mg/dL (1.8-2.4)
[2024-06-08 07:35] LABS: PHOSPHOROUS 4.7 mg/dL (2.5-4.9)
[2024-06-08 07:36] LABS: BILIRUBIN,TOTAL 0.4 mg/dL (0.2-1); TOT PROT 6.4 g/dl (6.4-8.2)
[2024-06-08] MEDS ORDERED: LABETALOL HCL 5 MG/1 ML (100MG/20 ML VIAL) IVPB PRN ×2 (10:40→10:51)
[2024-06-08] MEDS ORDERED: hydrALAZINE HCL 20 MG/ML VIAL IVPB PRN (10:51)
[2024-06-08] MEDS ORDERED: EPOETIN ALFA-EPBX 4,000 UNIT/ML VIAL SQ ONE (13:01)
[2024-06-08] MEDS: ENALAPRIL MALEATE 5 MG TABLET PO SCH (15:00)
[2024-06-08] MEDS: amLODIPine BESYLATE 10 MG TABLET (FP) PO ONE (15:00)
[2024-06-08 15:47] VITALS: BMI 26.4
[2024-06-08] MEDS: CARVEDILOL 12.5 MG TABLET (FP) PO SCH (23:02)
[2024-06-09] MEDS ORDERED: REMDESIVIR 100 MG in SODIUM CHLORIDE 270 ML IVPB ONE (01:00)
[2024-06-09 07:06] LABS: HEMATOCRIT 32.8 % (32.4-45.2); HEMOGLOBIN 10.4 GM/dL (10.7-15.3); MCHC 31.6 g/dl (32.0-36.0); MEAN CELL VOLUME 78.9 fl (80-96); MEAN PLT VOLUME 7.7 fl (7.5-11.1); PLATELET COUNT 226 10^3/uL (134-434); RBC 4.16 M/mm3 (3.60-5.2); RDW 19.5 % (11.6-15.6); WHITE BLOOD COUNT 6.3 K/mm3 (4.0-10.0)
[2024-06-09 07:28] LABS: POTASSIUM 3.6 mmol/L (3.5-5.1)
[2024-06-09 07:35] LABS: CALCIUM 7.8 mg/dL (8.5-10.1)
[2024-06-09 07:36] LABS: ALBUMIN 2.7 g/dl (3.4-5.0); MAGNESIUM 2.2 mg/dL (1.8-2.4)
[2024-06-09 07:39] LABS: CREATININE 7.2 mg/dL (0.55-1.3); PHOSPHOROUS 4.9 mg/dL (2.5-4.9)
[2024-06-09 07:40] LABS: BILIRUBIN,TOTAL 0.4 mg/dL (0.2-1); TOT PROT 6.1 g/dl (6.4-8.2)
[2024-06-09] MEDS: ENALAPRIL MALEATE 5 MG TABLET PO SCH (09:54)
[2024-06-09] MEDS ORDERED: SODIUM CHLORIDE 250 ML IV PRN (10:14)
[2024-06-09] MEDS: amLODIPine BESYLATE 10 MG TABLET (FP) PO ONE (17:11)
[2024-06-10 06:20] LABS: HEMATOCRIT 35.1 % (32.4-45.2); HEMOGLOBIN 11.1 GM/dL (10.7-15.3); MCH 24.8 pg (25.7-33.7); MCHC 31.5 g/dl (32.0-36.0); MEAN CELL VOLUME 78.7 fl (80-96); MEAN PLT VOLUME 7.7 fl (7.5-11.1); PLATELET COUNT 238 10^3/uL (134-434); RBC 4.46 M/mm3 (3.60-5.2); RDW 19.2 % (11.6-15.6); WHITE BLOOD COUNT 11.6 K/mm3 (4.0-10.0)
[2024-06-10 07:13] LABS: ALBUMIN 3.1 g/dl (3.4-5.0); BILIRUBIN,TOTAL 0.5 mg/dL (0.2-1); BLOOD UREA NITROGEN 49.9 mg/dL (7-18); CALCIUM 8.6 mg/dL (8.5-10.1); MAGNESIUM 2.1 mg/dL (1.8-2.4); PHOSPHOROUS 2.8 mg/dL (2.5-4.9); POTASSIUM 3.3 mmol/L (3.5-5.1); TOT PROT 6.9 g/dl (6.4-8.2)
[2024-06-10] MEDS: POTASSIUM CHLORIDE ORAL LIQUID 20 MEQ/15 ML PO ONE (09:31)
[2024-06-10] MEDS: amLODIPine BESYLATE 10 MG TABLET (FP) PO SCH (09:32)
[2024-06-10 09:42] LABS: ANISOCYTOSIS 0; HELMET CELLS 0; HOWELL-JOLLY BODIES 0; MACROCYTOSIS 0; OVALOCYTE 0; ROULEAU 0; SICKELED CELLS 0; TARGET CELLS 0; TEAR DROP CELLS 0; TOXIC GRANULATION 0
[2024-06-10] MEDS: ENALAPRIL MALEATE 5 MG TABLET PO SCH (11:44)
[2024-06-10] MEDS ORDERED: EPOETIN ALFA-EPBX 4,000 UNIT/ML VIAL SQ ONE (19:16)
[2024-06-10] MEDS ORDERED: ALBUTEROL SO4 2.5/IPRATROPIUM 0.5 INH SOL 3 ML VIAL.NEB. NEB PRN (19:16)
[2024-06-10] MEDS ORDERED: SODIUM CHLORIDE 250 ML IV PRN ×2 (19:16)
[2024-06-10] MEDS: CHLORHEXIDINE GLUCONATE 4% CLEANSER FOR DECOLONIZATION TP SCH (21:38)
[2024-06-10] MEDS: MUPIROCIN 2% TOPICAL OINTMENT FOR DECOLONIZATION NS SCH (21:38)
[2024-06-10] MEDS: HEPARIN NA (PORCINE) 5,000 UNITS/ML 1ML VIAL SQ SCH (21:40)
[2024-06-10] MEDS: CARVEDILOL 12.5 MG TABLET (FP) PO SCH (21:40)
[2024-06-11 07:26] LABS: HEMATOCRIT 36.3 % (32.4-45.2); HEMOGLOBIN 11.6 GM/dL (10.7-15.3); MCHC 31.9 g/dl (32.0-36.0); MEAN CELL VOLUME 78.2 fl (80-96); MEAN PLT VOLUME 8.3 fl (7.5-11.1); PLATELET COUNT 262 10^3/uL (134-434); RBC 4.63 M/mm3 (3.60-5.2); RDW 19.7 % (11.6-15.6); WHITE BLOOD COUNT 9.4 K/mm3 (4.0-10.0)
[2024-06-11 07:49] LABS: POTASSIUM 3.8 mmol/L (3.5-5.1)
[2024-06-11 07:54] LABS: ALBUMIN 2.9 g/dl (3.4-5.0); BLOOD UREA NITROGEN 64.2 mg/dL (7-18); CALCIUM 8.3 mg/dL (8.5-10.1); MAGNESIUM 2.2 mg/dL (1.8-2.4)
[2024-06-11 07:57] LABS: CREATININE 6.4 mg/dL (0.55-1.3); PHOSPHOROUS 4.2 mg/dL (2.5-4.9)
[2024-06-11 07:59] LABS: BILIRUBIN,TOTAL 0.4 mg/dL (0.2-1); TOT PROT 6.7 g/dl (6.4-8.2)
[2024-06-11] MEDS: amLODIPine BESYLATE 10 MG TABLET (FP) PO SCH (10:48)
[2024-06-11] MEDS: ENALAPRIL MALEATE 10 MG TABLET PO SCH (10:48)
[2024-06-11] MEDS: DEXAMETHASONE SOD PHOSPHATE 10 MG/1 ML VIAL IVPUSH SCH (10:49)
[2024-06-12 06:40] LABS: POTASSIUM 3.9 mmol/L (3.5-5.1)
[2024-06-12 06:41] LABS: CALCIUM 7.8 mg/dL (8.5-10.1)
[2024-06-12 06:42] LABS: BLOOD UREA NITROGEN 77.4 mg/dL (7-18)
[2024-06-12 06:45] LABS: CREATININE 7.1 mg/dL (0.55-1.3)
[2024-06-12 07:00] LABS: BASO % 0.4 % (0-2.0); EOS % 5.1 % (0-4.5); HEMATOCRIT 35.2 % (32.4-45.2); HEMOGLOBIN 11.5 GM/dL (10.7-15.3); LYMPH % 28.5 % (8-40); MCH 25.6 pg (25.7-33.7); MCHC 32.8 g/dl (32.0-36.0); MEAN PLT VOLUME 8.6 fl (7.5-11.1); MONO % 14.2 % (3.8-10.2); NEUT % 51.8 % (42.8-82.8); PLATELET COUNT 253 10^3/uL (134-434); RBC 4.51 M/mm3 (3.60-5.2); RDW 19.7 % (11.6-15.6); WHITE BLOOD COUNT 9.4 K/mm3 (4.0-10.0)
[2024-06-12] MEDS: AMINO ACIDS/PROTEIN HYDROLYS 30 ML LIQUID.PKT PO SCH (18:02)
[2024-06-13 07:10] LABS: CHLORIDE 100 mmol/L (98-107); SODIUM 135 mmol/L (136-145)
[2024-06-13 07:16] LABS: ALBUMIN 2.3 g/dl (3.4-5.0); CALCIUM 7.5 mg/dL (8.5-10.1); CO2 21 mmol/L (21-32)
[2024-06-13 07:17] LABS: BLOOD UREA NITROGEN 99.2 mg/dL (7-18); GLUCOSE,RANDOM 95 mg/dL (74-106)
[2024-06-13 07:19] LABS: SGPT/ALT 29 U/L (13-61)
[2024-06-13 07:20] LABS: SGOT/AST 25 U/L (15-37)
[2024-06-13 07:21] LABS: BILIRUBIN,TOTAL 0.5 mg/dL (0.2-1)
[2024-06-13 07:22] LABS: ALK PHOS 110 U/L (45-117); TOT PROT 5.9 g/dl (6.4-8.2)
[2024-06-13 07:31] LABS: HEMATOCRIT 36.2 % (32.4-45.2); HEMOGLOBIN 11.5 GM/dL (10.7-15.3); MCH 25.3 pg (25.7-33.7); MCHC 31.8 g/dl (32.0-36.0); MEAN CELL VOLUME 79.8 fl (80-96); MEAN PLT VOLUME 9.2 fl (7.5-11.1); PLATELET COUNT 190 10^3/uL (134-434); RBC 4.54 M/mm3 (3.60-5.2); RDW 19.9 % (11.6-15.6); WHITE BLOOD COUNT 10.2 K/mm3 (4.0-10.0)
[2024-06-13 08:03] LABS: ANION GAP 14 mmol/L (4-13); POTASSIUM 6.2 mmol/L (3.5-5.1)
[2024-06-13 10:11] LABS: CHLORIDE 99 mmol/L (98-107); POTASSIUM 4.8 mmol/L (3.5-5.1); SODIUM 134 mmol/L (136-145)
[2024-06-13 10:13] LABS: ANION GAP 15 mmol/L (4-13); CALCIUM 7.7 mg/dL (8.5-10.1); CO2 20 mmol/L (21-32)
[2024-06-13 10:14] LABS: BLOOD UREA NITROGEN 97.3 mg/dL (7-18); GLUCOSE,RANDOM 112 mg/dL (74-106)
[2024-06-13 10:21] LABS: CREATININE 8.1 mg/dL (0.55-1.3)
[2024-06-13] MEDS ORDERED: SODIUM CHLORIDE 250 ML IV PRN (12:55)
[2024-06-13] MEDS: HEPARIN NA (PORCINE) 5,000 UNITS/ML 1ML VIAL IVPUSH ONE (12:57)
[2024-06-13] MEDS: ENALAPRIL MALEATE 10 MG TABLET PO SCH (13:06)
[2024-06-13] MEDS: VITAMIN B COMP W-C 1 EA TABLET (NEPHRO-VITE) PO SCH (13:06)
[2024-06-13] MEDS: SILVER SULFADIAZINE 1% TOP CREAM 50 GM JAR TP SCH (13:07)
[2024-06-13] MEDS: LACTOBACILLUS ACIDOPHILUS 1 TABLET PO SCH (21:31)
[2024-06-14 07:02] LABS: POTASSIUM 3.7 mmol/L (3.5-5.1)
[2024-06-14 07:09] LABS: CALCIUM 7.2 mg/dL (8.5-10.1)
[2024-06-14 07:10] LABS: ALBUMIN 2.3 g/dl (3.4-5.0)
[2024-06-14 07:13] LABS: CREATININE 5.5 mg/dL (0.55-1.3)
[2024-06-14 07:15] LABS: TOT PROT 5.5 g/dl (6.4-8.2)
[2024-06-14 07:37] LABS: BILIRUBIN,TOTAL 0.4 mg/dL (0.2-1)
[2024-06-14 08:18] LABS: HEMATOCRIT 33.1 % (32.4-45.2); HEMOGLOBIN 10.5 GM/dL (10.7-15.3); MCH 25.3 pg (25.7-33.7); MCHC 31.8 g/dl (32.0-36.0); MEAN CELL VOLUME 79.4 fl (80-96); MEAN PLT VOLUME 8.9 fl (7.5-11.1); PLATELET COUNT 199 10^3/uL (134-434); RBC 4.17 M/mm3 (3.60-5.2); RDW 19.9 % (11.6-15.6); WHITE BLOOD COUNT 10.5 K/mm3 (4.0-10.0)
[2024-06-14] MEDS ORDERED: SODIUM CHLORIDE 250 ML IV PRN (10:55)
[2024-06-14] MEDS: VANCOMYCIN ORAL SOLUTION 125 MG/2.5 ML PO SCH (11:52)
[2024-06-15] MEDS: HEPARIN NA (PORCINE) 5,000 UNITS/ML 1ML VIAL IVPUSH ONE (12:00)
[2024-06-15 12:41] LABS: HEMATOCRIT 33.3 % (32.4-45.2); HEMOGLOBIN 10.8 GM/dL (10.7-15.3); MCH 25.4 pg (25.7-33.7); MCHC 32.3 g/dl (32.0-36.0); MEAN CELL VOLUME 78.6 fl (80-96); MEAN PLT VOLUME 9.1 fl (7.5-11.1); PLATELET COUNT 183 10^3/uL (134-434); RBC 4.23 M/mm3 (3.60-5.2); RDW 20.3 % (11.6-15.6); WHITE BLOOD COUNT 9.9 K/mm3 (4.0-10.0)
[2024-06-15 13:05] LABS: POTASSIUM 4.1 mmol/L (3.5-5.1)
[2024-06-15 13:09] LABS: BLOOD UREA NITROGEN 73.2 mg/dL (7-18); CALCIUM 7.7 mg/dL (8.5-10.1)
[2024-06-15 13:13] LABS: CREATININE 7.1 mg/dL (0.55-1.3)
[2024-06-15] MEDS: EPOETIN ALFA-EPBX 4,000 UNIT/ML VIAL IVPUSH ONE (13:53)
[2024-06-16 08:00] LABS: POTASSIUM 3.8 mmol/L (3.5-5.1)
[2024-06-16 08:10] LABS: CREATININE 4.4 mg/dL (0.55-1.3)
[2024-06-16 08:17] LABS: BLOOD UREA NITROGEN 38.6 mg/dL (7-18)
[2024-06-16] MEDS: MELATONIN 5 MG TABLETS PO ONE (23:30)
[2024-06-17] MEDS ORDERED: SODIUM CHLORIDE 250 ML IV PRN (08:38)
[2024-06-17] MEDS: EPOETIN ALFA-EPBX 4,000 UNIT/ML VIAL SQ SCH (09:50)
[2024-06-17 10:02] LABS: HEMATOCRIT 32.5 % (32.4-45.2); HEMOGLOBIN 10.3 GM/dL (10.7-15.3); MCH 25.1 pg (25.7-33.7); MCHC 31.8 g/dl (32.0-36.0); MEAN PLT VOLUME 9.5 fl (7.5-11.1); PLATELET COUNT 183 10^3/uL (134-434); RBC 4.11 M/mm3 (3.60-5.2); RDW 20.3 % (11.6-15.6); WHITE BLOOD COUNT 10.7 K/mm3 (4.0-10.0)
[2024-06-17 11:16] LABS: POTASSIUM 3.7 mmol/L (3.5-5.1)
[2024-06-17 12:12] LABS: ALBUMIN 2.3 g/dl (3.4-5.0); BLOOD UREA NITROGEN 49.3 mg/dL (7-18); CALCIUM 8.2 mg/dL (8.5-10.1)
[2024-06-17 12:16] LABS: BILIRUBIN,TOTAL 0.3 mg/dL (0.2-1); TOT PROT 5.6 g/dl (6.4-8.2)
[2024-06-18 12:26] LABS: POTASSIUM 4.4 mmol/L (3.5-5.1)
[2024-06-18 12:27] LABS: CALCIUM 9.1 mg/dL (8.5-10.1)
[2024-06-18 12:28] LABS: BLOOD UREA NITROGEN 36.1 mg/dL (7-18)
[2024-06-18 12:31] LABS: CREATININE 4.7 mg/dL (0.55-1.3)
[2024-06-19] MEDS ORDERED: SODIUM CHLORIDE 250 ML IV PRN (13:32)
[2024-06-20 09:37] LABS: HEMATOCRIT 34.2 % (32.4-45.2); HEMOGLOBIN 10.9 GM/dL (10.7-15.3); MCH 25.1 pg (25.7-33.7); MCHC 31.8 g/dl (32.0-36.0); MEAN CELL VOLUME 78.9 fl (80-96); MEAN PLT VOLUME 9.1 fl (7.5-11.1); PLATELET COUNT 214 10^3/uL (134-434); RBC 4.34 M/mm3 (3.60-5.2); RDW 20.3 % (11.6-15.6); WHITE BLOOD COUNT 7.2 K/mm3 (4.0-10.0)
[2024-06-20 09:55] LABS: POTASSIUM 4.5 mmol/L (3.5-5.1)
[2024-06-20 09:57] LABS: ALBUMIN 2.6 g/dl (3.4-5.0); BLOOD UREA NITROGEN 50.2 mg/dL (7-18); CALCIUM 8.7 mg/dL (8.5-10.1)
[2024-06-20 10:00] LABS: CREATININE 7.3 mg/dL (0.55-1.3)
[2024-06-20 10:02] LABS: BILIRUBIN,TOTAL 0.4 mg/dL (0.2-1); TOT PROT 6.5 g/dl (6.4-8.2)
[2024-06-20] MEDS: HEPARIN NA (PORCINE) 5,000 UNITS/ML 1ML VIAL IVPUSH ONE (12:31)
[2024-06-20] MEDS: EPOETIN ALFA-EPBX 4,000 UNIT/ML VIAL IVPUSH ONE (12:32)
[2024-06-20] MEDS: HEPARIN NA (PORCINE) 5,000 UNITS/ML 1ML VIAL SQ SCH (15:52)
[2024-06-20] MEDS: CARVEDILOL 25 MG TABLET (FP) PO SCH (21:34)
[2024-06-21] MEDS ORDERED: SODIUM CHLORIDE 250 ML IV PRN (11:47)
[2024-06-22 13:11] LABS: HEMATOCRIT 33.5 % (32.4-45.2); HEMOGLOBIN 11.2 GM/dL (10.7-15.3); MCH 26.3 pg (25.7-33.7); MCHC 33.3 g/dl (32.0-36.0); MEAN CELL VOLUME 78.8 fl (80-96); PLATELET COUNT 202 10^3/uL (134-434); RBC 4.25 M/mm3 (3.60-5.2); RDW 20.5 % (11.6-15.6); WHITE BLOOD COUNT 6.9 K/mm3 (4.0-10.0)
[2024-06-22 13:30] LABS: POTASSIUM 4.4 mmol/L (3.5-5.1)
[2024-06-22 13:35] LABS: ALBUMIN 2.6 g/dl (3.4-5.0); BLOOD UREA NITROGEN 42.9 mg/dL (7-18); CALCIUM 8.9 mg/dL (8.5-10.1)
[2024-06-22 13:40] LABS: BILIRUBIN,TOTAL 0.6 mg/dL (0.2-1); TOT PROT 6.2 g/dl (6.4-8.2)
[2024-06-22 17:04] VITALS: RESP 18
[2024-06-23 09:02] VITALS: TEMP 98.2
[2024-06-23] MEDS ORDERED: SODIUM CHLORIDE 250 ML IV PRN (10:08)
[2024-06-23 14:24] VITALS: BP 130/54; PULSE 62
== END 2024-06-23 15:09 | disposition home or self-care (01) | DRG 137 ==
LOC: JER 16:05 → JERBED 21:08 → JICU 06-06 00:41 → J2W 06-09 07:16 → J4W 06-17 18:53
PROVIDERS: ADMIT Internal Medicine Pulmonary Disease; ATTEND Internal Medicine
PROC: 5A1945Z Respiratory Ventilation, 24-96 Consecutive Hours (ICD-10-PCS; principal; 2024-06-05)
PROC: 0BH17EZ Insertion of Endotracheal Airway into Trachea, Via Natural or Artificial Opening (ICD-10-PCS; 2024-06-05)
PROC: XW033E5 Introduction of Remdesivir Anti-infective into Peripheral Vein, Percutaneous Approach, New Technology Group 5 (ICD-10-PCS; 2024-06-06)
PROC: 5A1D70Z Performance of Urinary Filtration, Intermittent, Less than 6 Hours Per Day (ICD-10-PCS; 2024-06-06)
DX: U07.1 COVID-19 (principal); J96.21 Acute and chronic respiratory failure with hypoxia; J12.82 Pneumonia due to coronavirus disease 2019; G93.41 Metabolic encephalopathy; L89.153 Pressure ulcer of sacral region, stage 3; Z99.81 Dependence on supplemental oxygen; I12.0 Hypertensive chronic kidney disease with stage 5 chronic kidney disease or end stage renal disease; N18.6 End stage renal disease; J44.9 Chronic obstructive pulmonary disease, unspecified; E87.20 Acidosis, unspecified; E87.5 Hyperkalemia; E11.649 Type 2 diabetes mellitus with hypoglycemia without coma; E11.22 Type 2 diabetes mellitus with diabetic chronic kidney disease; Z79.84 Long term (current) use of oral hypoglycemic drugs; I25.10 Atherosclerotic heart disease of native coronary artery without angina pectoris; Z99.2 Dependence on renal dialysis; F32.9 Major depressive disorder, single episode, unspecified; D64.9 Anemia, unspecified; I16.0 Hypertensive urgency; D63.1 Anemia in chronic kidney disease
CPT/HCPCS: 0241U-QW; 36415; 36600; 70450-TC; 71045-TC-FY; 80048; 80053; 82308; 82803; 82962; 83605; 83735; 83880; 84100; 85025; 85027; 86140; 87070; 87205; 87340; 87635; 93005; 93010; 94002; 97161-GP; 99285-25; G0480; J0248; J1100; J1644; Q5106